=== PATIENT | female | born 2000 | race Caucasian/White ===

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

== ENCOUNTER 2019-11-30 15:16 | Emergency (ER) | payer BC ==
[~2019-11-30] VITALS: Ht 152.4 cm; Wt 70.5 kg
[2019-11-30 15:17] VITALS: BP 111/55
[2019-11-30] MEDS ORDERED: ESCI10TA2 (15:26)
[2019-11-30] MEDS ORDERED: NEXP1IMP SC (15:26)
[2019-11-30] MEDS ORDERED: LIDO5DIS41 TOP (23:26)
== END 2019-11-30 16:20 | disposition left against medical advice (07) ==
LOC: M ED 15:16
DX: Z53.21 Procedure and treatment not carried out due to patient leaving prior to being seen by health care provider (principal)

== ENCOUNTER 2019-11-30 21:50 | Emergency (ER) | payer BC ==
[~2019-11-30] VITALS: Ht 152.4 cm; Wt 70.1 kg
[~2019-11-30 21:50] MED LIST changes: +ESCI10TA2; +NEXP1IMP SC
[2019-11-30] MEDS ORDERED: LIDOCAINE 5% (LIDODERM) PATCH TD ONE (22:45)
[2019-11-30] MEDS ORDERED: KETOROLAC 60MG 2ML VIAL IM ONE (22:45)
[2019-11-30] MEDS ORDERED: methylPREDNISolone 125MG 2ML VIAL IM ONE (22:45)
[2019-11-30] MEDS ORDERED: LIDO5DIS41 TOP (23:26)
[2019-11-30 23:35] VITALS: BP 110/64
[2019-12-01] MEDS ORDERED: **NOTE PATIENT COMMENT** MISC XX SCH (21:00)
== END 2019-11-30 23:37 | disposition home or self-care (01) ==
LOC: M ED 21:50
DX: S29.011A Strain of muscle and tendon of front wall of thorax, initial encounter (principal); Y92.9 Unspecified place or not applicable; Y93.9 Activity, unspecified; Y99.0 Civilian activity done for income or pay; X50.0XXA Overexertion from strenuous movement or load, initial encounter; Z79.899 Other long term (current) drug therapy
CPT/HCPCS: 96372; 99283; J1885; J2930

== ENCOUNTER → 2020-03-24 | Outpatient (CLI) | payer BC ==
[~2020-03-24] MED LIST changes: +LIDO5DIS41 TOP
== END ==
LOC: M PLALAB 13:31
PROVIDERS: ATTEND Nurse Practitioner Family
DX: E04.0 Nontoxic diffuse goiter (principal)

== ENCOUNTER → 2020-05-08 | Outpatient (REF) | payer BC ==
[2020-05-08 17:59] LABS: FREE T3 3.2 PG/ML (2.9-4.5); FREE T4 0.9 NG/DL (0.78-1.33); THYROID STIMULATING HORMONE 0.051 uIU/ML (0.463-3.98)
[2020-05-08 18:00] LABS: THYROID PEROXIDASE ANTIBODY 169.2 U/ML (<60.0)
[2020-05-08 18:01] LABS: THYROGLOBULIN ANTIBODY 255.8 U/ML (<60.0)
== END ==
LOC: M LAB REF 15:56
PROVIDERS: ATTEND Physician Assistant
DX: E06.3 Autoimmune thyroiditis (principal)

== ENCOUNTER → 2020-06-04 | Outpatient (CLI) | payer BC ==
[~2020-06-04] MED LIST changes: -CLIN150C14 PO; +CLIN150C15 PO; +ESCI10TA16; -ESCI10TA2
--- NOTE | 2020-06-05 13:54 | REP ---
INDICATION: NONTOXIC DIFFUSE GOITER. COMPARISON: None. TECHNIQUE/RADIOTRACER AND DOSE: Following the oral administration of 354 uCi iodine 123 as sodium iodine, images of the thyroid are performed and uptake values are obtained. FINDINGS: The 24 hour uptake is 61.35% which is well above normal range of 25-35%. Both lobes of the thyroid are enlarged measuring between 5 and 6 cm in length. There is diffuse homogeneous increased uptake throughout both lobes of the thyroid. IMPRESSION: Findings compatible with Graves disease. <Electronically signed by Alexsander Roy > 06/05/20 [id number]
== END ==
LOC: M RAD 13:34
PROVIDERS: ATTEND Internal Medicine Endocrinology, Diabetes & Metabolism
DX: E04.0 Nontoxic diffuse goiter (principal)
CPT/HCPCS: 78012; A9516

== ENCOUNTER 2020-06-16 15:02 | Emergency (ER) | payer BC, MEDICAID ==
[~2020-06-16] VITALS: Ht 165.1 cm; Wt 76.5 kg
[2020-06-16 16:51] VITALS: BP 122/78
== END 2020-06-16 16:12 | disposition home or self-care (01) ==
LOC: M ED 15:02
DX: S30.851A Superficial foreign body of abdominal wall, initial encounter (principal); X58.XXXA Exposure to other specified factors, initial encounter; Y92.9 Unspecified place or not applicable; Y93.9 Activity, unspecified; Y99.9 Unspecified external cause status; Z79.3 Long term (current) use of hormonal contraceptives; Z79.899 Other long term (current) drug therapy

== ENCOUNTER → 2020-07-08 | Outpatient (CLI) | payer BC, MEDICAID ==
[2020-07-08 18:14] LABS: FREE T4 0.87 NG/DL (0.78-1.33); THYROID STIMULATING HORMONE 1.62 uIU/ML (0.463-3.98)
== END ==
LOC: M PLALAB 14:28
PROVIDERS: ATTEND Nurse Practitioner Family
DX: E04.0 Nontoxic diffuse goiter (principal)

== ENCOUNTER → 2020-09-10 | Outpatient (CLI) | payer BC, MEDICAID ==
[2020-09-10 14:37] LABS: FREE T4 0.82 NG/DL (0.78-1.33); THYROID STIMULATING HORMONE 0.989 uIU/ML (0.463-3.98)
== END ==
LOC: M PLALAB 10:50
PROVIDERS: ATTEND Nurse Practitioner Family
DX: E04.0 Nontoxic diffuse goiter (principal)

== ENCOUNTER → 2021-01-15 | Outpatient (CLI) | payer BC, MEDICAID ==
[~2021-01-15] MED LIST changes: -CLIN150C15 PO; +CLIN150C17 PO
[2021-01-15 16:21] LABS: FREE T4 0.92 NG/DL (0.76-1.46); THYROID STIMULATING HORMONE 0.944 uIU/ML (0.358-3.740)
== END ==
LOC: M PLALAB 11:25
PROVIDERS: ATTEND Internal Medicine Endocrinology, Diabetes & Metabolism
DX: E04.0 Nontoxic diffuse goiter (principal)

== ENCOUNTER → 2021-03-02 | Outpatient (CLI) | payer BC, MEDICAID ==
--- NOTE | 2021-03-02 16:59 | REP ---
INDICATION: IRREGULAR MENSES. COMPARISON: CT 03/06/2018. TECHNIQUE: Transabdominal scanning performed. FINDINGS: Uterine dimensions are 7.8 x 2.8 x 4.4 cm. Endometrial echo is 4 mm in AP dimension and centrally placed. The bladder measures 8.6 x 5.2 x 8.4cm. The right ovary has dimensions of 4.5 x 1.9 x 2.2 cm. It's Doppler flow is normal with a resistive index of 0.62. The left ovary dimensions are 4.3 x 3.0 x 3.9 cm. It's Doppler flow was normal with resistive index of 0.60. A cyst of the left ovary measures 3.0 x 1.9 x 3.1 cm. No free fluid is seen in the cul-de-sac. IMPRESSION: Endometrial thickness 4 mm. Left ovarian cyst with maximum diameter 3.1 cm. No torsion or free fluid. <Electronically signed by Alexsander Roy > 03/02/21 [id number]
== END ==
LOC: M RAD 16:27
PROVIDERS: ATTEND Physician Assistant Medical
DX: N92.6 Irregular menstruation, unspecified (principal); N83.202 Unspecified ovarian cyst, left side

== ENCOUNTER 2021-04-23 09:36 | Emergency (ER) | payer BC, MEDICAID ==
[~2021-04-23] VITALS: Ht 165.1 cm; Wt 78.1 kg
[2021-04-23 09:37] VITALS: BP 122/79
[2021-04-23] MEDS ORDERED: BUPR150T5 (09:41)
[2021-04-23] MEDS ORDERED: FLUTISP (09:41)
--- OUTSIDE RECORDS SUMMARY | 2021-04-23 09:44 | CCD ---
Author Organization Unknown Address [address] [place] [address] Phone [phone] Care Team Providers Care Insurance Producer Name Role Phone ELOY PIZARRO 3 [phone] SAI OCHOA MD 2 [phone] Allergies Code Code System Name Reaction Severity Status Onset 934376 RxNorm Lexapro Insomnia Moderate Active Medications Name Status Start Date Stop Date albuterol sulfate HFA 90 mcg/actuation aerosol inhaler Active Not available amoxicillin 500 mg capsule TAKE ONE CAPSULE BY MOUTH EVERY 8 HOURS FOR 10 DAYS Completed 01/13/2021 amoxicillin 875 mg-potassium clavulanate 125 mg tablet Completed 05/08/2020 cefdinir 300 mg capsule TAKE ONE CAPSULE BY MOUTH EVERY 12 HOURS FOR 10 DAYS Completed 12/09/2020 cephalexin 500 mg capsule TAKE ONE CAPSULE BY MOUTH THREE TIMES A DAY FOR 5 DAYS Completed 07/01/2020 cetirizine 10 mg tablet TAKE ONE TABLET BY MOUTH EVERY DAY Active Not available ciprofloxacin 0.3 %-dexamethasone 0.1 % ear drops,suspension Com pleted 05/08/2020 doxycycline monohydrate 100 mg tablet TAKE ONE TABLET BY MOUTH TWICE A DAY FOR 7 DAYS Completed 12/09/2020 escitalopram 10 mg tablet Completed 2020 fluconazole 150 mg tablet TAKE ONE TABLET BY MOUTH ONCE Completed fluoxetine 10 mg capsule TAKE ONE CAPSULE BY MOUTH EVERY DAY Active Not available fluticasone propionate 50 mcg/actuation nasal spray,suspension SPRAY ONE SPRAY IN EACH NOSTRIL EVERY DAY Active Not available ibuprofen 800 mg tablet Completed 05/08/20 loratadine 10 mg tablet TAKE ONE TABLET BY MOUTH EVERY DAY Completed 12/2020 metronidazole 0.75 % vaginal gel INSERT 1 APPLICATORFUL VAGINALLY ONCE DAILY AT BEDTIME FOR 5 NIGHTS Completed 12/09/2020 naproxen 500 mg tablet Completed 0 [id number]-[id number]-bunauljny 3.5 mg-10,000 unit/mL-1 % ear d serasusp Completed 05/08/2020 nitrofurantoin monohydrate/macrocrystals 100 mg capsule TAKE ONE CAPSULE BY MOUTH TWO TIMES A DAY FOR 10 DAYS Completed 12/09/2020 prednisone 20 mg tablet TAKE ONE TABLET BY MOUTH DAILY WITH A MEAL FOR 5 DAYS Active Not available Sudogest 12-hour 120 mg tablet,extended release TAKE ONE TABLET BY MOUTH TWICE A DAY FOR 7 DAYS Completed 12/09/2020 sulfamethoxazole 800 mg-trimethoprim 160 mg tablet Completed 05/08/2020 terconazole 0.4 % vaginal cream Completed 12/09/2020 triamcinolone acetonide 0.1 % topical cream Completed 01/28/2021 Problems Name Status Onset Date Source Overweight Unknown 09/12/2012 History Endocrine/metabolic Screening Unknown 12/20/2014 Hi story Impacted Tooth Unknown 04/23/2016 History Adjustment Disorder with Mixed Anxiety and Depressed Mood Unknow n 08/24/2016 History Irregular Periods Active 08/24/2016 History Influenza Vaccine Needed Unknown 08/24/2016 History Autoimmune Thyroiditis Active 08/26/2016 History Diffuse Goiter Active 10/09/2019 History Body Mass Index 25-29 - Overweight Active 10/09/2019 History Procedure by Method Unknown 10/09/2019 History Simple Goiter Unknown 10/09/2019 History Generalized Anxiety Disorder Unknown 10/29/2019 His tory Finding of Head Region Unknown 11/12/2019 History Adjustment Disorder with Mixed Disturbance of Emotions and C onduct Unknown 02/18/2020 History Clinical Finding Unknown 02/18/2020 History Family Problems Unknown 04/11/2020 Stress at Work Unknown 05/01/2020 Anxiety Disorder Unknown 06/11/2020 Depressive Disorder Unknown 06/11/2020 Moderate Recurrent Major Depression Active 10/16/2020 Procedures Notes: wisdom teeth extracted, Nexplanon placed 09/11/2019 Results Lab Results Date Name Specimen Result Interpretation Description Value Range Status Address 01/28/2021 SARS CoV 2 RdRp Gene, QL Probe, Respiratory Specimen Normal Sars-cov-2 negative negative Final [facility] Medical: [address], [place] 12/09/2020 HIV 1+2 Ab + HIV1 P24 Ag, Quantitative I mmunoassay, Serum Blood venous Normal HIV Ag/Ab, 4TH Gen non-reactive non-reactive Fin al [facility]: [address] , [place] 12/09/2020 Hepatitis C Virus RNA, Quant, PCR, Serum or Plas ma Blood venous Normal HCV RNA, Quantitative Real Time PCR <15 not de tected IU/mL not detected IU/mL [facility] [address] , [place] Blood venous Normal HCV RNA, Quanti tative Real Time PCR <1.18 not detected log IU/mL not detected log IU/mL Final [facility]: [address] , [place] Blood venous Comment Final [facility]: [address] , [place] 05/27/2020 SARS CoV 2 RdRp Gene, QL Probe, Respiratory Spec imen Nasopharyngeal Normal Sars-cov-2 negative negative Final [facility] Medical: [address] [facility] 05/08/2020 TSH + Free T4, Serum Blood venous Low Thyroid Stimulating Hormone 0.051 uIU/mL 0.463-3.98 uIU/mL Final [facility] Center: [address] [facility] Blood venous Normal Free T4 0.90 NG/dL 0.78-1.33 NG/dL [facility]: [address] [facility] 05/08/2020 Triiodothyronine Free, QN, Serum or Plasma Normal Free T3 3.2 pg/mL 2.9-4.5 pg/mL [facility] nter: [address] [facility] 05/08/2020 Thyroid Peroxidase (Tpo) Ab, Serum Blood venous High Thyroid Peroxidase Antibody 169.2 U/mL <60.0 U/mL [facility] edical Center: [address] [facility] 05/08/2020 Thyroglobulin Ab, Serum Blood venous High Thyroglobulin Antibody 255.8 U/mL <60.0 U/mL Final [facility] Center: [address] [facility] Past Encounters 04/13/2021 Moderate Recurrent Major Depression Eva Layne [facility]: [address] [facility] [address], [place] [address], Ph. 04/06/2021 Moderate Recurrent Major Depression Eva Layne [facility]: [address] [facility] [address], [place] [address], Ph. 03/30/2021 Moderate Recurrent Major Depression; Generalized Anxiety Disorder Eva Layne [facility]: [address], [place] [address], Ph. 03/23/2021 Moderate Recurrent Major Depression; Generalized Anxiety Disorder Eva Layne [facility]: [address], [place] [address], Ph. 03/09/2021 Generalized Anxiety Disorder; Moderate Recurrent Major Depression Eva Layne [facility]: [address], [address], [place] [address], Ph. 01/28/2021 Upper Respiratory Infection Eloy Abrams, RPA-C: [address], [place] [address], Ph. 01/13/2021 Generalized Anxiety Disorder; Otitis Media; Allergic Rhinitis Eloy Abrams, RPA-C: [address], [place] [address], Ph. 01/12/2021 Generalized Anxiety Disorder; Moderate Recurrent Major Depression Eva Layne [facility]: [address], [address], [place] [address], Ph. 12/29/2020 Moderate Recurrent Major Depression Eva Layne [facility]: [address], [place] [address], Ph. 12/15/2020 Generalized Anxiety Disorder Eva Layne [facility]: [address], [place] [address], Ph. 12/09/2020 Adult Health Examination; Anxiety Disorder; Moderate Recurrent Major Depression; Counseling; Acute Right Otitis Media; HIV Screening; Hepatitis C Screening Eloy Abrams, RPA-C: [address], [place] [address], Ph. 11/20/2020 Moderate Recurrent Major Depression; Anxiety Disorder Eva Layne [facility]: [address], [address], [place] [address], Ph. 11/10/2020 Moderate Recurrent Major Depression Eva Layne [facility]: [address], [address], [place] [address], Ph. 10/15/2020 Moderate Recurrent Major Depression Eva Layne [facility]: [address], [place] [address], Ph. 10/06/2020 Generalized Anxiety Disorder Eva Layne [facility]: [address], [address], [place] [address], Ph. 07/01/2020 Cellulitis Vickie Keenan PA-C: [address], [place] [address], Ph. 06/10/2020 Anxiety Disorder; Depressive Disorder Eva Layne [facility]: [address], [address], [place] [address], Ph. 05/29/2020 Eva Layne [facility]: [address], [place] [address], Ph. 05/27/2020 Exposure to SARS-CoV-2 Stevie Haley MD: [address] , [place] [address], Ph. 05/19/2020 Adjustment Disorder with Mixed Anxiety and Depressed Mood; Autoimmune Thyroiditis Eloy Abrams RPA-C: [address], [place] [address], Ph. 05/08/2020 Autoimmune Thyroiditis Eloy Abrams RPA-C: [address], [place] [address], Ph. 05/07/2020 Adjustment Disorder with Mixed Anxiety and Depressed Mood Eva Layne [facility]: [address], [place] [address], Ph. 04/30/2020 Adjustment Disorder with Mixed Anxiety and Depressed Mood; Family Problems; Stress at Work Eva Layne L[facility]: [address], [place] [address], Ph. 04/10/2020 Adjustment Disorder with Mixed Anxiety and Depressed Mood; Family Problems Eva Layne [facility]: [address], [place] [address], Ph. 03/26/2020 Stress and Adjustment Reaction; Ineffective Family Coping Eva Layne [facility]: [address], [place] [address], Ph. 03/12/2020 Family Coping: Potential for Growth; Self-esteem Disturbance; Adjustment Disorder with Mixed Anxiety and Depressed Mood Eva Layne [facility]: [address], [place] [address], Ph. Social History Tobacco Smoking Status Never Smoker Vaccine List Vaccine Type COVID-19, mRNA, LNP-S, PF, 100 mcg/0.5 m L dose (Moderna) 08/12/2020 09/09/2020 meningococcal, unspecified formulation 08/24/20160.5 mL Plan of Care Reminders Provider Appointments None recorded. Lab None recorded. Referral None recorded. Procedures None recorded. Surgeries None recorded. Imaging None recorded. Vitals 01/28/2021 10:10AM SAME DAY 20 Height Weight BMI Blood Pressure 60 in 165 lbs 16 oz 32.4 kg/m2 124/83 mm[Hg] 12/09/2020 02:00PM ANNUAL EXAM Height Weight BMI Blood Pressure 60 in 161 lbs 16 oz 31.6 kg/m2 107/73 mm[Hg] 07/01/2020 09:10AM TELEHEALTH 20 Height 60 in 05/19/2020 12:50PM TELEHEALTH 20 Height 60 in 05/08/2020 02:50PM TELEHEALTH 20 Height 60 in 11/12/2019 Height Weight BMI Blood Pressure 60 in 151 lbs 29.60 kg/m2 106/69 mm[Hg] 10/09/2019 Height Weight BMI Blood Pressure 60 in 147 lbs 2.08 oz 28.84 kg/m2 124/69 mm[H g]
--- OUTSIDE RECORDS SUMMARY | 2021-04-23 09:44 | CCD ---
Author Organization Unknown Address [address] [place] [address] Phone [phone] Care Team Providers Care Forest Ranger Name Role Phone ELOY PIZARRO 3 [phone] ASI OCHOA MD 2 [phone] Allergies Code Code System Name Reaction Severity Status Onset 574194 RxNorm Lexapro Insomnia Moderate Active Medications Name Status Start Date Stop Date albuterol sulfate HFA 90 mcg/actuation aerosol inhaler Completed 04/15/2021 amoxicillin 500 mg capsule TAKE ONE CAPSULE [...] TAKE ONE CAPSULE BY MOUTH EVERY DAY Completed fluticasone propionate 50 mcg/actuation nasal spray,suspension SPRAY ONE SPRAY IN EACH NOSTRIL EVERY DAY Active Not available ibuprofen 800 mg tablet Completed 05/08/20 loratadine 10 mg tablet TAKE ONE TABLET BY MOUTH EVERY DAY Completed 12/2020 metronidazole 0.75 % vaginal gel INSERT 1 APPLICATORFUL VAGINALLY ONCE DAILY AT BEDTIME FOR 5 NIGHTS Completed 12/09/2020 naproxen 500 mg tablet Completed [id number]-dywxffpvr-hutmaeabp 3.5 mg-10,000 unit/mL-1 % ear d rops,susp Completed 05/08/2020 Nexplanon 68 mg subdermal implant Inject by subcutaneous route. Active 09/11/2019 Not avail able nitrofurantoin monohydrate/macrocrystals 100 mg capsule TAKE ONE CAPSULE BY MOUTH TWO TIMES A DAY FOR 10 DAYS Completed 12/09/2020 prednisone 20 mg tablet TAKE ONE TABLET BY MOUTH DAILY WITH A MEAL FOR 5 DAYS Completed 04/15/2021 Sudogest 12-hour 120 mg tablet,extended release TAKE ONE TABLET BY MOUTH TWICE A DAY FOR 7 DAYS Completed 12/09/2020 sulfamethoxazole 800 mg-trimethoprim 160 mg tablet Completed 05/08/2020 terconazole 0.4 % vaginal cream Completed 12/09/2020 triamcinolone acetonide 0.1 % topical cream Completed 01/28/2021 Wellbutrin SR 150 mg tablet, 12 hr susta ined-release Take 1 tablet twice a day by oral route. Active Not available Problems Name Status Onset Date Source Overweight [...] 06/11/2020 Moderate Recurrent Major Depression Active 10/16/2020 Generalized Anxiety Disorder Active Procedures Notes: wisdom teeth extracted, Nexplanon placed 09/11/2019 Results Lab Results Date Name Specimen Result Interpretation Description Value Range Status Address 01/28/2021 SARS CoV 2 RdRp Gene, QL Probe, Respiratory Specimen Normal Sars-cov-2 negative negative Final [facility] Medical: [address], [place] 12/09/2020 HIV 1+2 Ab + HIV1 P24 Ag, Quantitative I mmunoassay, Serum Blood venous Normal HIV Ag/Ab, 4TH Gen non-reactive non-reactive Fin al [facility]: [address] [facility] 12/09/2020 Hepatitis C Virus RNA, Quant, PCR, Serum or Plas ma Blood venous Normal HCV RNA, Quantitative Real Time PCR <15 not de tected IU/mL not detected IU/mL [facility] [address] [facility] Blood venous Normal HCV RNA, Quanti tative Real Time PCR <1.18 not detected log IU/mL not detected log IU/mL Final [facility]: [address] , [place] Blood venous Comment Final [facility]: [address] [place] 05/27/2020 SARS CoV 2 RdRp Gene, QL Probe, Respiratory Spec imen Nasopharyngeal Normal Sars-cov-2 negative negative Final [facility] Medical: [address] [facility] 05/08/2020 TSH + Free T4, Serum Blood venous Low Thyroid Stimulating Hormone 0.051 uIU/mL 0.463-3.98 uIU/mL Final [facility] Center: [address] [facility] Blood venous Normal Free T4 0.90 NG/dL 0.78-1.33 NG/dL [facility]: [address] [facility] 05/08/2020 Triiodothyronine Free, QN, Serum or Plasma Normal Free T3 3.2 pg/mL 2.9-4.5 pg/mL [facility] Ce nter: [address] [facility] 05/08/2020 Thyroid Peroxidase (Tpo) Ab, Serum Blood venous High Thyroid Peroxidase Antibody 169.2 U/mL <60.0 U/mL [facility] [address] [facility] 05/08/2020 Thyroglobulin Ab, Serum Blood venous High Thyroglobulin Antibody 255.8 U/mL <60.0 U/mL Final [facility] Medica l Center: [address] [facility] Past Encounters 04/15/2021 Generalized Anxiety Disorder; Moderate Recurrent Major Depression Eloy Abrams, RPA-C: [address], [place] [address], Ph. 04/13/2021 Moderate Recurrent Major Depression Eva Layne [facility]: [address], [place] [address], Ph. 04/06/2021 Moderate Recurrent Major Depression Eva Layne [facility]: [address], [place] [address], Ph. 03/30/2021 Moderate Recurrent Major Depression; Generalized Anxiety Disorder Eva Layne [facility]: [address], [place] [address], Ph. 03/23/2021 Moderate Recurrent Major Depression; Generalized Anxiety Disorder Eva Layne [facility]: [address], [place] [address], Ph. 03/09/2021 Generalized Anxiety Disorder; Moderate Recurrent Major Depression Eva Layne [facility]: [address], [place] [address], Ph. 01/28/2021 Upper Respiratory Infection Eloy Abrams RPA-C: [address], [place] [address], Ph. 01/13/2021 Generalized Anxiety Disorder; Otitis Media; Allergic Rhinitis Eloy Abrams, RPA-C: [address], [place] [address], Ph. 01/12/2021 Generalized Anxiety Disorder; Moderate Recurrent Major Depression Eva Layne [facility]: [address], [place] [address], Ph. 12/29/2020 Moderate Recurrent Major Depression Eva Layne [facility]: [address], [place] [address], Ph. 12/15/2020 Generalized Anxiety Disorder Eva Layne [facility]: [address], [place] [address], Ph. 12/09/2020 Adult Health Examination; Anxiety Disorder; Moderate Recurrent Major Depression; Counseling; Acute Right Otitis Media; HIV Screening; Hepatitis C Screening JUAREZ Prince: [address], [place] [address], Ph. 11/20/2020 Moderate Recurrent Major Depression; Anxiety Disorder Eva Layne [facility]: [address], [place] [address], Ph. 11/10/2020 Moderate Recurrent Major Depression Eva Layne [facility]: [address], [place] [address], Ph. 10/15/2020 Moderate Recurrent Major Depression Eva Layne [facility]: [address], [place] [address], Ph. 10/06/2020 Generalized Anxiety Disorder Eva Layne [facility]: [address], [place] [address], Ph. 07/01/2020 Cellulitis Vickie Keenan PA-C: [address], [place] [address], Ph. 06/10/2020 Anxiety Disorder; Depressive Disorder Eva Layne [facility]: [address], [place] [address], Ph. 05/29/2020 Eva Layne [facility]: [address], [place] [address], Ph. 05/27/2020 Exposure to SARS-CoV-2 Stevie Haley MD: [address] [place] [address], Ph. 05/19/2020 Adjustment Disorder with Mixed Anxiety and Depressed Mood; Autoimmune Thyroiditis Eloy Lopez Jose Alberto RPA-C: [address] [facility], [facility] [address], [place] [address], Ph. 05/08/2020 Autoimmune Thyroiditis Eloy Lopez Jose Alberto RPA-C: [address] [facility], [facility] [address], [place] [address], Ph. 05/07/2020 Adjustment Disorder with Mixed Anxiety and Depressed Mood Eva Layne [facility]: [address] [facility], [facility] [address], [place] [address], Ph. 04/30/2020 Adjustment Disorder with Mixed Anxiety and Depressed Mood; Family Problems; Stress at Work Eva Layne [facility]: [address] [facility], [facility] [address], [place] [address], Ph. 04/10/2020 Adjustment Disorder with Mixed Anxiety and Depressed Mood; Family Problems Eva Layne [facility]: [address] [facility], [facility] [address], [place] [address], Ph. 03/26/2020 Stress and Adjustment Reaction; Ineffective Family Coping Eva Layne [facility]: [address] [facility], [facility] [address], [place] [address], Ph. 03/12/2020 Family Coping: Potential for Growth; Self-esteem Disturbance; Adjustment Disorder with Mixed Anxiety and Depressed Mood Eva Layne [facility]: [address] [facility], [facility] [address], [place] [address], Ph. Social History Tobacco Smoking Status Never Smoker Vaccine List Vaccine Type COVID-19, mRNA, LNP-S, PF, 100 mcg/0.5 m L dose (Moderna) 08/12/2020 09/09/2020 meningococcal, unspecified formulation 08/24/20160.5 mL Plan of Care Reminders Provider Appointments None recorded. Lab None recorded. Referral None recorded. Procedures None recorded. Surgeries None recorded. Imaging None recorded. Vitals 04/15/2021 09:30AM TELEHEALTH 20 Height 60 in 01/28/2021 10:10AM SAME DAY 20 Height Weight [...]
--- OUTSIDE RECORDS SUMMARY | 2021-04-23 09:45 | CCD ---
Author Organization Unknown Address [address] [place] [address] Phone [phone] Care Team Providers Care Superintendent Container Terminal Name Role Phone ELOY PIZARRO 3 [phone] SAI OCHOA MD 2 [phone] Allergies Code Code System Name Reaction Severity Status Onset 470497 RxNorm Lexapro Insomnia Moderate Active Medications Name Status Start Date Stop Date albuterol sulfate HFA 90 mcg/actuation a erosol inhaler INHALE TWO PUFFS BY MOUTH EVERY 4 HOURS Active Not available amoxicillin 500 mg capsule [...] Completed 12/09/2020 naproxen 500 mg tablet Completed huqhccad-cxtbdodba-aaqeeklot 3.5 mg-10,000 unit/mL-1 % ear d rops,susp Completed 05/08/2020 nitrofurantoin monohydrate/macrocrystals 100 mg capsule [...] Goiter Unknown 10/09/2019 History Generalized Anxiety Disorder Active 10/29/2019 His tory Finding of Head Region [...] Respiratory Specimen Normal Sars-cov-2 negative negative Final [facility] Medical: [address], [place] 12/09/2020 HIV 1+2 Ab + HIV1 P24 Ag, Quantitative I mmunoassay, Serum Blood venous Normal HIV Ag/Ab, 4TH Gen non-reactive non-reactive Fin al [facility]: [address], [place] 12/09/2020 Hepatitis C Virus RNA, Quant, PCR, Serum or Plas ma Blood venous Normal HCV RNA, Quantitative Real Time PCR <15 not de tected IU/mL not detected IU/mL [facility] [address] , [place] Blood venous Normal HCV RNA, Quanti tative Real Time PCR <1.18 not detected log IU/mL not detected log IU/mL Final [facility]: [address] , [place] Blood venous Comment Final [facility]: [address] , [place] 05/27/2020 SARS CoV 2 RdRp Gene, QL Probe, Respiratory Spec imen Nasopharyngeal Normal Sars-cov-2 negative negative Final [facility] Medical: [address] [facility] 05/08/2020 TSH + Free T4, Serum Blood venous Low Thyroid Stimulating Hormone 0.051 uIU/mL 0.463-3.98 uIU/mL Final [facility] Center: 0 [facility] Blood venous Normal Free T4 0.90 NG/dL 0.78-1.33 NG/dL [facility]: 0 [facility] 05/08/2020 Triiodothyronine Free, QN, Serum or Plasma Normal Free T3 3.2 pg/mL 2.9-4.5 pg/mL [facility] nter: [address] [place] [address] 05/08/2020 Thyroid Peroxidase (Tpo) Ab, Serum Blood venous High Thyroid Peroxidase Antibody 169.2 U/mL <60.0 U/mL [facility] 0 [facility] 05/08/2020 Thyroglobulin Ab, Serum Blood venous High Thyroglobulin Antibody 255.8 U/mL <60.0 U/mL [facility]: [address] [place] [address] Past Encounters 03/23/2021 Moderate Recurrent Major Depression; Generalized Anxiety Disorder Eva Layne LMSW: [address] [facility] [address] [address], Ph. 03/09/2021 Generalized Anxiety Disorder; Moderate Recurrent Major Depression Eva Layne LMSW: [address], [place] [address], Ph. 01/28/2021 Upper Respiratory Infection Eloy Abrams, RPA-C: [address], [place] [address], Ph. 01/13/2021 Generalized Anxiety Disorder; Otitis Media; Allergic Rhinitis Eloy Abrams, RPA-C: [address], [place] [address], Ph. 01/12/2021 Generalized Anxiety Disorder; Moderate Recurrent Major Depression Eva Layne [facility]: [address], [place] [address], Ph. 12/29/2020 Moderate Recurrent Major Depression Eva Layne [facility]: [address], [place] [address], Ph. 12/15/2020 Generalized Anxiety Disorder Eva Layne LMSW: [address], [place] [address], Ph. 12/09/2020 Adult Health Examination; Anxiety Disorder; Moderate Recurrent Major Depression; Counseling; Acute Right Otitis Media; HIV Screening; Hepatitis C Screening Eloy Abrams, RPA-C: [address], [place] [address], Ph. 11/20/2020 Moderate Recurrent Major Depression; Anxiety Disorder Eva Layne LMSW: [address], [address], [place] [address], Ph. 11/10/2020 Moderate Recurrent Major Depression Eva Layne LMSW: [address], [place] [address], Ph. 10/15/2020 Moderate Recurrent Major Depression Eva Layne [employer]: [address], [address], [place] [address], Ph. 10/06/2020 Generalized Anxiety Disorder Eva Layne LMSW: [address], [place] [address], Ph. 07/01/2020 Cellulitis RICARDO DillonC: [address], [place] [address], Ph. 06/10/2020 Anxiety Disorder; Depressive Disorder Eva Layne LMSW: [address], [place] [address], Ph. 05/29/2020 Eva Layne LMSW: [address], [place] [address], Ph. 05/27/2020 Exposure to SARS-CoV-2 Stevie Haley MD: [address] [place] [address], Ph. 05/19/2020 Adjustment Disorder with Mixed Anxiety and Depressed Mood; Autoimmune Thyroiditis Eloy Abrams RPA-C: [address], [place] [address], Ph. 05/08/2020 Autoimmune Thyroiditis Eloy Abrams RPA-C: [address], [place] [address], Ph. 05/07/2020 Adjustment Disorder with Mixed Anxiety and Depressed Mood Eva Layne LMSW: [address], [place] [address], Ph. 04/30/2020 Adjustment Disorder with Mixed Anxiety and Depressed Mood; Family Problems; Stress at Work Eva Layne LMSW: [address], [place] [address], Ph. 04/10/2020 Adjustment Disorder with Mixed Anxiety and Depressed Mood; Family Problems Eva Layne LMSW: [address] , [facility] [address], [place] [address], Ph. 03/26/2020 Stress and Adjustment Reaction; Ineffective Family Coping Eva Layne LMSW: [address] [facility] [address], [place] [address], Ph. 03/12/2020 Family Coping: Potential for Growth; Self-esteem Disturbance; Adjustment Disorder with Mixed Anxiety and Depressed Mood Eva Layne LMSW: [address] [facility] [address], [place] [address], Ph. Social History Tobacco Smoking Status Never Smoker Vaccine List Vaccine Type COVID-19, mRNA, LNP-S, PF, 100 mcg/0.5 m L dose 08/12/2020 09/09/2020 meningococcal, unspecified formulation 08/24/20160.5 mL [...]
--- OUTSIDE RECORDS SUMMARY | 2021-04-23 09:45 | CCD | Continuity of Care Document ---
Author Author Alysia SALAS CHIEF ENGINEER Organization Unknown Address [address] [place] [address] Phone [phone] Care Team Providers Care Reconstructive Surgeon Name Role Phone Paola Silvestre AUTM [phone] Eloy Abrams RPA-C AUTM [phone] Problems Active Problems Provider Date Simple goiter Alaina Marks MD Onset: 01/04/2018 Amenorrhea Alaina Marks MD Onset: 01/04/2018 Social History Type Date Description Comments Sex Unknown Cigarette Use Denies Cigarette Use ETOH Use Denies alcohol use Tobacco Use Start: Unknown Patient has never smoked Smoking Status Reviewed: 01/20/21 Patient has never smoked Allergies, Adverse Reactions, Alerts Description No Known Drug Allergies Medications Active Medications SIG Qnty Indications Ordering Provide r Date Nexplanon 68mg Implant Unknown Prozac 10mg Capsules 1 tab by mouth daily Unknown Zyrtec Allergy 10mg Tablets 1 by mouth every day Unknown Immunizations Description No Information Available Vital Signs Date Vital Result Comment 01/20/2021 3:07pm BP Systolic 122 mmHg BP Diastolic 82 mmHg Heart Rate 68 /min Height 61 inches 5'1" Weight 168.00 lb BMI (Body Mass Index) 31.7 kg/m2 O2 % BldC Oximetry 98 % 09/15/2020 2:19pm BP Systolic 118 mmHg BP Diastolic 82 mmHg Heart Rate 73 /min Body Temperature 97.1 F Height 61 inches 5'1" Weight 169.12 lb BMI (Body Mass Index) 32.0 kg/m2 O2 % BldC Oximetry 99 % Results Test Acquired Date Facility Test Result H/L Range Note Laboratory test finding 01/15/2021 [facility] [address] [place] [address] ([phone] - Thyroid Stimulating Hormone 0.944 uIU/ML Normal 0.358- 3.740 Free T4 0.92 ng/dL Normal 0.76-1.46 Procedures Date Code Description Status 01/20/2021 55371 Office/Outpatient Established Lo w MDM 20-29 Min Completed 09/15/2020 77467 Office/Outpatient Established Lo w MDM 20-29 Min Completed Medical Devices Description No Information Available Encounters Type Date Location Provider Dx Diagnosis Office Visit 01/20/2021 3:15p DR. Alaina Salas, N P E06.1 Subacute thyroiditis N91.1 Secondary amenorrhea Office Visit 09/15/2020 2:15p DR. Alaina Salas, N P E06.1 Subacute thyroiditis N91.1 Secondary amenorrhea Assessments Date Code Description Provider 01/20/2021 E06.1 Subacute thyroiditis Cuca edwards, CHIEF ENGINEER 01/20/2021 N91.1 Secondary amenorrhea Cuca edwards NP 09/15/2020 E06.1 Subacute thyroiditis Cuca edwards, CHIEF ENGINEER 09/15/2020 N91.1 Secondary amenorrhea Cuca edwards NP Plan of Treatment Future Appointment(s):* 07/20/2021 3:30 pm - Cuca Salas NP at DR. Alaina Marks 01/20/2021 - Cuca Salas NP* E06.1 Subacute thyroiditis* New Labs:* FT4& TSH Panel, Scheduled: 06/29/21 * Comments:* Right lobe is slightly bigger than left. In office ultrasound did not reveal any nodules. Thyroid function tests have been normal. Echotexture on ultrasound looked normal and was not consistent with Mirian's diseaseHowever TPO antibodies were positive = 107Labs done 05/08/2020- TSH= 0.051, FT4= 0.90, FT3= 3.2, TPO= 169.2, TGAB= 255.8 Differential dx- Grave's Disease, thyroiditis or warm nodules. On ultrasound no nodules noted. Pt c/o weight gain, hair loss- feel this may be more consistent with thyroiditis. Labs done 07/08/20- TSH= 1.620,FT4= 0.87-normal 06/04/20- 24 Hour uptake: increased uptake 61.35 % (25-35%) bilaterally Reviewed with Dr. Marks- suspect pt with thyroiditis in recoveryLabs done 09/10/20- TSH= 0.989, FT4= 0.82- stableHas lost 1 lbLabs done 01/15/21- TSH= 0.944, FT4= 0.92- stable Notes some compression while lying down. Still having globus sensationDiscussed surgical consult- pt would like to waitAdvised to call office if sx worsenRTO 6 months * Follow up:* RTO 6 months JL * N91.1 Secondary amenorrhea* Comments:* Has Nexplanon Having scant bleeding once every 2 months. Functional Status Description No Information Available Mental Status Description No Information Available Referrals Description No Information Available
--- OUTSIDE RECORDS SUMMARY | 2021-04-23 09:45 | CCD ---
Author Organization Unknown Address [address] [place] [address] Phone [phone] Care Team Providers Care Professor Of Chemical Engineering Name Role Phone ELOY PIZARRO 3 [phone] SAI OCHOA MD 2 [phone] Allergies Code Code System Name Reaction Severity Status Onset 733843 RxNorm Lexapro Insomnia Moderate Active Medications Name [...] 12/09/2020 naproxen 500 mg tablet Completed 0 ynkxwrsd-ofnvsynpv-iajamskkz 3.5 mg-10,000 unit/mL-1 % ear d serasusp [...] Respiratory Specimen Normal Sars-cov-2 negative negative Final [facility] Medical: [address], [place] 12/09/2020 HIV 1+2 Ab + HIV1 P24 Ag, Quantitative I mmunoassay, Serum Blood venous Normal HIV Ag/Ab, 4TH Gen non-reactive non-reactive Fin al [facility]: [address] , [place] 12/09/2020 Hepatitis C Virus RNA, Quant, PCR, Serum or Plas ma Blood venous Normal HCV RNA, Quantitative Real Time PCR <15 not de tected IU/mL not detected IU/mL [facility] [address] , [place] Blood venous Normal HCV RNA, Quanti tative Real Time PCR <1.18 not detected log IU/mL not detected log IU/mL Final [facility]: [address], [place] Blood venous Comment Final [facility]: [address] , [place] 05/27/2020 SARS CoV 2 RdRp Gene, QL Probe, Respiratory Spec imen Nasopharyngeal Normal Sars-cov-2 negative negative Final [facility]: [address] [facility] 05/08/2020 TSH + Free T4, Serum Blood venous Low Thyroid Stimulating Hormone 0.051 uIU/mL 0.463-3.98 uIU/mL Final [facility] Center: [address] [facility] Blood venous Normal Free T4 0.90 NG/dL 0.78-1.33 NG/dL [facility]: [address] [facility] 05/08/2020 Triiodothyronine Free, QN, Serum or Plasma Normal Free T3 3.2 pg/mL 2.9-4.5 pg/mL [facility] nter: 0 [facility] 05/08/2020 Thyroid Peroxidase (Tpo) Ab, Serum Blood venous High Thyroid Peroxidase Antibody 169.2 U/mL <60.0 U/mL [facility] edical Center: [address] [facility] 05/08/2020 Thyroglobulin Ab, Serum Blood venous High Thyroglobulin Antibody 255.8 U/mL <60.0 U/mL Final [facility] Center: [address] [facility] Past Encounters 04/06/2021 Moderate Recurrent Major Depression Eva Layne LMSW: [address] [facility] [address], [place] [address], Ph. 03/30/2021 Moderate Recurrent Major Depression; Generalized Anxiety Disorder Eva Layne LMSW: [address] [facility] [address], [place] [address], Ph. 03/23/2021 Moderate Recurrent Major Depression; Generalized Anxiety Disorder Eva Layne LMSW: [address], [place] [address], Ph. 03/09/2021 Generalized Anxiety Disorder; Moderate Recurrent Major Depression Eva Layne [facility]: [address], [place] [address], Ph. 01/28/2021 Upper Respiratory Infection Eloy Abrams, RPA-C: [address], [place] [address], Ph. 01/13/2021 Generalized Anxiety Disorder; Otitis Media; Allergic Rhinitis Eloy Abrams, RPA-C: [address], [place] [address], Ph. 01/12/2021 Generalized Anxiety Disorder; Moderate Recurrent Major Depression Eva Layne [facility]: [address], [place] [address], Ph. 12/29/2020 Moderate Recurrent Major Depression Eva Layne LMSW: [address], [place] [address], Ph. 12/15/2020 Generalized Anxiety Disorder Eva aLyne LMSW: [address], [place] [address], Ph. 12/09/2020 Adult Health Examination; Anxiety Disorder; Moderate Recurrent Major Depression; Counseling; Acute Right Otitis Media; HIV Screening; Hepatitis C Screening Eloy Abrams, RPA-C: [address], [place] [address], Ph. 11/20/2020 Moderate Recurrent Major Depression; Anxiety Disorder Eva Layne [facility]: [address], [place] [address], Ph. 11/10/2020 Moderate Recurrent Major Depression Eva Layne LMSW: [address], [place] [address], Ph. 10/15/2020 Moderate Recurrent Major Depression Eva Layne LMSW: [address], [place] [address], Ph. 10/06/2020 Generalized Anxiety Disorder Eva Layne LMSW: [address], [place] [address], Ph. 07/01/2020 Cellulitis Vickie Keenan PA-C: [address], [place] [address], Ph. 06/10/2020 Anxiety Disorder; Depressive Disorder Eva Layne LMSW: [address], [place] [address], Ph. 05/29/2020 Eva Layne LMSW: [address], [place] [address], Ph. 05/27/2020 Exposure to SARS-CoV-2 Stevie Haley MD: [address] [place] [address], Ph. 05/19/2020 Adjustment Disorder with Mixed Anxiety and Depressed Mood; Autoimmune Thyroiditis Eloy Abrams RPA-C: [address], [place] [address], Ph. 05/08/2020 Autoimmune Thyroiditis Eloy Abrams RPA-C: [address], [place] [address], Ph. 05/07/2020 Adjustment Disorder with Mixed Anxiety and Depressed Mood Eva Layne LMSW: [address], [place] [address], Ph. 04/30/2020 Adjustment Disorder with Mixed Anxiety and Depressed Mood; Family Problems; Stress at Work Eva Layne LMSW: [address] [facility] [address], [place] [address], Ph. 04/10/2020 Adjustment Disorder with Mixed Anxiety and Depressed Mood; Family Problems Eva Layne LMSW: [address] [facility], [facility] [address], [place] [address], Ph. 03/26/2020 Stress and Adjustment Reaction; Ineffective Family Coping Eva Layne [facility]: [address], [facility] [address], [place] [address], Ph. 03/12/2020 Family Coping: Potential for Growth; Self-esteem Disturbance; Adjustment Disorder with Mixed Anxiety and Depressed Mood Eva Layne LMSW: [address] [facility], [facility] [address], [place] [address], Ph. Social History Tobacco Smoking Status Never [...]
--- OUTSIDE RECORDS SUMMARY | 2021-04-23 09:45 | CCD ---
Author Organization Unknown Address [address] [place] [address] Phone [phone] Care Team Providers Care Backbreaker Name Role Phone ELOY PIZARRO 3 [phone] SAI OCHOA MD 2 [phone] Allergies Code Code System Name Reaction Severity Status Onset 418567 RxNorm Lexapro Insomnia Moderate Active Medications Name [...] 12/09/2020 naproxen 500 mg tablet Completed 0 nifhflle-xdritvydn-axipqravq 3.5 mg-10,000 unit/mL-1 % ear d serasusp [...] Respiratory Specimen Normal Sars-cov-2 negative negative Final [facility] Medical: [address], [place] 12/09/2020 HIV 1+2 Ab + HIV1 P24 Ag, Quantitative I mmunoassay, Serum Blood venous Normal HIV Ag/Ab, 4TH Gen non-reactive non-reactive Fin al [facility]: [address] , [place] 12/09/2020 Hepatitis C Virus RNA, Quant, PCR, Serum or Plas ma Blood venous Normal HCV RNA, Quantitative Real Time PCR <15 not de tected IU/mL not detected IU/mL [facility] [address] , [place] Blood venous Normal HCV RNA, Quanti tative Real Time PCR <1.18 not detected log IU/mL not detected log IU/mL Final [facility]: [address], [place] Blood venous Comment Final [facility]: [address] , [place] 05/27/2020 SARS CoV 2 RdRp Gene, QL Probe, Respiratory Spec imen Nasopharyngeal Normal Sars-cov-2 negative negative Final [facility] Medical: [address] [facility] 05/08/2020 TSH + Free T4, Serum Blood venous Low Thyroid Stimulating Hormone 0.051 uIU/mL 0.463-3.98 uIU/mL [facility] Center: 0 [facility] Blood venous Normal Free T4 0.90 NG/dL 0.78-1.33 NG/dL [facility]: [address] [facility] 05/08/2020 Triiodothyronine Free, QN, Serum or Plasma Normal Free T3 3.2 pg/mL 2.9-4.5 pg/mL [facility] nter: 0 [facility] 05/08/2020 Thyroid Peroxidase (Tpo) Ab, Serum Blood venous High Thyroid Peroxidase Antibody 169.2 U/mL <60.0 U/mL [facility] edical Center: 0 [facility] 05/08/2020 Thyroglobulin Ab, Serum Blood venous High Thyroglobulin Antibody 255.8 U/mL <60.0 U/mL [facility]: [address] [facility] Past Encounters 03/30/2021 Moderate Recurrent Major Depression; Generalized Anxiety Disorder Eva Layne LMSW: [address] [facility] [address] [address], Ph. 03/23/2021 Moderate Recurrent Major Depression; Generalized Anxiety Disorder Eva Layne LMSW: [address] [facility] [address], [place] [address], Ph. 03/09/2021 Generalized Anxiety Disorder; Moderate Recurrent Major Depression Eva Layne LMSW: [address], [place] [address], Ph. 01/28/2021 Upper Respiratory Infection Eloy Abrams, RPA-C: [address], [place] [address], Ph. 01/13/2021 Generalized Anxiety Disorder; Otitis Media; Allergic Rhinitis Eloy Abrams, RPA-C: [address], [place] [address], Ph. 01/12/2021 Generalized Anxiety Disorder; Moderate Recurrent Major Depression Eva Layne LMSW: [address], [place] [address], Ph. 12/29/2020 Moderate Recurrent Major Depression Eva Layne LMSW: [address], [place] [address], Ph. 12/15/2020 Generalized Anxiety Disorder Eva Layne LMSW: [address], [place] [address], Ph. 12/09/2020 Adult Health Examination; Anxiety Disorder; Moderate Recurrent Major Depression; Counseling; Acute Right Otitis Media; HIV Screening; Hepatitis C Screening Eloy Lopez Abrams, RPA-C: [address], [place] [address], Ph. 11/20/2020 Moderate Recurrent Major Depression; Anxiety Disorder Eva Layne LMSW: [address], [place] [address], Ph. 11/10/2020 Moderate Recurrent Major Depression Eva Layne [facility]: [address], [place] [address], Ph. 10/15/2020 Moderate Recurrent Major Depression Eva Layne [facility]: [address], [place] [address], Ph. 10/06/2020 Generalized Anxiety Disorder Eva Layne [facility]: [address], [place] [address], Ph. 07/01/2020 Cellulitis Vickie Keenan PA-C: [address], [place] [address], Ph. 06/10/2020 Anxiety Disorder; Depressive Disorder Eva Layne [facility]: [address], [place] [address], Ph. 05/29/2020 Eva Layne [facility]: [address], [place] [address], Ph. 05/27/2020 Exposure to SARS-CoV-2 Stevie Haley MD: [address] [place] [address], Ph. 05/19/2020 Adjustment Disorder with Mixed Anxiety and Depressed Mood; Autoimmune Thyroiditis Eloy Abrams RPA-C: [address] [facility], [address], [place] [address], Ph. 05/08/2020 Autoimmune Thyroiditis Eloy Abrams RPA-C: [address], [place] [address], Ph. 05/07/2020 Adjustment Disorder with Mixed Anxiety and Depressed Mood Eva Layne [facility]: [address], [place] [address], Ph. 04/30/2020 Adjustment Disorder with Mixed Anxiety and Depressed Mood; Family Problems; Stress at Work Eva Layne [facility]: [address], [place] [address], Ph. 04/10/2020 Adjustment Disorder with Mixed Anxiety and Depressed Mood; Family Problems Eva Layne [facility]: [address] [facility] [address], [place] [address], Ph. 03/26/2020 Stress and Adjustment Reaction; Ineffective Family Coping Eva Layne [employer]: [address], [facility] [address], [place] [address], Ph. 03/12/2020 Family Coping: Potential for Growth; Self-esteem Disturbance; Adjustment Disorder with Mixed Anxiety and Depressed Mood Eva Layne [facility]: [address] [facility] [address], [place] [address], Ph. Social History Tobacco Smoking Status Never [...]
--- OUTSIDE RECORDS SUMMARY | 2021-04-23 09:45 | CCD | Continuity of Care Document ---
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 Inspector [employer] Name Role Phone María Greene MD Unavailable Unavailable Allergies, Adverse Reactions, Alerts Substance Reaction Status Criticality No Known Allergies Active No Information Medications Medication Instructions Dosage Effective Dates (start - stop) Sta tus Comments Nexplanon 68 mg subdermal implant 68mg Subdermal Implant - Active Lexapro 10 mg tablet - Active Problems Condition Effective Dates (start - stop) Clinical Status C omments Encounter for test, result negative Encntr screen for dis of the bld/bld-form org/immun mechnsm Irregular menstruation, unspecified Encntr screen for infections w sexl mode of transmiss Other sex counseling Candidiasis of vulva and vagina Encounter for test, result negative Dysuria Acute vaginitis Other sex counseling Encntr screen for infections w sexl mode of transmiss Encounter for oth general cnsl and advice on contraception Abnormal uterine and vaginal bleeding, unspecified Pruritus vulvae Encounter for oth general cnsl and advice on contraception Enctr srvlnc implantable subdermal contraceptive Other sex counseling Human immunodeficiency virus [HIV] counseling Pain in left arm Human immunodeficiency virus [HIV] counseling Encounter for oth general cnsl and advice on contraception Enctr srvlnc implantable subdermal contraceptive 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 Other sex counseling Other chlamydial infection of lower genitourinary tract Other sex counseling Human immunodeficiency virus [HIV] counseling Encounter for screening for human immunodeficiency virus Encntr screen for infections w sexl mode of transmiss Encounter for oth general cnsl and advice on contraception Other sex counseling Encounter for oth general cnsl and advice on contraception Encounter for test, result negative Human immunodeficiency virus [HIV] counseling Enctr for init prescription of implntbl subdermal contracep Encounter for test, result negative Other sex counseling Encounter for oth general cnsl and advice on contraception Other sex counseling Encounter for oth general cnsl and advice on contraception Encounter for surveillance of injectable contraceptive Other sex counseling Human immunodeficiency virus [HIV] counseling Encounter for oth general cnsl and advice on contraception Encounter for surveillance of injectable contraceptive 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 Encounter for surveillance of injectable contraceptive Encounter for surveillance of injectable contraceptive Encounter for surveillance of injectable contraceptive Encounter for surveillance of injectable contraceptive Encounter for test, result negative Encounter for oth general cnsl and advice on contraception Encounter for surveillance of injectable contraceptive Other sex counseling 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 Human immunodeficiency virus [HIV] counseling - Nontoxic single thyroid nodule Encounter for test, result negative Human immunodeficiency virus [HIV] counseling Encounter for screening for human immunodeficiency virus Encntr screen for infections w sexl mode of transmiss High risk heterosexual behavior Other sex counseling Encounter for oth general cnsl and advice on contraception Encounter for initial prescription of injectable contracep Nontoxic single thyroid nodule Chlamydial infection - Active 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 Marks. Procedures Procedure Date No Information Results Test Name Date and Time Measure Units Reference Range Abnormal Flag St atus Comments No Information Advance Directives Directive Yes / No Effective Date File Name No Information Encounters Encounter Description Practice Location Reason(s) For Visit Diagnose s Date Provider Providers Copied on Encounter [facility], [address] [place] [address], [id number], tel:[phone] BRIDGETT Pfeiffer No Information Jc Daniel. [address] [place] [address], [id number], [place]. tel:[phone] [facility], [address] [place] [address], [id number], [place] tel:[phone] [facility] [place] Encounter for pregn bridger test, result negativeEncntr screen for dis of the bld/bld-form org/immun mechnsmIrregular menstruation, unspecifiedEncntr screen for infections w sexl mode of transmissOther sex counselingCandidiasis of vulva and vagina Dwello Meggan Hernandez. [address] [place], [place], [id number], [place]. tel:[phone] Referring Provider: Meggan Greeen, [address] [place], [place], [id number]. tel:[phone] [facility], [address] [place] [address], [id number], [place] tel:[phone] [facility] [place] Encounter for pregn bridger test, result negativeDysuriaAcute vaginitisOther sex counselingEncntr screen for infections w sexl mode of transmissEncounter for oth general cnsl and advice on contraceptionAbnormal uterine and vaginal bleeding, unspecifiedPruritus vulvae Dwello Meggan Hernandez. [address] [place], [place], [id number], [place]. tel:[phone] Referring Provider: Meggan Greene, [address] [place] [address], [id number]. tel:[phone] [facility], [address] [place] [address], [id number], [place] tel:[phone] [facility] [place] Encounter for oth g eneral cnsl and advice on contraceptionEnctr srvlnc implantable subdermal contraceptiveOther sex counselingHuman immunodeficiency virus [HIV] counselingPain in left arm Chavez Najera. [address] [place], [place], [id number], [place]. tel:[phone] Referring Provider: Melissa Byrne, [address] [place] [address], [id number]. tel:[phone] [facility], [address] [place], [place], [id number], [place] tel:[phone] [facility] [place] Human immunodeficie ncy virus [HIV] counselingEncounter for oth general cnsl and advice on contraceptionEnctr srvlnc implantable subdermal contraceptive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Other sex counseling Chavez Najera. [address] [place], [place], [id number], [place]. tel:[phone] Referring Provider: Melissa Byrne, [address] [place], [place], [id number]. tel:[phone] [facility] [place], [address] [place], [place], [id number], [place] tel:[phone] [facility] [place] Other chlamydial in fection of lower genitourinary tract Margarita Fields. [address] [place], [place], [id number], [place]. tel:[phone] [facility] [place], [address] [place], [place], [id number], [place] tel:[phone] [facility] [place] Other sex counselin Campbell immunodeficiency virus [HIV] counselingEncounter for screening for human immunodeficiency virusEncntr screen for infections w sexl mode of transmissEncounter for oth general cnsl and advice on contraception Margarita Fields. [address] [place], [place], [id number], [place]. tel:[phone] Referring Provider: Diamond Avila, [address] [place], [place], [id number]. tel:[phone] [facility] [place], [address] [place], [place], [id number], [place] tel:[phone] [facility] [place] Other sex counselin gEncounter for oth general cnsl and advice on contraceptionEncounter for test, result negativeHuman immunodeficiency virus [HIV] counselingEnctr for init prescription of implntbl subdermal contracep Margarita Fields. [address] [place], [place], [id number], [place]. tel:[phone] Referring Provider: Diamond Avila, [address] [place] [address], [id number]. tel:[phone] [facility], [address] [place] [address], [id number], [place] tel:[phone] [facility] [place] Encounter for pregn bridger test, result negativeOther sex counselingEncounter for oth general cnsl and advice on contraception Margarita Fields. [address] [place] [address], [id number], [place]. tel:[phone] Referring Provider: Diamond Avila, [address] [place] [address], [id number]. tel:[phone] [facility], [address] [place] [address], [id number], [place] tel:[phone] [facility] [place] Other sex counselin gEncounter for oth general cnsl and advice on contraceptionEncounter for surveillance of injectable contraceptive Brandon Qureshi. [address] [place] [address], [address] [place] [address], [place]. tel:[phone] Referring Provider: Kiera Taylor, [address] [place], [place], [id number]. tel:[phone] Provider: BRIDGETT Nurse/[place]. [facility], [address] [place] [address], [id number], [place] tel:[phone] [facility] [place] Other sex counselin Campbell immunodeficiency virus [HIV] counselingEncounter for oth general cnsl and advice on contraceptionEncounter for surveillance of injectable contraceptive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 Vidhi Fields. [address] [place] [address], [id number], [place]. tel:[phone] Referring Provider: Diamond Avila, [address] [place], [place], [id number]. tel:[phone] [facility], [address] [place], [place], [id number], [place] tel:[phone] [facility] [place] Encounter for surve illance of injectable contraceptive Brandon Qureshi. [address] [place] [address], [id number], [place]. tel:[phone] Referring Provider: Kiera Taylor, [address] [place] [address], [id number]. tel:[phone] Provider: HARINCNY Nurse/[place]. [facility], [address] [place] [address], [id number], [place] tel:[phone] [facility] [place] Encounter for surve illance of injectable contraceptive Ellie Hernandez. [address] [place] [address], [id number], [place]. tel:[phone] Referring Provider: Mary Argueta, [address] [place], [place], [id number]. tel:[phone] Provider: BRIDGETT Nurse/[place]. [facility], [address] [place] [address], [id number], [place] tel:[phone] [facility] [place] Encounter for surve illance of injectable contraceptive Brandon Qureshi. [address] [place] [address], [id number], [place]. tel:[phone] Referring Provider: Kiera Taylor, [address] [place] [address], [id number]. tel:[phone] Provider: HARINCRICARDO Nurse/[place]. [facility], [address] [place] [address], [id number], [place] tel:[phone] [facility] [place] Encounter for surve illance of injectable contraceptive Brandon Qureshi. [address] [place] [address], [id number], . tel:[phone] Referring Provider: Kiera Taylor, [address] [place], [place], [id number]. tel:[phone] Provider: BRIDGETT Nurse/[place]. [facility], [address] [place] [address], [id number], [place] tel:[phone] [facility] [place] Encounter for pregn bridger test, result negativeEncounter for oth general cnsl and advice on contraceptionEncounter for surveillance of injectable contraceptiveOther sex counseling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Human immunodeficiency virus [HIV] counseling Brandon Qureshi. [address] [place] [address], [address] [place] [address], . tel:[phone] Referring Provider: Kiera Taylor, [address] [place], [place], [id number]. tel:[phone] [facility], [address] [place] [address], [address] [place] [address], tel:[phone] [facility] [place] Nontoxic single thyroid no dule Nirmala Guevara. [address] [place] [address], [id number]. tel:[phone] [facility], [address] [place] [address], [id number], [place] tel:[phone] [facility] [place] Encounter for pregn bridger test, result negativeHuman immunodeficiency virus [HIV] counselingEncounter for screening for human immunodeficiency virusEncntr screen for infections w sexl mode of transmissHigh risk heterosexual behaviorOther sex counselingEncounter for oth general cnsl and advice on contraceptionEncounter for initial prescription of injectable contracepNontoxic single thyroid nodule Jerry Guevara. [address] [place] [address], [id number]. tel:[phone] Referring Provider: Kiera Taylor, [address] [place], [place], [id number]. tel:[phone] Family History Family Member Diagnosis Age At Onset 1st degree relative No hx of cancer of breast, colon, endome trium or ovary 1st degree relative No hx of venous thromboembolism 1st degree relative No hx of coronary heart disease (female <65, male <55) Immunizations Vaccine Date Status Comments No Information Payers Payer name Insurance type Covered alliance party ID Authorization(s ) [facility] [id number] Medicaid [id number] Social History Type Description Quantity Date Captured Comments Alcohol Use Details Unknown Caffeine Use Details Unknown Tobacco Use Status No Information Smoking Status Never smoker Sex Female Vital Signs Date / Time: Height Weight BMI Pulse Rate Blood Pressure Temperatu re Respiratory Rate Body Surface Area Head Circumference BMI percentile Pulse Ox In haled Ox No Information Chief Complaint And Reason For Visit No Information Reason For Referral Reason For Referral No Information Plan Of Treatment Date Type Action Status Referral Ordered: Dr. Alaina Marks (related to Nontoxic single thyroid nodule) ordered Referral Referred To: Dr. Alaina Marks Ordered: Referrals: Primary Care Provider. Dr. Alaina Marks. Consult Appointment date/timeframe: 1 Month ordered History Of Present Illness Encounter Date Complaint History Of Present I llness No Information Functional Status Date Functional Assessment No Information Medications Administered Medication Instructions Dosage Effective Dates (start - stop) Sta tus Comments No Information Instructions Date Instruction Additional Informati on No Information Assessments Type Assessment Date No Information Goals Health Concern Goal Type Priority Status Date No Information Medical Equipment Description Device Durand Device Identifier Effective Oscar es (start - stop) Status No Information Mental Status Date Cognitive Assessment No Information Health Concerns Observation Date No Information Concern Status Date No Information Physical Examination Exam Findings Details No Information
--- OUTSIDE RECORDS SUMMARY | 2021-04-23 09:45 | CCD | Continuity of Care Document ---
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) w/o abn findings Encounter for surveillance of injectable contraceptive Encounter for surveillance of injectable contraceptive Encounter for surveillance of injectable contraceptive Encounter for surveillance of injectable contraceptive Encounter for test, result negative Encounter for oth general cnsl and advice on contraception Encounter for surveillance of injectable contraceptive Other sex counseling 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 Marks. Procedures Procedure Date No Information Results Test Name Date and Time Measure Units Reference Range Abnormal Flag St atus Comments No Information Advance Directives Directive Yes / No Effective Date File Name No Information Encounters Encounter Description Practice Location Reason(s) For Visit Diagnose s Date Provider Providers Copied on Encounter [facility], [address] [place] [address], [id number], [place] tel:[phone] BRIDGETT Derry No Information W sandi Daniel. [address] [place], [place], [id number], [place]. tel:[phone] [facility] [place], [address] [place] [address], [id number], [place] tel:[phone] [facility] [place] Encounter for pregn bridger test, result negativeEncntr screen for dis of the bld/bld-form org/immun mechnsmIrregular menstruation, unspecifiedEncntr screen for infections w sexl mode of transmissOther sex counselingCandidiasis of vulva and vagina Dwello Meggan Hernandez. [address] [place] [address], [id number], [place]. tel:[phone] Referring Provider: Meggan West, [address] [place] [address], [id number]. tel:[phone] [facility], [address] [place] [address], [id number], [place] tel:[phone] [facility] [place] Encounter for pregn bridger test, result negativeDysuriaAcute vaginitisOther sex counselingEncntr screen for infections w sexl mode of transmissEncounter for oth general cnsl and advice on contraceptionAbnormal uterine and vaginal bleeding, unspecifiedPruritus vulvae Dwello Meggan Hernandez. [address] [place], [place], [id number], [place]. tel:[phone] Referring Provider: Meggan Greene, [address] [place] [address], [id number]. tel:[phone] [facility], [address] [place] [address], [id number], [place] tel:[phone] [facility] [place] Encounter for oth g eneral cnsl and advice on contraceptionEnctr srvlnc implantable subdermal contraceptiveOther sex counselingHuman immunodeficiency virus [HIV] counselingPain in left arm Chavez Najera. [address] [place] [address], [id number], [place]. tel:[phone] Referring Provider: Melissa Byrne, [address] [place] [address], [id number]. tel:[phone] [facility] [place], [address] [place], [place], [id number], [place] tel:[phone] [facility] [place] Human immunodeficie ncy virus [HIV] counselingEncounter for oth general cnsl and advice on contraceptionEnctr srvlnc implantable subdermal contraceptiveEncntr for memorandum statement clerk exam (general) (routine) w/o abn findingsOther sex counseling Chavez Najera. [address] [place], [place], [id number], [place]. tel:[phone] Referring Provider: Melsisa Byrne, [address] [place], [place], [id number]. tel:[phone] [facility] [place], [address] [place], [place], [id number], [place] tel:[phone] [facility] [place] Other chlamydial in fection of lower genitourinary tract Margarita [place]. [address] [place], [place], [id number], [place]. tel:[phone] [facility] [place], [address] [place], [place], [id number], [place] tel:[phone] [facility] [place] Other sex counselin Campbell immunodeficiency virus [HIV] counselingEncounter for screening for human immunodeficiency virusEncntr screen for infections w sexl mode of transmissEncounter for oth general cnsl and advice on contraception Margarita [place]. [address] [place], [place], [id number], [place]. tel:[phone] Referring Provider: Diamond Avila, [address] [place], [place], [id number]. tel:[phone] [facility] [place], [address] [place], [place], [id number], [place] tel:[phone] [facility] [place] Other sex counselin gEncounter for oth general cnsl and advice on contraceptionEncounter for test, result negativeHuman immunodeficiency virus [HIV] counselingEnctr for init prescription of implntbl subdermal contracep Margarita [place]. [address] [place] [address], [id number], [place]. tel:[phone] Referring Provider: Diamond Avila, [address] [place] [address], [id number]. tel:[phone] [facility], [address] [place] [address], [id number], [place] tel:[phone] BRIDGETT Derry Encounter for pregn bridger test, result negativeOther sex counselingEncounter for oth general cnsl and advice on contraception Margarita [place]. [address] [place] [address], [id number], [place]. tel:[phone] Referring Provider: Diamond Avila, [address] [place] [address], [id number]. tel:[phone] [facility], [address] [place] [address], [id number], [place] tel:[phone] [facility] [place] Other sex counselin gEncounter for oth general cnsl and advice on contraceptionEncounter for surveillance of injectable contraceptive Brandon Qureshi. [address] [place] [address], [address] [place] [address], [place]. tel:[phone] Referring Provider: Kiera Taylor, [address] [place], [place], [id number]. tel:[phone] Provider: BRIDGETT Nurse/[place]. [facility], [address] [place] [address], [id number], [place] tel:[phone] [facility] [place] Other sex counselin Campbell immunodeficiency virus [HIV] counselingEncounter for oth general cnsl and advice on contraceptionEncounter for surveillance of injectable contraceptiveEncntr for memorandum statement clerk exam (general) (routine) w/o abn findings Vidhi [place]. [address] [place], [place], [id number], [place]. tel:[phone] Referring Provider: Diamond Avila, [address] [place] [address], [id number]. tel:[phone] [facility], [address] [place] [address], [id number], [place] tel:[phone] [facility] [place] Encounter for surve illance of injectable contraceptive Brandon Qureshi. [address] [place] [address], [id number], [place]. tel:[phone] Referring Provider: Kiera Taylor, [address] [place] [address], [id number]. tel:[phone] Provider: [facility] Nurse/[place]. [facility], [address] [place] [address], [id number], [place] tel:[phone] [facility] [place] Encounter for surve illance of injectable contraceptive Ellie Hernandez. [address] [place] [address], [id number], [place]. tel:[phone] Referring Provider: Mary Argueta, [address] [place] [address], [id number]. tel:[phone] Provider: PP[facility]NY Nurse/[place]. [facility], [address] [place] [address], [id number], [place] tel:[phone] [facility] [place] Encounter for surve illance of injectable contraceptive Brandon Qureshi. [address] [place] [address], [id number], [place]. tel:[phone] Referring Provider: Kiera Taylor, [address] [place], [place], [id number]. tel:[phone] Provider: HARINCNY Nurse/CA. [facility], [address] [place] [address], [id number], [place] tel:[phone] [facility] Encounter for surve illance of injectable contraceptive Brandon Qureshi. [address] [place] [address], [id number], . tel:[phone] Referring Provider: Kiera Taylor, [address] [place] [address], [id number]. tel:[phone] Provider: BRIDGETT Nurse/CA. [facility], [address] [place] [address], [id number], [place] tel:[phone] [facility] Encounter for pregn bridger test, result negativeEncounter for oth general cnsl and advice on contraceptionEncounter for surveillance of injectable contraceptiveOther sex counselingEncntr for memorandum statement clerk exam (general) (routine) w/o abn findingsHuman immunodeficiency virus [HIV] counseling Brandon Qureshi. [address] [place] [address], [address] [place] [address], . tel:[phone] Referring Provider: Kiera Taylor, [address] [place] [address], [id number]. tel:[phone] [facility], [address] [place] [address], [id number], [place] tel:[phone] [facility] Nontoxic single thyroid no dule Nirmala Guevara. [address] [place] [address], [id number]. tel:[phone] [facility], [address] [place] [address], [id number], [place] tel:[phone] [facility] Encounter for pregn bridger test, result negativeHuman immunodeficiency virus [HIV] counselingEncounter for screening for human immunodeficiency virusEncntr screen for infections w sexl mode of transmissHigh risk heterosexual behaviorOther sex counselingEncounter for oth general cnsl and advice on contraceptionEncounter for initial prescription of injectable contracepNontoxic single thyroid nodule Jerry Guevara. [address] [place] [address] [place], [id number]. tel:[phone] Referring Provider: Kiera Taylor, [address] [place], [place], [id number]. tel:[phone] Family History Family Member Diagnosis Age At Onset 1st degree relative No hx of cancer of breast, colon, endome trium or ovary 1st degree relative No hx of venous thromboembolism 1st degree relative No hx of coronary heart disease (female <65, male <55) Immunizations Vaccine Date Status Comments No Information Payers Payer name Insurance type Covered republican ID Authorization(s ) BCBS [facility] [id number] Medicaid [id number] Social History Type Description Quantity Date Captured [...] Date No Information Medical Equipment Description Device [place] Device Identifier Effective Oscar es (start - stop) Status No Information Mental Status Date Cognitive Assessment No Information Health Concerns Observation Date No Information Concern Status Date No Information Physical Examination Exam Findings Details No Information
--- OUTSIDE RECORDS SUMMARY | 2021-04-23 09:45 | CCD ---
Author Organization Unknown Address [address] [place] [address] Phone [phone] Care Team Providers Care Instructor Nurse Name Role Phone ELOY PIZARRO 3 [phone] SAI OCHOA MD 2 [phone] Allergies Code Code System Name Reaction Severity Status Onset 811749 RxNorm Lexapro Insomnia Moderate Active Medications Name [...] 12/09/2020 naproxen 500 mg tablet Completed 0 clomuhdj-uvxubidnd-qmfxxcose 3.5 mg-10,000 unit/mL-1 % ear d rops,susp [...] Respiratory Specimen Normal Sars-cov-2 negative negative Final [facility]: [address], [place] 12/09/2020 HIV 1+2 Ab + HIV1 P24 Ag, Quantitative I mmunoassay, Serum Blood venous Normal HIV Ag/Ab, 4TH Gen non-reactive non-reactive Fin al [facility]: [address], [place] 12/09/2020 Hepatitis C Virus RNA, Quant, PCR, Serum or Plas ma Blood venous Normal HCV RNA, Quantitative Real Time PCR <15 not de tected IU/mL not detected IU/mL Final [facility]: [address] , [place] Blood venous Normal HCV RNA, Quanti tative Real Time PCR <1.18 not detected log IU/mL not detected log IU/mL Final [facility]: [address] , [place] Blood venous Comment Final [facility]: [address] , [place] 05/27/2020 SARS CoV 2 RdRp Gene, QL Probe, Respiratory Spec imen Nasopharyngeal Normal Sars-cov-2 negative negative Final [facility]: [address] [facility] 05/08/2020 TSH + Free T4, Serum Blood venous Low Thyroid Stimulating Hormone 0.051 uIU/mL 0.463-3.98 uIU/mL Final [facility]: 0 [facility] Blood venous Normal Free T4 0.90 NG/dL 0.78-1.33 NG/dL [facility]: 0 [facility] 05/08/2020 Triiodothyronine Free, QN, Serum or Plasma Normal Free T3 3.2 pg/mL 2.9-4.5 pg/mL [facility] nter: [address] [place] [address] 05/08/2020 Thyroid Peroxidase (Tpo) Ab, Serum Blood venous High Thyroid Peroxidase Antibody 169.2 U/mL <60.0 U/mL [facility]: 0 [facility] 05/08/2020 Thyroglobulin Ab, Serum Blood venous High Thyroglobulin Antibody 255.8 U/mL <60.0 U/mL [facility]: [address] [place] [address] Past Encounters 03/09/2021 Generalized Anxiety Disorder; Moderate Recurrent Major Depression Eva Layne [facility]: [address] [facility] [address] [address], Ph. 01/28/2021 Upper Respiratory Infection Eloy Abrams RPA-C: [address] [facility] [address], [place] [address], Ph. 01/13/2021 Generalized Anxiety Disorder; Otitis Media; Allergic Rhinitis Eloy Abrams, RPA-C: [address], [place] [address], Ph. 01/12/2021 Generalized Anxiety Disorder; Moderate Recurrent Major Depression Eva Layne [facility]: [address], [place] [address], Ph. 12/29/2020 Moderate Recurrent Major Depression Eva Layne [facility]: [address], [place] [address], Ph. 12/15/2020 Generalized Anxiety Disorder Eva Layne [facility]: [address], [place] [address], Ph. 12/09/2020 Adult Health Examination; Anxiety Disorder; Moderate Recurrent Major Depression; Counseling; Acute Right Otitis Media; HIV Screening; Hepatitis C Screening Eloy Abrams, RPA-C: [address], [place] [address], Ph. 11/20/2020 Moderate Recurrent Major Depression; Anxiety Disorder Eva Layne [facility]: [address], [place] [address], Ph. 11/10/2020 Moderate Recurrent Major Depression Eva Layne LMSW: [address], [address], [place] [address], Ph. 10/15/2020 Moderate Recurrent Major Depression Eva Layne LMSW: [address], [place] [address], Ph. 10/06/2020 Generalized Anxiety Disorder Eva Layne LMSW: [address], [place] [address], Ph. 07/01/2020 Cellulitis RICARDO DillonC: [address], [place] [address], Ph. 06/10/2020 Anxiety Disorder; Depressive Disorder Eva Layne [facility]: [address], [place] [address], Ph. 05/29/2020 Eva Layne [facility]: [address], [place] [address], Ph. 05/27/2020 Exposure to SARS-CoV-2 Stevie Haley MD: [address] [facility], [place] [address], Ph. 05/19/2020 Adjustment Disorder with Mixed Anxiety and Depressed Mood; Autoimmune Thyroiditis Eloy Abrams RPA-C: [address], [place] [address], Ph. 05/08/2020 Autoimmune Thyroiditis ANITA PrinceC: [address], [place] [address], Ph. 05/07/2020 Adjustment Disorder with Mixed Anxiety and Depressed Mood Eva Layne [facility]: [address] [facility], [address], [place] [address], Ph. 04/30/2020 Adjustment Disorder with Mixed Anxiety and Depressed Mood; Family Problems; Stress at Work Eva Layne [facility]: [address], [place] [address], Ph. 04/10/2020 Adjustment Disorder with Mixed Anxiety and Depressed Mood; Family Problems Eva Layne LMSW: [address], [place] [address], Ph. 03/26/2020 Stress and Adjustment Reaction; Ineffective Family Coping Eva Layne LMSW: [address], [facility] [address], [place] [address], Ph. 03/12/2020 Family Coping: Potential for Growth; Self-esteem Disturbance; Adjustment Disorder with Mixed Anxiety and Depressed Mood Eva Layne [facility]: [address] [facility], [facility] [address], [place] [address], Ph. Social History Tobacco Smoking Status Never [...]
--- OUTSIDE RECORDS SUMMARY | 2021-04-23 09:45 | CCD | Continuity of Care Document ---
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 Name Role Phone Dwello Meggan BEE Unavailable Unavailable Allergies, Adverse Reactions, Alerts Substance [...] Enctr srvlnc implantable subdermal contraceptive Encntr for desktop engineer exam (general) (routine) w/o abn findings Other [...] for surveillance of injectable contraceptive Encntr for desktop engineer exam (general) (routine) w/o abn findings Encounter for surveillance of injectable contraceptive Encounter for surveillance of injectable contraceptive Encounter for surveillance of injectable contraceptive Encounter for surveillance of injectable contraceptive Encounter for test, result negative Encounter for oth general cnsl and advice on contraception Encounter for surveillance of injectable contraceptive Other sex counseling Encntr for desktop engineer exam (general) (routine) w/o abn findings Human [...] [facility]order for CONTACT CENTER SPECIALIST antibiodies= thyroid pyroxidase elevated; awaiting FU plans from Dr. Marks. Procedures Procedure Date No Information Results Test Name Date and Time Measure Units Reference Range Abnormal Flag St atus Comments No Information Advance Directives Directive Yes / No Effective Date File Name No Information Encounters Encounter Description Practice Location Reason(s) For Visit Diagnose s Date Provider Providers Copied on Encounter [facility], [address] [place] [address], [id number], tel:[phone] BRIDGETT Alexander No Information Jessica Hernandez. [address] [place] [address], [id number], [place]. tel:[phone] [facility], [address] [place] [address], [id number], [place] tel:[phone] PPUTNY Alexander Encounter for pregn bridger test, result negativeEncntr screen for dis of the bld/bld-form org/immun mechnsmIrregular menstruation, unspecifiedEncntr screen for infections w sexl mode of transmissOther sex counselingCandidiasis of vulva and vagina Dwello Meggan Hernandez. [address] [place] [address], [id number], [place]. tel:[phone] Referring Provider: Meggan Greene, [address] [place] [address], [id number]. tel:[phone] [facility], [address] [place] [address], [id number], [place] tel:[phone] PPNCNY Alexander Encounter for pregn bridger test, result negativeDysuriaAcute vaginitisOther sex counselingEncntr screen for infections w sexl mode of transmissEncounter for oth general cnsl and advice on contraceptionAbnormal uterine and vaginal bleeding, unspecifiedPruritus vulvae Dwellirlanda Hernandez. [address] [place], [place], [id number], [place]. tel:[phone] Referring Provider: Meggan Greene, [address] [place] [address], [id number]. tel:[phone] [facility], [address] [place] [address], [id number], [place] tel:[phone] PPNCNY Alexander Encounter for oth g eneral cnsl and advice on contraceptionEnctr srvlnc implantable subdermal contraceptiveOther sex counselingHuman immunodeficiency virus [HIV] counselingPain in left arm Chavez Najera. [address] [place] [address], [id number], [place]. tel:[phone] Referring Provider: Melissa Byrne, [address] [place], [place], [id number]. tel:[phone] [facility] [place], [address], [place], [id number], [place] tel:[phone] PPNCNY Alexander Human immunodeficie ncy virus [HIV] counselingEncounter for oth general cnsl and advice on contraceptionEnctr srvlnc implantable subdermal contraceptiveEncntr for desktop engineer exam (general) (routine) w/o abn findingsOther sex counseling Chavez Najera. [address], [place], [id number], [place]. tel:[phone] Referring Provider: Melissa Byrne, [address], [place], [id number]. tel:[phone] [facility] [place], [address], [place], [id number], [place] tel:[phone] PPNCNY Alexander Other chlamydial in fection of lower genitourinary tract Margarita Fields. [address] [place], [place], [id number], [place]. tel:[phone] [facility] [place], [address], [place], [id number], [place] tel:[phone] PPNCNY Alexander Other sex counselin Campbell immunodeficiency virus [HIV] counselingEncounter for screening for human immunodeficiency virusEncntr screen for infections w sexl mode of transmissEncounter for oth general cnsl and advice on contraception Margarita Fields. [address] [place], [place], [id number], [place]. tel:[phone] Referring Provider: Diamond Avila, [address], [place], [id number]. tel:[phone] [facility] [place], [address], [place], [id number], [place] tel:[phone] PPNCNY Alexander Other sex counselin gEncounter for oth general cnsl and advice on contraceptionEncounter for test, result negativeHuman immunodeficiency virus [HIV] counselingEnctr for init prescription of implntbl subdermal contracep Margarita Fields. [address] [place], [place], [id number], [place]. tel:[phone] Referring Provider: Diamond Avila, [address] [place] [address], [id number]. tel:[phone] [facility], [address] [place] [address], [id number], [place] tel:[phone] PPDERRICK Alexander Encounter for pregn bridger test, result negativeOther sex counselingEncounter for oth general cnsl and advice on contraception Margarita Fields. [address] [place], [place], [id number], [place]. tel:[phone] Referring Provider: Diamond Avila, [address], [place], [id number]. tel:[phone] [facility], [address] [place] [address], [id number], [place] tel:[phone] PPNCNY Alexander Other sex counselin gEncounter for oth general cnsl and advice on contraceptionEncounter for surveillance of injectable contraceptive Brandon Qureshi. [address] [place] [address], [id number], [place]. tel:[phone] Referring Provider: Kiera Taylor, [address], [place], [id number]. tel:[phone] Provider: BRIDGETT Nurse/[place]. [facility], [address] [place] [address], [id number], [place] tel:[phone] PPNCNY Alexander Other sex counselin Campbell immunodeficiency virus [HIV] counselingEncounter for oth general cnsl and advice on contraceptionEncounter for surveillance of injectable contraceptiveEncntr for desktop engineer exam (general) (routine) w/o abn findings Vidhi Fields. [address] [place] [address], [id number], [place]. tel:[phone] Referring Provider: Diamond Avila, [address] [place] [address], [id number]. tel:[phone] [facility], [address] [place] [address], [id number], [place] tel:[phone] PPNCNY Alexander Encounter for surve illance of injectable contraceptive Brandon Qureshi. [address] [place] [id number], [place]. tel:[phone] Referring Provider: Kiera Taylor, [address] [place] [address], [id number]. tel:[phone] Provider: PPNCNY Nurse/[place]. [facility], [address] [place] [address], [id number], [place] tel:[phone] PPNCNY Alexander Encounter for surve illance of injectable contraceptive Ellie Hernandez. [address] [place] [address], [id number], [place]. tel:[phone] Referring Provider: Mary Argueta, [address] [place] [address], [id number]. tel:[phone] Provider: HARINCRICARDO Nurse/[place]. [facility], [address] [place] [address], [id number], [place] tel:[phone] PPNCNY Alexander Encounter for surve illance of injectable contraceptive Brandon Qureshi. [address] [place] [address], [id number], [place]. tel:[phone] Referring Provider: Kiera Taylor, [address] [place] [address], [id number]. tel:[phone] Provider: HARINCRICARDO Nurse/[place]. [facility], [address], [place], [id number], [place] tel:[phone] [facility] Encounter for surve illance of injectable contraceptive Brandon Qureshi. [address] [place], [place], [id number], [place]. tel:[phone] Referring Provider: Kiera Taylor, [address], [place], [id number]. tel:[phone] Provider: BRIDGETT Nurse/[place]. [facility], [address], [place], [id number], [place] tel:[phone] [facility] Encounter for pregn bridger test, result negativeEncounter for oth general cnsl and advice on contraceptionEncounter for surveillance of injectable contraceptiveOther sex counselingEncntr for desktop engineer exam (general) (routine) w/o abn findingsHuman immunodeficiency virus [HIV] counseling Brandon Qureshi. [address] [place], [place], [id number], [place]. tel:[phone] Referring Provider: Kiera Taylor, [address], [place], [id number]. tel:[phone] [facility], [address] [place] [address], [id number], [place] tel:[phone] [facility] Nontoxic single thyroid no dule Nirmala Guevara. [address] [place], [place], [id number]. tel:[phone] [facility], [address] [place] [address], [id number], [place] tel:[phone] [facility] Encounter for pregn bridger test, result negativeHuman immunodeficiency virus [HIV] counselingEncounter for screening for human immunodeficiency virusEncntr screen for infections w sexl mode of transmissHigh risk heterosexual behaviorOther sex counselingEncounter for oth general cnsl and advice on contraceptionEncounter for initial prescription of injectable contracepNontoxic single thyroid nodule Jerry Guevara. [address] [place], [place], [id number]. tel:[phone] Referring Provider: Kiera Taylor, [address] [place], [place], [id number]. tel:[phone] Family History Family Member Diagnosis Age At Onset 1st degree relative No hx of cancer of breast, colon, endome trium or ovary 1st degree relative No hx of venous thromboembolism 1st degree relative No hx of coronary heart disease (female <65, male <55) Immunizations Vaccine Date Status Comments No Information Payers Payer name Insurance type Covered green party ID Authorization(s ) BCBS [facility] [id number] Medicaid MC [id number] Social History Type Description Quantity Date Captured [...] Date No Information Medical Equipment Description Device Phoenix Device Identifier Effective Oscar es (start - stop) Status No Information Mental Status Date Cognitive Assessment No Information Health Concerns Observation Date No Information Concern Status Date No Information Physical Examination Exam Findings Details No Information
--- OUTSIDE RECORDS SUMMARY | 2021-04-23 09:45 | CCD ---
Author Organization Unknown Address [address] [place] [address] Phone [phone] Care Team Providers Care Toxicology Supervisor Name Role Phone ELOY PIZARRO 3 [phone] SAI OCHOA MD 2 [phone] Allergies Code Code System Name Reaction Severity Status Onset 565027 RxNorm Lexapro Insomnia Moderate Active Medications Name Status Start Date Stop Date albuterol sulfate HFA 90 mcg/actuation a erosol inhaler Inhale 2 puffs every 4 hours by inhalation route. Active Not available amoxicillin 500 mg capsule [...] Completed 12/09/2020 naproxen 500 mg tablet Completed cslefiai-digecaedu-qasvjawdz 3.5 mg-10,000 unit/mL-1 % ear d rops,susp Completed 05/08/2020 nitrofurantoin monohydrate/macrocrystals 100 mg capsule TAKE ONE CAPSULE BY MOUTH TWO TIMES A DAY FOR 10 DAYS Completed 12/09/2020 prednisone 20 mg tablet Take 1 tablet every day by oral route with meals for 5 days. Active Not available Sudogest 12-hour 120 mg [...] and C onduct Unknown 02/18/2020 History Clinical History and Observation Findings Unknown 2019 History Family Problems Unknown 04/11/2020 Stress at Work Unknown 05/01/2020 Anxiety Disorder Unknown 06/11/2020 Depressive Disorder Unknown 06/11/2020 Moderate Recurrent Major Depression Active 10/16/2020 Procedures Notes: wisdom teeth extracted, Nexplanon placed 09/11/2019 Results Lab Results Date Name Specimen Result Interpretation Description Value Range Status Address 01/28/2021 SARS CoV 2 RdRp Gene, QL Probe, Respiratory Specimen Normal Sars-cov-2 negative negative Final [facility]: [address], [place] 12/09/2020 HIV 1+2 Ab + HIV1 P24 Ag, Quantitative I mmunoassay, Serum Blood venous Normal HIV Ag/Ab, 4TH Gen non-reactive non-reactive Fin al [facility]: [address] , [place] 12/09/2020 Hepatitis C Virus RNA, Quant, PCR, Serum or Plas ma Blood venous Normal HCV RNA, Quantitative Real Time PCR <15 not de tected IU/mL not detected IU/mL Final [facility]: [address] , [place] Blood venous Normal HCV RNA, Quanti tative Real Time PCR <1.18 not detected log IU/mL not detected log IU/mL Final [facility]: [address], [place] Blood venous Comment Final [facility]: [address], [place] 05/27/2020 SARS CoV 2 RdRp Gene, QL Probe, Respiratory Spec imen Nasopharyngeal Normal Sars-cov-2 negative negative Final [facility]: [address] [facility] 05/08/2020 TSH + Free T4, Serum Blood venous Low Thyroid Stimulating Hormone 0.051 uIU/mL 0.463-3.98 uIU/mL [facility]: [address] [place] [address] Blood venous Normal Free T4 0.90 NG/dL 0.78-1.33 NG/dL [facility]: [address] [place] [address] 05/08/2020 Triiodothyronine Free, QN, Serum or Plasma Normal Free T3 3.2 pg/mL 2.9-4.5 pg/mL [facility] nter: [address] [place] [address] 05/08/2020 Thyroid Peroxidase (Tpo) Ab, Serum Blood venous High Thyroid Peroxidase Antibody 169.2 U/mL <60.0 U/mL [facility]: [address] [place] [address] 05/08/2020 Thyroglobulin Ab, Serum Blood venous High Thyroglobulin Antibody 255.8 U/mL <60.0 U/mL Final [facility]: [address] [place] [address] Past Encounters 01/28/2021 Upper Respiratory Infection Eloy Abrams RPA-C: [address] [place] [address], [facility] [address] [address], Ph. 01/13/2021 Generalized Anxiety Disorder; Otitis Media; Allergic Rhinitis Eloy D Abrams, RPA-C: [address], [place] [address], Ph. 01/12/2021 Generalized Anxiety Disorder; Moderate Recurrent Major Depression Eva Layne LMSW: [address], [place] [address], Ph. 12/29/2020 Moderate Recurrent Major Depression Eva Layne LMSW: [address], [place] [address], Ph. 12/15/2020 Generalized Anxiety Disorder Eva Layne [facility]: [address], [address], [place] [address], Ph. 12/09/2020 Adult Health Examination; Anxiety Disorder; Moderate Recurrent Major Depression; Counseling; Acute Right Otitis Media; HIV Screening; Hepatitis C Screening Eloy Abrams RPA-C: [address], [place] [address], Ph. 11/20/2020 Moderate Recurrent Major Depression; Anxiety Disorder Eva Layne LMSW: [address], [place] [address], Ph. 11/10/2020 Moderate Recurrent Major Depression Eva Layne [facility]: [address], [address], [place] [address], Ph. 10/15/2020 Moderate Recurrent Major Depression Eva Layne [facility]: [address], [address], [place] [address], Ph. 10/06/2020 Generalized Anxiety Disorder Eva Layne LMSW: [address], [address], [place] [address], Ph. 07/01/2020 Cellulitis RICARDO DillonC: [address], [address], [place] [address], Ph. 06/10/2020 Anxiety Disorder; Depressive Disorder Eva Layne LMSW: [address] [facility], [address], [place] [address], Ph. 05/29/2020 Eva Layne LMSW: [address] [facility], [address], [place] [address], Ph. 05/27/2020 Exposure to SARS-CoV-2 Stevie Haley MD: [address] [place] [address], Ph. 05/19/2020 Adjustment Disorder with Mixed Anxiety and Depressed Mood; Autoimmune Thyroiditis Eloy Abrams, RPA-C: [address] [facility], [facility] [address], [place] [address], Ph. 05/08/2020 Autoimmune Thyroiditis Eloy Abrams RPA-C: [address] [facility], [address], [place] [address], Ph. 05/07/2020 Adjustment Disorder with Mixed Anxiety and Depressed Mood Eva Layne LMSW: [address] [facility], [address], [place] [address], Ph. 04/30/2020 Adjustment Disorder with Mixed Anxiety and Depressed Mood; Family Problems; Stress at Work Eva Layne LMSW: [address] [facility], [address], [place] [address], Ph. 04/10/2020 Adjustment Disorder with Mixed Anxiety and Depressed Mood; Family Problems Eva Layne LMSW: [address] [facility], [address], [place] [address], Ph. 03/26/2020 Stress and Adjustment Reaction; Ineffective Family Coping Eva Layne LMSW: [address] [facility], [address], [place] [address], Ph. 03/12/2020 Family Coping: Potential for Growth; Self-esteem Disturbance; Adjustment Disorder with Mixed Anxiety and Depressed Mood Eva Layne [facility]: [address] [facility], [address], [place] [address], Ph. Social History Tobacco Smoking Status Never [...]
--- OUTSIDE RECORDS SUMMARY | 2021-04-23 09:45 | CCD | Continuity of Care Document ---
Author [facility] [place] Organization [facility] Address Unknown Phone Unavailable Care Team Providers Care Transplant Registered Nurse Name Role Phone Melissa Byrne NP Unavailable Unavailable Allergies, Adverse Reactions, Alerts Substance Reaction Status Criticality No Known Allergies Active No Information Medications Medication Instructions Dosage Effective Dates (start - stop) Sta tus Comments Nexplanon 68 mg subdermal implant 68mg Subdermal Implant - Active Lexapro 10 mg tablet - Active Problems Condition Effective Dates (start - stop) Clinical Status C omments Human immunodeficiency virus [HIV] counseling Encntr screen for infections w sexl mode of transmiss High risk heterosexual behavior Other sex counseling Encounter for oth general cnsl and advice on contraception Enctr srvlnc implantable subdermal contraceptive Encounter for test, result negative Encntr screen [...] Enctr srvlnc implantable subdermal contraceptive Encntr for 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) (routine) w/o abn findings Other [...] for surveillance of injectable contraceptive 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) (routine) w/o abn findings Encounter for surveillance of injectable contraceptive Encounter for surveillance of injectable contraceptive Encounter for surveillance of injectable contraceptive Encounter for surveillance of injectable contraceptive Encounter for test, result negative Encounter for oth general cnsl and advice on contraception Encounter for surveillance of injectable contraceptive Other sex counseling 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 Marks. Procedures Procedure Date CHYLMD TRACH, URINE N.GONORRHOEAE, URINE OFFICE VISIT, EST HCS Without Test CVR Med.Svc. Other CVR Blood Pressure CVR Med.Svc. Height/Weight CVR Shipping/Receiving Manager.Svc. Contraceptive CVR Shipping/Receiving Manager.Svc. Other CVR Shipping/Receiving Manager.Svc. STI / H Results Test Name Date and Time Measure Units Reference Range Abnormal Flag St atus Comments Panel Description: Chlamydia trachomatis rRNA [Presence] in Specimen by TASH with probe detection Final Urine CT/GC Combo - CT 00:00:00 Negative N Final Performed by:
CDD ([id number])

Panel Description: Amplified GC - Urine Final Urine CT/GC Combo - GC 00:00:00 Negative N Final : NoThis information has been disclosed to you from confidential records which are protected by law. Privacy laws prohibityou from making any further disclosure of this information without the specific written consent of the person to whom itpertains, or otherwise permitted by law. Any unauthorized further disclosure in violation of the law may result in a fineor alf sentence or both. A general authorization for the release of medical or other information is not, except inlimited circumstances set forth in this part, sufficient authorization for further disclosure.This document contains private and confidential health information protected by state and federal law. If youhave received this document in error, please call the Roving Inspector for CDD at ext [phone] ore-mail [email or web address]

Performed by:
MATHIEU ([id number])

Advance Directives Directive Yes / No Effective Date File Name No Information Encounters Encounter Description Practice Location Reason(s) For Visit Diagnose s Date Provider Providers Copied on Encounter OFFICE VISIT, EST [facility], [address], [place], [id number], [place] tel:[phone] [facility] STI Exposure/Screening/Testing (chief complaint) Human immunodeficiency virus [HIV] counselingEncntr screen for infections w sexl mode of transmissHigh risk heterosexual behaviorOther sex counselingEncounter for oth general cnsl and advice on contraceptionEnctr srvlnc implantable subdermal contraceptive Chavez Najera. [address] [place], [place], [id number], [place]. tel:[phone] Referring Provider: Melissa Byrne, [address] [place] [address], [id number]. tel:[phone] [facility], [address] [place] [address], [id number], [place] tel:[phone] [facility] Encounter for pregn bridger test, result negativeEncntr screen for dis of the bld/bld-form org/immun mechnsmIrregular menstruation, unspecifiedEncntr screen for infections w sexl mode of transmissOther sex counselingCandidiasis of vulva and vagina Dwello Meggan Hernandez. [address] [place] [address], [id number], [place]. tel:[phone] Referring Provider: Meggan Greene, [address] [place] [address], [id number]. tel:[phone] [facility], [address] [place] [address], [id number], [place] tel:[phone] [facility] [place] Encounter for pregn bridger test, result negativeDysuriaAcute vaginitisOther sex counselingEncntr screen for infections w sexl mode of transmissEncounter for oth general cnsl and advice on contraceptionAbnormal uterine and vaginal bleeding, unspecifiedPruritus vulvae Dwello Meggan Hernandez. [address] [place], [place], [id number], [place]. tel:[phone] Referring Provider: Meggan Greene, [address] [place] [address], [id number]. tel:[phone] [facility], [address] [place] [address], [id number], [place] tel:[phone] [facility] [place] Encounter for oth g eneral cnsl and advice on contraceptionEnctr srvlnc implantable subdermal contraceptiveOther sex counselingHuman immunodeficiency virus [HIV] counselingPain in left arm Chavez Najera. [address] [place], [place], [id number], [place]. tel:[phone] Referring Provider: Melissa Byrne, [address], [place], [id number]. tel:[phone] [facility] [place], [address], [place], [id number], [place] tel:[phone] [facility] [place] Human immunodeficie ncy virus [HIV] counselingEncounter for oth general cnsl and advice on contraceptionEnctr srvlnc implantable subdermal contraceptiveEncntr for 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) (routine) w/o abn findingsOther sex counseling Chavez Najera. [address], [place], [id number], [place]. tel:[phone] Referring Provider: Melissa Byrne, [address], [place], [id number]. tel:[phone] [facility] [place], [address], [place], [id number], [place] tel:[phone] [facility] Other chlamydial in fection of lower genitourinary tract Margarita Fields. [address] [place], [place], [id number], [place]. tel:[phone] [facility] [place], [address], [place], [id number], [place] tel:[phone] [facility] Other sex counselin Campbell immunodeficiency virus [HIV] counselingEncounter for screening for human immunodeficiency virusEncntr screen for infections w sexl mode of transmissEncounter for oth general cnsl and advice on contraception Margarita Fields. [address] [place], [place], [id number], [place]. tel:[phone] Referring Provider: Diamond Avila, [address] [place], [place], [id number]. tel:[phone] [facility] [place], [address] [place] [address], [id number], [place] tel:[phone] [facility] Other sex counselin gEncounter for oth general cnsl and advice on contraceptionEncounter for test, result negativeHuman immunodeficiency virus [HIV] counselingEnctr for init prescription of implntbl subdermal contracep Margarita Fields. [address] [place], [place], [id number], [place]. tel:[phone] Referring Provider: Diamond Avila, [address] [place] [address], [id number]. tel:[phone] [facility], [address] [place] [address], [id number], [place] tel:[phone] [facility] Encounter for pregn bridger test, result negativeOther sex counselingEncounter for oth general cnsl and advice on contraception Margarita Fields. [address] [place], [place], [id number], [place]. tel:[phone] Referring Provider: Diamond Avila, [address] [place], [place], [id number]. tel:[phone] [facility], [address] [place] [address], [id number], [place] tel:[phone] [facility] Other sex counselin gEncounter for oth general cnsl and advice on contraceptionEncounter for surveillance of injectable contraceptive Brandon Qureshi. [address] [place] [address], [id number], [place]. tel:[phone] Referring Provider: Kiera Taylor, [address], [place], [id number]. tel:[phone] Provider: BRIDGETT Nurse/CA. [facility], [address] [place] [address], [id number], [place] tel:[phone] [facility] Other sex counselin Campbell immunodeficiency virus [HIV] counselingEncounter for oth general cnsl and advice on contraceptionEncounter for surveillance of injectable contraceptiveEncntr for 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) (routine) w/o abn findings Vidhi Fields. [address] [place] [address], [id number], [place]. tel:[phone] Referring Provider: Diamond Avila, [address] [place] [address], [id number]. tel:[phone] [facility], [address] [place] [address], [id number], [place] tel:[phone] [facility] Encounter for surve illance of injectable contraceptive Brandon Qureshi. [address] [place] [address], [id number], [place]. tel:[phone] Referring Provider: Kiera Taylor, [address] [place] [address], [address] [place] [address]. tel:[phone] Provider: BRIDGETT Nurse/CA. [facility], [address] [place] [address], [id number], [place] tel:[phone] [facility] Encounter for surve illance of injectable contraceptive Ellie Hernandez. [address] [place] [address], [id number], [place]. tel:[phone] Referring Provider: Mary Argueta, [address] [place] [address], [id number]. tel:[phone] Provider: SANJUANANY Nurse/CA. [facility], [address] [place] [address], [id number], [place] tel:[phone] [facility] Encounter for surve illance of injectable contraceptive Brandon Qureshi. [address] [place] [address], [id number], [place]. tel:[phone] Referring Provider: Kiera Taylor, [address], [place], [id number]. tel:[phone] Provider: BRIDGETT Nurse/CA. [facility], [address] [place] [address], [id number], tel:[phone] [facility] Encounter for surve illance of injectable contraceptive Brandon Qureshi. [address] [place], [place], [address] [place] [address], . tel:[phone] Referring Provider: Kiera Taylor, [address], [place], [id number]. tel:[phone] Provider: BRIDGETT [facility]/[place]. [facility], [address] [place] [address], [address] [place] [address], tel:[phone] [facility] Encounter for pregn bridger test, result negativeEncounter for oth general cnsl and advice on contraceptionEncounter for surveillance of injectable contraceptiveOther sex counselingEncntr for 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) (routine) w/o abn findingsHuman immunodeficiency virus [HIV] counseling Brandon Qureshi. [address] [place] [address], [address] [place] [address], . tel:[phone] Referring Provider: Kiera Taylor, [address], [place], [id number]. tel:[phone] [facility], [address] [place] [address], [address] [place] [address], [place] tel:[phone] [facility] Nontoxic single thyroid no dule Nirmala Guevara. [address] [place] [address], [id number]. tel:[phone] [facility], [address] [place] [address], [id number], [place] tel:[phone] [facility] Encounter for pregn bridger test, result negativeHuman immunodeficiency virus [HIV] counselingEncounter for screening for human immunodeficiency virusEncntr screen for infections w sexl mode of transmissHigh risk heterosexual behaviorOther sex counselingEncounter for oth general cnsl and advice on contraceptionEncounter for initial prescription of injectable contracepNontoxic single thyroid nodule Jerry Guevara. [address], [place], [id number]. tel:[phone] Referring Provider: Kiera Taylor, [address], [place], [id number]. tel:[phone] Family History Family Member Diagnosis Age At Onset 1st degree relative No hx of cancer of breast, colon, endome trium or ovary 1st degree relative No hx of venous thromboembolism 1st degree relative No hx of coronary heart disease (female <65, male <55) Immunizations Vaccine Date Status Comments No Information Payers Payer name Insurance type Covered libertarian ID Authorization(s ) BCBS [facility] [id number] Medicaid [place] [id number] Social History Type Description Quantity Date Captured Comments Alcohol Use Details Unknown Caffeine Use Details Unknown Tobacco Use Status No Information Smoking Status Never smoker Sex Female Vital Signs Date / Time: Height Weight BMI Pulse Rate Blood Pressure Temperatu re Respiratory Rate Body Surface Area Head Circumference BMI percentile Pulse Ox In haled Ox 4:00 PM 60.00 in 165.00 lbs 32.22 kg/meter(2) 110/74 m m[Hg] Chief Complaint And Reason For Visit Most recent encounter only, dated '04/06/2021 15:45'. STI Exposure/Screening/Testing (chief complaint) Reason For Referral Reason For Referral No Information Plan Of Treatment Date Type Action Status Referral Ordered: Dr. Alaina Marks (related to Nontoxic single thyroid nodule) ordered Referral Referred To: Dr. Alaina Marks Ordered: Referrals: Primary Care Provider. Dr. Alaina Marks. Consult Appointment date/timeframe: 1 Month ordered Appointment Alysia Lee BOOKED History Of Present Illness Encounter Date Complaint History Of Present I llness No Information Functional Status Date Functional Assessment No Information Medications Administered Medication Instructions Dosage Effective Dates (start - stop) Sta tus Comments No Information Instructions Date Instruction Additional Informati on No Information Assessments Type Assessment Date assessment Human immunodeficiency virus [HIV] couns eling assessment Encntr screen for infections w sexl mode of transmiss assessment High risk heterosexual behavior assessment Other sex counseling assessment Encounter for oth general cnsl and advic e on contraception assessment Enctr srvlnc implantable subdermal contr aceptive Goals Health Concern Goal Type Priority Status Date No Information Medical Equipment Description Device [place] Device Identifier Effective Oscar es (start - stop) Status No Information Mental Status Date Cognitive Assessment Orientation - Oriented to ti me, place, person, situation.Normal Orientation Health Concerns Observation Date No Information Concern Status Date No Information Physical Examination Exam Findings Details Neurological Normal Level of consciousne ss - Normal. Orientation - Normal. Psychiatric Normal Orientation - Lily ed to time, place, person & situation.
--- OUTSIDE RECORDS SUMMARY | 2021-04-23 09:46 | CCD ---
Author Organization Unknown Address [address] [place] [address] Phone [phone] Care Team Providers Care Box Chipper Name Role Phone ELOY PIZARRO 3 [phone] SAI OCHOA MD 2 [phone] Allergies Code Code System Name Reaction Severity Status Onset 915786 RxNorm Lexapro Insomnia Moderate Active Medications Name [...] Completed 12/09/2020 naproxen 500 mg tablet Completed grjflvbu-dnabamvem-asihlwpxe 3.5 mg-10,000 unit/mL-1 % ear d rops,susp [...] Respiratory Specimen Normal Sars-cov-2 negative negative Final [facility]: [address], [place] 12/09/2020 HIV 1+2 Ab + HIV1 P24 Ag, Quantitative I mmunoassay, Serum Blood venous Normal HIV Ag/Ab, 4TH Gen non-reactive non-reactive Fin al [facility]: [address] , [place] 12/09/2020 Hepatitis C Virus RNA, Quant, PCR, Serum or Plas ma Blood venous Normal HCV RNA, Quantitative Real Time PCR <15 not de tected IU/mL not detected IU/mL Final [facility] [address] , [place] Blood venous Normal HCV RNA, Quanti tative Real Time PCR <1.18 not detected log IU/mL not detected log IU/mL Final [facility]: [address], [place] Blood venous Comment Final [facility]: [address], [place] 05/27/2020 SARS CoV 2 RdRp Gene, QL Probe, Respiratory Spec imen Nasopharyngeal Normal Sars-cov-2 negative negative Final [facility]: [address] [facility] 05/08/2020 TSH + Free T4, Serum Blood venous Low Thyroid Stimulating Hormone 0.051 uIU/mL 0.463-3.98 uIU/mL [facility] Center: [address] [place] [address] Blood venous Normal Free T4 0.90 NG/dL 0.78-1.33 NG/dL [facility]: [address] [place] [address] 05/08/2020 Triiodothyronine Free, QN, Serum or Plasma Normal Free T3 3.2 pg/mL 2.9-4.5 pg/mL [facility] nter: [address] [place] [address] 05/08/2020 Thyroid Peroxidase (Tpo) Ab, Serum Blood venous High Thyroid Peroxidase Antibody 169.2 U/mL <60.0 U/mL [facility] Center: [address] [place] [address] 05/08/2020 Thyroglobulin Ab, Serum Blood venous High Thyroglobulin Antibody 255.8 U/mL <60.0 U/mL Final [facility]: [address] [place] [address] Past Encounters 01/28/2021 Upper Respiratory Infection Eloy Abrams RPA-C: [address] [place] [address], [facility] [address] [address], Ph. 01/13/2021 Generalized Anxiety Disorder; Otitis Media; Allergic Rhinitis Eloy D Abrams, RPA-C: [address], [place] [address], Ph. 01/12/2021 Generalized Anxiety Disorder; Moderate Recurrent Major Depression Eva Layne LMSW: [address], [place] [address], Ph. 12/29/2020 Moderate Recurrent Major Depression Eva Layne LMSW: [address], [address], [place] [address], Ph. 12/15/2020 Generalized Anxiety Disorder Eva Layne [facility]: [address], [place] [address], Ph. 12/09/2020 Adult Health Examination; Anxiety Disorder; Moderate Recurrent Major Depression; Counseling; Acute Right Otitis Media; HIV Screening; Hepatitis C Screening Eloy Abrams RPA-C: [address], [place] [address], Ph. 11/20/2020 Moderate Recurrent Major Depression; Anxiety Disorder Eva Layne LMSW: [address], [address], [place] [address], Ph. 11/10/2020 Moderate Recurrent Major Depression Eva Layne [facility]: [address], [address], [place] [address], Ph. 10/15/2020 Moderate Recurrent Major Depression Eva Layne [facility]: [address], [place] [address], Ph. 10/06/2020 Generalized Anxiety Disorder Eva Layne LMSW: [address], [address], [place] [address], Ph. 07/01/2020 Cellulitis RICARDO DillonC: [address], [place] [address], Ph. 06/10/2020 Anxiety Disorder; Depressive Disorder Eva Layne LMSW: [address] [facility], [address], [place] [address], Ph. 05/29/2020 Eva Layne LMSW: [address] [facility], [address], [place] [address], Ph. 05/27/2020 Exposure to SARS-CoV-2 Stevie Haley MD: [address] [place] [address], Ph. 05/19/2020 Adjustment Disorder with Mixed Anxiety and Depressed Mood; Autoimmune Thyroiditis Eloy Abrams, RPA-C: [address] [facility], [facility] [address], [place] [address], Ph. 05/08/2020 Autoimmune Thyroiditis Eloy Abrams RPA-C: [address] [facility], [address], [place] [address], Ph. 05/07/2020 Adjustment Disorder with Mixed Anxiety and Depressed Mood Eva Layne LMSW: [address] [facility], [address], [place] [address], Ph. 04/30/2020 Adjustment Disorder with Mixed Anxiety and Depressed Mood; Family Problems; Stress at Work Eva Layne LMSW: [address] [facility], [address], [place] [address], Ph. 04/10/2020 Adjustment Disorder with Mixed Anxiety and Depressed Mood; Family Problems Eva Layne LMSW: [address] [facility], [address], [place] [address], Ph. 03/26/2020 Stress and Adjustment Reaction; Ineffective Family Coping Eva Layne LMSW: [address] [facility], [address], [place] [address], Ph. 03/12/2020 Family Coping: Potential for Growth; Self-esteem Disturbance; Adjustment Disorder with Mixed Anxiety and Depressed Mood Eva Layne [facility]: [address] [facility], [address], [place] [address], Ph. Social History Tobacco Smoking Status Never [...]
--- OUTSIDE RECORDS SUMMARY | 2021-04-23 09:49 | CCD ---
Author Author [facility] Organization [facility] Address Unknown Phone Unavailable Care Team Providers Care Java Project Manager Name Role Phone Jessica Haley MD Unavailable Unavailable Jessica Haley MD Unavailable Unavailable Jessica Haley MD Unavailable Unavailable Jessica Haley MD Unavailable Unavailable Jessica Haley MD Unavailable Unavailable Jessica Haley MD Unavailable Unavailable Jessica Haley MD Unavailable Unavailable Jessica Haley MD Unavailable Unavailable Jessica Haley MD Unavailable Unavailable Jessica Haley MD Unavailable Unavailable Jessica Haley MD Unavailable Unavailable Jessica Haley MD Unavailable Unavailable Jessica Haley MD Unavailable Unavailable Jessica Haley MD Unavailable Unavailable Jessica Haley MD Unavailable Unavailable Jessica Haley MD Unavailable Unavailable Jessica Haley MD Unavailable Unavailable Jessica Haley MD Unavailable Unavailable Jessica Haley MD Unavailable Unavailable Jessica Haley MD Unavailable Unavailable Jessica Haley MD Unavailable Unavailable Jessica Haley MD Unavailable Unavailable Jessica Haley MD Unavailable Unavailable Jessica Haley MD Unavailable Unavailable Jessica Haley MD Unavailable Unavailable Jessica Haley MD Unavailable Unavailable Jessica Haley MD Unavailable Unavailable Jessica Haley MD Unavailable Unavailable Jessica Haley MD Unavailable Unavailable Jessica Haley MD Unavailable Unavailable Jessica Haley MD Unavailable Unavailable Jessica Haley MD Unavailable Unavailable Jessica Haley MD Unavailable Unavailable Jessica Haley MD Unavailable Unavailable Jessica Haley MD Unavailable Unavailable Jessica Haley MD Unavailable Unavailable Jessica Haley MD Unavailable Unavailable Jessica Haley MD Unavailable Unavailable Jessica Haley MD Unavailable Unavailable Jessica Haley MD Unavailable Unavailable Jessica Haley MD Unavailable Unavailable Jessica Haley MD Unavailable Unavailable Jessica Haley MD Unavailable Unavailable Jessica Haley MD Unavailable Unavailable Jessica Haley MD Unavailable Unavailable Jessica Haley MD Unavailable Unavailable Jessica Haley MD Unavailable Unavailable Jessica Haley MD Unavailable Unavailable Jessica Haley MD Unavailable Unavailable Jessica Haley MD Unavailable Unavailable Jessica Haley MD Unavailable Unavailable Jessica Haley MD Unavailable Unavailable Jessica Haley MD Unavailable Unavailable Jessica Haley MD Unavailable Unavailable Jessica Haley MD Unavailable Unavailable Jessica Haley MD Unavailable Unavailable Jessica Haley MD Unavailable Unavailable Jessica Haley MD Unavailable Unavailable Jessica Haley MD Unavailable Unavailable Jessica Haley MD Unavailable Unavailable Jessica Haley MD Unavailable Unavailable Jessica Haley MD Unavailable Unavailable Jessica Haley MD Unavailable Unavailable Jessica Haley MD Unavailable Unavailable Jessica Haley MD Unavailable Unavailable Jessica Haley MD Unavailable Unavailable Jessica Haley MD Unavailable Unavailable Jessica Haley MD Unavailable Unavailable Jessica Haley MD Unavailable Unavailable Jessica Haley MD Unavailable Unavailable Jessica Haley MD Unavailable Unavailable Jessica Haley MD Unavailable Unavailable Jessica Haley MD Unavailable Unavailable Jessica Haley MD Unavailable Unavailable Jessica Haley MD Unavailable Unavailable Jessica Haley MD Unavailable Unavailable Jessica Haley MD Unavailable Unavailable Jessica Haley MD Unavailable Unavailable Jessica Haley MD Unavailable Unavailable Jessica Haley MD Unavailable Unavailable Jessica Haley MD Unavailable Unavailable Jessica Haley MD Unavailable Unavailable Jessica Haley MD Unavailable Unavailable Jessica Haley MD Unavailable Unavailable Jessica Haley MD Unavailable Unavailable Jessica Haley MD Unavailable Unavailable Jessica Haley MD Unavailable Unavailable Jessica Haley MD Unavailable Unavailable Jessica Haley MD Unavailable Unavailable Jessica Haley MD Unavailable Unavailable Jessica Haley MD Unavailable Unavailable Jessica Haley MD Unavailable Unavailable Jessica Haley MD Unavailable Unavailable [place], J Diamond PA Unavailable Unavailable [place], J Diamond PA Unavailable Unavailable [place], J Diamond PA Unavailable Unavailable [place], J Diamond PA Unavailable Unavailable [place], J Diamond PA Unavailable Unavailable [place], J Diamond PA Unavailable Unavailable [place], J Diamond PA Unavailable Unavailable [place], J Diamond PA Unavailable Unavailable [place], J Diamond PA Unavailable Unavailable [place], J Diamond PA Unavailable Unavailable [place], J Diamond PA Unavailable Unavailable [place], J Diamond PA Unavailable Unavailable [place], J Diamond PA Unavailable Unavailable [place], J Diamond PA Unavailable Unavailable [place], J Diamond PA Unavailable Unavailable [place], J Diamond PA Unavailable Unavailable [place], J Diamond PA Unavailable Unavailable [place], J Diamond PA Unavailable Unavailable [place], J Diamond PA Unavailable Unavailable [place], J Diamond PA Unavailable Unavailable [place], J Diamond PA Unavailable Unavailable [place], J Diamond PA Unavailable Unavailable JERALD, A. ELECTRON BEAM WELDER SETTER MADELEINE Unavailable [phone] JERALD, A. ELECTRON BEAM WELDER SETTER [place]ADELEINE Unavailable [phone] JERALD, A. ELECTRON BEAM WELDER SETTER [place]LEINE Unavailable [phone] JERALD, A. ELECTRON BEAM WELDER SETTER MADELEINE Unavailable [phone] JERALD, A. ELECTRON BEAM WELDER SETTER MADELEINE Unavailable [phone] JERALD, A. ELECTRON BEAM WELDER SETTER MADELEINE Unavailable [phone] JERALD, A. ELECTRON BEAM WELDER SETTER MADELEINE Unavailable [phone] JERALD, A. ELECTRON BEAM WELDER SETTER [place]ADELEINE Unavailable [phone] JERALD, A. ELECTRON BEAM WELDER SETTER [place]ADELEINE Unavailable [phone] JERALD, A. ELECTRON BEAM WELDER SETTER [place]ADELEINE Unavailable [phone] JERALD, A. ELECTRON BEAM WELDER SETTER MADELEINE Unavailable [phone] JERALD, A. ELECTRON BEAM WELDER SETTER MADELEINE Unavailable [phone] JERALD, A. ELECTRON BEAM WELDER SETTER MADELEINE Unavailable [phone] JERALD, A. ELECTRON BEAM WELDER SETTER MADELEINE Unavailable [phone] JERALD, A. ELECTRON BEAM WELDER SETTER [place]ADELEINE Unavailable [phone] JERALD, A. ELECTRON BEAM WELDER SETTER [place]ADELE[place] Unavailable [phone] Green ELECTROPLATER HELPER ELECTROPLATER HELPER, Melissa Unavailable Unavailable Green ELECTROPLATER HELPER ELECTROPLATER HELPER, Melissa Unavailable Unavailable Green ELECTROPLATER HELPER ELECTROPLATER HELPER, Melissa Unavailable Unavailable Green ELECTROPLATER HELPER ELECTROPLATER HELPER, Melissa Unavailable Unavailable Green ELECTROPLATER HELPER ELECTROPLATER HELPER, Melissa Unavailable Unavailable Jc, A María JOHNSON Unavailable Unavailable Jc, A María JOHNSON Unavailable Unavailable Jc, A María JOHNSON Unavailable Unavailable Jc, A María JOHNSON Unavailable Unavailable Jc, A María JOHNSON Unavailable Unavailable Jc, Art Daniel MD Unavailable Unavailable Jc, Art Daniel MD Unavailable Unavailable Jc, Art Daniel MD Unavailable Unavailable Jc, Art Daniel MD Unavailable Unavailable Jc, Art Daniel MD Unavailable Unavailable Jc, A María JOHNSON Unavailable Unavailable Jc, A María JOHNSON Unavailable Unavailable Jc, A María JOHNSON Unavailable Unavailable Jc, A María JOHNSON Unavailable Unavailable Jc, Art Daniel MD Unavailable Unavailable Jc, Art Daniel MD Unavailable Unavailable Jc, Art Daniel MD Unavailable Unavailable Jc, Art Daniel MD Unavailable Unavailable Jc, Art Daniel MD Unavailable Unavailable Jc, A María JOHNSON Unavailable Unavailable Jc, rAt Daniel MD Unavailable Unavailable Jc, A María JOHNSON Unavailable Unavailable Jc, A María JOHNSON Unavailable Unavailable Jc, Art Daniel MD Unavailable Unavailable Jc, Art Daniel MD Unavailable Unavailable Jc, Art Daniel MD Unavailable Unavailable Jc, A María JOHNSON Unavailable Unavailable Jc, A María JOHNSON Unavailable Unavailable Jc, A María JOHNSON Unavailable Unavailable Jc, A María JOHNSON Unavailable Unavailable Jc, A María JOHNSON Unavailable Unavailable Jc, A María JOHNSON Unavailable Unavailable Jc, A María JOHNSON Unavailable Unavailable Jc, A María JOHNSON Unavailable Unavailable Jc, A María JOHNSON Unavailable Unavailable Jc, A María JOHNSON Unavailable Unavailable Jc, A María JOHNSON Unavailable Unavailable Jc, A María JOHNSON Unavailable Unavailable Jc, A María JOHNSON Unavailable Unavailable Jc, Art Daniel MD Unavailable Unavailable Jc, Art Daniel MD Unavailable Unavailable Jc, Art Daniel MD Unavailable Unavailable Jc, Art Daniel MD Unavailable Unavailable Jc, A María JOHNSON Unavailable Unavailable Jc, A María JOHNSON Unavailable Unavailable Jc, Art Daniel MD Unavailable Unavailable Jc, Art Daniel MD Unavailable Unavailable Jc, Art Daniel MD Unavailable Unavailable Jc, Art Daniel MD Unavailable Unavailable Jc, A María JOHNSON Unavailable Unavailable Jc, A María JOHNSON Unavailable Unavailable Jc, A María JOHNSON Unavailable Unavailable Jc, A María JOHNSON Unavailable Unavailable Jc, A María JOHNSON Unavailable Unavailable Jc, Art Daniel MD Unavailable Unavailable Jc, Art Daniel MD Unavailable Unavailable Jc, Art Daniel MD Unavailable Unavailable Jc, A María JOHNSON Unavailable Unavailable Jc, A María JOHNSON Unavailable Unavailable Jc, A María JOHNSON Unavailable Unavailable Jc, A María JOHNSON Unavailable Unavailable Jc, A María JOHNSON Unavailable Unavailable Jc, A María JOHNSON Unavailable Unavailable Jc, A María JOHNSON Unavailable Unavailable Jc, A María JOHNSON Unavailable Unavailable Jc, A María JOHNSON Unavailable Unavailable Jc, A María JOHNSON Unavailable Unavailable Jc, A María JOHNSON Unavailable Unavailable Jc, A María JOHNSON Unavailable Unavailable Jc, A María JOHNSON Unavailable Unavailable Jc, Art Daniel MD Unavailable Unavailable Jc, Art Daniel MD Unavailable Unavailable Jc, A María JOHNSON Unavailable Unavailable Jc, A María JOHNSON Unavailable Unavailable Jc, A María JOHNSON Unavailable Unavailable Jc, A María JOHNSON Unavailable Unavailable Jc, A María JOHNSON Unavailable Unavailable Jc, Art Daniel MD Unavailable Unavailable Jc, Art Daniel MD Unavailable Unavailable Jc, Art Daniel MD Unavailable Unavailable Jc, Art Daniel MD Unavailable Unavailable Jc, Art Daniel MD Unavailable Unavailable REBEKAH, E LANCE ELECTROPLATER HELPER Unavailable Unavailable REBEKAH, E LANCE ELECTROPLATER HELPER Unavailable Unavailable REBEKAH, E LANCE ELECTROPLATER HELPER Unavailable Unavailable REBEKAH, E LANCE ELECTROPLATER HELPER Unavailable Unavailable REBEKAH, E LANCE ELECTROPLATER HELPER Unavailable Unavailable REBEKAH, E LANCE ELECTROPLATER HELPER Unavailable Unavailable REBEKAH, E LANCE ELECTROPLATER HELPER Unavailable Unavailable REBEKAH, E LANCE ELECTROPLATER HELPER Unavailable Unavailable REBEKAH, E LANCE ELECTROPLATER HELPER Unavailable Unavailable REBEKAH, E LANCE ELECTROPLATER HELPER Unavailable Unavailable REBEKAH, E LANCE ELECTROPLATER HELPER Unavailable Unavailable REBEKAH, E LANCE ELECTROPLATER HELPER Unavailable Unavailable REBEKAH, E LANCE ELECTROPLATER HELPER Unavailable Unavailable Scordo M Vickie PA Unavailable Unavailable Scordo, M Vickie PA Unavailable Unavailable Scordo M Vickie PA Unavailable Unavailable Scordo M Vickie PA Unavailable Unavailable Scordo M Vickie PA Unavailable Unavailable Scordo, M Vickie PA Unavailable Unavailable Scordo, M Vickie PA Unavailable Unavailable Scordo, M Vickie PA Unavailable Unavailable Scordo, M Vickie PA Unavailable Unavailable Scordo, M Vickie PA Unavailable Unavailable Scordo, M Vickie PA Unavailable Unavailable Scordo, M Vickie PA Unavailable Unavailable Scordo, M Vickie PA Unavailable Unavailable Scordo, M Vickie PA Unavailable Unavailable Scordo, M Vickie PA Unavailable Unavailable Scordo, M Vickie PA Unavailable Unavailable Scordo, M Vickie PA Unavailable Unavailable Scordo, M Vickie PA Unavailable Unavailable Scordo, M Vickie PA Unavailable Unavailable Scordo, M Vickie PA Unavailable Unavailable Scordo, M Vickie PA Unavailable Unavailable Scordo, M Vickie PA Unavailable Unavailable Scordo, M Vickie PA Unavailable Unavailable Scordo, M Vickie PA Unavailable Unavailable Scordo, M Vickie PA Unavailable Unavailable Scordo, M Vickie PA Unavailable Unavailable Scordo, M Vickie PA Unavailable Unavailable Scordo, M Vickie PA Unavailable Unavailable Scordo, M Vickie PA Unavailable Unavailable Scordo, M Vickie PA Unavailable Unavailable Scordo, M Vickie PA Unavailable Unavailable Scordo, M Vickie PA Unavailable Unavailable Scordo, M Vickie PA Unavailable Unavailable Scordo, M Vickie PA Unavailable Unavailable Scordo, M Vickie PA Unavailable Unavailable Scordo, M Vickie PA Unavailable Unavailable Scordo, M Vickie PA Unavailable Unavailable Scordo, M Vickie PA Unavailable Unavailable Scordo, M Vickie PA Unavailable Unavailable Scordo, M Vickie PA Unavailable Unavailable Scordo, M Vickie PA Unavailable Unavailable Scordo, M Vickie PA Unavailable Unavailable Scordo, M Vickie PA Unavailable Unavailable Scordo, M Vickie PA Unavailable Unavailable Scordo, M Vickie PA Unavailable Unavailable Scordo, M Vickie PA Unavailable Unavailable Scordo, M Vickie PA Unavailable Unavailable ABRAMS, STEF ELOY RPA-C Unavailable Unavailable ABRAMS, STEF ELOY RPA-C Unavailable Unavailable ABRAMS, STEF ELOY RPA-C Unavailable Unavailable ABRAMS, STEF ELOY RPA-C Unavailable Unavailable ABRAMS, STEF ELOY RPA-C Unavailable Unavailable ABRAMS, STEF ELOY RPA-C Unavailable Unavailable ABRAMS, STEF ELOY RPA-C Unavailable Unavailable ABRAMS, STEF ELOY RPA-C Unavailable Unavailable ABRAMS, STEF ELOY RPA-C Unavailable Unavailable ABRAMS, STEF ELOY RPA-C Unavailable Unavailable ABRAMS, STEF ELOY RPA-C Unavailable Unavailable ABRAMS, STEF ELOY RPA-C Unavailable Unavailable ABRAMS, STEF ELOY RPA-C Unavailable Unavailable ABRAMS, STEF ELOY RPA-C Unavailable Unavailable ABRAMS, STEF ELOY RPA-C Unavailable Unavailable ABRAMS, STEF ELOY RPA-C Unavailable Unavailable ABRAMS, STEF ELOY RPA-C Unavailable Unavailable ABRAMS, STEF ELOY RPA-C Unavailable Unavailable ABRAMS, STEF ELOY RPA-C Unavailable Unavailable ABRAMS, STEF ELOY RPA-C Unavailable Unavailable ABRAMS, STEF ELOY RPA-C Unavailable Unavailable ABRAMS, STEF ELOY RPA-C Unavailable Unavailable ABRAMS, STEF ELOY RPA-C Unavailable Unavailable ABRAMS, STEF ELOY RPA-C Unavailable Unavailable ABRAMS, STEF ELOY RPA-C Unavailable Unavailable ABRAMS, STEF ELOY RPA-C Unavailable Unavailable ABRAMS, STEF ELOY RPA-C Unavailable Unavailable ABRAMS, STEF ELOY RPA-C Unavailable Unavailable ABRAMS, STEF ELOY RPA-C Unavailable Unavailable ABRAMS, STEF ELOY RPA-C Unavailable Unavailable ABRAMS, STEF ELOY RPA-C Unavailable Unavailable ABRAMS, STEF ELOY RPA-C Unavailable Unavailable ABRAMS, STEF ELOY RPA-C Unavailable Unavailable ABRAMS, STEF ELOY RPA-C Unavailable Unavailable ABRAMS, STEF ELOY RPA-C Unavailable Unavailable ABRAMS, STEF ELOY RPA-C Unavailable Unavailable ABRAMS, STEF ELOY RPA-C Unavailable Unavailable ABRASM, STEF ELOY RPA-C Unavailable Unavailable ABRAMS, STEF ELOY RPA-C Unavailable Unavailable ABRAMS, STEF ELOY RPA-C Unavailable Unavailable ABRAMS, STEF ELOY RPA-C Unavailable Unavailable ABRAMS, STEF ELOY RPA-C Unavailable Unavailable ABRAMS, STEF ELOY RPA-C Unavailable Unavailable Carrie CHAPARRO MD Unavailable Unavailable Carrie CHAPARRO MD Unavailable Unavailable Carrie CHAPARRO MD Unavailable Unavailable Carrie CHAPARRO MD Unavailable Unavailable Carrie CHAPARRO MD Unavailable Unavailable Carrie CHAPARRO MD Unavailable Unavailable Carrie CHAPARRO MD Unavailable Unavailable Carrie CHAPARRO MD Unavailable Unavailable Carrie CHAPARRO MD Unavailable Unavailable Carrie CHAPARRO MD Unavailable Unavailable Carrie CHAPARRO MD Unavailable Unavailable Carrie CHAPARRO MD Unavailable Unavailable Carrie CHAPARRO MD Unavailable Unavailable Carrie CHAPARRO MD Unavailable Unavailable Carrie CHAPARRO MD Unavailable Unavailable Carrie CHAPARRO MD Unavailable Unavailable Carrie CHAPARRO MD Unavailable Unavailable Carrie CHAPARRO MD Unavailable Unavailable Carrie CHAPARRO MD Unavailable Unavailable Carrie CHAPARRO MD Unavailable Unavailable Carrie CHAPARRO MD Unavailable Unavailable Carrie CHAPARRO MD Unavailable Unavailable Carrie CHAPARRO MD Unavailable Unavailable Carrie CHAPARRO MD Unavailable Unavailable Eva Layne Unavailable [phone] Feola, T Fara PA Unavailable Unavailable Feola, T Fara PA Unavailable Unavailable Feola, T Fara PA Unavailable Unavailable Feola, T Fara PA Unavailable Unavailable Feola, T Fara PA Unavailable Unavailable Feola, T Fara PA Unavailable Unavailable Feola, T Fara PA Unavailable Unavailable Feola, T Fara PA Unavailable Unavailable Feola, T Fara PA Unavailable Unavailable Feola, T Fara PA Unavailable Unavailable Feola, T Fara PA Unavailable Unavailable Feola, T Fara PA Unavailable Unavailable Feola, T Fara PA Unavailable Unavailable Feola, T Fara PA Unavailable Unavailable Feola, T Fara PA Unavailable Unavailable Feola, T Fara PA Unavailable Unavailable Feola, T Fara PA Unavailable Unavailable Feola, T Fara PA Unavailable Unavailable Feola, T Fara PA Unavailable Unavailable Feola, T Fara PA Unavailable Unavailable Feola, T Fara PA Unavailable Unavailable Feola, T Fara PA Unavailable Unavailable Feola, T Fara PA Unavailable Unavailable Feola, T Fara PA Unavailable Unavailable Feola, T Fara PA Unavailable Unavailable Feola, T Fara PA Unavailable Unavailable Feola, T Fara PA Unavailable Unavailable Feola, T Fara PA Unavailable Unavailable Feola, T Fara PA Unavailable Unavailable Feola, T Fara PA Unavailable Unavailable Feola, T Fara PA Unavailable Unavailable Feola, T Fara PA Unavailable Unavailable Feola, T Fara PA Unavailable Unavailable Feola, T Fara PA Unavailable Unavailable Feola, T Fara PA Unavailable Unavailable Feola, T Fara PA Unavailable Unavailable Feola, T Fara PA Unavailable Unavailable Feola, T Fara PA Unavailable Unavailable Feola, T Fara PA Unavailable Unavailable Feola, T Fara PA Unavailable Unavailable Feola, T Fara PA Unavailable Unavailable JOSUE, B RALPH ELECTROPLATER HELPER Unavailable Unavailable JOSUE, B RALPH ELECTROPLATER HELPER Unavailable Unavailable JOSUE, B RALPH ELECTROPLATER HELPER Unavailable Unavailable JOSUE, B RALPH ELECTROPLATER HELPER Unavailable Unavailable JOSUE, B RALPH ELECTROPLATER HELPER Unavailable Unavailable JOSUE, B RALPH ELECTROPLATER HELPER Unavailable Unavailable JOSUE, B RALPH ELECTROPLATER HELPER Unavailable Unavailable JOSUE, B RALPH ELECTROPLATER HELPER Unavailable Unavailable JOSUE, B RALPH ELECTROPLATER HELPER Unavailable Unavailable JOSUE, B RALPH ELECTROPLATER HELPER Unavailable Unavailable JOSUE, B RALPH ELECTROPLATER HELPER Unavailable Unavailable JOSUE, B RALPH ELECTROPLATER HELPER Unavailable Unavailable JOSUE, B RALPH ELECTROPLATER HELPER Unavailable Unavailable JOSUE, B RALPH ELECTROPLATER HELPER Unavailable Unavailable JOSUE, B RALPH ELECTROPLATER HELPER Unavailable Unavailable JOSUE, B RALPH ELECTROPLATER HELPER Unavailable Unavailable JOSUE, B RALPH ELECTROPLATER HELPER Unavailable Unavailable JOSUE, B RALPH ELECTROPLATER HELPER Unavailable Unavailable JOSUE, B RALPH ELECTROPLATER HELPER Unavailable Unavailable JOSUE, B RALPH ELECTROPLATER HELPER Unavailable Unavailable JOSUE, B RALPH ELECTROPLATER HELPER Unavailable Unavailable JOSUE, B RALPH ELECTROPLATER HELPER Unavailable Unavailable JOSUE, B RALPH ELECTROPLATER HELPER Unavailable Unavailable JOSUE, B RALPH ELECTROPLATER HELPER Unavailable Unavailable JOSUE, B RALPH ELECTROPLATER HELPER Unavailable Unavailable JOSUE, B RALPH ELECTROPLATER HELPER Unavailable Unavailable JOSUE, B RALPH ELECTROPLATER HELPER Unavailable Unavailable JOSUE, B RALPH ELECTROPLATER HELPER Unavailable Unavailable JOSUE, B RALPH ELECTROPLATER HELPER Unavailable Unavailable JOSUE, B RALPH ELECTROPLATER HELPER Unavailable Unavailable JOSUE, B RALPH ELECTROPLATER HELPER Unavailable Unavailable JOSUE, B RALPH ELECTROPLATER HELPER Unavailable Unavailable JOSUE, B RALPH ELECTROPLATER HELPER Unavailable Unavailable JOSUE, B RALPH ELECTROPLATER HELPER Unavailable Unavailable JOSUE, B RALPH ELECTROPLATER HELPER Unavailable Unavailable JOSUE, B RALPH ELECTROPLATER HELPER Unavailable Unavailable JOSUE, B RALPH ELECTROPLATER HELPER Unavailable Unavailable JOSUE, B RALPH ELECTROPLATER HELPER Unavailable Unavailable JOSUE, B RALPH ELECTROPLATER HELPER Unavailable Unavailable JOSUE, B RALPH ELECTROPLATER HELPER Unavailable Unavailable JOSUE, B RALPH ELECTROPLATER HELPER Unavailable Unavailable JOSUE, B RALPH ELECTROPLATER HELPER Unavailable Unavailable JOSUE, B RALPH ELECTROPLATER HELPER Unavailable Unavailable JOSUE, B RALPH ELECTROPLATER HELPER Unavailable Unavailable JOSUE, B RALPH ELECTROPLATER HELPER Unavailable Unavailable JOSUE, B RALPH ELECTROPLATER HELPER Unavailable Unavailable JSOUE, B RALPH ELECTROPLATER HELPER Unavailable Unavailable JOSUE, B RALPH ELECTROPLATER HELPER Unavailable Unavailable JOSUE, B RALPH ELECTROPLATER HELPER Unavailable Unavailable JOSUE, B RALPH ELECTROPLATER HELPER Unavailable Unavailable JOSUE, B RALPH ELECTROPLATER HELPER Unavailable Unavailable JOSUE, B RALPH ELECTROPLATER HELPER Unavailable Unavailable JOSUE, B RALPH ELECTROPLATER HELPER Unavailable Unavailable JOSUE, B RALPH ELECTROPLATER HELPER Unavailable Unavailable JOSUE, B RALPH ELECTROPLATER HELPER Unavailable Unavailable JOSUE, B RALPH ELECTROPLATER HELPER Unavailable Unavailable JOSUE, B RALPH ELECTROPLATER HELPER Unavailable Unavailable JOSUE, B RALPH ELECTROPLATER HELPER Unavailable Unavailable JOSUE, B RALPH ELECTROPLATER HELPER Unavailable Unavailable JOSUE, B RALPH ELECTROPLATER HELPER Unavailable Unavailable JOSUE, B RALPH ELECTROPLATER HELPER Unavailable Unavailable JOSUE, B RALPH ELECTROPLATER HELPER Unavailable Unavailable Dwello PA PA, Meggan Unavailable Unavailable Dwello PA PA, Meggan Unavailable Unavailable Dwello PA PA, Meggan Unavailable Unavailable Dwello PA PA, Meggan Unavailable Unavailable Dwello PA PA, Meggan Unavailable Unavailable Dwello PA PA, Meggan Unavailable Unavailable Dwello PA PA, Meggan Unavailable Unavailable Re-disclosure Warning The records that you are about to access may contain information from federally-assisted alcohol or drug abuse programs. If such information is present, then the following federally mandated warning applies: This information has been disclosed to you from records protected by federal confidentiality rules (42 CFR part 2). The federal rules prohibit you from making any further disclosure of this information unless further disclosure is expressly permitted by the written consent of the person to whom it pertains or as otherwise permitted by 42 CFR part 2. A general authorization for the release of medical or other information is NOT sufficient for this purpose. The Federal rules restrict any use of the information to criminally investigate or prosecute any alcohol or drug abuse patient.The records that you are about to access may contain highly sensitive health information, the redisclosure of which is protected by Article 27-F of the [facility] Public Health law. If you continue you may have access to information: Regarding HIV / AIDS; Provided by facilities licensed or operated by the [facility] Office of Mental Health; or Provided by the [facility] Office for People With Developmental Disabilities. If such information is present, then the following [facility] mandated warning applies: This information has been disclosed to you from confidential records which are protected by state law. State law prohibits you from making any further disclosure of this information without the specific written consent of the person to whom it pertains, or as otherwise permitted by law. Any unauthorized further disclosure in violation of state law may result in a fine or intermediate sentence or both. A general authorization for the release of medical or other information is NOT sufficient authorization for further disc losure. Allergies and Adverse Reactions Type Description Substance Reaction Status Data Source(s ) Allergy to substance Allergy to substance Allergy to substance ANT ([facility]) Allergy to substance Allergy to substance Allergy to substance ANT ([facility]) Allergy to substance Allergy to substance Allergy to substance ANT ([facility]) Allergy to substance Allergy to substance Allergy to substance ANT ([facility]) Allergy to substance Allergy to substance Allergy to substance ANT ([facility]) Allergy to substance Allergy to substance Allergy to substance ANT ([facility]) Encounters Encounter Providers Location Date Indications Data Source(s ) Outpatient Attender: MADELEINE MARQUES 06/2020 09:23:30 AM EST - 04/23/2021 09:27:25 AM EST [facility] ([facility] ) Outpatient 04/23/2021 09:20:05 AM EST - 021 09:23:14 AM EST [facility] ([facility]) ANITA PrinceC: [address], [place] [address], Ph. Attender: ELOY PIZARRO [facility] Medical 04/15/2021 12:00:00 AM EST ANT ([facility]) Eva Layne [facility]: [address], [place] [address], Ph. Attender: Eva Layne [facility] Medical 04/13/2021 12:00:00 AM EST ANT ([facility]) Eva Layne LMSW: [address], [place] [address], Ph. Attender: Eva Layne [facility] Medical 04/13/2021 12:00:00 AM EST ANT ([facility]) OutpatientOFFICE VISIT, EST Attender: Melissa Byrne ELECTROPLATER HELPER ELECTROPLATER HELPER PPNCNY [place] 04/06/2021 03:45:00 PM EST - 04/06/2021 03:45:00 PM EST Enctr srvlnc implantable subdermal contraceptiveEncounter for oth general cnsl and advice on contraceptionOther sex counselingHigh risk heterosexual behaviorEncntr screen for infections w sexl mode of transmissHuman immunodeficiency virus [HIV] counseling NextGen ([facility]) Enctr srvlnc implantable subdermal contr aceptive Encounter for oth general cnsl and advic e on contraception Other sex counseling High risk heterosexual behavior Encntr screen for infections w sexl mode of transmiss Human immunodeficiency virus [HIV] couns xochitl Layne, [facility]: [address], [place] [address], Ph. Attender: Evarupali Layne [facility] Medical 04/06/2021 12:00:00 AM EST ANT ([facility]) Evarupali Layne LMSW: [address], [place] [address], Ph. Attender: Evarupali Layne [facility] Medical 04/06/2021 12:00:00 AM EST ANT ([facility]) Evarupali Layne [facility]: [address], [place] [address], Ph. Attender: Evarupali Layne [facility] Medical 04/06/2021 12:00:00 AM EST ANT ([facility]) Eva Layne LMSW: [address], [place] [address], Ph. Attender: Eva Layne [facility] Medical 03/30/2021 12:00:00 AM EST ANT ([facility]) Eva Layne, [employer] MOTTLE SUPERVISOR: [address], [place] [address], Ph. Attender: Eva Layne [facility] Medical 03/30/2021 12:00:00 AM EST ANT ([facility]) Eva Layne, [employer]LE [employer] MOTTLE SUPERVISOR: [address], [place] [address], Ph. Attender: Eva Layne [facility] Medical 03/30/2021 12:00:00 AM EST ANT ([facility]) Eva Layne, [employer] MOTTLE SUPERVISOR: [address], [place] [address], Ph. Attender: Eva Layne [facility] Medical 03/30/2021 12:00:00 AM EST ANT ([facility]) Eva Layne, [employer] MOTTLE SUPERVISOR: [address], [place] [address], Ph. Attender: Eva Layne [facility] Medical 03/23/2021 12:00:00 AM EDT ANT ([facility]) Eva Layne, TILE [employer] MOTTLE SUPERVISOR: [address], [place] [address], Ph. Attender: Eva Layne [facility] Medical 03/23/2021 12:00:00 AM EDT ANT ([facility]) Eva Layne, TILE AND MOTTLE SUPERVISOR: [address], [place] [address], Ph. Attender: Eva Layne [facility] Medical 03/23/2021 12:00:00 AM EDT ANT ([facility]) Eva Layne, TILE AND MOTTLE SUPERVISOR: [address], [place] [address], Ph. Attender: Eva Layne [facility] Medical 03/23/2021 12:00:00 AM EDT ANT ([facility]) Eva Layne, TILE AND MOTTLE SUPERVISOR: [address], [place] [address], Ph. Attender: Eva Layne [facility] Medical 03/23/2021 12:00:00 AM EDT [place] ([facility]) Eva Layne LMSW: [address], [place] [address], Ph. Attender: Eva Layne [facility] Medical 03/09/2021 12:00:00 AM EDT ANT ([facility]) Eva Layne, TILE AND MOTTLE SUPERVISOR: [address], [place] [address], Ph. Attender: Eva Layne [facility] Medical 03/09/2021 12:00:00 AM EDT ANT ([facility]) Eva Layne, TILE AND MOTTLE SUPERVISOR: [address], [place] [address], Ph. Attender: Eva Layne [facility] Medical 03/09/2021 12:00:00 AM EDT [place] ([facility]) Eva Layne, TILE AND MOTTLE SUPERVISOR: [address], [place] [address], Ph. Attender: Eva Layne [facility] Medical 03/09/2021 12:00:00 AM EDT ANT ([facility]) Eva Layne, [facility]: [address], [place] [address], Ph. Attender: Eva Layne [facility] Medical 03/09/2021 12:00:00 AM EDT ANT ([facility]) Eva Layne, [facility]: [address], [place] [address], Ph. Attender: Eva Layne [facility] Medical 03/09/2021 12:00:00 AM EDT [place] ([facility]) Attender: Meggan BEE [facility] 07:23:00 AM EDT - 03/05/2021 07:23:00 AM EDT [facility] ([facility]) Attender: María URIAS [place] 09:44:00 AM EDT - 03/04/2021 09:44:00 AM EDT [facility] ([facility]) Attender: María Greene MD, PPTXRICARDO [place] 0 01/30/2021 09:42:00 AM EDT - 01/30/2021 09:42:00 AM EDT [facility]Gen ([facility]) Eloy Abrams RPA-C: [address], [place] [address], Ph. Attender: ELOY ABRAMS RPA-C [facility] Medical 01/28/2021 12:00:00 AM EDT ANT ([facility]) Eloy Abrams RPA-C: [address], [address], [place] [address], Ph. Attender: ELOY ABRAMS RPA-C [facility] Medical 01/28/2021 12:00:00 AM EDT ANT ([facility]) Eloy Abrams, RPA-C: [address], [address], [place] [address], Ph. Attender: ELOY ABRAMS RPA-C [facility] Medical 01/28/2021 12:00:00 AM EDT ANT ([facility]) Eloy Abrams, RPA-C: [address], [address], [place] [address], Ph. Attender: ELOY ABRAMS RPA-C [facility] Medical 01/28/2021 12:00:00 AM EDT ANT ([facility]) Eloy Abrams RPA-C: [address], [address], [place] [address], Ph. Attender: ELOY ABRAMS RPA-C [facility] Medical 01/28/2021 12:00:00 AM EDT ANT ([facility]) Eloy Abrams RPA-C: [address], [address], [place] [address], Ph. Attender: ELOY ABRAMS RPA-C [facility] Medical 01/28/2021 12:00:00 AM EDT ANT ([facility]) Eloy Abrams RPA-C: [address], [address], [place] [address], Ph. Attender: ELOY ABRAMS RPA-C [facility] Medical 01/28/2021 12:00:00 AM EDT ANT ([facility]) Eloy Abrams RPA-C: [address], [address], [place] [address], Ph. Attender: ELOY HOWARDC [facility] Medical 01/28/2021 12:00:00 AM EDT ANT ([facility]) OFFICE OUTPATIENT VISIT 15 MINUTES Attender: RALPH SALAS ELECTROPLATER HELPER Physical Therapy 01/20/2021 03:15:00 PM EDT [facility]ENT ([facility]) Eloy Abrams RPA-C: [address], [address], [place] [address], Ph. Attender: ELOY ABRAMS RPA-C [facility] Medical 01/13/2021 12:00:00 AM EDT ANT ([facility]) Eloy Abrams RPA-C: [address], [address], [place] [address], Ph. Attender: ELOY ABRAMS RPA-C [facility] Medical 01/13/2021 12:00:00 AM EDT ANT ([facility]) Eloy Abrams RPA-C: [address], [address], [place] [address], Ph. Attender: ELOY ABRAMS RPA-C [facility] Medical 01/13/2021 12:00:00 AM EDT ANT ([facility]) Eloy Abrams RPA-C: [address], [address], [place] [address], Ph. Attender: ELOY ABRAMS RPA-C [facility] Medical 01/13/2021 12:00:00 AM EDT ANT ([facility]) Eloy Abrams RPA-C: [address], [place] [address], Ph. Attender: ELOY ABRAMS RPA-C [facility] Medical 01/13/2021 12:00:00 AM EDT ANT ([facility]) Eloy Abrams RPA-C: [address], [address], [place] [address], Ph. Attender: ELOY ABRAMS RPA-C [facility] Medical 01/13/2021 12:00:00 AM EDT ANT ([facility]) Eloy Abrams RPA-C: [address], [address], [place] [address], Ph. Attender: ELOY ABRAMS RPA-C [facility] Medical 01/13/2021 12:00:00 AM EDT ANT ([facility]) Eloy Abrams RPA-C: [address], [address], [place] [address], Ph. Attender: ELOY ABRAMS RPA-C [facility] Medical 01/13/2021 12:00:00 AM EDT ANT ([facility]) Eva Layne [facility]: [address], [address], [place] [address], Ph. Attender: Eva Layne [facility] Medical 01/12/2021 12:00:00 AM EDT ANT ([facility]) Eva Layne [facility]: [address], [address], [place] [address], Ph. Attender: Eva Layne [facility] Medical 01/12/2021 12:00:00 AM EDT ANT ([facility]) Eva Layne, [facility]: [address], [place] [address], Ph. Attender: Eva Layne [facility] Medical 01/12/2021 12:00:00 AM EDT ANT ([facility]) Eva Layne, TILE AND MOTTLE SUPERVISOR: [address], [place] [address], Ph. Attender: Eva Layne [facility] Medical 01/12/2021 12:00:00 AM EDT ANT ([facility]) Eva Layne, [facility]: [address], [place] [address], Ph. Attender: Eva Layne [facility] Medical 01/12/2021 12:00:00 AM EDT ANT ([facility]) Eva Layne, [facility]: [address], [place] [address], Ph. Attender: Eva Layne [facility] Medical 01/12/2021 12:00:00 AM EDT ANT ([facility]) Eva Layne, [facility]: [address], [place] [address], Ph. Attender: Eva Layne [facility] Medical 01/12/2021 12:00:00 AM EDT ANT ([facility]) Eva Layne, [facility]: [address], [place] [address], Ph. Attender: Eva Layne [facility] Medical 01/12/2021 12:00:00 AM EDT ANT ([facility]) Eva Layne [facility]: [address], [place] [address], Ph. Attender: Eva Layne [facility] Medical 01/12/2021 12:00:00 AM EDT ANT ([facility]) Outpatient Attender: Fara Causey PA 021 08:26:59 PM EDT - 01/05/2021 08:52:57 PM EDT [facility] ([facility] ) Outpatient 01/05/2021 08:26:18 PM EDT [facility] ([facility]) Eva Layne [facility]: [address], [address], [place] [address], Ph. Attender: Eva Layne [facility] Medical 12/29/2020 12:00:00 AM EDT ANT ([facility]) Eva Layne [facility]: [address], [place] [address], Ph. Attender: Eva Layne [facility] Medical 12/29/2020 12:00:00 AM EDT ANT ([facility]) Eva Layne [facility]: [address], [address], [place] [address], Ph. Attender: Eva Layne [facility] Medical 12/29/2020 12:00:00 AM EDT ANT ([facility]) Eva Layne [facility]: [address], [place] [address], Ph. Attender: Eva Layne [facility] Medical 12/29/2020 12:00:00 AM EDT ANT ([facility]) Eva Layne TILE AND MOTTLE SUPERVISOR: [address], [place] [address], Ph. Attender: Eva Layne [facility] Medical 12/29/2020 12:00:00 AM EDT [place] ([facility]) Eva Layne, TILE AND MOTTLE SUPERVISOR: [address], [address], [place] [address], Ph. Attender: Eva Layne [facility] Medical 12/29/2020 12:00:00 AM EDT [place] ([facility]) Eva Layne, [facility]: [address], [address], [place] [address], Ph. Attender: Eva Layne [facility] Medical 12/29/2020 12:00:00 AM EDT [place] ([facility]) Eva Layne, [facility]: [address], [place] [address], Ph. Attender: Eva Layne [facility] Medical 12/29/2020 12:00:00 AM EDT [place] ([facility]) Eva Layne, [facility]: [address], [place] [address], Ph. Attender: Eva Layne [facility] Medical 12/29/2020 12:00:00 AM EDT [place] ([facility]) Eva Layne, [facility]: [address], [address], [place] [address], Ph. Attender: Eva Layne [facility] Medical 12/29/2020 12:00:00 AM EDT ANT ([facility]) Eva Layne, [facility]: [address], [place] [address], Ph. Attender: Eva Layne [facility] Medical 12/15/2020 12:00:00 AM EDT [place] ([facility]) Eva Layne, TILE AND MOTTLE SUPERVISOR: [address], [place] [address], Ph. Attender: Eva Layne [facility] Medical 12/15/2020 12:00:00 AM EDT [place] ([facility]) Eva Layne, TILE AND MOTTLE SUPERVISOR: [address], [place] [address], Ph. Attender: Eva Layne [facility] Medical 12/15/2020 12:00:00 AM EDT [place] ([facility]) Eva Layne, [facility]: [address], [place] [address], Ph. Attender: Eva Layne [facility] Medical 12/15/2020 12:00:00 AM EDT [place] ([facility]) Eva Layne, TILE AND MOTTLE SUPERVISOR: [address], [place] [address], Ph. Attender: Eva Layne [facility] Medical 12/15/2020 12:00:00 AM EDT [place] ([facility]) Eva Layne, TILE AND MOTTLE SUPERVISOR: [address], [address], [place] [address], Ph. Attender: Eva Layne [facility] Medical 12/15/2020 12:00:00 AM EDT [place] ([facility]) Eva Layne, TILE AND MOTTLE SUPERVISOR: [address], [place] [address], Ph. Attender: Eva Layne [facility] Medical 12/15/2020 12:00:00 AM EDT [place] ([facility]) Eva Layne, TILE AND MOTTLE SUPERVISOR: [address], [place] [address], Ph. Attender: Eva Layne [facility] Medical 12/15/2020 12:00:00 AM EDT [place] ([facility]) Eva Layne [facility]: [address], [address], [place] [address], Ph. Attender: Eva Layne [facility] Medical 12/15/2020 12:00:00 AM EDT [place] ([facility]) Eva Layne, [facility]: [address], [place] [address], Ph. Attender: Eva Layne [facility] Medical 12/15/2020 12:00:00 AM EDT [place] ([facility]) Eva Layne, TILE AND MOTTLE SUPERVISOR: [address], [place] [address], Ph. Attender: Eva Layne [facility] Medical 12/15/2020 12:00:00 AM EDT [place] ([facility]) Eva Layne, TILE AND MOTTLE SUPERVISOR: [address], [place] [address], Ph. Attender: Eva Layne [facility] Medical 12/15/2020 12:00:00 AM EDT [place] ([facility]) ANITA PrinceC: [address], [place] [address], Ph. Attender: ELOY ABRAMS RPA-C [facility] Medical 12/09/2020 12:00:00 AM EDT ANT ([facility]) Eloy Abrams, RPA-C: [address], [place] [address], Ph. Attender: ELOY ABRAMS RPA-C [facility] Medical 12/09/2020 12:00:00 AM EDT ANT ([facility]) Eloy Abrams, RPA-C: [address], [place] [address], Ph. Attender: ELOY ABRAMS RPA-C [facility] Medical 12/09/2020 12:00:00 AM EDT ANT ([facility]) Eloy Abrams, RPA-C: [address], [address], [place] [address], Ph. Attender: ELOY ABRAMS RPA-C [facility] Medical 12/09/2020 12:00:00 AM EDT ANT ([facility]) Eloy Abrams RPA-C: [address], [place] [address], Ph. Attender: ELOY ABRAMS RPA-C [facility] Medical 12/09/2020 12:00:00 AM EDT ANT ([facility]) Eloy Abrams, RPA-C: [address], [address], [place] [address], Ph. Attender: ELOY ABRAMS RPA-C [facility] Medical 12/09/2020 12:00:00 AM EDT ANT ([facility]) Eloy Abrams, RPA-C: [address], [address], [place] [address], Ph. Attender: ELOY ABRAMS RPA-C [facility] Medical 12/09/2020 12:00:00 AM EDT ANT ([facility]) Eloy Abrams, RPA-C: [address], [address], [place] [address], Ph. Attender: ELOY ABRAMS RPA-C [facility] Medical 12/09/2020 12:00:00 AM EDT ANT ([facility]) Eloy Abrams, RPA-C: [address], [address], [place] [address], Ph. Attender: ELOY ABRAMS RPA-C [facility] Medical 12/09/2020 12:00:00 AM EDT ANT ([facility]) Eloy Abrams, RPA-C: [address], [address], [place] [address], Ph. Attender: ELOY ABRAMS RPA-C [facility] Medical 12/09/2020 12:00:00 AM EDT ANT ([facility]) Eloy Abrams, RPA-C: [address], [address], [place] [address], Ph. Attender: ELOY ABRAMS RPA-C [facility] Medical 12/09/2020 12:00:00 AM EDT ANT ([facility]) Eloy Abrams, RPA-C: [address], [place] [address], Ph. Attender: ELOY HOWARDC [facility] Medical 12/09/2020 12:00:00 AM EDT ANT ([facility]) Outpatient Attender: JET CHAPARRO MD 12/05 12:02:53 PM EDT - 12/05/2020 12:44:53 PM EDT [facility] ([facility] ) Attender: María Pfeiffer 0 12/04/2020 11:29:00 AM EDT - 12/04/2020 11:29:00 AM EDT [facility] ([facility]) Attender: LANCE Pfeiffer 09:58:00 AM EDT - 12/03/2020 09:58:00 AM EDT [employer] ([facility]) OFFICE VISIT, ESTOutpatient Attender: Meggan URIAS [place] 11/29/2020 08:45:00 AM EDT - 11/29/2020 08:45:00 AM EDT Candidiasis of vulva and vaginaOther sex counselingEncntr screen for infections w sexl mode of transmissIrregular menstruation, unspecifiedEncntr screen for dis of the bld/bld-form org/immun mechnsmEncounter for test, result negative [employer] ([facility]) Candidiasis of vulva and vagina Other sex counseling Encntr screen for infections w sexl mode of transmiss Irregular menstruation, unspecified Encntr screen for dis of the bld/bld-for m org/immun mechnsm Encounter for test, result neg ative Eva Layne, [facility]: [address], [place] [address], Ph. Attender: Eva Layne [facility] Medical 11/20/2020 12:00:00 AM EDT ANT ([facility]) Eva Layne, [facility]: [address], [place] [address], Ph. Attender: Eva Layne [facility] Medical 11/20/2020 12:00:00 AM EDT ANT ([facility]) Eva Layne, [employer]: [address], [place] [address], Ph. Attender: Eva Layne [facility] Medical 11/20/2020 12:00:00 AM EDT ANT ([facility]) Eva Layne, [facility]: [address], [place] [address], Ph. Attender: Eva Layne [facility] Medical 11/20/2020 12:00:00 AM EDT ANT ([facility]) Eva Layne LMS[facility]: [address], [place] [address], Ph. Attender: Eva Layne [facility] Medical 11/20/2020 12:00:00 AM EDT ANT ([facility]) Eva Layne, [employer]: [address], [place] [address], Ph. Attender: Eva Layne [facility] Medical 11/20/2020 12:00:00 AM EDT ANT ([facility]) Eva Layne, [employer]PERVISOR: [address], [place] [address], Ph. Attender: Eva Layne [facility] Medical 11/20/2020 12:00:00 AM EDT ANT ([facility]) Eva Layne, [employer]LE SUPERVISOR: [address], [place] [address], Ph. Attender: Eva Layne [facility] Medical 11/20/2020 12:00:00 AM EDT ANT ([facility]) Eva Layne, [facility]: [address], [place] [address], Ph. Attender: Eva Layne [facility] Medical 11/20/2020 12:00:00 AM EDT ANT ([facility]) Eva Layne, [facility]: [address], [place] [address], Ph. Attender: Eva Layne [facility] Medical 11/20/2020 12:00:00 AM EDT ANT ([facility]) Eva Layne LMSW: [address], [place] [address], Ph. Attender: Eva Layne [facility] Medical 11/20/2020 12:00:00 AM EDT ANT ([facility]) Eva Layne, [facility]: [address], [place] [address], Ph. Attender: Eva Layne [facility] Medical 11/20/2020 12:00:00 AM EDT ANT ([facility]) Eva Layne [facility]: [address], [place] [address], Ph. Attender: Eva Layne [facility] Medical 11/20/2020 12:00:00 AM EDT [place] ([facility]) OFFICE VISIT, ESTOutpatient Attender: Meggan weir 11/10/2020 10:30:00 AM EDT - 11/10/2020 10:30:00 AM EDT Pruritus vulvaeAbnormal uterine and vaginal bleeding, unspecifiedEncounter for oth general cnsl and advice on contraceptionEncntr screen for infections w sexl mode of transmissOther sex counselingAcute vaginitisDysuriaEncounter for test, result negative [facility] ([facility]) Pruritus vulvae Abnormal uterine and vaginal bleeding, u nspecified Encounter for oth general cnsl and advic e on contraception Encntr screen for infections w sexl mode of transmiss Other sex counseling Acute vaginitis Dysuria Encounter for test, result neg ative Evarupali Layne [employer]OTTLE SUPERVISOR: [address], [place] [address], Ph. Attender: Evarupali Layne [facility] Medical 11/10/2020 12:00:00 AM EDT [facility]) Evarupali Layne LMSW: [address], [address], [place] [address], Ph. Attender: Eva aLyne [facility] Medical 11/10/2020 12:00:00 AM EDT [place] ([facility]) Evarupali Layne LMSW: [address], [address], [place] [address], Ph. Attender: Eva Layne [facility] Medical 11/10/2020 12:00:00 AM EDT [place] ([facility]) Eva Layne LMSW: [address], [address], [place] [address], Ph. Attender: Evaruplai Layne [facility] Medical 11/10/2020 12:00:00 AM EDT [facility]) Eva Layne LMSW: [address], [place] [address], Ph. Attender: Eva Layne [facility] Medical 11/10/2020 12:00:00 AM EDT ANT ([facility]) Eva Layne, [employer]LE SUPERVISOR: [address], [address], [place] [address], Ph. Attender: Eva Layne [facility] Medical 11/10/2020 12:00:00 AM EDT ANT ([facility]) Eva Layne, [employer] SUPER[employer]OR: [address], [place] [address], Ph. Attender: Eva Layne [facility] Medical 11/10/2020 12:00:00 AM EDT ANT ([facility]) Eva Layne, [employer]OTTLE SUPERVISOR: [address], [address], [place] [address], Ph. Attender: Eva Layne [facility] Medical 11/10/2020 12:00:00 AM EDT ANT ([facility]) Eva Layne, [employer]LE SUPERVISOR: [address], [place] [address], Ph. Attender: Eva Layne [facility] Medical 11/10/2020 12:00:00 AM EDT ANT ([facility]) Eva Layne, [employer]OTTLE SUPERVISOR: [address], [place] [address], Ph. Attender: Eva Layne [facility] Medical 11/10/2020 12:00:00 AM EDT ANT ([facility]) Eva Layne, [employer]OTTLE SUPERVISOR: [address], [place] [address], Ph. Attender: Eva Layne [facility] Medical 11/10/2020 12:00:00 AM EDT ANT ([facility]) Eva Layne, [employer]OTTLE SUPERVISOR: [address], [address], [place] [address], Ph. Attender: Eva Layne [facility] Medical 11/10/2020 12:00:00 AM EDT ANT ([facility]) Eva Layne, [facility]: [address], [address], [place] [address], Ph. Attender: Eva Layne [facility] Medical 11/10/2020 12:00:00 AM EDT ANT ([facility]) Eva Layne [facility]: [address], [address], [place] [address], Ph. Attender: Eva Layne [facility] Medical 11/10/2020 12:00:00 AM EDT ANT ([facility]) Eva Layne, [employer]LE SUPERVISOR: [address], [place] [address], Ph. Attender: Eva Layne [facility] Medical 10/15/2020 12:00:00 AM EDT ANT ([facility]) Eva Layne [employer] MOTTLE SUPERVISOR: [address], [address], [place] [address], Ph. Attender: Eva Layne [facility] Medical 10/15/2020 12:00:00 AM EDT [place] ([facility]) Eva Layne TI[employer] MOTTLE SUPERVISOR: [address], [address], [place] [address], Ph. Attender: Eva Layne [facility] Medical 10/15/2020 12:00:00 AM EDT ANT ([facility]) Eva Layne, [employer] MOTTLE SUPERVISOR: [address], [address], [place] [address], Ph. Attender: Eva Layne [facility] Medical 10/15/2020 12:00:00 AM EDT ANT ([facility]) Eva Layne, [facility]: [address], [address], [place] [address], Ph. Attender: Eva Layne [facility] Medical 10/15/2020 12:00:00 AM EDT ANT ([facility]) Eva Layne LMSW: [address], [address], [place] [address], Ph. Attender: Eva Layne [facility] Medical 10/15/2020 12:00:00 AM EDT ANT ([facility]) Eva Layne, [employer] MOTTLE SUPERVISOR: [address], [address], [place] [address], Ph. Attender: Eva Layne [facility] Medical 10/15/2020 12:00:00 AM EDT ANT ([facility]) Eva Layne, [facility]: [address], [address], [place] [address], Ph. Attender: Eva Layne [facility] Medical 10/15/2020 12:00:00 AM EDT ANT ([facility]) Eva Layne [employer] MOTTLE SUPERVISOR: [address], [place] [address], Ph. Attender: Eva Layne [facility] Medical 10/15/2020 12:00:00 AM EDT ANT ([facility]) Eva Layne, [employer] MOTTLE SUPERVISOR: [address], [address], [place] [address], Ph. Attender: Eva Layne [facility] Medical 10/15/2020 12:00:00 AM EDT ANT ([facility]) Eva Layne, [employer]OTTLE SUPERVISOR: [address], [address], [place] [address], Ph. Attender: Eva Layne [facility] Medical 10/15/2020 12:00:00 AM EDT ANT ([facility]) Eva Layne LMSW: [address], [address], [place] [address], Ph. Attender: Eva Layne [facility] Medical 10/15/2020 12:00:00 AM EDT ANT ([facility]) Eva Layne, [employer] MOTTLE SUPERVISOR: [address], [address], [place] [address], Ph. Attender: Eva Layne [facility] Medical 10/15/2020 12:00:00 AM EDT ANT ([facility]) Eva Layne, [employer] MOTTLE SUPERVISOR: [address], [address], [place] [address], Ph. Attender: Eva Layne [facility] Medical 10/15/2020 12:00:00 AM EDT ANT ([facility]) Eva Layne, [employer] MOTTLE SUPERVISOR: [address], [address], [place] [address], Ph. Attender: Eva Layne [facility] Medical 10/15/2020 12:00:00 AM EDT ANT ([facility]) Eva Layne, [employer] MOTTLE SUPERVISOR: [address], [address], [place] [address], Ph. Attender: Eva Layne [facility] Medical 10/06/2020 12:00:00 AM EDT ANT ([facility]) Eva Layne [facility]: [address], [address], [place] [address], Ph. Attender: Eva Layne [facility] Medical 10/06/2020 12:00:00 AM EDT [place] ([facility]) Eva Layne LMSW: [address], [address], [place] [address], Ph. Attender: Eva Layne [facility] Medical 10/06/2020 12:00:00 AM EDT ANT ([facility]) Eva Layne, [employer]OTTLE SUPERVISOR: [address], [address], [place] [address], Ph. Attender: Eva Layne [facility] Medical 10/06/2020 12:00:00 AM EDT ANT ([facility]) Eva Layne [facility]: [address], [address], [place] [address], Ph. Attender: Eva Layne [facility] Medical 10/06/2020 12:00:00 AM EDT [place] ([facility]) Eva Layne [facility]: [address], [place] [address], Ph. Attender: Eva Layne [facility] Medical 10/06/2020 12:00:00 AM EDT ANT ([facility]) Eva Layne, [employer] MOTTLE SUPERVISOR: [address], [address], [place] [address], Ph. Attender: Eva Layne [facility] Medical 10/06/2020 12:00:00 AM EDT ANT ([facility]) Eva Layne, [employer]OTTLE SUPERVISOR: [address], [address], [place] [address], Ph. Attender: Eva Layne [facility] Medical 10/06/2020 12:00:00 AM EDT [place] ([facility]) Eva Layne LMSW: [address], [address], [place] [address], Ph. Attender: Eva Layne [facility] Medical 10/06/2020 12:00:00 AM EDT ANT ([facility]) Eva Layne, [employer] MOTTLE SUPERVISOR: [address], [address], [place] [address], Ph. Attender: Eva Layne [facility] Medical 10/06/2020 12:00:00 AM EDT ANT ([facility]) Eva Layne LMSW: [address], [address], [place] [address], Ph. Attender: Eva Layne [facility] Medical 10/06/2020 12:00:00 AM EDT [place] ([facility]) Eva Layne LMSW: [address], [address], [place] [address], Ph. Attender: Eva Layne [facility] Medical 10/06/2020 12:00:00 AM EDT [place] ([facility]) Eva Layne, [facility]: [address], [address], [place] [address], Ph. Attender: Eva Layne [facility] Medical 10/06/2020 12:00:00 AM EDT [place] ([facility]) Eva Layne [facility]: [address], [address], [place] [address], Ph. Attender: Eva Layne [facility] Medical 10/06/2020 12:00:00 AM EDT [facility]) Eva Layne LMSW: [address], [address], [place] [address], Ph. Attender: Eva Layne [facility] Medical 10/06/2020 12:00:00 AM EDT [place] ([facility]) Eva Layne [facility]: [address], [address], [place] [address], Ph. Attender: Eva Layne [facility] Medical 10/06/2020 12:00:00 AM EDT [place] ([facility]) OFFICE OUTPATIENT VISIT 15 MINUTES Attender: RALPH SALAS ELECTROPLATER HELPER Physical Therapy 09/15/2020 02:15:00 PM EDT [place] ([facility]) OutpatientOFFICE VISIT, EST Attender: Melissa Byrne NP ELECTROPLATER HELPER [facility] [place] 08/29/2020 01:45:00 PM EDT - 08/29/2020 01:45:00 PM EDT Pain in left armHuman immunodeficiency virus [HIV] counselingOther sex counselingEnctr srvlnc implantable subdermal contraceptiveEncounter for oth general cnsl and advice on contraception [facility] ([facility]) Pain in left arm Human immunodeficiency virus [HIV] couns eling Other sex counseling Enctr srvlnc implantable subdermal contr aceptive Encounter for oth general cnsl and advic e on contraception Outpatient Attender: Fara BEE 021 01:12:42 PM EST - 07/22/2020 02:21:51 PM EST DocuTap ([facility] ) Outpatient Attender: RALPH SALAS ELECTROPLATER HELPER Physical Therapy 02:00:00 PM EST MEDENT ([facility]) PREV VISIT, EST, AGE 18-39Outpatient Attender: Melissa yBrne NP ELECTROPLATER HELPER [place] 07/14/2020 02:00:00 PM EST - 07/14/2020 02:00:00 PM ES T Other sex counselingEncntr for assembler sandal parts exam (general) (routine) w/o abn findingsEnctr srvlnc implantable subdermal contraceptiveEncounter for oth general cnsl and advice on contraceptionHuman immunodeficiency virus [HIV] counseling [facility] ([facility]) Other sex counseling Encntr for assembler sandal parts exam (general) (routine) w/o abn findings Enctr srvlnc implantable subdermal contr aceptive Encounter for oth general cnsl and advic e on contraception Human immunodeficiency virus [HIV] couns eling Attender: María URIAS [place] 02/2021 08:52:00 AM EST - 07/02/2020 08:52:00 AM EST [facility] ([facility]) Attender: María URIAS [place] 01/2021 11:05:00 AM EST - 07/01/2020 11:05:00 AM EST [facility] ([facility]) RICARDO DillonC: [address] [facility], [place] [address], Ph. Attender: Vickie BEE [place] - [facility] Medical 07/01/2020 12:00:00 AM EST ANT ([facility]) RICARDO DillonC: [address], [place] [address], Ph. Attender: Vickie BEE [facility] Medical 07/01/2020 12:00:00 AM EST ANT ([facility]) Vickie Keenan PA-C: [address], [address], [place] [address], Ph. Attender: Vickie BEE [facility] Medical 07/01/2020 12:00:00 AM EST ANT ([facility]) Vickie Keenan PA-C: [address], [address], [place] [address], Ph. Attender: Vickie BEE [facility] Medical 07/01/2020 12:00:00 AM EST ANT ([facility]) Vickie Keenan PA-C: [address], [address], [place] [address], Ph. Attender: Vickie BEE [facility] Medical 07/01/2020 12:00:00 AM EST ANT ([facility]) Vickie Keenan PA-C: [address], [address], [place] [address], Ph. Attender: Vickie BEE [facility] Medical 07/01/2020 12:00:00 AM EST ANT ([facility]) Vickie Keenan PA-C: [address], [address], [place] [address], Ph. Attender: Vickie BEE [facility] Medical 07/01/2020 12:00:00 AM EST ANT ([facility]) Vickie Keenan PA-C: [address], [address], [place] [address], Ph. Attender: Vickie BEE [facility] Medical 07/01/2020 12:00:00 AM EST ANT ([facility]) Vickie Keenan PA-C: [address], [address], [place] [address], Ph. Attender: Vickie BEE [facility] Medical 07/01/2020 12:00:00 AM EST ANT ([facility]) Vickie Keenan PA-C: [address], [address], [place] [address], Ph. Attender: Vickie BEE [facility] Medical 07/01/2020 12:00:00 AM EST ANT ([facility]) Vickie Keenan PA-C: [address], [address], [place] [address], Ph. Attender: Vickie BEE [facility] Medical 07/01/2020 12:00:00 AM EST ANT ([facility]) Vickie Keenan PA-C: [address], [address], [place] [address], Ph. Attender: Vickie BEE [facility] Medical 07/01/2020 12:00:00 AM EST ANT ([facility]) RICARDO DillonC: [address], [address], [place] [address], Ph. Attender: Vickie BEE [facility] Medical 07/01/2020 12:00:00 AM EST ANT ([facility]) Vickie Keenan PA-C: [address], [address], [place] [address], Ph. Attender: Vickie BEE [facility] Medical 07/01/2020 12:00:00 AM EST ANT ([facility]) Vickie Keenan PA-C: [address], [address], [place] [address], Ph. Attender: Vickie BEE [facility] Medical 07/01/2020 12:00:00 AM EST ANT ([facility]) Vickie Keenan PA-C: [address], [address], [place] [address], Ph. Attender: Vickie BEE [facility] Medical 07/01/2020 12:00:00 AM EST ANT ([facility]) Vickie Keenan PA-C: [address], [address], [place] [address], Ph. Attender: Vickie BEE [facility] Medical 07/01/2020 12:00:00 AM EST ANT ([facility]) Attender: María URIAS [place] 12/2020 11:03:00 AM EST - 06/30/2020 11:03:00 AM EST [facility] ([facility]) Attender: Diamond URIAS [place] 10/2020 05:22:00 PM EST - 06/28/2020 05:22:00 PM EST Other chlamydial infection of lower zayra tourinary tract [facility]Gen ([facility]) Other chlamydial infection of lower zayra tourinary tract OutpatientOFFICE VISIT, EST Attender: Diamond BEE [facility] [place] 06/26/2020 01:05:00 PM EST - 06/26/2020 01:05:00 PM EST Encounter for oth general cnsl and advice on contraceptionEncntr screen for infections w sexl mode of transmissEncounter for screening for human immunodeficiency virusHuman immunodeficiency virus [HIV] counselingOther sex counseling [facility] ([facility]) Encounter for oth general cnsl and advic e on contraception Encntr screen for infections w sexl mode of transmiss Encounter for screening for human immuno deficiency virus Human immunodeficiency virus [HIV] couns eling Other sex counseling Eva Layne [facility]: [address], [address], [place] [address], Ph. Attender: Eva Layne [facility] 06/10/2020 12:00:00 AM EST [facility]) Eva Layne LMSW: [address], [address], [place] [address], Ph. Attender: Eva Layne [facility] Medical 06/10/2020 12:00:00 AM EST ANT ([facility]) Eva Layne LMSW: [address], [address], [place] [address], Ph. Attender: Eva Layne [facility] Medical 06/10/2020 12:00:00 AM EST ANT ([facility]) Eva Layne LMSW: [address], [place] [address], Ph. Attender: Eva Layne [facility] Medical 06/10/2020 12:00:00 AM EST ANT ([facility]) Eva Layne [employer]LE [employer] MOTTLE SUPERVISOR: [address], [address], [place] [address], Ph. Attender: Eva Layne [facility] Medical 06/10/2020 12:00:00 AM EST ANT ([facility]) Eva Layne, [employer]OTTLE SUPERVISOR: [address], [place] [address], Ph. Attender: Eva Layne [facility] Medical 06/10/2020 12:00:00 AM EST ANT ([facility]) Eva Layne, [facility]: [address], [address], [place] [address], Ph. Attender: Eva Layne [facility] Medical 06/10/2020 12:00:00 AM EST ANT ([facility]) Eva Layne, [employer] MOTTLE SUPERVISOR: [address], [place] [address], Ph. Attender: Eva Layne [facility] Medical 06/10/2020 12:00:00 AM EST ANT ([facility]) Eva Layne, TILE [employer] MOTTLE SUPERVISOR: [address], [place] [address], Ph. Attender: Eva Layen [facility] Medical 06/10/2020 12:00:00 AM EST ANT ([facility]) Eva Layne, TILE [employer] MOTTLE SUPERVISOR: [address], [place] [address], Ph. Attender: Eva Layne [facility] Medical 06/10/2020 12:00:00 AM EST ANT ([facility]) Eva Layne, TILE [employer] MOTTLE SUPERVISOR: [address], [place] [address], Ph. Attender: Eva Layne [facility] Medical 06/10/2020 12:00:00 AM EST ANT ([facility]) Eva Layne, TILE [employer] MOTTLE SUPERVISOR: [address], [place] [address], Ph. Attender: Eva Layne [facility] Medical 06/10/2020 12:00:00 AM EST ANT ([facility]) Eva Layne, TILE [employer] MOTTLE SUPERVISOR: [address], [place] [address], Ph. Attender: Eva Layne [facility] Medical 06/10/2020 12:00:00 AM EST ANT ([facility]) Eva Layne, TILE [employer] MOTTLE SUPERVISOR: [address], [place] [address], Ph. Attender: Eva Layne [facility] Medical 06/10/2020 12:00:00 AM EST ANT ([facility]) Eva Layne, TILE [employer] MOTTLE SUPERVISOR: [address], [place], [place] [address], Ph. Attender: Eva Layne [facility] Medical 06/10/2020 12:00:00 AM EST ANT ([facility]) Eva Layne, TILE AND MOTTLE SUPERVISOR: [address], [place] [address], Ph. Attender: Eva Layne [facility] Medical 06/10/2020 12:00:00 AM EST ANT ([facility]) Eva Layne [facility]: [address], [place] [address], Ph. Attender: Eva Layne [facility] Medical 06/10/2020 12:00:00 AM EST ANT ([facility]) Eva Layne TILE AND MOTTLE SUPERVISOR: [address], [place] [address], Ph. Attender: Eva Layne [facility] Medical 06/10/2020 12:00:00 AM EST ANT ([facility]) Eva Layne, TILE AND MOTTLE SUPERVISOR: [address], [place] [address], Ph. Attender: Eva Layne [facility] Medical 05/29/2020 12:00:00 AM EST ANT ([facility]) Eva Layne, [facility]: [address], [place] [address], Ph. Attender: Eva Layne [facility] Medical 05/29/2020 12:00:00 AM EST ANT ([facility]) Eva Layne [facility]: [address], [place] [address], Ph. Attender: Eva Layne [facility] Medical 05/29/2020 12:00:00 AM EST ANT ([facility]) Eva Layne, [facility]: [address], [place] [address], Ph. Attender: Eva Layne [facility] Medical 05/29/2020 12:00:00 AM EST ANT ([facility]) Eva Layne, [facility]: [address], [place] [address], Ph. Attender: Eva Layne [facility] Medical 05/29/2020 12:00:00 AM EST ANT ([facility]) Eva Layne TILE AND MOTTLE SUPERVISOR: [address], [place] [address], Ph. Attender: Eva Layne [facility] Medical 05/29/2020 12:00:00 AM EST ANT ([facility]) Eva Layne, TILE AND MOTTLE SUPERVISOR: [address], [place] [address], Ph. Attender: Eva Layne [facility] Medical 05/29/2020 12:00:00 AM EST ANT ([facility]) Eva Layne, TILE AND MOTTLE SUPERVISOR: [address], [place] [address], Ph. Attender: Eva Layne [facility] Medical 05/29/2020 12:00:00 AM EST ANT ([facility]) Eva Layne [facility]: [address], [address], [place] [address], Ph. Attender: Eva Layne [facility] Medical 05/29/2020 12:00:00 AM EST ANT ([facility]) Eva Layne [facility]: [address], [place] [address], Ph. Attender: Eva Layne [facility] Medical 05/29/2020 12:00:00 AM EST ANT ([facility]) Eva Layne, [facility]: [address], [place] [address], Ph. Attender: Eva Layne [facility] Medical 05/29/2020 12:00:00 AM EST ANT ([facility]) Eva Layne, TILE AND MOTTLE SUPERVISOR: [address], [place] [address], Ph. Attender: Eva Layne [facility] Medical 05/29/2020 12:00:00 AM EST ANT ([facility]) Eva Layne [facility]: [address], [place] [address], Ph. Attender: Eva Layne [facility] Medical 05/29/2020 12:00:00 AM EST ANT ([facility]) Eva Layne, [facility]: [address], [place] [address], Ph. Attender: Eva Layne [facility] Medical 05/29/2020 12:00:00 AM EST ANT ([facility]) Eva Layne [facility]: [address], [place] [address], Ph. Attender: Eva Layne [facility] Medical 05/29/2020 12:00:00 AM EST ANT ([facility]) Eva Layne [facility]: [address], [address], [place] [address], Ph. Attender: Eva Layne [facility] Medical 05/29/2020 12:00:00 AM EST ANT ([facility]) Eva Layne, [facility]: [address], [address], [place] [address], Ph. Attender: Eva Layne [facility] Medical 05/29/2020 12:00:00 AM EST ANT ([facility]) Eva Layne, [facility]: [address], [place] [address], Ph. Attender: Eva Layne [facility] Medical 05/29/2020 12:00:00 AM EST ANT ([facility]) Eva Layne, [facility]: [address], [address], [place] [address], Ph. Attender: Eva Layne [facility] Medical 05/29/2020 12:00:00 AM EST ANT ([facility]) Stevie Haley MD: [address] [place] [address], Ph. Attender: Stevie Haley MD [facility] Medical 05/27/2020 12:00:00 AM EST ANT ([facility]) Stevie Haley MD: [address] [place] [address], Ph. Attender: Stevie Haley MD [facility] Medical 05/27/2020 12:00:00 AM EST ANT ([facility]) Stevie Haley MD: [address] [place] [address], Ph. Attender: Stevie Haley MD [facility] Medical 05/27/2020 12:00:00 AM EST ANT ([facility]) Stevie Haley MD: [address] [place] [address], Ph. Attender: Stevie Haley MD [facility] Medical 05/27/2020 12:00:00 AM EST ANT ([facility]) Stevie Haley MD: [address] [place] [address], Ph. Attender: Stevie Haley MD [facility] Medical 05/27/2020 12:00:00 AM EST ANT ([facility]) Stevie Haley MD: [address] [place] [address], Ph. Attender: Stevie Haley MD [facility] Medical 05/27/2020 12:00:00 AM EST ANT ([facility]) Stevie Haley MD: [address] [place] [address], Ph. Attender: Stevie Haley MD [facility] Medical 05/27/2020 12:00:00 AM EST ANT ([facility]) Stevie Haley MD: [address] [place] [address], Ph. Attender: Stevie Haley MD [facility] Medical 05/27/2020 12:00:00 AM EST ANT ([facility]) Stevie Haley MD: [address] [place] [address], Ph. Attender: Stevie Haley MD [facility] Medical 05/27/2020 12:00:00 AM EST ANT ([facility]) Stevie Haley MD: [address] [place] [address], Ph. Attender: Stevie Haley MD [facility] Medical 05/27/2020 12:00:00 AM EST ANT ([facility]) Stevie Haley MD: [address] [place] [address], Ph. Attender: Stevie Haley MD [facility] Medical 05/27/2020 12:00:00 AM EST ATN ([facility]) Stevie Haley MD: [address] [place] [address], Ph. Attender: Stevie Haley MD [facility] Medical 05/27/2020 12:00:00 AM EST ANT ([facility]) Stevie Haley MD: [address] [place] [address], Ph. Attender: Stevie Haley MD [facility] Medical 05/27/2020 12:00:00 AM EST ANT ([facility]) Stevie Haley MD: [address] [place] [address], Ph. Attender: Stevie Haley MD [facility] Medical 05/27/2020 12:00:00 AM EST ANT ([facility]) Stevie Haley MD: [address] [place] [address], Ph. Attender: Stevie Haley MD [facility] Medical 05/27/2020 12:00:00 AM EST ANT ([facility]) Stevie Haley MD: [address] [place] [address], Ph. Attender: Stevie Haley MD [facility] Medical 05/27/2020 12:00:00 AM EST ANT ([facility]) Stevie Haley MD: [address] [place] [address], Ph. Attender: Stevie Hlaey MD [facility] Medical 05/27/2020 12:00:00 AM EST ANT ([facility]) Stevie Haley MD: [address] [place] [address], Ph. Attender: Stevie Haley MD [facility] Medical 05/27/2020 12:00:00 AM EST ANT ([facility]) Stevie Haley MD: [address] [place] [address], Ph. Attender: Stevie Haley MD [facility] Medical 05/27/2020 12:00:00 AM EST ANT ([facility]) Stevie Haley MD: [address] [place] [address], Ph. Attender: Stevie Haley MD [facility] Medical 05/27/2020 12:00:00 AM EST ANT ([facility]) Eloy Abrams RPA-C: [address], [address], [place] [address], Ph. Attender: ELOY ABRAMS RPA-C [facility] Medical 05/19/2020 12:00:00 AM EST ANT ([facility]) Eloy Abrams RPA-C: [address], [address], [place] [address], Ph. Attender: ELOY ABRAMS RPA-C [facility] Medical 05/19/2020 12:00:00 AM EST ANT ([facility]) Eloy Abrams RPA-C: [address], [address], [place] [address], Ph. Attender: ELOY ABRAMS RPA-C [facility] Medical 05/19/2020 12:00:00 AM EST ANT ([facility]) Eloy Abrams RPA-C: [address], [address], [place] [address], Ph. Attender: ELOY ABRAMS RPA-C [facility] Medical 05/19/2020 12:00:00 AM EST ANT ([facility]) Eloy Abrams RPA-C: [address], [address], [place] [address], Ph. Attender: ELOY ABRAMS RPA-C [facility] Medical 05/19/2020 12:00:00 AM EST ANT ([facility]) Eloy Abrams RPA-C: [address], [address], [place] [address], Ph. Attender: ELOY ABRAMS RPA-C [facility] Medical 05/19/2020 12:00:00 AM EST ANT ([facility]) Eloy Abrams RPA-C: [address], [address], [place] [address], Ph. Attender: ELOY ABRAMS RPA-C [facility] Medical 05/19/2020 12:00:00 AM EST ANT ([facility]) Eoly Abrams RPA-C: [address], [address], [place] [address], Ph. Attender: ELOY ABRAMS RPA-C [facility] Medical 05/19/2020 12:00:00 AM EST ANT ([facility]) Eloy Abrams RPA-C: [address], [address], [place] [address], Ph. Attender: ELOY ABRAMS RPA-C [facility] Medical 05/19/2020 12:00:00 AM EST ANT ([facility]) Eloy Abrams RPA-C: [address], [address], [place] [address], Ph. Attender: ELOY ABRAMS RPA-C [facility] Medical 05/19/2020 12:00:00 AM EST ANT ([facility]) Eloy Abrams, RPA-C: [address], [address], [place] [address], Ph. Attender: ELOY ABRAMS RPA-C [facility] Medical 05/19/2020 12:00:00 AM EST ANT ([facility]) Eloy Abrams, RPA-C: [address], [address], [place] [address], Ph. Attender: ELOY ABRAMS RPA-C [facility] Medical 05/19/2020 12:00:00 AM EST ANT ([facility]) Eloy Abrams, RPA-C: [address], [address], [place] [address], Ph. Attender: ELOY ABRAMS RPA-C [facility] Medical 05/19/2020 12:00:00 AM EST ANT ([facility]) Eloy Abrams, RPA-C: [address], [address], [place] [address], Ph. Attender: ELOY ABRAMS RPA-C [facility] Medical 05/19/2020 12:00:00 AM EST ANT ([facility]) Eloy Abrams, RPA-C: [address], [address], [place] [address], Ph. Attender: ELOY ABRAMS RPA-C [facility] Medical 05/19/2020 12:00:00 AM EST ANT ([facility]) Eloy Abrams, RPA-C: [address], [address], [place] [address], Ph. Attender: ELOY ABRAMS RPA-C [facility] Medical 05/19/2020 12:00:00 AM EST ANT ([facility]) Eloy Abrams RPA-C: [address], [address], [place] [address], Ph. Attender: ELOY ABRAMS RPA-C [facility] Medical 05/19/2020 12:00:00 AM EST ANT ([facility]) Eloy Abrams RPA-C: [address], [address], [place] [address], Ph. Attender: ELOY ABRAMS RPA-C [facility] Medical 05/19/2020 12:00:00 AM EST ANT ([facility]) Eloy Abrams RPA-C: [address], [address], [place] [address], Ph. Attender: ELOY ABRAMS RPA-C [facility] Medical 05/19/2020 12:00:00 AM EST ANT ([facility]) Eloy Abrams RPA-C: [address], [address], [place] [address], Ph. Attender: ELOY ABRAMS RPA-C [facility] Medical 05/19/2020 12:00:00 AM EST ANT ([facility]) Eloy Abrams RPA-C: [address], [address], [place] [address], Ph. Attender: ELOY ABRAMS RPA-C [facility] Medical 05/19/2020 12:00:00 AM EST ANT ([facility]) OFFICE OUTPATIENT VISIT 15 MINUTES Attender: RALPH SALSA ELECTROPLATER HELPER Physical Therapy 05/13/2020 10:15:00 AM EST MEDENT ([facility] ) Eloy Abrams RPA-C: [address], [address], [place] [address], Ph. Attender: ELOY ABRAMS RPA-C [facility] Medical 05/08/2020 12:00:00 AM EST ANT ([facility]) Eloy Abrams RPA-C: [address], [address], [place] [address], Ph. Attender: ELOY ABRAMS RPA-C [facility] Medical 05/08/2020 12:00:00 AM EST ANT ([facility]) Eloy Abrams RPA-C: [address], [address], [place] [address], Ph. Attender: ELOY ABRAMS RPA-C [facility] Medical 05/08/2020 12:00:00 AM EST ANT ([facility]) Eloy Abrams RPA-C: [address], [address], [place] [address], Ph. Attender: ELOY ABRAMS RPA-C [facility] Medical 05/08/2020 12:00:00 AM EST ANT ([facility]) Eloy Abrams RPA-C: [address], [place] [address], Ph. Attender: ELOY ABRAMS RPA-C [facility] Medical 05/08/2020 12:00:00 AM EST ANT ([facility]) Eloy Abrams RPA-C: [address], [address], [place] [address], Ph. Attender: ELOY ABRAMS RPA-C [facility] Medical 05/08/2020 12:00:00 AM EST ANT ([facility]) Eloy Abrams RPA-C: [address], [address], [place] [address], Ph. Attender: ELOY ABRAMS RPA-C [facility] Medical 05/08/2020 12:00:00 AM EST ANT ([facility]) Elyo Abrams RPA-C: [address], [place] [address], Ph. Attender: ELOY ABRAMS RPA-C [facility] Medical 05/08/2020 12:00:00 AM EST ANT ([facility]) Eloy Abrams RPA-C: [address], [address], [place] [address], Ph. Attender: ELOY ABRAMS RPA-C [facility] Medical 05/08/2020 12:00:00 AM EST ANT ([facility]) Eloy Abrams RPA-C: [address], [place] [address], Ph. Attender: ELOY ABRAMS RPA-C [facility] Medical 05/08/2020 12:00:00 AM EST ANT ([facility]) Eloy Abrams RPA-C: [address], [address], [place] [address], Ph. Attender: ELOY ABRAMS RPA-C [facility] Medical 05/08/2020 12:00:00 AM EST ANT ([facility]) Eloy Abrams RPA-C: [address], [place] [address], Ph. Attender: ELOY ABRAMS RPA-C [facility] Medical 05/08/2020 12:00:00 AM EST ANT ([facility]) Eloy Abrams RPA-C: [address], [place] [address], Ph. Attender: ELOY ABRAMS RPA-C [facility] Medical 05/08/2020 12:00:00 AM EST ANT ([facility]) Eloy Abrams RPA-C: [address], [place] [address], Ph. Attender: ELOY ABRAMS RPA-C [facility] Medical 05/08/2020 12:00:00 AM EST ANT ([facility]) Eloy Abrams, RPA-C: [address], [address], [place] [address], Ph. Attender: ELOY ABRAMS RPA-C [facility] Medical 05/08/2020 12:00:00 AM EST ANT ([facility]) Eloy Abrams RPA-C: [address], [place] [address], Ph. Attender: ELOY ABRAMS RPA-C [facility] Medical 05/08/2020 12:00:00 AM EST ANT ([facility]) Eloy Abrams, RPA-C: [address], [place] [address], Ph. Attender: ELOY ABRAMS RPA-C [facility] Medical 05/08/2020 12:00:00 AM EST ANT ([facility]) Eloy Abrams RPA-C: [address], [place] [address], Ph. Attender: ELOY ABRAMS RPA-C [facility] Medical 05/08/2020 12:00:00 AM EST ANT ([facility]) Eloy Abrams RPA-C: [address], [place] [address], Ph. Attender: ELOY ABRAMS RPA-C [facility] Medical 05/08/2020 12:00:00 AM EST ANT ([facility]) Eloy Abrams RPA-C: [address], [place] [address], Ph. Attender: ELOY ABRAMS RPA-C [facility] Medical 05/08/2020 12:00:00 AM EST ANT ([facility]) Eloy Abrams RPA-C: [address], [place] [address], Ph. Attender: ELOY ABRAMS RPA-C [facility] Medical 05/08/2020 12:00:00 AM EST ANT ([facility]) Eloy Abrams, RPA-C: [address], [place] [address], Ph. Attender: ELOY ABRAMS RPA-C [facility] Medical 05/08/2020 12:00:00 AM EST ANT ([facility]) Eva Layne, TILE AND MOTTLE SUPERVISOR: [address], [place] [address], Ph. Attender: Eva Layne [facility] Medical 05/07/2020 12:00:00 AM EST ANT ([facility]) Eva Layne, [facility]: [address], [place] [address], Ph. Attender: Eva Layne [facility] Medical 05/07/2020 12:00:00 AM EST ANT ([facility]) Eva Layne, TI[employer] MOTTLE SUPERVISOR: [address], [place] [address], Ph. Attender: Eva Layne [facility] Medical 05/07/2020 12:00:00 AM EST ANT ([facility]) Eva Layne, [facility]: [address], [place] [address], Ph. Attender: Eva Layne [facility] Medical 05/07/2020 12:00:00 AM EST ANT ([facility]) Eva Layne, [facility]: [address], [place] [address], Ph. Attender: Eva Layne [facility] Medical 05/07/2020 12:00:00 AM EST ANT ([facility]) Eva Layne, [facility]: [address], [place] [address], Ph. Attender: Eva Layne [facility] Medical 05/07/2020 12:00:00 AM EST ANT ([facility]) Eva Layne, [facility]: [address], [place] [address], Ph. Attender: Eva Layne [facility] Medical 05/07/2020 12:00:00 AM EST ANT ([facility]) Eva Layne, [employer] MOTTLE SUPERVISOR: [address], [place] [address], Ph. Attender: Eva Layne [facility] Medical 05/07/2020 12:00:00 AM EST ANT ([facility]) Eva Layne, TILE AND MOTTLE SUPERVISOR: [address], [place] [address], Ph. Attender: Eva Layne [facility] Medical 05/07/2020 12:00:00 AM EST ANT ([facility]) Eva aLyne, TILE AND MOTTLE SUPERVISOR: [address], [place] [address], Ph. Attender: Eva Layne [facility] Medical 05/07/2020 12:00:00 AM EST ANT ([facility]) Eva Layne, [employer] SUPERVISOR: [address], [place] [address], Ph. Attender: Eva Layne [facility] Medical 05/07/2020 12:00:00 AM EST ANT ([facility]) Eva Layne, [employer] SUPERVISOR: [address], [place] [address], Ph. Attender: Eva Layne [facility] Medical 05/07/2020 12:00:00 AM EST ANT ([facility]) Eva Layne, [employer] SUPERVISOR: [address], [place] [address], Ph. Attender: Eva Layne [facility] Medical 05/07/2020 12:00:00 AM EST ANT ([facility]) Eva Layne, [employer] SUPERVISOR: [address], [place] [address], Ph. Attender: Eva Layne [facility] Medical 05/07/2020 12:00:00 AM EST ANT ([facility]) Eva Layne [employer] SUPERVISOR: [address], [place] [address], Ph. Attender: Eva Layne [facility] Medical 05/07/2020 12:00:00 AM EST ANT ([facility]) Eva Layne [employer] SUPERVISOR: [address], [place] [address], Ph. Attender: Eva Layne [facility] Medical 05/07/2020 12:00:00 AM EST ANT ([facility]) Eva Layne, [employer] SUPERVISOR: [address], [place] [address], Ph. Attender: Eva Layne [facility] Medical 05/07/2020 12:00:00 AM EST ANT ([facility]) Eva Layne [facility]: [address], [place] [address], Ph. Attender: Eva Layne [facility] Medical 05/07/2020 12:00:00 AM EST ANT ([facility]) Eva Layne [employer] SUPERVISOR: [address], [place] [address], Ph. Attender: Eva Layne [facility] - [facility] Medical 05/07/2020 12:00:00 AM EST ANT ([facility]) Eva Layne, [employer]LE SUPERVISOR: [address], [place] [address], Ph. Attender: Eva Layne [facility] Medical 05/07/2020 12:00:00 AM EST ANT ([facility]) Eva Layne, [employer] SUPERVISOR: [address], [place] [address], Ph. Attender: Eva Layne [facility] Medical 05/07/2020 12:00:00 AM EST ANT ([facility]) Eva Layne, [facility]: [address], [place] [address], Ph. Attender: Eva Layne [facility] Medical 05/07/2020 12:00:00 AM EST ANT ([facility]) Eva Layne, [facility]: [address], [place] [address], Ph. Attender: Eva Layne [facility] Medical 05/07/2020 12:00:00 AM EST ANT ([facility]) Eva Layne, [facility]: [address], [place] [address], Ph. Attender: Eva Layne [facility] Medical 04/30/2020 12:00:00 AM EST ANT ([facility]) Eva Layne, [facility]: [address], [place] [address], Ph. Attender: Eva Layne [facility] Medical 04/30/2020 12:00:00 AM EST ANT ([facility]) Eva Layne, [employer] SUPER[employer]OR: [address], [place] [address], Ph. Attender: Eva Layne [facility] Medical 04/30/2020 12:00:00 AM EST ANT ([facility]) Eva Layne, [employer] SUPERVISOR: [address], [place] [address], Ph. Attender: Eva Layne [facility] Medical 04/30/2020 12:00:00 AM EST ANT ([facility]) Eva Layne, [employer] SUPERVISOR: [address], [place] [address], Ph. Attender: Eva Layne [facility] Medical 04/30/2020 12:00:00 AM EST ANT ([facility]) Eva Layne, [employer] SUPERVISOR: [address], [place] [address], Ph. Attender: Eva Layne [facility] Medical 04/30/2020 12:00:00 AM EST ANT ([facility]) Eva Layne, [employer] SUPERVISOR: [address], [place] [address], Ph. Attender: Eva Layne [facility] Medical 04/30/2020 12:00:00 AM EST ANT ([facility]) Eva Layne, [employer] SUPERVISOR: [address], [place] [address], Ph. Attender: Eva Layne [facility] Medical 04/30/2020 12:00:00 AM EST ANT ([facility]) Eva Layne, [employer] SUPER[employer]OR: [address], [place] [address], Ph. Attender: Eva Layne [facility] Medical 04/30/2020 12:00:00 AM EST ANT ([facility]) Eva Layne, [employer] SUPERVISOR: [address], [place] [address], Ph. Attender: Eva Layne [facility] Medical 04/30/2020 12:00:00 AM EST ANT ([facility]) Eva Layne, [employer]LE SUPERVISOR: [address], [place] [address], Ph. Attender: Eva Layne [facility] Medical 04/30/2020 12:00:00 AM EST ANT ([facility]) Eva Layne, [employer]LE SUPERVISOR: [address], [place] [address], Ph. Attender: Eva Layne [facility] Medical 04/30/2020 12:00:00 AM EST ANT ([facility]) Eva Layne, [employer]LE SUPERVISOR: [address], [place] [address], Ph. Attender: Eva Layne [facility] Medical 04/30/2020 12:00:00 AM EST ANT ([facility]) Eva Layne, [employer]LE SUPERVISOR: [address], [place] [address], Ph. Attender: Eva Layne [facility] Medical 04/30/2020 12:00:00 AM EST ANT ([facility]) Eva Layne, [employer]LE SUPERVISOR: [address], [place] [address], Ph. Attender: Eva Layne [facility] Medical 04/30/2020 12:00:00 AM EST ANT ([facility]) Eva Layne [facility]: [address], [place] [address], Ph. Attender: Eva Layne [facility] Medical 04/30/2020 12:00:00 AM EST ANT ([facility]) Eva Layne, [facility]: [address], [place] [address], Ph. Attender: Eva Layne [facility] Medical 04/30/2020 12:00:00 AM EST ANT ([facility]) Eva Layne [facility]: [address], [place] [address], Ph. Attender: Eva Layne [facility] Medical 04/30/2020 12:00:00 AM EST ANT ([facility]) Eva Layne [facility]: [address], [place] [address], Ph. Attender: Eva Layne [facility] Medical 04/30/2020 12:00:00 AM EST ANT ([facility]) Eva Layne [facility]: [address], [place] [address], Ph. Attender: Eva Layne [facility] Medical 04/30/2020 12:00:00 AM EST ANT ([facility]) Eva Layne, [facility]: [address], [place] [address], Ph. Attender: Eva Layne [facility] Medical 04/30/2020 12:00:00 AM EST ANT ([facility]) Eva Layne TI[employer] MOTTLE SUPERVISOR: [address], [place] [address], Ph. Attender: Eva Layne [facility] Medical 04/30/2020 12:00:00 AM EST ANT ([facility]) Eva Layne [employer] MOTTLE SUPERVISOR: [address], [place] [address], Ph. Attender: Eva Layne [facility] Medical 04/30/2020 12:00:00 AM EST ANT ([facility]) Eva Layne [employer] MOTTLE SUPERVISOR: [address], [place] [address], Ph. Attender: Eva Layne [facility] Medical 04/30/2020 12:00:00 AM EST ANT ([facility]) Attender: [facility] [place] [facility] 06/11/2019 04:01:00 PM EST - 04/11/2020 04:01:00 PM EST NextGen ([facility]) Eva Layne, [employer] MOTTLE SUPERVISOR: [address], [place] [address], Ph. Attender: Eva Layne [facility] Medical 04/10/2020 12:00:00 AM EST ANT ([facility]) Eva Layne [employer] MOTTLE SUPERVISOR: [address], [place] [address], Ph. Attender: Eva Layne [facility] Medical 04/10/2020 12:00:00 AM EST ANT ([facility]) Eva CuevaLADARIUS alvarezSW: [address], [place] [address], Ph. Attender: Eva Layne [facility] Medical 04/10/2020 12:00:00 AM EST ANT ([facility]) Eva Layen, [employer] SUPERVISOR: [address], [place] [address], Ph. Attender: Eva Layne [facility] Medical 04/10/2020 12:00:00 AM EST ANT ([facility]) Eva Layne, [employer]LE SUPERVISOR: [address], [place] [address], Ph. Attender: Eva Layne [facility] Medical 04/10/2020 12:00:00 AM EST ANT ([facility]) Eva Layne [employer] MOTTLE SUPERVISOR: [address], [place] [address], Ph. Attender: Eva Layne [facility] Medical 04/10/2020 12:00:00 AM EST ANT ([facility]) Eva Layne, [employer] MOTTLE SUPERVISOR: [address], [place] [address], Ph. Attender: Eva Layne [facility] Medical 04/10/2020 12:00:00 AM EST ANT ([facility]) Eva Layne, [employer] MOTTLE SUPERVISOR: [address], [place] [address], Ph. Attender: Eva Layne [facility] Medical 04/10/2020 12:00:00 AM EST ANT ([facility]) Eva Layne, [employer] MOTTLE SUPERVISOR: [address], [address], [place] [address], Ph. Attender: Eva Layne [facility] Medical 04/10/2020 12:00:00 AM EST ANT ([facility]) Eva Layne, [facility]: [address], [address], [place] [address], Ph. Attender: Eva Layne [facility] Medical 04/10/2020 12:00:00 AM EST ANT ([facility]) Eva Layne, [facility]: [address], [place] [address], Ph. Attender: Eva Layne [facility] Medical 04/10/2020 12:00:00 AM EST ANT ([facility]) Eva Layne, [facility]: [address], [place] [address], Ph. Attender: Eva Layne [facility] Medical 04/10/2020 12:00:00 AM EST ANT ([facility]) Eva Layne, [facility]: [address], [place] [address], Ph. Attender: Eva Layne [facility] Medical 04/10/2020 12:00:00 AM EST ANT ([facility]) Eva Layne, [facility]: [address], [place] [address], Ph. Attender: Eva Layne [facility] Medical 04/10/2020 12:00:00 AM EST ANT ([facility]) Eva Layne, [facility]: [address], [place] [address], Ph. Attender: Eva Layne [facility] Medical 04/10/2020 12:00:00 AM EST ANT ([facility]) Eva Layne, [employer]LE SUPERVISOR: [address], [place] [address], Ph. Attender: Eva Layne [facility] Medical 04/10/2020 12:00:00 AM EST ANT ([facility]) Eva Layne, [employer] MOTTLE SUPERVISOR: [address], [place] [address], Ph. Attender: Eva Layne [facility] Medical 04/10/2020 12:00:00 AM EST ANT ([facility]) Eva Layne, [employer] MOTTLE SUPERVISOR: [address], [place] [address], Ph. Attender: Eva Layne [facility] Medical 04/10/2020 12:00:00 AM EST ANT ([facility]) Eva Layne, [employer]OTTLE SUPERVISOR: [address], [place] [address], Ph. Attender: Eva Layne [facility] Medical 04/10/2020 12:00:00 AM EST ANT ([facility]) Eva Layne, [employer] MOTTLE SUPERVISOR: [address], [place] [address], Ph. Attender: Eva Layne [facility] Medical 04/10/2020 12:00:00 AM EST ANT ([facility]) Eva Layne, [employer] MOTTLE SUPERVISOR: [address], [place] [address], Ph. Attender: Eva Layne [facility] Medical 04/10/2020 12:00:00 AM EST ANT ([facility]) Eva Layne [facility]: [address], [place] [address], Ph. Attender: Eva Layne [facility] Medical 04/10/2020 12:00:00 AM EST ANT ([facility]) Eva Layne TI[employer] MOTTLE SUPERVISOR: [address], [address], [place] [address], Ph. Attender: Eva Layne [facility] Medical 04/10/2020 12:00:00 AM EST ANT ([facility]) Eva Layne [facility]: [address], [address], [place] [address], Ph. Attender: Eva Layne [facility] Medical 04/10/2020 12:00:00 AM EST ANT ([facility]) Eva Layne [facility]: [address], [address], [place] [address], Ph. 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 Attender: Eva Layne [facility] Medical 03/26/2020 12:00:00 AM EST ANT ([facility]) Eva Layne [facility]: [address], [place] [address], Ph. Attender: Eva Layne [facility] Medical 03/26/2020 12:00:00 AM EST ANT ([facility]) Eva Layne [facility]: [address], [place] [address], Ph. Attender: Eva Layne [facility] Medical 03/26/2020 12:00:00 AM EST ANT ([facility]) Eva Layne, [facility]: [address], [place] [address], Ph. Attender: Eva Layne [facility] Medical 03/26/2020 12:00:00 AM EST ANT ([facility]) Eva Layne [facility]: [address], [place] [address], Ph. Attender: Eva Layne [facility] Medical 03/26/2020 12:00:00 AM EST ANT ([facility]) Eva Layne [facility]: [address], [place] [address], Ph. Attender: Eva Layne [facility] Medical 03/26/2020 12:00:00 AM EST ANT ([facility]) Eva Layne [facility]: [address], [place] [address], Ph. Attender: Eva Layne [facility] Medical 03/26/2020 12:00:00 AM EST ANT ([facility]) Eva Layne, [facility]: [address], [place] [address], Ph. Attender: Eva Layne [facility] Medical 03/26/2020 12:00:00 AM EST ANT ([facility]) Eva Layne, [facility]: [address], [place] [address], Ph. Attender: Eva Layne [facility] Medical 03/26/2020 12:00:00 AM EST ANT ([facility]) Eva Layne, [employer]PER[employer]: [address], [place] [address], Ph. Attender: Eva Layne [facility] Medical 03/26/2020 12:00:00 AM EST ANT ([facility]) Eva Layne, [employer]PER[employer]: [address], [place] [address], Ph. Attender: Eva Layne [facility] Medical 03/26/2020 12:00:00 AM EST ANT ([facility]) Eva Layne, [facility]: [address], [place] [address], Ph. Attender: Eva Layne [facility] Medical 03/26/2020 12:00:00 AM EST ANT ([facility]) Eva Layne, [facility]: [address], [place] [address], Ph. Attender: Eva Layne [facility] Medical 03/26/2020 12:00:00 AM EST ANT ([facility]) Eva Layne, [facility]: [address], [place] [address], Ph. Attender: Eva Layne [facility] Medical 03/26/2020 12:00:00 AM EST ANT ([facility]) Eva Layne, [employer]: [address], [place] [address], Ph. Attender: Eva Layne [facility] Medical 03/26/2020 12:00:00 AM EST ANT ([facility]) Eva Layne, [employer]PER[employer]: [address], [place] [address], Ph. Attender: Eva Layne [facility] Medical 03/26/2020 12:00:00 AM EST ANT ([facility]) Eva Layne, [employer]PER[employer]: [address], [place] [address], Ph. Attender: Eva Layne [facility] Medical 03/26/2020 12:00:00 AM EST ANT ([facility]) Eva Layne, [employer]PER[employer]: [address], [place] [address], Ph. Attender: Eva Layne [facility] Medical 03/26/2020 12:00:00 AM EST ANT ([facility]) Eva Layne, [employer] SUPERVIS[employer]: [address], [place] [address], Ph. Attender: Eva Layne [facility] Medical 03/26/2020 12:00:00 AM EST ANT ([facility]) Eva Layne, [employer] SUPERVIS[employer]: [address], [place] [address], Ph. Attender: Eva Layne [facility] Medical 03/26/2020 12:00:00 AM EST ANT ([facility]) Eva Layne, [employer]PER[employer]: [address], [place] [address], Ph. Attender: Eva Layne [facility] Medical 03/26/2020 12:00:00 AM EST ANT ([facility]) Eva Layne, [employer]PER[employer]: [address], [place] [address], Ph. Attender: Eva Layne [facility] Medical 03/26/2020 12:00:00 AM EST ANT ([facility]) Eva Layne [employer] SUPER[employer]: [address], [place] [address], Ph. Attender: Eva Layne [facility] Medical 03/26/2020 12:00:00 AM EST ANT ([facility]) Eva Layne, [employer]PER[employer]: [address], [place] [address], Ph. Attender: Eva Layne [facility] Medical 03/26/2020 12:00:00 AM EST ANT ([facility]) Eva Layne, [employer]PERVIS[employer]: [address], [place] [address], Ph. Attender: Eva Layne [facility] Medical 03/26/2020 12:00:00 AM EST ANT ([facility]) Eva Layne, [employer]PER[employer]: [address], [place] [address], Ph. Attender: Eva Layne [facility] Medical 03/26/2020 12:00:00 AM EST ANT ([facility]) Eva Layne, [employer]: [address], [place] [address], Ph. Attender: Eva Layne [facility] Medical 03/26/2020 12:00:00 AM EST ANT ([facility]) Eva Layne, [employer]: [address], [place] [address], Ph. Attender: Eva Layne [facility] Medical 03/12/2020 12:00:00 AM EDT ANT ([facility]) Eva Layne, [employer]: [address], [place] [address], Ph. Attender: Eva Layne [facility] Medical 03/12/2020 12:00:00 AM EDT ANT ([facility]) Eva Layne, TILE [employer] MOTTLE SUPERVISOR: [address], [place] [address], Ph. Attender: Eva Layne [facility] Medical 03/12/2020 12:00:00 AM EDT ANT ([facility]) Eva Layne, TILE [employer] MOTTLE SUPERVISOR: [address], [place] [address], Ph. Attender: Eva Layne [facility] Medical 03/12/2020 12:00:00 AM EDT ANT ([facility]) Eva Layne, TILE [employer] MOTTLE SUPERVISOR: [address], [place] [address], Ph. Attender: Eva Layne [facility] Medical 03/12/2020 12:00:00 AM EDT [place] ([facility]) Eva Layne, TILE [employer] MOTTLE SUPERVISOR: [address], [place] [address], Ph. Attender: Eva Layne [facility] Medical 03/12/2020 12:00:00 AM EDT ANT ([facility]) Eva Layne, TILE [employer] MOTTLE SUPERVISOR: [address], [place] [address], Ph. Attender: Eva Layne [facility] Medical 03/12/2020 12:00:00 AM EDT ANT ([facility]) Eva Layne, TI[employer] MOTTLE SUPERVISOR: [address], [place] [address], Ph. Attender: Eva Layne [facility] Medical 03/12/2020 12:00:00 AM EDT [place] ([facility]) Eva Layne, TILE [employer] MOTTLE SUPERVISOR: [address], [place] [address], Ph. Attender: Eva Layne [facility] Medical 03/12/2020 12:00:00 AM EDT ANT ([facility]) Eva Layne, TI[employer] MOTTLE SUPERVISOR: [address], [place] [address], Ph. Attender: Eva Layne [facility] Medical 03/12/2020 12:00:00 AM EDT ANT ([facility]) Eva Layne, [employer]LE [employer] MOTTLE SUPERVISOR: [address], [place] [address], Ph. Attender: Eva Layne [facility] Medical 03/12/2020 12:00:00 AM EDT ANT ([facility]) Eva Layne, [employer]: [address], [place] [address], Ph. Attender: Eva Layne [facility] Medical 03/12/2020 12:00:00 AM EDT ANT ([facility]) Eva Layne, [facility]: [address], [place] [address], Ph. Attender: Eva Layne [facility] Medical 03/12/2020 12:00:00 AM EDT ANT ([facility]) Eva Layne, [employer]: [address], [place] [address], Ph. Attender: Eva Layne [facility] Medical 03/12/2020 12:00:00 AM EDT ANT ([facility]) Eva Layne, [facility]: [address], [place] [address], Ph. Attender: Eva Layne [facility] Medical 03/12/2020 12:00:00 AM EDT ANT ([facility]) Eva Layne, [facility]: [address], [place] [address], Ph. Attender: Eva Layne [facility] Medical 03/12/2020 12:00:00 AM EDT ANT ([facility]) Eva Layne, [employer]: [address], [place] [address], Ph. Attender: Eva Layne [facility] Medical 03/12/2020 12:00:00 AM EDT ANT ([facility]) Eva Layne, [employer]: [address], [place] [address], Ph. Attender: Eva Layne [facility] Medical 03/12/2020 12:00:00 AM EDT ANT ([facility]) Eva Layne, [employer]: [address], [place] [address], Ph. Attender: Eva Layne [facility] Medical 03/12/2020 12:00:00 AM EDT ANT ([facility]) Eva Layne, [employer]: [address], [place] [address], Ph. Attender: Eva Layne [facility] [place] [facility] Medical 03/12/2020 12:00:00 AM EDT ANT ([facility]) Eva Layne, [facility]: [address], [place] [address], Ph. Attender: Eva Layne [facility] Medical 03/12/2020 12:00:00 AM EDT ANT ([facility]) Eva Layne, [employer]: [address], [place] [address], Ph. Attender: Eva Layne [facility] Medical 03/12/2020 12:00:00 AM EDT ANT ([facility]) Eva Layne, [employer]: [address], [place] [address], Ph. Attender: Eva Layne [facility] Medical 03/12/2020 12:00:00 AM EDT ANT ([facility]) Eva Layen, [employer]: [address], [place] [address], Ph. Attender: Eva Layne [place] [facility] Medical 03/12/2020 12:00:00 AM EDT [place] ([facility]) Eva Layne, [employer]: [address], [place] [address], Ph. Attender: Eva Layne [facility] Medical 03/12/2020 12:00:00 AM EDT [place] ([facility]) Eva Layne, [employer]: [address], [place] [address], Ph. Attender: Eva Layne [facility] Medical 03/12/2020 12:00:00 AM EDT [place] ([facility]) Eva Layne, [employer]: [address], [place] [address], Ph. Attender: Eva Layne [facility] Medical 03/12/2020 12:00:00 AM EDT [place] ([facility]) Eva Layne, [employer]: [address], [place] [address], Ph. Attender: Eva Layne [facility] Medical 03/12/2020 12:00:00 AM EDT [place] ([facility]) Immunizations Vaccine Date Status Description Data Source(s) COVID-19, mRNA, LNP-S, PF, 100 mcg/0.5 mL dose (Modern a) 09/09/2020 12:00:00 AM EDT completed 09/09/2020 [place] ([facility]) COVID-19, mRNA, LNP-S, PF, 100 mcg/0.5 mL dose (Modern a) 09/09/2020 12:00:00 AM EDT completed 09/09/2020 [place] ([facility]) COVID-19, mRNA, LNP-S, PF, 100 mcg/0.5 mL dose (Modern a) 09/09/2020 12:00:00 AM EDT completed 09/09/2020 [place] ([facility]) COVID-19, mRNA, LNP-S, PF, 100 mcg/0.5 mL dose 09/09/2020 12 :00:00 AM EDT completed 09/09/2020 [place] ([facility]) COVID-19, mRNA, LNP-S, PF, 100 mcg/0.5 mL dose 09/09/2020 12 :00:00 AM EDT completed 09/09/2020 [place] ([facility]) COVID-19, mRNA, LNP-S, PF, 100 mcg/0.5 mL dose 09/09/2020 12 :00:00 AM EDT completed 09/09/2020 [facility]) COVID-19, mRNA, LNP-S, PF, 100 mcg/0.5 mL dose 09/09/2020 12 :00:00 AM EDT completed 09/09/2020 [facility]) COVID-19, mRNA, LNP-S, PF, 100 mcg/0.5 mL dose 09/09/2020 12 :00:00 AM EDT completed 09/09/2020 [place] ([facility]) COVID-19, mRNA, LNP-S, PF, 100 mcg/0.5 mL dose 09/09/2020 12 :00:00 AM EDT completed 09/09/2020 [place] ([facility]) COVID-19, mRNA, LNP-S, PF, 100 mcg/0.5 mL dose 09/09/2020 12 :00:00 AM EDT completed 09/09/2020 [facility]) COVID-19, mRNA, LNP-S, PF, 100 mcg/0.5 mL dose 09/09/2020 12 :00:00 AM EDT completed 09/09/2020 [facility]) COVID-19, mRNA, LNP-S, PF, 100 mcg/0.5 mL dose 09/09/2020 12 :00:00 AM EDT completed 09/09/2020 [facility]) COVID-19 VACCINE Moderna 09/08/2020 12:00:00 AM EDT completed [facility] Vaccine Series Complete: YESThis Data wa s Submitted to [facility] Via [employer]. COVID-19, mRNA, LNP-S, PF, 100 mcg/0.5 mL dose (Modern a) 08/12/2020 12:00:00 AM EDT completed 08/12/2020 [place] ([facility]) COVID-19, mRNA, LNP-S, PF, 100 mcg/0.5 mL dose (Modern a) 08/12/2020 12:00:00 AM EDT completed 08/12/2020 [place] ([facility]) COVID-19, mRNA, LNP-S, PF, 100 mcg/0.5 mL dose (Modern a) 08/12/2020 12:00:00 AM EDT completed 08/12/2020 [place] ([facility]) COVID-19, mRNA, LNP-S, PF, 100 mcg/0.5 mL dose 08/12/2020 12 :00:00 AM EDT completed 08/12/2020 [place] ([facility]) COVID-19, mRNA, LNP-S, PF, 100 mcg/0.5 mL dose 08/12/2020 12 :00:00 AM EDT completed 08/12/2020 [place] ([facility]) COVID-19, mRNA, LNP-S, PF, 100 mcg/0.5 mL dose 08/12/2020 12 :00:00 AM EDT completed 08/12/2020 [place] ([facility]) COVID-19, mRNA, LNP-S, PF, 100 mcg/0.5 mL dose 08/12/2020 12 :00:00 AM EDT completed 08/12/2020 ANT ([facility]) COVID-19, mRNA, LNP-S, PF, 100 mcg/0.5 mL dose 08/12/2020 12 :00:00 AM EDT completed 08/12/2020 ANT ([facility]) COVID-19, mRNA, LNP-S, PF, 100 mcg/0.5 mL dose 08/12/2020 12 :00:00 AM EDT completed 08/12/2020 [facility]) COVID-19, mRNA, LNP-S, PF, 100 mcg/0.5 mL dose 08/12/2020 12 :00:00 AM EDT completed 08/12/2020 [place] ([facility]) COVID-19, mRNA, LNP-S, PF, 100 mcg/0.5 mL dose 08/12/2020 12 :00:00 AM EDT completed 08/12/2020 [place] ([facility]) COVID-19, mRNA, LNP-S, PF, 100 mcg/0.5 mL dose 08/12/2020 12 :00:00 AM EDT completed 08/12/2020 [facility]) COVID-19 VACCINE Moderna 08/11/2020 12:00:00 AM EDT completed [facility] Vaccine Series Complete: NOThis Data was Submitted to [facility] Via [employer]. Medications Medication Brand Name Start Date Product Form Dose Route Admi nistrative Instructions Pharmacy Instructions Status Indications Reaction Description Data Source(s) 150 mg 04/15/2021 12:00:00 AM EST tablet sustained-releas e 12 hr 60 TAKE ONE TABLET BY MOUTH TWICE A DAY TAKE ONE TABLET BY MOUTH TWICE A DAY SOLD: 04/20/2021 [facility] 90 mcg/actuation 01/29/2021 12:00:00 AM EDT HFA aerosol inha ler 18 INHALE TWO PUFFS BY MOUTH EVERY 4 HOURS INHALE TWO PUFFS BY MOUTH EVERY 4 HOURS SOLD: 01/29/2021 [facility] 20 mg 01/29/2021 12:00:00 AM EDT tablet 5 TAKE ONE TABLET BY MOUTH DAILY WITH A MEAL FOR 5 DAYS TAKE ONE TABLET BY MOUTH DAILY WITH A MEAL FOR 5 DAYS SOLD: 01/29/2021 [facility] 10 mg 01/29/2021 12:00:00 AM EDT capsule 90 TAKE ONE CAPSULE BY MOUTH EVERY DAY TAKE ONE CAPSULE BY MOUTH EVERY DAY SOLD: 01/29/2021 [facility] Fluticasone propionate 0.05 MG/ACTUAT Metered Dose [place] 50 mcg/actuation FLUTICASONE PROPIONATE 01/14/2021 12:00:00 AM EDT spray,suspension 16 SPRAY ONE SPRAY IN EACH NOSTRIL EVERY DAY SPRAY ONE SPRAY IN EACH NOSTRIL EVERY DAY SOLD: 01/15/2021 [facility] 10 mg 01/14/2021 12:00:00 AM EDT tablet 90 TAKE ONE TABLET BY MOUTH EVERY DAY TAKE ONE TABLET BY MOUTH EVERY DAY SOLD: 01/15/2021 [facility] Triamcinolone Acetonide 1 MG/ML Topical Cream 0.1 % TRIAMCIN OLONE ACETONIDE 01/06/2021 12:00:00 AM EDT cream 15 APPLY TOPICALLY TO RASH LEFT FOREARM 2X/DAY NEEDED FOR ITCHING FOR 10 DAYS APPLY TOPICALLY TO RASH LEFT FOREARM 2X/DAY NEEDED FOR ITCHING FOR 10 DAYS SOLD: 01/15/2021 [facility] 10 mg 01/06/2021 12:00:00 AM EDT tablet 30 TAKE ONE TABLET BY MOUTH EVERY DAY TAKE ONE TABLET BY MOUTH EVERY DAY SOLD: 01/15/2021 [facility] 10 mg 12/10/2020 12:00:00 AM EDT capsule 30 TAKE ONE CAPSULE BY MOUTH EVERY DAY TAKE ONE CAPSULE BY MOUTH EVERY DAY SOLD: 01/06/2021 [facility] 10 mg 12/10/2020 12:00:00 AM EDT capsule 30 TAKE ONE CAPSULE BY MOUTH EVERY DAY TAKE ONE CAPSULE BY MOUTH EVERY DAY SOLD: 12/10/2020 [facility] 500 mg 12/05/2020 12:00:00 AM EDT capsule 30 TAKE ONE CAPSULE BY MOUTH EVERY 8 HOURS FOR 10 DAYS TAKE ONE CAPSULE BY MOUTH EVERY 8 HOURS FOR 10 DAYS SO LD: 12/05/2020 [facility] 300 mg 12/03/2020 12:00:00 AM EDT capsule 20 TAKE ONE CAPSULE BY MOUTH EVERY 12 HOURS FOR 10 DAYS TAKE ONE CAPSULE BY MOUTH EVERY 12 HOURS FOR 10 DAYS S OLD: 12/03/2020 [facility] 0.4 % 11/29/2020 12:00:00 AM EDT cream 45 INSERT 1 APPLICATORFUL VAGINALLY AT BEDTIME FOR 7 DAYS INSERT 1 APPLICATORFUL VAGINALLY AT BEDTIME FOR 7 DAYS SOLD: 12/03/2020 [facility] terconazole 4 MG/ML Vaginal Cream terconazole 0.4 % va ginal cream terconazole 0.4 % vaginal cream 11/29/2020 12:00:00 AM EDT completed insert 1 applicatorful by vaginal route every day for 7 days at bedtime [facility] ([facility]) Metronidazole 0.0075 MG/MG Vaginal Gel [MetroGel] Metr ogel Vaginal 0.75 % Metrogel Vaginal 0.75 % 11/10/2020 12:00:00 AM EDT active metronidazole 0.0075 MG/MG Vaginal Gel [MetroGel] [facility] ([facility]) 0.75 % 11/10/2020 12:00:00 AM EDT gel 70 INSERT 1 APPLICATORFUL VAGINALLY ONCE DAILY AT BEDTIME FOR 5 NIGHTS INSERT 1 APPLICATORFUL VAGINALLY ONCE DA PREETHI AT BEDTIME FOR 5 NIGHTS SOLD: 11/10/2020 [facility] 120 mg 08/07/2020 12:00:00 AM EDT tablet extended release 14 TAKE ONE TABLET BY MOUTH TWICE A DAY FOR 7 DAYS TAKE ONE TABLET BY MOUTH TWICE A DAY FOR 7 DAYS SOLD: 08/07/2020 [facility] 10 mg 08/07/2020 12:00:00 AM EDT tablet 14 TAKE ONE TABLET BY MOUTH ONCE A DAY X 14 DAYS TAKE ONE TABLET BY MOUTH ONCE A DAY X 14 DAYS SOLD: 08/07/2020 [facility] 100 mg 07/22/2020 12:00:00 AM EST capsule 20 TAKE ONE CAPSULE BY MOUTH TWO TIMES A DAY FOR 10 DAYS TAKE ONE CAPSULE BY MOUTH TWO TIMES A DAY FOR 10 DAYS SOLD: 07/22/2020 [facility] 150 mg 07/22/2020 12:00:00 AM EST tablet 1 TAKE ONE TABLET BY MOUTH ONCE TAKE ONE TABLET BY MOUTH ONCE SOLD: 07/22/2020 [facility] 100 mg 07/01/2020 12:00:00 AM EST tablet 14 TAKE ONE TABLET BY MOUTH TWICE A DAY FOR 7 DAYS TAKE ONE TABLET BY MOUTH TWICE A DAY FOR 7 DAYS SOLD: 07/04/2020 [facility] Doxycycline Monohydrate 100 MG Oral Tabl et doxycycline monohydrate 100 mg tablet doxycycline monohydrate 100 mg tablet 07/01/2020 12:00:00 AM EST active 1 tab po bid x 7 days (#14) [facility] ([facility]) Doxycycline Monohydrate 100 MG Oral Tabl et doxycycline monohydrate 100 mg tablet doxycycline monohydrate 100 mg tablet 06/28/2020 12:00:00 AM EST completed 1 tab po bid x 7 days (#14) [facility] ([facility]) Escitalopram 10 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 ESCITALOPRAM OXALATE 06/27/2020 1 2:00:00 AM EST tablet 90 TAKE ONE TABLET BY MOUTH EVERY D AY TAKE ONE TABLET BY MOUTH EVERY DAY SOLD: 07/04/2020 [facility] Cephalexin 500 MG Oral Capsule CEPHALEXIN 06/16/2020 12:00:00 AM EST capsule 15 TAKE ONE CAPSULE BY MOUTH THREE TIMES A DAY FOR 5 DAYS TAKE ONE CAPSULE BY MOUTH THREE TIMES A DAY FOR 5 DAYS SOLD: 06/16/2020 [facility] Escitalopram 10 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 ESCITALOPRAM OXALATE 12/03/2019 1 2:00:00 AM EDT tablet 90 TAKE 1 TABLET BY MOUTH ONCE DAILY TAKE 1 TABLET BY MOUTH ONCE DAILY SOLD: 04/01/2020 [facility] Hydrocortisone 10 MG/ML / Neomycin 3.5 M G/ML / Polymyxin B 47226 UNT/ML Otic Suspension bgfeixno-xeoanyins-rhjdpvwwg 3.5 mg-10,000 unit/mL-1 % ear drops,susp vsthgqmb-ycebbpvfh-bgdunjmto 3.5 mg-10,000 unit/mL-1 % ear drops,susp completed hydrocortisone 10 MG/ML / neomycin 3.5 MG/ML / polymyxin B [id number] UNT/ML Otic Suspension ANT ([facility]) Cephalexin 500 MG Oral Capsule cephalexi n 500 mg capsule TAKE ONE CAPSULE BY MOUTH THREE TIMES A DAY FOR 5 DAYS cephalexin 500 mg capsule TAKE ONE CAPSU LE BY MOUTH THREE TIMES A DAY FOR 5 DAYS co mpleted cephalexin 500 MG Oral Capsule ANT ([facility]) Metronidazole 0.0075 MG/MG Vaginal Gel m etronidazole 0.75 % vaginal gel INSERT 1 APPLICATORFUL VAGINALLY ONCE DAILY AT BEDTIME FOR 5 NIGHTS metronidazole 0.75 % vaginal gel INSERT 1 APPLICATORFUL VAGINALLY ONCE DAILY AT BEDTIME FOR 5 NIGHTS completed metronidazole 0. 0075 MG/MG Vaginal Gel ANT ([facility]) Fluconazole 150 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 fluconazo le 150 mg tablet TAKE ONE TABLET BY MOUTH ONCE fluconazole 150 mg tablet TAKE ONE TABLET BY MOUTH ONCE completed fluconazole 150 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 A THEN ([facility]) Cephalexin 500 MG Oral Capsule cephalexi n 500 mg capsule TAKE ONE CAPSULE BY MOUTH THREE TIMES A DAY FOR 5 DAYS cephalexin 500 mg capsule TAKE ONE CAPSU LE BY MOUTH THREE TIMES A DAY FOR 5 DAYS co mpleted cephalexin 500 MG Oral Capsule [place] ([facility]) NITROFURANTOIN, MACROCRYSTALS 25 MG / Ni trofurantoin, Monohydrate 75 MG Oral Capsule nitrofurantoin monohydrate/macrocrystals 100 mg capsule TAKE ONE CAPSULE BY MOUTH TWO TIMES A DAY FOR 10 DAYS nitrofurantoin monohydrate/macrocrystals 100 mg capsule TAKE ONE CAPSULE BY MOUTH TWO TIMES A DAY FOR 10 DAYS completed nitrofurantoin, macrocrystals 25 MG / nitrofurantoin, monohydrate 75 MG Oral Capsule [place] ([facility]) 12 HR Pseudoephedrine Hydrochloride 120 MG Extended Release Oral Tablet [Sudogest] Sudogest 12-hour 120 mg tablet,extended release TAKE ONE TABLET BY MOUTH TWICE A DAY FOR 7 DAYS Sudogest 12-hour 120 mg tablet,extended release TAKE ONE TABLET BY MOUTH TWICE A DAY FOR 7 DAYS completed 12 HR pseudoephedrine hydrochloride 120 MG Extended Release Oral Tablet [Sudogest] [place] ([facility]) cetirizine hydrochloride 10 MG Oral Tabl et cetirizine 10 mg tablet TAKE ONE TABLET BY MOUTH ONCE A DAY X 14 DAYS cetirizine 10 mg tablet TAKE ONE TABLET BY MOUTH ONCE A DAY X 14 DAYS completed cetirizine hydrochloride 10 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 [place] ([facility]) fluticasone propionate 50 mcg/actuation nasal spray,suspension [id number] completed fluticasone propionate 0.05 MG/ACTUAT Metered Dose Nasal [place] ([facility]) Loratadine 10 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 loratadine 10 mg tablet TAKE ONE TABLET BY MOUTH EVERY DAY loratadine 10 mg tablet TAKE ONE TABLET BY MOUTH EVERY DAY completed loratadine 10 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 [place] ([facility]) Triamcinolone Acetonide 1 MG/ML Topical Cream triamcinolone acetonide 0.1 % topical cream triamcinolone acetonide 0.1 % topical cream completed triamcinolone acetonide 1 MG/ML Topical Cream [place] ([facility]) Ciprofloxacin 3 MG/ML / Dexamethasone 1 MG/ML Otic Suspension ciprofloxacin 0.3 %-dexamethasone 0.1 % ear drops,suspension ciprofloxacin 0.3 %-dexamethasone 0.1 % ear drops,suspension completed ciprofloxacin 3 MG/ML / dexamethasone 1 MG/ML Otic Suspension [place] ([facility]) Triamcinolone Acetonide 1 MG/ML Topical Cream triamcinolone acetonide 0.1 % topical cream triamcinolone acetonide 0.1 % topical cream completed triamcinolone acetonide 1 MG/ML Topical Cream [place] ([facility]) Metronidazole 0.0075 MG/MG Vaginal Gel m etronidazole 0.75 % vaginal gel INSERT 1 APPLICATORFUL VAGINALLY ONCE DAILY AT BEDTIME FOR 5 NIGHTS metronidazole 0.75 % vaginal gel INSERT 1 APPLICATORFUL VAGINALLY ONCE DAILY AT BEDTIME FOR 5 NIGHTS completed metronidazole 0. 0075 MG/MG Vaginal Gel [place] ([facility]) Hydrocortisone 10 MG/ML / Neomycin 3.5 M G/ML / Polymyxin B 86054 UNT/ML Otic Suspension euvphlrh-eabjgdoyr-hdxmjbxga 3.5 mg-10,000 unit/mL-1 % ear drops,susp whuqnzdn-ayzptnixp-moqvolveg 3.5 mg-10,000 unit/mL-1 % ear drops,susp completed hydrocortisone 10 MG/ML / neomycin 3.5 MG/ML / polymyxin B 23952 UNT/ML Otic Suspension [place] ([facility]) Fluoxetine 10 MG Oral Capsule fluoxetine 10 mg capsule TAKE ONE CAPSULE BY MOUTH EVERY DAY fluoxetine 10 mg capsule TAKE ONE CAPSULE BY MOUTH EVERY DAY completed fluoxetine 10 MG Oral Cap norm ANT ([facility]) Sulfamethoxazole 800 MG / Trimethoprim 1 60 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 sulfamethoxazole 800 mg-trimethoprim 160 mg tablet sulfamethoxazole 800 mg-trimethoprim 160 mg tablet completed sulfame thoxazole 800 MG / trimethoprim 160 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 ANT ([facility]) Naproxen 500 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 naproxen 500 mg tablet naproxen 500 mg ta blet completed naproxen 500 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 [place] ([facility]) Loratadine 10 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 loratadine 10 mg tablet TAKE ONE TABLET BY MOUTH EVERY DAY loratadine 10 mg tablet TAKE ONE TABLET BY MOUTH EVERY DAY completed loratadine 10 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 [place] ([facility]) terconazole 4 MG/ML Vaginal Cream terconazole 0.4 % va ginal cream terconazole 0.4 % vaginal cream completed te rconazole 4 MG/ML Vaginal Cream [place] ([facility]) Metronidazole 0.0075 MG/MG Vaginal Gel m etronidazole 0.75 % vaginal gel INSERT 1 APPLICATORFUL VAGINALLY ONCE DAILY AT BEDTIME FOR 5 NIGHTS metronidazole 0.75 % vaginal gel INSERT 1 APPLICATORFUL VAGINALLY ONCE DAILY AT BEDTIME FOR 5 NIGHTS completed metronidazole 0. 0075 MG/MG Vaginal Gel [place] ([facility]) Ciprofloxacin 3 MG/ML / Dexamethasone 1 MG/ML Otic Suspension ciprofloxacin 0.3 %-dexamethasone 0.1 % ear drops,suspension ciprofloxacin 0.3 %-dexamethasone 0.1 % ear drops,suspension completed ciprofloxacin 3 MG/ML / dexamethasone 1 MG/ML Otic Suspension [place] ([facility]) Ciprofloxacin 3 MG/ML / Dexamethasone 1 MG/ML Otic Suspension ciprofloxacin 0.3 %-dexamethasone 0.1 % ear drops,suspension ciprofloxacin 0.3 %-dexamethasone 0.1 % ear drops,suspension completed ciprofloxacin 3 MG/ML / dexamethasone 1 MG/ML Otic Suspension [place] ([facility]) Amoxicillin 875 MG / Clavulanate 125 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 amoxicillin 875 mg-potassium clavulanate 125 mg tablet amoxicillin 875 mg-potassium clavulanate 125 mg tablet completed amoxici llin 875 MG / clavulanate 125 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 [place] ([facility]) Escitalopram 10 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 escitalopram 10 mg tabl et escitalopram 10 mg tablet completed escitalopram 10 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 [place] ([facility]) Amoxicillin 500 MG Oral Capsule amoxicil [place] 500 mg capsule TAKE ONE CAPSULE BY MOUTH EVERY 8 HOURS FOR 10 DAYS amoxicillin 500 mg capsule TAKE ONE CAPS ULE BY MOUTH EVERY 8 HOURS FOR 10 DAYS comple [place] amoxicillin 500 MG Oral Capsule [place] ([facility]) albuterol sulfate HFA 90 mcg/actuation aerosol inhaler [id number] completed [id number] 200 ACTUAT albuterol 0.09 MG/ACTUAT Metered Dose Inhaler [place] ([facility]) cefdinir 300 MG Oral Capsule cefdinir 30 0 mg capsule TAKE ONE CAPSULE BY MOUTH EVERY 12 HOURS FOR 10 DAYS cefdinir 300 mg capsule TAKE ONE CAPSULE BY MOUTH EVERY 12 HOURS FOR 10 DAYS completed cefdinir 300 MG Oral Capsule [place] ([facility]) Cephalexin 500 MG Oral Capsule cephalexi n 500 mg capsule TAKE ONE CAPSULE BY MOUTH THREE TIMES A DAY FOR 5 DAYS cephalexin 500 mg capsule TAKE ONE CAPSU LE BY MOUTH THREE TIMES A DAY FOR 5 DAYS co mpleted cephalexin 500 MG Oral Capsule ANT ([facility]) Triamcinolone Acetonide 1 MG/ML Topical Cream triamcinolone acetonide 0.1 % topical cream triamcinolone acetonide 0.1 % topical cream completed triamcinolone acetonide 1 MG/ML Topical Cream ANT ([facility]) Prednisone 20 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 prednisone 20 mg tablet TAKE ONE TABLET BY MOUTH DAILY WITH A MEAL FOR 5 DAYS prednisone 20 mg tablet TAKE ONE TABLET BY MOUTH DAILY WITH A MEAL FOR 5 DAYS completed prednisone 20 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 ANT ([facility]) Amoxicillin 875 MG / Clavulanate 125 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 amoxicillin 875 mg-potassium clavulanate 125 mg tablet amoxicillin 875 mg-potassium clavulanate 125 mg tablet completed amoxici llin 875 MG / clavulanate 125 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 ANT ([facility]) Sulfamethoxazole 800 MG / Trimethoprim 1 60 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 sulfamethoxazole 800 mg-trimethoprim 160 mg tablet sulfamethoxazole 800 mg-trimethoprim 160 mg tablet completed sulfame thoxazole 800 MG / trimethoprim 160 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 ANT ([facility]) Hydrocortisone 10 MG/ML / Neomycin 3.5 M G/ML / Polymyxin B 22741 UNT/ML Otic Suspension xftpbhmd-qdejqbgkp-hocnvfnoi 3.5 mg-10,000 unit/mL-1 % ear drops,susp tubcamcb-rzyeingoh-kqpihxffx 3.5 mg-10,000 unit/mL-1 % ear drops,susp completed hydrocortisone 10 MG/ML / neomycin 3.5 MG/ML / polymyxin B 42352 UNT/ML Otic Suspension ANT ([facility]) Triamcinolone Acetonide 1 MG/ML Topical Cream triamcinolone acetonide 0.1 % topical cream triamcinolone acetonide 0.1 % topical cream completed triamcinolone acetonide 1 MG/ML Topical Cream [place] ([facility]) NITROFURANTOIN, MACROCRYSTALS 25 MG / Ni trofurantoin, Monohydrate 75 MG Oral Capsule nitrofurantoin monohydrate/macrocrystals 100 mg capsule TAKE ONE CAPSULE BY MOUTH TWO TIMES A DAY FOR 10 DAYS nitrofurantoin monohydrate/macrocrystals 100 mg capsule TAKE ONE CAPSULE BY MOUTH TWO TIMES A DAY FOR 10 DAYS completed nitrofurantoin, macrocrystals 25 MG / nitrofurantoin, monohydrate 75 MG Oral Capsule ANT ([facility]) Hydrocortisone 10 MG/ML / Neomycin 3.5 M G/ML / Polymyxin B [id number] UNT/ML Otic Suspension qacgbyzo-bjuyjlitu-riupfwcul 3.5 mg-10,000 unit/mL-1 % ear drops,susp ydlcqela-lnzcjrixt-zktcomadv 3.5 mg-10,000 unit/mL-1 % ear drops,susp completed hydrocortisone 10 MG/ML / neomycin 3.5 MG/ML / polymyxin B [id number] UNT/ML Otic Suspension ANT ([facility]) Sulfamethoxazole 800 MG / Trimethoprim 1 60 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 sulfamethoxazole 800 mg-trimethoprim 160 mg tablet sulfamethoxazole 800 mg-trimethoprim 160 mg tablet completed sulfame thoxazole 800 MG / trimethoprim 160 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 ANT ([facility]) Fluconazole 150 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 fluconazo le 150 mg tablet TAKE ONE TABLET BY MOUTH ONCE fluconazole 150 mg tablet TAKE ONE TABLET BY MOUTH ONCE completed 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 150 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 ([facility]) NITROFURANTOIN, MACROCRYSTALS 25 MG / Ni trofurantoin, Monohydrate 75 MG Oral Capsule nitrofurantoin monohydrate/macrocrystals 100 mg capsule TAKE ONE CAPSULE BY MOUTH TWO TIMES A DAY FOR 10 DAYS nitrofurantoin monohydrate/macrocrystals 100 mg capsule TAKE ONE CAPSULE BY MOUTH TWO TIMES A DAY FOR 10 DAYS completed nitrofurantoin, macrocrystals 25 MG / nitrofurantoin, monohydrate 75 MG Oral Capsule ANT ([facility]) 12 HR Pseudoephedrine Hydrochloride 120 MG Extended Release Oral Tablet [Sudogest] Sudogest 12-hour 120 mg tablet,extended release TAKE ONE TABLET BY MOUTH TWICE A DAY FOR 7 DAYS Sudogest 12-hour 120 mg tablet,extended release TAKE ONE TABLET BY MOUTH TWICE A DAY FOR 7 DAYS completed 12 HR pseudoephedrine hydrochloride 120 MG Extended Release Oral Tablet [Sudogest] ANT ([facility]) Loratadine 10 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 loratadine 10 mg tablet TAKE ONE TABLET BY MOUTH EVERY DAY loratadine 10 mg tablet TAKE ONE TABLET BY MOUTH EVERY DAY completed loratadine 10 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 [place] ([facility]) Hydrocortisone 10 MG/ML / Neomycin 3.5 M G/ML / Polymyxin B [id number] UNT/ML Otic Suspension qtugfsug-rzirkgkxs-huzsjtmct 3.5 mg-10,000 unit/mL-1 % ear drops,susp wrbhmgas-crphhwhqh-rpfvryxth 3.5 mg-10,000 unit/mL-1 % ear drops,susp completed hydrocortisone 10 MG/ML / neomycin 3.5 MG/ML / polymyxin B 39314 UNT/ML Otic Suspension ANT ([facility]) Loratadine 10 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 loratadine 10 mg tablet TAKE ONE TABLET BY MOUTH EVERY DAY loratadine 10 mg tablet TAKE ONE TABLET BY MOUTH EVERY DAY completed loratadine 10 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 [place] ([facility]) Ibuprofen 800 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 ibuprofen 800 mg tablet ibuprofen 8 00 mg tablet completed ibuprofen 800 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 [place] ([facility]) NITROFURANTOIN, MACROCRYSTALS 25 MG / Ni trofurantoin, Monohydrate 75 MG Oral Capsule nitrofurantoin monohydrate/macrocrystals 100 mg capsule TAKE ONE CAPSULE BY MOUTH TWO TIMES A DAY FOR 10 DAYS nitrofurantoin monohydrate/macrocrystals 100 mg capsule TAKE ONE CAPSULE BY MOUTH TWO TIMES A DAY FOR 10 DAYS completed nitrofurantoin, macrocrystals 25 MG / nitrofurantoin, monohydrate 75 MG Oral Capsule [place] ([facility]) Fluconazole 150 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 fluconazo le 150 mg tablet TAKE ONE TABLET BY MOUTH ONCE fluconazole 150 mg tablet TAKE ONE TABLET BY MOUTH ONCE completed fluconazole 150 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 A [place] ([facility]) terconazole 4 MG/ML Vaginal Cream terconazole 0.4 % va ginal cream terconazole 0.4 % vaginal cream completed te rconazole 4 MG/ML Vaginal Cream [place] ([facility]) fluticasone propionate 50 mcg/actuation nasal spray,suspension [id number] completed fluticasone propionate 0.05 MG/ACTUAT Metered Dose Nasal [place] ([facility]) Amoxicillin 875 MG / Clavulanate 125 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 amoxicillin 875 mg-potassium clavulanate 125 mg tablet amoxicillin 875 mg-potassium clavulanate 125 mg tablet completed amoxici llin 875 MG / clavulanate 125 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 [place] ([facility]) Hydrocortisone 10 MG/ML / Neomycin 3.5 M G/ML / Polymyxin B 97040 UNT/ML Otic Suspension oauvfndi-zfljmjwim-zygmjmiab 3.5 mg-10,000 unit/mL-1 % ear drops,susp sqvjqgui-poszuqsuc-oibdzrbqt 3.5 mg-10,000 unit/mL-1 % ear drops,susp completed hydrocortisone 10 MG/ML / neomycin 3.5 MG/ML / polymyxin B 65150 UNT/ML Otic Suspension [facility]) Metronidazole 0.0075 MG/MG Vaginal Gel m etronidazole 0.75 % vaginal gel INSERT 1 APPLICATORFUL VAGINALLY ONCE DAILY AT BEDTIME FOR 5 NIGHTS metronidazole 0.75 % vaginal gel INSERT 1 APPLICATORFUL VAGINALLY ONCE DAILY AT BEDTIME FOR 5 NIGHTS completed metronidazole 0. 0075 MG/MG Vaginal Gel [facility]) Sulfamethoxazole 800 MG / Trimethoprim 1 60 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 sulfamethoxazole 800 mg-trimethoprim 160 mg tablet sulfamethoxazole 800 mg-trimethoprim 160 mg tablet completed sulfame thoxazole 800 MG / trimethoprim 160 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 [place] ([facility]) Hydrocortisone 10 MG/ML / Neomycin 3.5 M G/ML / Polymyxin B 78702 UNT/ML Otic Suspension frgtbevx-rwhlmeeiv-ncaxicemg 3.5 mg-10,000 unit/mL-1 % ear drops,susp epndpsfa-vrcratccf-yguhxxaep 3.5 mg-10,000 unit/mL-1 % ear drops,susp completed hydrocortisone 10 MG/ML / neomycin 3.5 MG/ML / polymyxin B 17592 UNT/ML Otic Suspension [place] ([facility]) Escitalopram 10 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 escitalopram 10 mg tabl et escitalopram 10 mg tablet completed escitalopram 10 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 [place] ([facility]) Naproxen 500 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 naproxen 500 mg tablet naproxen 500 mg ta blet completed naproxen 500 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 [facility]) Ciprofloxacin 3 MG/ML / Dexamethasone 1 MG/ML Otic Suspension ciprofloxacin 0.3 %-dexamethasone 0.1 % ear drops,suspension ciprofloxacin 0.3 %-dexamethasone 0.1 % ear drops,suspension completed ciprofloxacin 3 MG/ML / dexamethasone 1 MG/ML Otic Suspension [place] ([facility]) Fluconazole 150 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 fluconazo le 150 mg tablet TAKE ONE TABLET BY MOUTH ONCE fluconazole 150 mg tablet TAKE ONE TABLET BY MOUTH ONCE completed fluconazole 150 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 A THEN ([facility]) terconazole 4 MG/ML Vaginal Cream terconazole 0.4 % va ginal cream terconazole 0.4 % vaginal cream completed te rconazole 4 MG/ML Vaginal Cream [place] ([facility]) Escitalopram 10 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 escitalopram 10 mg tabl et escitalopram 10 mg tablet completed escitalopram 10 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 [place] ([facility]) Escitalopram 10 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 escitalopram 10 mg tabl et escitalopram 10 mg tablet completed escitalopram 10 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 [place] ([facility]) Ciprofloxacin 3 MG/ML / Dexamethasone 1 MG/ML Otic Suspension ciprofloxacin 0.3 %-dexamethasone 0.1 % ear drops,suspension ciprofloxacin 0.3 %-dexamethasone 0.1 % ear drops,suspension completed ciprofloxacin 3 MG/ML / dexamethasone 1 MG/ML Otic Suspension [place] ([facility]) Amoxicillin 875 MG / Clavulanate 125 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 amoxicillin 875 mg-potassium clavulanate 125 mg tablet amoxicillin 875 mg-potassium clavulanate 125 mg tablet completed amoxici llin 875 MG / clavulanate 125 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 [facility]) Hydrocortisone 10 MG/ML / Neomycin 3.5 M G/ML / Polymyxin B 36812 UNT/ML Otic Suspension krfjhavm-yubylbbet-fwewfhjck 3.5 mg-10,000 unit/mL-1 % ear drops,susp krqthsin-cthiehanc-gutwvuzpi 3.5 mg-10,000 unit/mL-1 % ear drops,susp completed hydrocortisone 10 MG/ML / neomycin 3.5 MG/ML / polymyxin B 28719 UNT/ML Otic Suspension [facility]) cefdinir 300 MG Oral Capsule cefdinir 30 0 mg capsule TAKE ONE CAPSULE BY MOUTH EVERY 12 HOURS FOR 10 DAYS cefdinir 300 mg capsule TAKE ONE CAPSULE BY MOUTH EVERY 12 HOURS FOR 10 DAYS completed cefdinir 300 MG Oral Capsule ANT ([facility]) cefdinir 300 MG Oral Capsule cefdinir 30 0 mg capsule TAKE ONE CAPSULE BY MOUTH EVERY 12 HOURS FOR 10 DAYS cefdinir 300 mg capsule TAKE ONE CAPSULE BY MOUTH EVERY 12 HOURS FOR 10 DAYS completed cefdinir 300 MG Oral Capsule ANT ([facility]) Amoxicillin 875 MG / Clavulanate 125 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 amoxicillin 875 mg-potassium clavulanate 125 mg tablet amoxicillin 875 mg-potassium clavulanate 125 mg tablet completed amoxici llin 875 MG / clavulanate 125 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 ANT ([facility]) NITROFURANTOIN, MACROCRYSTALS 25 MG / Ni trofurantoin, Monohydrate 75 MG Oral Capsule nitrofurantoin monohydrate/macrocrystals 100 mg capsule TAKE ONE CAPSULE BY MOUTH TWO TIMES A DAY FOR 10 DAYS nitrofurantoin monohydrate/macrocrystals 100 mg capsule TAKE ONE CAPSULE BY MOUTH TWO TIMES A DAY FOR 10 DAYS completed nitrofurantoin, macrocrystals 25 MG / nitrofurantoin, monohydrate 75 MG Oral Capsule ANT ([facility]) Hydrocortisone 10 MG/ML / Neomycin 3.5 M G/ML / Polymyxin B 88120 UNT/ML Otic Suspension zzhvybbs-sgkyfeizx-zwujglijp 3.5 mg-10,000 unit/mL-1 % ear drops,susp ryenxeuz-xgvvwogwe-mvdhmfsai 3.5 mg-10,000 unit/mL-1 % ear drops,susp completed hydrocortisone 10 MG/ML / neomycin 3.5 MG/ML / polymyxin B 62420 UNT/ML Otic Suspension ANT ([facility]) cetirizine hydrochloride 10 MG Oral Tabl et cetirizine 10 mg tablet TAKE ONE TABLET BY MOUTH ONCE A DAY X 14 DAYS cetirizine 10 mg tablet TAKE ONE TABLET BY MOUTH ONCE A DAY X 14 DAYS completed cetirizine hydrochloride 10 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 ANT ([facility]) Sulfamethoxazole 800 MG / Trimethoprim 1 60 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 sulfamethoxazole 800 mg-trimethoprim 160 mg tablet sulfamethoxazole 800 mg-trimethoprim 160 mg tablet completed sulfame thoxazole 800 MG / trimethoprim 160 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 ANT ([facility]) Sulfamethoxazole 800 MG / Trimethoprim 1 60 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 sulfamethoxazole 800 mg-trimethoprim 160 mg tablet sulfamethoxazole 800 mg-trimethoprim 160 mg tablet completed sulfame thoxazole 800 MG / trimethoprim 160 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 ANT ([facility]) Sulfamethoxazole 800 MG / Trimethoprim 1 60 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 sulfamethoxazole 800 mg-trimethoprim 160 mg tablet sulfamethoxazole 800 mg-trimethoprim 160 mg tablet completed sulfame thoxazole 800 MG / trimethoprim 160 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 ANT ([facility]) Doxycycline Monohydrate 100 MG Oral Tabl et doxycycline monohydrate 100 mg tablet TAKE ONE TABLET BY MOUTH TWICE A DAY FOR 7 DAYS doxycycline monohydrate 100 mg tablet TAKE ONE TABLET BY MOUTH TWICE A DAY FOR 7 DAYS completed doxycycline monohydrate 100 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 [place] ([facility]) cefdinir 300 MG Oral Capsule cefdinir 30 0 mg capsule TAKE ONE CAPSULE BY MOUTH EVERY 12 HOURS FOR 10 DAYS cefdinir 300 mg capsule TAKE ONE CAPSULE BY MOUTH EVERY 12 HOURS FOR 10 DAYS completed cefdinir 300 MG Oral Capsule [facility]) Hydrocortisone 10 MG/ML / Neomycin 3.5 M G/ML / Polymyxin B 82035 UNT/ML Otic Suspension zfuzpshg-pfxawkatb-xvmrsymmi 3.5 mg-10,000 unit/mL-1 % ear drops,susp mvgyejss-hgmrlblwu-ymljcpwgv 3.5 mg-10,000 unit/mL-1 % ear drops,susp completed hydrocortisone 10 MG/ML / neomycin 3.5 MG/ML / polymyxin B 46467 UNT/ML Otic Suspension [facility]) Metronidazole 0.0075 MG/MG Vaginal Gel m etronidazole 0.75 % vaginal gel INSERT 1 APPLICATORFUL VAGINALLY ONCE DAILY AT BEDTIME FOR 5 NIGHTS metronidazole 0.75 % vaginal gel INSERT 1 APPLICATORFUL VAGINALLY ONCE DAILY AT BEDTIME FOR 5 NIGHTS completed metronidazole 0. 0075 MG/MG Vaginal Gel [place] ([facility]) Ciprofloxacin 3 MG/ML / Dexamethasone 1 MG/ML Otic Suspension ciprofloxacin 0.3 %-dexamethasone 0.1 % ear drops,suspension ciprofloxacin 0.3 %-dexamethasone 0.1 % ear drops,suspension completed ciprofloxacin 3 MG/ML / dexamethasone 1 MG/ML Otic Suspension [facility]) Amoxicillin 875 MG / Clavulanate 125 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 AMOXICILLIN-CLAVULANATE POTASS (unknown strength) AMOXICILLIN-CLAVULANATE POTASS (unknown strength) ORAL completed take 1 tablet by oral route every 12 hours [employer] ([facility]) terconazole 4 MG/ML Vaginal Cream terconazole 0.4 % va ginal cream terconazole 0.4 % vaginal cream completed te rconazole 4 MG/ML Vaginal Cream [place] ([facility]) Amoxicillin 875 MG / Clavulanate 125 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 amoxicillin 875 mg-potassium clavulanate 125 mg tablet amoxicillin 875 mg-potassium clavulanate 125 mg tablet completed amoxici llin 875 MG / clavulanate 125 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 ANT ([facility]) 12 HR Pseudoephedrine Hydrochloride 120 MG Extended Release Oral Tablet [Sudogest] Sudogest 12-hour 120 mg tablet,extended release TAKE ONE TABLET BY MOUTH TWICE A DAY FOR 7 DAYS Sudogest 12-hour 120 mg tablet,extended release TAKE ONE TABLET BY MOUTH TWICE A DAY FOR 7 DAYS completed 12 HR pseudoephedrine hydrochloride 120 MG Extended Release Oral Tablet [Sudogest] [place] ([facility]) Ibuprofen 800 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 ibuprofen 800 mg tablet ibuprofen 8 00 mg tablet completed ibuprofen 800 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 [place] ([facility]) cefdinir 300 MG Oral Capsule cefdinir 30 0 mg capsule TAKE ONE CAPSULE BY MOUTH EVERY 12 HOURS FOR 10 DAYS cefdinir 300 mg capsule TAKE ONE CAPSULE BY MOUTH EVERY 12 HOURS FOR 10 DAYS completed cefdinir 300 MG Oral Capsule [place] ([facility]) Triamcinolone Acetonide 1 MG/ML Topical Cream triamcinolone acetonide 0.1 % topical cream triamcinolone acetonide 0.1 % topical cream completed triamcinolone acetonide 1 MG/ML Topical Cream [place] ([facility]) NITROFURANTOIN, MACROCRYSTALS 25 MG / Ni trofurantoin, Monohydrate 75 MG Oral Capsule nitrofurantoin monohydrate/macrocrystals 100 mg capsule TAKE ONE CAPSULE BY MOUTH TWO TIMES A DAY FOR 10 DAYS nitrofurantoin monohydrate/macrocrystals 100 mg capsule TAKE ONE CAPSULE BY MOUTH TWO TIMES A DAY FOR 10 DAYS completed nitrofurantoin, macrocrystals 25 MG / nitrofurantoin, monohydrate 75 MG Oral Capsule ANT ([facility]) Cephalexin 500 MG Oral Capsule cephalexi n 500 mg capsule TAKE ONE CAPSULE BY MOUTH THREE TIMES A DAY FOR 5 DAYS cephalexin 500 mg capsule TAKE ONE CAPSU LE BY MOUTH THREE TIMES A DAY FOR 5 DAYS co mpleted cephalexin 500 MG Oral Capsule ANT ([facility]) Fluconazole 150 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 fluconazo le 150 mg tablet TAKE ONE TABLET BY MOUTH ONCE fluconazole 150 mg tablet TAKE ONE TABLET BY MOUTH ONCE completed fluconazole 150 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 A [place] ([facility]) Metronidazole 0.0075 MG/MG Vaginal Gel m etronidazole 0.75 % vaginal gel INSERT 1 APPLICATORFUL VAGINALLY ONCE DAILY AT BEDTIME FOR 5 NIGHTS metronidazole 0.75 % vaginal gel INSERT 1 APPLICATORFUL VAGINALLY ONCE DAILY AT BEDTIME FOR 5 NIGHTS completed metronidazole 0. 0075 MG/MG Vaginal Gel ANT ([facility]) Doxycycline Monohydrate 100 MG Oral Tabl et doxycycline monohydrate 100 mg tablet TAKE ONE TABLET BY MOUTH TWICE A DAY FOR 7 DAYS doxycycline monohydrate 100 mg tablet TAKE ONE TABLET BY MOUTH TWICE A DAY FOR 7 DAYS completed doxycycline monohydrate 100 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 ANT ([facility]) Sulfamethoxazole 800 MG / Trimethoprim 1 60 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 sulfamethoxazole 800 mg-trimethoprim 160 mg tablet sulfamethoxazole 800 mg-trimethoprim 160 mg tablet completed sulfame thoxazole 800 MG / trimethoprim 160 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 ANT ([facility]) Metronidazole 0.0075 MG/MG Vaginal Gel m etronidazole 0.75 % vaginal gel INSERT 1 APPLICATORFUL VAGINALLY ONCE DAILY AT BEDTIME FOR 5 NIGHTS metronidazole 0.75 % vaginal gel INSERT 1 APPLICATORFUL VAGINALLY ONCE DAILY AT BEDTIME FOR 5 NIGHTS completed metronidazole 0. 0075 MG/MG Vaginal Gel ANT ([facility]) fluticasone propionate 50 mcg/actuation nasal spray,suspension [id number] completed fluticasone propionate 0.05 MG/ACTUAT Metered Dose Nasal [place] ([facility]) Loratadine 10 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 loratadine 10 mg tablet TAKE ONE TABLET BY MOUTH EVERY DAY loratadine 10 mg tablet TAKE ONE TABLET BY MOUTH EVERY DAY completed loratadine 10 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 [place] ([facility]) Amoxicillin 500 MG Oral Capsule amoxicil [place] 500 mg capsule TAKE ONE CAPSULE BY MOUTH EVERY 8 HOURS FOR 10 DAYS amoxicillin 500 mg capsule TAKE ONE CAPS ULE BY MOUTH EVERY 8 HOURS FOR 10 DAYS comple [place] amoxicillin 500 MG Oral Capsule ANT ([facility]) Ciprofloxacin 3 MG/ML / Dexamethasone 1 MG/ML Otic Suspension ciprofloxacin 0.3 %-dexamethasone 0.1 % ear drops,suspension ciprofloxacin 0.3 %-dexamethasone 0.1 % ear drops,suspension completed ciprofloxacin 3 MG/ML / dexamethasone 1 MG/ML Otic Suspension [place] ([facility]) fluticasone propionate 50 mcg/actuation nasal spray,suspension [id number] completed fluticasone propionate 0.05 MG/ACTUAT Metered Dose Nasal [place] ([facility]) NITROFURANTOIN, MACROCRYSTALS 25 MG / Ni trofurantoin, Monohydrate 75 MG Oral Capsule nitrofurantoin monohydrate/macrocrystals 100 mg capsule TAKE ONE CAPSULE BY MOUTH TWO TIMES A DAY FOR 10 DAYS nitrofurantoin monohydrate/macrocrystals 100 mg capsule TAKE ONE CAPSULE BY MOUTH TWO TIMES A DAY FOR 10 DAYS completed nitrofurantoin, macrocrystals 25 MG / nitrofurantoin, monohydrate 75 MG Oral Capsule [place] ([facility]) Ibuprofen 800 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 ibuprofen 800 mg tablet ibuprofen 8 00 mg tablet completed ibuprofen 800 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 [place] ([facility]) Loratadine 10 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 loratadine 10 mg tablet TAKE ONE TABLET BY MOUTH EVERY DAY loratadine 10 mg tablet TAKE ONE TABLET BY MOUTH EVERY DAY completed loratadine 10 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 [place] ([facility]) Cephalexin 500 MG Oral Capsule cephalexi n 500 mg capsule TAKE ONE CAPSULE BY MOUTH THREE TIMES A DAY FOR 5 DAYS cephalexin 500 mg capsule TAKE ONE CAPSU LE BY MOUTH THREE TIMES A DAY FOR 5 DAYS co mpleted cephalexin 500 MG Oral Capsule [place] ([facility]) Sulfamethoxazole 800 MG / Trimethoprim 1 60 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 sulfamethoxazole 800 mg-trimethoprim 160 mg tablet sulfamethoxazole 800 mg-trimethoprim 160 mg tablet completed sulfame thoxazole 800 MG / trimethoprim 160 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 ANT ([facility]) 12 HR Pseudoephedrine Hydrochloride 120 MG Extended Release Oral Tablet [Sudogest] Sudogest 12-hour 120 mg tablet,extended release TAKE ONE TABLET BY MOUTH TWICE A DAY FOR 7 DAYS Sudogest 12-hour 120 mg tablet,extended release TAKE ONE TABLET BY MOUTH TWICE A DAY FOR 7 DAYS completed 12 HR pseudoephedrine hydrochloride 120 MG Extended Release Oral Tablet [Sudogest] [place] ([facility]) Cephalexin 500 MG Oral Capsule cephalexi n 500 mg capsule TAKE ONE CAPSULE BY MOUTH THREE TIMES A DAY FOR 5 DAYS cephalexin 500 mg capsule TAKE ONE CAPSU LE BY MOUTH THREE TIMES A DAY FOR 5 DAYS co mpleted cephalexin 500 MG Oral Capsule ANT ([facility]) Fluconazole 150 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 fluconazo le 150 mg tablet TAKE ONE TABLET BY MOUTH ONCE fluconazole 150 mg tablet TAKE ONE TABLET BY MOUTH ONCE completed fluconazole 150 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 [facility] ([facility]) Ciprofloxacin 3 MG/ML / Dexamethasone 1 MG/ML Otic Suspension ciprofloxacin 0.3 %-dexamethasone 0.1 % ear drops,suspension ciprofloxacin 0.3 %-dexamethasone 0.1 % ear drops,suspension completed ciprofloxacin 3 MG/ML / dexamethasone 1 MG/ML Otic Suspension [place] ([facility]) Doxycycline Monohydrate 100 MG Oral Tabl et doxycycline monohydrate 100 mg tablet TAKE ONE TABLET BY MOUTH TWICE A DAY FOR 7 DAYS doxycycline monohydrate 100 mg tablet TAKE ONE TABLET BY MOUTH TWICE A DAY FOR 7 DAYS completed doxycycline monohydrate 100 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 [place] ([facility]) fluticasone propionate 50 mcg/actuation nasal spray,suspension [id number] completed fluticasone propionate 0.05 MG/ACTUAT Metered Dose Nasal [place] ([facility]) Fluconazole 150 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 fluconazo le 150 mg tablet TAKE ONE TABLET BY MOUTH ONCE fluconazole 150 mg tablet TAKE ONE TABLET BY MOUTH ONCE completed fluconazole 150 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 A [facility] ([facility]) Naproxen 500 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 naproxen 500 mg tablet naproxen 500 mg ta blet completed naproxen 500 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 [place] ([facility]) cefdinir 300 MG Oral Capsule cefdinir 30 0 mg capsule TAKE ONE CAPSULE BY MOUTH EVERY 12 HOURS FOR 10 DAYS cefdinir 300 mg capsule TAKE ONE CAPSULE BY MOUTH EVERY 12 HOURS FOR 10 DAYS completed cefdinir 300 MG Oral Capsule [facility]) Ibuprofen 800 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 ibuprofen 800 mg tablet ibuprofen 8 00 mg tablet completed ibuprofen 800 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 [place] ([facility]) Triamcinolone Acetonide 1 MG/ML Topical Cream triamcinolone acetonide 0.1 % topical cream triamcinolone acetonide 0.1 % topical cream completed triamcinolone acetonide 1 MG/ML Topical Cream [place] ([facility]) Ibuprofen 800 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 ibuprofen 800 mg tablet ibuprofen 8 00 mg tablet completed ibuprofen 800 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 [place] ([facility]) Sulfamethoxazole 800 MG / Trimethoprim 1 60 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 sulfamethoxazole 800 mg-trimethoprim 160 mg tablet sulfamethoxazole 800 mg-trimethoprim 160 mg tablet completed sulfame thoxazole 800 MG / trimethoprim 160 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 [place] ([facility]) Ibuprofen 800 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 ibuprofen 800 mg tablet ibuprofen 8 00 mg tablet completed ibuprofen 800 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 [place] ([facility]) Hydrocortisone 10 MG/ML / Neomycin 3.5 M G/ML / Polymyxin B 24028 UNT/ML Otic Suspension ssmivqou-tqoldugkg-fmiylhgfu 3.5 mg-10,000 unit/mL-1 % ear drops,susp auxpebcw-rvpttpjws-apkafgcwr 3.5 mg-10,000 unit/mL-1 % ear drops,susp completed hydrocortisone 10 MG/ML / neomycin 3.5 MG/ML / polymyxin B 91847 UNT/ML Otic Suspension [place] ([facility]) Amoxicillin 875 MG / Clavulanate 125 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 amoxicillin 875 mg-potassium clavulanate 125 mg tablet amoxicillin 875 mg-potassium clavulanate 125 mg tablet completed amoxici llin 875 MG / clavulanate 125 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 ANT ([facility]) NITROFURANTOIN, MACROCRYSTALS 25 MG / Ni trofurantoin, Monohydrate 75 MG Oral Capsule nitrofurantoin monohydrate/macrocrystals 100 mg capsule TAKE ONE CAPSULE BY MOUTH TWO TIMES A DAY FOR 10 DAYS nitrofurantoin monohydrate/macrocrystals 100 mg capsule TAKE ONE CAPSULE BY MOUTH TWO TIMES A DAY FOR 10 DAYS completed nitrofurantoin, macrocrystals 25 MG / nitrofurantoin, monohydrate 75 MG Oral Capsule [place] ([facility]) Fluconazole 150 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 fluconazo le 150 mg tablet TAKE ONE TABLET BY MOUTH ONCE fluconazole 150 mg tablet TAKE ONE TABLET BY MOUTH ONCE completed fluconazole 150 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 Fluconazole 150 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 fluconazo le 150 mg tablet TAKE ONE TABLET BY MOUTH ONCE fluconazole 150 mg tablet TAKE ONE TABLET BY MOUTH ONCE completed fluconazole 150 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 A [facility] ([facility]) Hydrocortisone 10 MG/ML / Neomycin 3.5 M G/ML / Polymyxin B 99350 UNT/ML Otic Suspension ocgluuyd-kblqhkvsb-hbniioyov 3.5 mg-10,000 unit/mL-1 % ear drops,susp isrdgorv-ivbolohcj-oxhqesvzo 3.5 mg-10,000 unit/mL-1 % ear drops,susp completed hydrocortisone 10 MG/ML / neomycin 3.5 MG/ML / polymyxin B 36487 UNT/ML Otic Suspension [place] ([facility]) Ciprofloxacin 3 MG/ML / Dexamethasone 1 MG/ML Otic Suspension ciprofloxacin 0.3 %-dexamethasone 0.1 % ear drops,suspension ciprofloxacin 0.3 %-dexamethasone 0.1 % ear drops,suspension completed ciprofloxacin 3 MG/ML / dexamethasone 1 MG/ML Otic Suspension [place] ([facility]) Hydrocortisone 10 MG/ML / Neomycin 3.5 M G/ML / Polymyxin B 51622 UNT/ML Otic Suspension lzjrscph-kycytgyqz-ninoljwjo 3.5 mg-10,000 unit/mL-1 % ear drops,susp bezeqbfm-odyitmpys-flhjfagre 3.5 mg-10,000 unit/mL-1 % ear drops,susp completed hydrocortisone 10 MG/ML / neomycin 3.5 MG/ML / polymyxin B 36973 UNT/ML Otic Suspension [place] ([facility]) Amoxicillin 875 MG / Clavulanate 125 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 amoxicillin 875 mg-potassium clavulanate 125 mg tablet amoxicillin 875 mg-potassium clavulanate 125 mg tablet completed amoxici llin 875 MG / clavulanate 125 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 [place] ([facility]) Ibuprofen 800 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 ibuprofen 800 mg tablet ibuprofen 8 00 mg tablet completed ibuprofen 800 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 [place] ([facility]) Metronidazole 0.0075 MG/MG Vaginal Gel m etronidazole 0.75 % vaginal gel INSERT 1 APPLICATORFUL VAGINALLY ONCE DAILY AT BEDTIME FOR 5 NIGHTS metronidazole 0.75 % vaginal gel INSERT 1 APPLICATORFUL VAGINALLY ONCE DAILY AT BEDTIME FOR 5 NIGHTS completed metronidazole 0. 0075 MG/MG Vaginal Gel [place] ([facility]) Triamcinolone Acetonide 1 MG/ML Topical Cream triamcinolone acetonide 0.1 % topical cream triamcinolone acetonide 0.1 % topical cream completed triamcinolone acetonide 1 MG/ML Topical Cream [place] ([facility]) Sulfamethoxazole 800 MG / Trimethoprim 1 60 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 sulfamethoxazole 800 mg-trimethoprim 160 mg tablet sulfamethoxazole 800 mg-trimethoprim 160 mg tablet completed sulfame thoxazole 800 MG / trimethoprim 160 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 [place] ([facility]) Ciprofloxacin 3 MG/ML / Dexamethasone 1 MG/ML Otic Suspension ciprofloxacin 0.3 %-dexamethasone 0.1 % ear drops,suspension ciprofloxacin 0.3 %-dexamethasone 0.1 % ear drops,suspension completed ciprofloxacin 3 MG/ML / dexamethasone 1 MG/ML Otic Suspension [place] ([facility]) Amoxicillin 875 MG / Clavulanate 125 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 amoxicillin 875 mg-potassium clavulanate 125 mg tablet amoxicillin 875 mg-potassium clavulanate 125 mg tablet completed amoxici llin 875 MG / clavulanate 125 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 [facility]) 12 HR Pseudoephedrine Hydrochloride 120 MG Extended Release Oral Tablet [Sudogest] Sudogest 12-hour 120 mg tablet,extended release TAKE ONE TABLET BY MOUTH TWICE A DAY FOR 7 DAYS Sudogest 12-hour 120 mg tablet,extended release TAKE ONE TABLET BY MOUTH TWICE A DAY FOR 7 DAYS completed 12 HR pseudoephedrine hydrochloride 120 MG Extended Release Oral Tablet [Sudogest] [place] ([facility]) Naproxen 500 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 naproxen 500 mg tablet naproxen 500 mg ta blet completed naproxen 500 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 [place] ([facility]) Ciprofloxacin 3 MG/ML / Dexamethasone 1 MG/ML Otic Suspension ciprofloxacin 0.3 %-dexamethasone 0.1 % ear drops,suspension ciprofloxacin 0.3 %-dexamethasone 0.1 % ear drops,suspension completed ciprofloxacin 3 MG/ML / dexamethasone 1 MG/ML Otic Suspension [place] ([facility]) Cephalexin 500 MG Oral Capsule cephalexi n 500 mg capsule TAKE ONE CAPSULE BY MOUTH THREE TIMES A DAY FOR 5 DAYS cephalexin 500 mg capsule TAKE ONE CAPSU LE BY MOUTH THREE TIMES A DAY FOR 5 DAYS co mpleted cephalexin 500 MG Oral Capsule ANT ([facility]) Metronidazole 0.0075 MG/MG Vaginal Gel m etronidazole 0.75 % vaginal gel INSERT 1 APPLICATORFUL VAGINALLY ONCE DAILY AT BEDTIME FOR 5 NIGHTS metronidazole 0.75 % vaginal gel INSERT 1 APPLICATORFUL VAGINALLY ONCE DAILY AT BEDTIME FOR 5 NIGHTS completed metronidazole 0. 0075 MG/MG Vaginal Gel [place] ([facility]) Naproxen 500 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 naproxen 500 mg tablet naproxen 500 mg ta blet completed naproxen 500 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 [place] ([facility]) Amoxicillin 875 MG / Clavulanate 125 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 amoxicillin 875 mg-potassium clavulanate 125 mg tablet amoxicillin 875 mg-potassium clavulanate 125 mg tablet completed amoxici llin 875 MG / clavulanate 125 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 [place] ([facility]) Amoxicillin 500 MG Oral Capsule amoxicil hawk 500 mg capsule TAKE ONE CAPSULE BY MOUTH EVERY 8 HOURS FOR 10 DAYS amoxicillin 500 mg capsule TAKE ONE CAPS ULE BY MOUTH EVERY 8 HOURS FOR 10 DAYS comple [place] amoxicillin 500 MG Oral Capsule [place] ([facility]) fluticasone propionate 50 mcg/actuation nasal spray,suspension [id number] completed fluticasone propionate 0.05 MG/ACTUAT Metered Dose Nasal [place] ([facility]) Hydrocortisone 10 MG/ML / Neomycin 3.5 M G/ML / Polymyxin B [id number] UNT/ML Otic Suspension wbeuufbd-esckdgcwj-motmulqtf 3.5 mg-10,000 unit/mL-1 % ear drops,susp bmesxmxd-ydprgpnji-yuqcwyack 3.5 mg-10,000 unit/mL-1 % ear drops,susp completed hydrocortisone 10 MG/ML / neomycin 3.5 MG/ML / polymyxin B 31546 UNT/ML Otic Suspension [place] ([facility]) Ibuprofen 800 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 ibuprofen 800 mg tablet ibuprofen 8 00 mg tablet completed ibuprofen 800 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 [place] ([facility]) Escitalopram 10 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 escitalopram 10 mg tabl et escitalopram 10 mg tablet completed escitalopram 10 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 [facility]) Ciprofloxacin 3 MG/ML / Dexamethasone 1 MG/ML Otic Suspension ciprofloxacin 0.3 %-dexamethasone 0.1 % ear drops,suspension ciprofloxacin 0.3 %-dexamethasone 0.1 % ear drops,suspension completed ciprofloxacin 3 MG/ML / dexamethasone 1 MG/ML Otic Suspension [place] ([facility]) NITROFURANTOIN, MACROCRYSTALS 25 MG / Ni trofurantoin, Monohydrate 75 MG Oral Capsule nitrofurantoin monohydrate/macrocrystals 100 mg capsule TAKE ONE CAPSULE BY MOUTH TWO TIMES A DAY FOR 10 DAYS nitrofurantoin monohydrate/macrocrystals 100 mg capsule TAKE ONE CAPSULE BY MOUTH TWO TIMES A DAY FOR 10 DAYS completed nitrofurantoin, macrocrystals 25 MG / nitrofurantoin, monohydrate 75 MG Oral Capsule [place] ([facility]) Amoxicillin 500 MG Oral Capsule amoxicil hawk 500 mg capsule TAKE ONE CAPSULE BY MOUTH EVERY 8 HOURS FOR 10 DAYS amoxicillin 500 mg capsule TAKE ONE CAPS ULE BY MOUTH EVERY 8 HOURS FOR 10 DAYS comple [place] amoxicillin 500 MG Oral Capsule [place] ([facility]) fluticasone propionate 50 mcg/actuation nasal spray,suspension [id number] completed fluticasone propionate 0.05 MG/ACTUAT Metered Dose Nasal [place] ([facility]) Naproxen 500 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 naproxen 500 mg tablet naproxen 500 mg ta blet completed naproxen 500 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 [place] ([facility]) Doxycycline Monohydrate 100 MG Oral Tabl et doxycycline monohydrate 100 mg tablet TAKE ONE TABLET BY MOUTH TWICE A DAY FOR 7 DAYS doxycycline monohydrate 100 mg tablet TAKE ONE TABLET BY MOUTH TWICE A DAY FOR 7 DAYS completed doxycycline monohydrate 100 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 ANT ([facility]) fluticasone propionate 50 mcg/actuation nasal spray,suspension [id number] completed fluticasone propionate 0.05 MG/ACTUAT Metered Dose Nasal [place] ([facility]) 12 HR Pseudoephedrine Hydrochloride 120 MG Extended Release Oral Tablet [Sudogest] Sudogest 12-hour 120 mg tablet,extended release TAKE ONE TABLET BY MOUTH TWICE A DAY FOR 7 DAYS Sudogest 12-hour 120 mg tablet,extended release TAKE ONE TABLET BY MOUTH TWICE A DAY FOR 7 DAYS completed 12 HR pseudoephedrine hydrochloride 120 MG Extended Release Oral Tablet [Sudogest] [place] ([facility]) Amoxicillin 500 MG Oral Capsule amoxicil hawk 500 mg capsule TAKE ONE CAPSULE BY MOUTH EVERY 8 HOURS FOR 10 DAYS amoxicillin 500 mg capsule TAKE ONE CAPS ULE BY MOUTH EVERY 8 HOURS FOR 10 DAYS comple [place] amoxicillin 500 MG Oral Capsule [facility]) 12 HR Pseudoephedrine Hydrochloride 120 MG Extended Release Oral Tablet [Sudogest] Sudogest 12-hour 120 mg tablet,extended release TAKE ONE TABLET BY MOUTH TWICE A DAY FOR 7 DAYS Sudogest 12-hour 120 mg tablet,extended release TAKE ONE TABLET BY MOUTH TWICE A DAY FOR 7 DAYS completed 12 HR pseudoephedrine hydrochloride 120 MG Extended Release Oral Tablet [Sudogest] [place] ([facility]) Sulfamethoxazole 800 MG / Trimethoprim 1 60 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 sulfamethoxazole 800 mg-trimethoprim 160 mg tablet sulfamethoxazole 800 mg-trimethoprim 160 mg tablet completed sulfame thoxazole 800 MG / trimethoprim 160 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 [place] ([facility]) Metronidazole 0.0075 MG/MG Vaginal Gel m etronidazole 0.75 % vaginal gel INSERT 1 APPLICATORFUL VAGINALLY ONCE DAILY AT BEDTIME FOR 5 NIGHTS metronidazole 0.75 % vaginal gel INSERT 1 APPLICATORFUL VAGINALLY ONCE DAILY AT BEDTIME FOR 5 NIGHTS completed metronidazole 0. 0075 MG/MG Vaginal Gel [place] ([facility]) fluticasone propionate 50 mcg/actuation nasal spray,suspension [id number] completed fluticasone propionate 0.05 MG/ACTUAT Metered Dose Nasal [place] ([facility]) Ibuprofen 800 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 ibuprofen 800 mg tablet ibuprofen 8 00 mg tablet completed ibuprofen 800 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 [place] ([facility]) NITROFURANTOIN, MACROCRYSTALS 25 MG / Ni trofurantoin, Monohydrate 75 MG Oral Capsule nitrofurantoin monohydrate/macrocrystals 100 mg capsule TAKE ONE CAPSULE BY MOUTH TWO TIMES A DAY FOR 10 DAYS nitrofurantoin monohydrate/macrocrystals 100 mg capsule TAKE ONE CAPSULE BY MOUTH TWO TIMES A DAY FOR 10 DAYS completed nitrofurantoin, macrocrystals 25 MG / nitrofurantoin, monohydrate 75 MG Oral Capsule [facility]) cefdinir 300 MG Oral Capsule cefdinir 30 0 mg capsule TAKE ONE CAPSULE BY MOUTH EVERY 12 HOURS FOR 10 DAYS cefdinir 300 mg capsule TAKE ONE CAPSULE BY MOUTH EVERY 12 HOURS FOR 10 DAYS completed cefdinir 300 MG Oral Capsule ANT ([facility]) Amoxicillin 875 MG / Clavulanate 125 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 amoxicillin 875 mg-potassium clavulanate 125 mg tablet amoxicillin 875 mg-potassium clavulanate 125 mg tablet completed amoxici llin 875 MG / clavulanate 125 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 ANT ([facility]) Escitalopram 10 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 escitalopram 10 mg tabl et escitalopram 10 mg tablet completed escitalopram 10 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 ANT ([facility]) Escitalopram 10 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 escitalopram 10 mg tabl et escitalopram 10 mg tablet completed escitalopram 10 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 [place] ([facility]) Hydrocortisone 10 MG/ML / Neomycin 3.5 M G/ML / Polymyxin B [id number] UNT/ML Otic Suspension nyxahrfd-zbhdnoqxw-sozcqxwbs 3.5 mg-10,000 unit/mL-1 % ear drops,susp mjeayeev-stxqqbgis-ougkxnwtq 3.5 mg-10,000 unit/mL-1 % ear drops,susp completed hydrocortisone 10 MG/ML / neomycin 3.5 MG/ML / polymyxin B 21826 UNT/ML Otic Suspension ANT ([facility]) NITROFURANTOIN, MACROCRYSTALS 25 MG / Ni trofurantoin, Monohydrate 75 MG Oral Capsule nitrofurantoin monohydrate/macrocrystals 100 mg capsule TAKE ONE CAPSULE BY MOUTH TWO TIMES A DAY FOR 10 DAYS nitrofurantoin monohydrate/macrocrystals 100 mg capsule TAKE ONE CAPSULE BY MOUTH TWO TIMES A DAY FOR 10 DAYS completed nitrofurantoin, macrocrystals 25 MG / nitrofurantoin, monohydrate 75 MG Oral Capsule ANT ([facility]) Amoxicillin 875 MG / Clavulanate 125 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 amoxicillin 875 mg-potassium clavulanate 125 mg tablet amoxicillin 875 mg-potassium clavulanate 125 mg tablet completed amoxici llin 875 MG / clavulanate 125 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 ANT ([facility]) Naproxen 500 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 naproxen 500 mg tablet naproxen 500 mg ta blet completed naproxen 500 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 ANT ([facility]) Loratadine 10 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 loratadine 10 mg tablet TAKE ONE TABLET BY MOUTH EVERY DAY loratadine 10 mg tablet TAKE ONE TABLET BY MOUTH EVERY DAY completed loratadine 10 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 [facility]) Metronidazole 0.0075 MG/MG Vaginal Gel m etronidazole 0.75 % vaginal gel INSERT 1 APPLICATORFUL VAGINALLY ONCE DAILY AT BEDTIME FOR 5 NIGHTS metronidazole 0.75 % vaginal gel INSERT 1 APPLICATORFUL VAGINALLY ONCE DAILY AT BEDTIME FOR 5 NIGHTS completed metronidazole 0. 0075 MG/MG Vaginal Gel [facility]) Ciprofloxacin 3 MG/ML / Dexamethasone 1 MG/ML Otic Suspension ciprofloxacin 0.3 %-dexamethasone 0.1 % ear drops,suspension ciprofloxacin 0.3 %-dexamethasone 0.1 % ear drops,suspension completed ciprofloxacin 3 MG/ML / dexamethasone 1 MG/ML Otic Suspension [facility]) 12 HR Pseudoephedrine Hydrochloride 120 MG Extended Release Oral Tablet [Sudogest] Sudogest 12-hour 120 mg tablet,extended release TAKE ONE TABLET BY MOUTH TWICE A DAY FOR 7 DAYS Sudogest 12-hour 120 mg tablet,extended release TAKE ONE TABLET BY MOUTH TWICE A DAY FOR 7 DAYS completed 12 HR pseudoephedrine hydrochloride 120 MG Extended Release Oral Tablet [Sudogest] [facility]) Ibuprofen 800 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 ibuprofen 800 mg tablet ibuprofen 8 00 mg tablet completed ibuprofen 800 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 [place] ([facility]) Amoxicillin 500 MG Oral Capsule amoxicil hawk 500 mg capsule TAKE ONE CAPSULE BY MOUTH EVERY 8 HOURS FOR 10 DAYS amoxicillin 500 mg capsule TAKE ONE CAPS ULE BY MOUTH EVERY 8 HOURS FOR 10 DAYS comple [place] amoxicillin 500 MG Oral Capsule [facility]) Doxycycline Monohydrate 100 MG Oral Tabl et doxycycline monohydrate 100 mg tablet TAKE ONE TABLET BY MOUTH TWICE A DAY FOR 7 DAYS doxycycline monohydrate 100 mg tablet TAKE ONE TABLET BY MOUTH TWICE A DAY FOR 7 DAYS completed doxycycline monohydrate 100 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 [facility]) Doxycycline Monohydrate 100 MG Oral Tabl et doxycycline monohydrate 100 mg tablet TAKE ONE TABLET BY MOUTH TWICE A DAY FOR 7 DAYS doxycycline monohydrate 100 mg tablet TAKE ONE TABLET BY MOUTH TWICE A DAY FOR 7 DAYS completed doxycycline monohydrate 100 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 [facility]) Naproxen 500 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 naproxen 500 mg tablet naproxen 500 mg ta blet completed naproxen 500 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 ANT ([facility]) Sulfamethoxazole 800 MG / Trimethoprim 1 60 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 sulfamethoxazole 800 mg-trimethoprim 160 mg tablet sulfamethoxazole 800 mg-trimethoprim 160 mg tablet completed sulfame thoxazole 800 MG / trimethoprim 160 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 ANT ([facility]) Sulfamethoxazole 800 MG / Trimethoprim 1 60 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 sulfamethoxazole 800 mg-trimethoprim 160 mg tablet sulfamethoxazole 800 mg-trimethoprim 160 mg tablet completed sulfame thoxazole 800 MG / trimethoprim 160 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 [place] ([facility]) terconazole 4 MG/ML Vaginal Cream terconazole 0.4 % va ginal cream terconazole 0.4 % vaginal cream completed te rconazole 4 MG/ML Vaginal Cream [place] ([facility]) Ciprofloxacin 3 MG/ML / Dexamethasone 1 MG/ML Otic Suspension ciprofloxacin 0.3 %-dexamethasone 0.1 % ear drops,suspension ciprofloxacin 0.3 %-dexamethasone 0.1 % ear drops,suspension completed ciprofloxacin 3 MG/ML / dexamethasone 1 MG/ML Otic Suspension [place] ([facility]) Naproxen 500 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 naproxen 500 mg tablet naproxen 500 mg ta blet completed naproxen 500 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 [place] ([facility]) Triamcinolone Acetonide 1 MG/ML Topical Cream triamcinolone acetonide 0.1 % topical cream triamcinolone acetonide 0.1 % topical cream completed triamcinolone acetonide 1 MG/ML Topical Cream [place] ([facility]) Amoxicillin 500 MG Oral Capsule amoxicil hawk 500 mg capsule TAKE ONE CAPSULE BY MOUTH EVERY 8 HOURS FOR 10 DAYS amoxicillin 500 mg capsule TAKE ONE CAPS ULE BY MOUTH EVERY 8 HOURS FOR 10 DAYS comple [place] amoxicillin 500 MG Oral Capsule [place] ([facility]) cefdinir 300 MG Oral Capsule cefdinir 30 0 mg capsule TAKE ONE CAPSULE BY MOUTH EVERY 12 HOURS FOR 10 DAYS cefdinir 300 mg capsule TAKE ONE CAPSULE BY MOUTH EVERY 12 HOURS FOR 10 DAYS completed cefdinir 300 MG Oral Capsule [place] ([facility]) Hydrocortisone 10 MG/ML / Neomycin 3.5 M G/ML / Polymyxin B [id number] UNT/ML Otic Suspension mzyyidrq-bstfdyhwi-beisgvxmw 3.5 mg-10,000 unit/mL-1 % ear drops,susp jrsgejdv-vqgfbafcx-juaulbyrg 3.5 mg-10,000 unit/mL-1 % ear drops,susp completed hydrocortisone 10 MG/ML / neomycin 3.5 MG/ML / polymyxin B [id number] UNT/ML Otic Suspension ANT ([facility]) Ciprofloxacin 3 MG/ML / Dexamethasone 1 MG/ML Otic Suspension ciprofloxacin 0.3 %-dexamethasone 0.1 % ear drops,suspension ciprofloxacin 0.3 %-dexamethasone 0.1 % ear drops,suspension completed ciprofloxacin 3 MG/ML / dexamethasone 1 MG/ML Otic Suspension [place] ([facility]) Sulfamethoxazole 800 MG / Trimethoprim 1 60 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 sulfamethoxazole 800 mg-trimethoprim 160 mg tablet sulfamethoxazole 800 mg-trimethoprim 160 mg tablet completed sulfame thoxazole 800 MG / trimethoprim 160 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 [place] ([facility]) Naproxen 500 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 naproxen 500 mg tablet naproxen 500 mg ta blet completed naproxen 500 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 [place] ([facility]) terconazole 4 MG/ML Vaginal Cream terconazole 0.4 % va ginal cream terconazole 0.4 % vaginal cream completed te rconazole 4 MG/ML Vaginal Cream [place] ([facility]) Naproxen 500 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 naproxen 500 mg tablet naproxen 500 mg ta blet completed naproxen 500 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 [place] ([facility]) Loratadine 10 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 loratadine 10 mg tablet TAKE ONE TABLET BY MOUTH EVERY DAY loratadine 10 mg tablet TAKE ONE TABLET BY MOUTH EVERY DAY completed loratadine 10 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 [place] ([facility]) Cephalexin 500 MG Oral Capsule cephalexi n 500 mg capsule TAKE ONE CAPSULE BY MOUTH THREE TIMES A DAY FOR 5 DAYS cephalexin 500 mg capsule TAKE ONE CAPSU LE BY MOUTH THREE TIMES A DAY FOR 5 DAYS co mpleted cephalexin 500 MG Oral Capsule [place] ([facility]) Amoxicillin 875 MG / Clavulanate 125 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 amoxicillin 875 mg-potassium clavulanate 125 mg tablet amoxicillin 875 mg-potassium clavulanate 125 mg tablet completed amoxici llin 875 MG / clavulanate 125 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 ANT ([facility]) 12 HR Pseudoephedrine Hydrochloride 120 MG Extended Release Oral Tablet [Sudogest] Sudogest 12-hour 120 mg tablet,extended release TAKE ONE TABLET BY MOUTH TWICE A DAY FOR 7 DAYS Sudogest 12-hour 120 mg tablet,extended release TAKE ONE TABLET BY MOUTH TWICE A DAY FOR 7 DAYS completed 12 HR pseudoephedrine hydrochloride 120 MG Extended Release Oral Tablet [Sudogest] [place] ([facility]) Sulfamethoxazole 800 MG / Trimethoprim 1 60 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 sulfamethoxazole 800 mg-trimethoprim 160 mg tablet sulfamethoxazole 800 mg-trimethoprim 160 mg tablet completed sulfame thoxazole 800 MG / trimethoprim 160 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 [place] ([facility]) Naproxen 500 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 naproxen 500 mg tablet naproxen 500 mg ta blet completed naproxen 500 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 [place] ([facility]) Cephalexin 500 MG Oral Capsule cephalexi n 500 mg capsule TAKE ONE CAPSULE BY MOUTH THREE TIMES A DAY FOR 5 DAYS cephalexin 500 mg capsule TAKE ONE CAPSU LE BY MOUTH THREE TIMES A DAY FOR 5 DAYS co mpleted cephalexin 500 MG Oral Capsule ANT ([facility]) Amoxicillin 500 MG Oral Capsule amoxicil hawk 500 mg capsule TAKE ONE CAPSULE BY MOUTH EVERY 8 HOURS FOR 10 DAYS amoxicillin 500 mg capsule TAKE ONE CAPS ULE BY MOUTH EVERY 8 HOURS FOR 10 DAYS comple [place] amoxicillin 500 MG Oral Capsule [place] ([facility]) Ibuprofen 800 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 ibuprofen 800 mg tablet ibuprofen 8 00 mg tablet completed ibuprofen 800 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 ANT ([facility]) Ibuprofen 800 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 ibuprofen 800 mg tablet ibuprofen 8 00 mg tablet completed ibuprofen 800 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 [place] ([facility]) Amoxicillin 875 MG / Clavulanate 125 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 amoxicillin 875 mg-potassium clavulanate 125 mg tablet amoxicillin 875 mg-potassium clavulanate 125 mg tablet completed amoxici llin 875 MG / clavulanate 125 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 ANT ([facility]) Ibuprofen 800 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 ibuprofen 800 mg tablet ibuprofen 8 00 mg tablet completed ibuprofen 800 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 [place] ([facility]) Ciprofloxacin 3 MG/ML / Dexamethasone 1 MG/ML Otic Suspension ciprofloxacin 0.3 %-dexamethasone 0.1 % ear drops,suspension ciprofloxacin 0.3 %-dexamethasone 0.1 % ear drops,suspension completed ciprofloxacin 3 MG/ML / dexamethasone 1 MG/ML Otic Suspension [place] ([facility]) Escitalopram 10 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 escitalopram 10 mg tabl et escitalopram 10 mg tablet completed escitalopram 10 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 [place] ([facility]) Cephalexin 500 MG Oral Capsule cephalexi n 500 mg capsule TAKE ONE CAPSULE BY MOUTH THREE TIMES A DAY FOR 5 DAYS cephalexin 500 mg capsule TAKE ONE CAPSU LE BY MOUTH THREE TIMES A DAY FOR 5 DAYS co mpleted cephalexin 500 MG Oral Capsule [place] ([facility]) Sulfamethoxazole 800 MG / Trimethoprim 1 60 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 sulfamethoxazole 800 mg-trimethoprim 160 mg tablet sulfamethoxazole 800 mg-trimethoprim 160 mg tablet completed sulfame thoxazole 800 MG / trimethoprim 160 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 [place] ([facility]) Amoxicillin 875 MG / Clavulanate 125 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 amoxicillin 875 mg-potassium clavulanate 125 mg tablet amoxicillin 875 mg-potassium clavulanate 125 mg tablet completed amoxici llin 875 MG / clavulanate 125 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 [place] ([facility]) 12 HR Pseudoephedrine Hydrochloride 120 MG Extended Release Oral Tablet [Sudogest] Sudogest 12-hour 120 mg tablet,extended release TAKE ONE TABLET BY MOUTH TWICE A DAY FOR 7 DAYS Sudogest 12-hour 120 mg tablet,extended release TAKE ONE TABLET BY MOUTH TWICE A DAY FOR 7 DAYS completed 12 HR pseudoephedrine hydrochloride 120 MG Extended Release Oral Tablet [Sudogest] [place] ([facility]) Fluconazole 150 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 fluconazo le 150 mg tablet TAKE ONE TABLET BY MOUTH ONCE fluconazole 150 mg tablet TAKE ONE TABLET BY MOUTH ONCE completed fluconazole 150 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 [place] ([facility]) terconazole 4 MG/ML Vaginal Cream terconazole 0.4 % va ginal cream terconazole 0.4 % vaginal cream completed te rconazole 4 MG/ML Vaginal Cream [place] ([facility]) terconazole 4 MG/ML Vaginal Cream terconazole 0.4 % va ginal cream terconazole 0.4 % vaginal cream completed te rconazole 4 MG/ML Vaginal Cream [place] ([facility]) Ibuprofen 800 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 ibuprofen 800 mg tablet ibuprofen 8 00 mg tablet completed ibuprofen 800 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 ANT ([facility]) Ciprofloxacin 3 MG/ML / Dexamethasone 1 MG/ML Otic Suspension ciprofloxacin 0.3 %-dexamethasone 0.1 % ear drops,suspension ciprofloxacin 0.3 %-dexamethasone 0.1 % ear drops,suspension completed ciprofloxacin 3 MG/ML / dexamethasone 1 MG/ML Otic Suspension [place] ([facility]) Naproxen 500 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 naproxen 500 mg tablet naproxen 500 mg ta blet completed naproxen 500 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 [place] ([facility]) Fluconazole 150 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 fluconazo le 150 mg tablet TAKE ONE TABLET BY MOUTH ONCE fluconazole 150 mg tablet TAKE ONE TABLET BY MOUTH ONCE completed fluconazole 150 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 [facility] [place] ([facility]) Amoxicillin 875 MG / Clavulanate 125 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 amoxicillin 875 mg-potassium clavulanate 125 mg tablet amoxicillin 875 mg-potassium clavulanate 125 mg tablet completed amoxici llin 875 MG / clavulanate 125 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 [place] ([facility]) terconazole 4 MG/ML Vaginal Cream terconazole 0.4 % va ginal cream terconazole 0.4 % vaginal cream completed te rconazole 4 MG/ML Vaginal Cream [place] ([facility]) fluticasone propionate 50 mcg/actuation nasal spray,suspension [id number] completed fluticasone propionate 0.05 MG/ACTUAT Metered Dose Nasal [place] ([facility]) terconazole 4 MG/ML Vaginal Cream terconazole 0.4 % va ginal cream terconazole 0.4 % vaginal cream completed te rconazole 4 MG/ML Vaginal Cream [place] ([facility]) Amoxicillin 875 MG / Clavulanate 125 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 amoxicillin 875 mg-potassium clavulanate 125 mg tablet amoxicillin 875 mg-potassium clavulanate 125 mg tablet completed amoxici llin 875 MG / clavulanate 125 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 [place] ([facility]) cefdinir 300 MG Oral Capsule cefdinir 30 0 mg capsule TAKE ONE CAPSULE BY MOUTH EVERY 12 HOURS FOR 10 DAYS cefdinir 300 mg capsule TAKE ONE CAPSULE BY MOUTH EVERY 12 HOURS FOR 10 DAYS completed cefdinir 300 MG Oral Capsule [place] ([facility]) cefdinir 300 MG Oral Capsule cefdinir 30 0 mg capsule TAKE ONE CAPSULE BY MOUTH EVERY 12 HOURS FOR 10 DAYS cefdinir 300 mg capsule TAKE ONE CAPSULE BY MOUTH EVERY 12 HOURS FOR 10 DAYS completed cefdinir 300 MG Oral Capsule ANT ([facility]) Naproxen 500 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 naproxen 500 mg tablet naproxen 500 mg ta blet completed naproxen 500 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 ANT ([facility]) Naproxen 500 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 naproxen 500 mg tablet naproxen 500 mg ta blet completed naproxen 500 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 ANT ([facility]) cefdinir 300 MG Oral Capsule cefdinir 30 0 mg capsule TAKE ONE CAPSULE BY MOUTH EVERY 12 HOURS FOR 10 DAYS cefdinir 300 mg capsule TAKE ONE CAPSULE BY MOUTH EVERY 12 HOURS FOR 10 DAYS completed cefdinir 300 MG Oral Capsule [place] ([facility]) Ibuprofen 800 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 ibuprofen 800 mg tablet ibuprofen 8 00 mg tablet completed ibuprofen 800 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 ANT ([facility]) Amoxicillin 875 MG / Clavulanate 125 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 amoxicillin 875 mg-potassium clavulanate 125 mg tablet amoxicillin 875 mg-potassium clavulanate 125 mg tablet completed amoxici llin 875 MG / clavulanate 125 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 ANT ([facility]) fluticasone propionate 50 mcg/actuation nasal spray,suspension [id number] completed fluticasone propionate 0.05 MG/ACTUAT Metered Dose Nasal [place] ([facility]) Ibuprofen 800 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 ibuprofen 800 mg tablet ibuprofen 8 00 mg tablet completed ibuprofen 800 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 ANT ([facility]) Hydrocortisone 10 MG/ML / Neomycin 3.5 M G/ML / Polymyxin B [id number] UNT/ML Otic Suspension ycqqimiv-emqlpqkas-cpktwlopt 3.5 mg-10,000 unit/mL-1 % ear drops,susp uimtujns-lrolhdwxb-lpaivunry 3.5 mg-10,000 unit/mL-1 % ear drops,susp completed hydrocortisone 10 MG/ML / neomycin 3.5 MG/ML / polymyxin B 11146 UNT/ML Otic Suspension ANT ([facility]) Ibuprofen 800 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 ibuprofen 800 mg tablet ibuprofen 8 00 mg tablet completed ibuprofen 800 MG Oral Tablet ANT ([facility]) Sulfamethoxazole 800 MG / Trimethoprim 1 60 MG Oral Tablet sulfamethoxazole 800 mg-trimethoprim 160 mg tablet sulfamethoxazole 800 mg-trimethoprim 160 mg tablet completed sulfame thoxazole 800 MG / trimethoprim 160 MG Oral Tablet [place] ([facility]) Cephalexin 500 MG Oral Capsule cephalexi n 500 mg capsule TAKE ONE CAPSULE BY MOUTH THREE TIMES A DAY FOR 5 DAYS cephalexin 500 mg capsule TAKE ONE CAPSU LE BY MOUTH THREE TIMES A DAY FOR 5 DAYS co mpleted cephalexin 500 MG Oral Capsule [place] ([facility]) Ciprofloxacin 3 MG/ML / Dexamethasone 1 MG/ML Otic Suspension ciprofloxacin 0.3 %-dexamethasone 0.1 % ear drops,suspension ciprofloxacin 0.3 %-dexamethasone 0.1 % ear drops,suspension completed ciprofloxacin 3 MG/ML / dexamethasone 1 MG/ML Otic Suspension [place] ([facility]) terconazole 4 MG/ML Vaginal Cream terconazole 0.4 % va ginal cream terconazole 0.4 % vaginal cream completed te rconazole 4 MG/ML Vaginal Cream [facility]) Hydrocortisone 10 MG/ML / Neomycin 3.5 M G/ML / Polymyxin B 31634 UNT/ML Otic Suspension pykodqca-efmouoqfn-suifcykyp 3.5 mg-10,000 unit/mL-1 % ear drops,susp mrywmzfu-ycbnnrstl-rxruleehd 3.5 mg-10,000 unit/mL-1 % ear drops,susp completed hydrocortisone 10 MG/ML / neomycin 3.5 MG/ML / polymyxin B 90724 UNT/ML Otic Suspension [place] ([facility]) Escitalopram 10 MG Oral Tablet escitalopram 10 mg tabl et escitalopram 10 mg tablet completed escitalopram 10 MG Oral Tablet [place] ([facility]) Hydrocortisone 10 MG/ML / Neomycin 3.5 M G/ML / Polymyxin B 22023 UNT/ML Otic Suspension azxiaijc-dcktuhjom-oinyspfbc 3.5 mg-10,000 unit/mL-1 % ear drops,susp etxewmnx-xwmewhejk-wyfwzeipn 3.5 mg-10,000 unit/mL-1 % ear drops,susp completed hydrocortisone 10 MG/ML / neomycin 3.5 MG/ML / polymyxin B 59053 UNT/ML Otic Suspension [facility]) Amoxicillin 875 MG / Clavulanate 125 MG Oral Tablet amoxicillin 875 mg-potassium clavulanate 125 mg tablet amoxicillin 875 mg-potassium clavulanate 125 mg tablet completed amoxici llin 875 MG / clavulanate 125 MG Oral Tablet [facility]) cefdinir 300 MG Oral Capsule cefdinir 30 0 mg capsule TAKE ONE CAPSULE BY MOUTH EVERY 12 HOURS FOR 10 DAYS cefdinir 300 mg capsule TAKE ONE CAPSULE BY MOUTH EVERY 12 HOURS FOR 10 DAYS completed cefdinir 300 MG Oral Capsule [place] ([facility]) Escitalopram 10 MG Oral Tablet escitalopram 10 mg tabl et escitalopram 10 mg tablet completed escitalopram 10 MG Oral Tablet [facility]) Ciprofloxacin 3 MG/ML / Dexamethasone 1 MG/ML Otic Suspension ciprofloxacin 0.3 %-dexamethasone 0.1 % ear drops,suspension ciprofloxacin 0.3 %-dexamethasone 0.1 % ear drops,suspension completed ciprofloxacin 3 MG/ML / dexamethasone 1 MG/ML Otic Suspension [facility]) Escitalopram 10 MG Oral Tablet escitalopram 10 mg tabl et escitalopram 10 mg tablet completed escitalopram 10 MG Oral Tablet [facility]) Cephalexin 500 MG Oral Capsule cephalexi n 500 mg capsule TAKE ONE CAPSULE BY MOUTH THREE TIMES A DAY FOR 5 DAYS cephalexin 500 mg capsule TAKE ONE CAPSU LE BY MOUTH THREE TIMES A DAY FOR 5 DAYS co mpleted cephalexin 500 MG Oral Capsule [facility]) fluticasone propionate 50 mcg/actuation nasal spray,suspension [id number] completed fluticasone propionate 0.05 MG/ACTUAT Metered Dose Nasal [place] [facility]) Doxycycline Monohydrate 100 MG Oral Tabl et doxycycline monohydrate 100 mg tablet TAKE ONE TABLET BY MOUTH TWICE A DAY FOR 7 DAYS doxycycline monohydrate 100 mg tablet TAKE ONE TABLET BY MOUTH TWICE A DAY FOR 7 DAYS completed doxycycline monohydrate 100 MG Oral Tablet [facility]) Sulfamethoxazole 800 MG / Trimethoprim 1 60 MG Oral Tablet sulfamethoxazole 800 mg-trimethoprim 160 mg tablet sulfamethoxazole 800 mg-trimethoprim 160 mg tablet completed sulfame thoxazole 800 MG / trimethoprim 160 MG Oral Tablet [facility]) Ciprofloxacin 3 MG/ML / Dexamethasone 1 MG/ML Otic Suspension ciprofloxacin 0.3 %-dexamethasone 0.1 % ear drops,suspension ciprofloxacin 0.3 %-dexamethasone 0.1 % ear drops,suspension completed ciprofloxacin 3 MG/ML / dexamethasone 1 MG/ML Otic Suspension [place] ([facility]) Sulfamethoxazole 800 MG / Trimethoprim 1 60 MG Oral Tablet sulfamethoxazole 800 mg-trimethoprim 160 mg tablet sulfamethoxazole 800 mg-trimethoprim 160 mg tablet completed sulfame thoxazole 800 MG / trimethoprim 160 MG Oral Tablet ANT ([facility]) Ibuprofen 800 MG Oral Tablet ibuprofen 800 mg tablet ibuprofen 8 00 mg tablet completed ibuprofen 800 MG Oral Tablet [place] ([facility]) Metronidazole 0.0075 MG/MG Vaginal Gel m etronidazole 0.75 % vaginal gel INSERT 1 APPLICATORFUL VAGINALLY ONCE DAILY AT BEDTIME FOR 5 NIGHTS metronidazole 0.75 % vaginal gel INSERT 1 APPLICATORFUL VAGINALLY ONCE DAILY AT BEDTIME FOR 5 NIGHTS completed metronidazole 0. 0075 MG/MG Vaginal Gel [place] ([facility]) Cephalexin 500 MG Oral Capsule cephalexi n 500 mg capsule TAKE ONE CAPSULE BY MOUTH THREE TIMES A DAY FOR 5 DAYS cephalexin 500 mg capsule TAKE ONE CAPSU LE BY MOUTH THREE TIMES A DAY FOR 5 DAYS co mpleted cephalexin 500 MG Oral Capsule [place] ([facility]) Doxycycline Monohydrate 100 MG Oral Tabl et doxycycline monohydrate 100 mg tablet TAKE ONE TABLET BY MOUTH TWICE A DAY FOR 7 DAYS doxycycline monohydrate 100 mg tablet TAKE ONE TABLET BY MOUTH TWICE A DAY FOR 7 DAYS completed doxycycline monohydrate 100 MG Oral Tablet [place] ([facility]) cetirizine hydrochloride 10 MG Oral Tabl et cetirizine 10 mg tablet TAKE ONE TABLET BY MOUTH ONCE A DAY X 14 DAYS cetirizine 10 mg tablet TAKE ONE TABLET BY MOUTH ONCE A DAY X 14 DAYS completed cetirizine hydrochloride 10 MG Oral Tablet ANT ([facility]) Sulfamethoxazole 800 MG / Trimethoprim 1 60 MG Oral Tablet sulfamethoxazole 800 mg-trimethoprim 160 mg tablet sulfamethoxazole 800 mg-trimethoprim 160 mg tablet completed sulfame thoxazole 800 MG / trimethoprim 160 MG Oral Tablet ANT ([facility]) Naproxen 500 MG Oral Tablet naproxen 500 mg tablet naproxen 500 mg ta blet completed naproxen 500 MG Oral Tablet ANT ([facility]) Doxycycline Monohydrate 100 MG Oral Tabl et doxycycline monohydrate 100 mg tablet TAKE ONE TABLET BY MOUTH TWICE A DAY FOR 7 DAYS doxycycline monohydrate 100 mg tablet TAKE ONE TABLET BY MOUTH TWICE A DAY FOR 7 DAYS completed doxycycline monohydrate 100 MG Oral Tablet [place] ([facility]) Cephalexin 500 MG Oral Capsule cephalexi n 500 mg capsule TAKE ONE CAPSULE BY MOUTH THREE TIMES A DAY FOR 5 DAYS cephalexin 500 mg capsule TAKE ONE CAPSU LE BY MOUTH THREE TIMES A DAY FOR 5 DAYS co mpleted cephalexin 500 MG Oral Capsule ANT ([facility]) Amoxicillin 875 MG / Clavulanate 125 MG Oral Tablet amoxicillin 875 mg-potassium clavulanate 125 mg tablet amoxicillin 875 mg-potassium clavulanate 125 mg tablet completed amoxici llin 875 MG / clavulanate 125 MG Oral Tablet [place] ([facility]) Ibuprofen 800 MG Oral Tablet ibuprofen 800 mg tablet ibuprofen 8 00 mg tablet completed ibuprofen 800 MG Oral Tablet [place] ([facility]) terconazole 4 MG/ML Vaginal Cream terconazole 0.4 % va ginal cream terconazole 0.4 % vaginal cream completed te rconazole 4 MG/ML Vaginal Cream [facility]) Hydrocortisone 10 MG/ML / Neomycin 3.5 M G/ML / Polymyxin B 41525 UNT/ML Otic Suspension glpcbpfe-bgtgoqqsm-nrdlkpnsn 3.5 mg-10,000 unit/mL-1 % ear drops,susp brdbtloc-qqpvjuedb-awwzynpbo 3.5 mg-10,000 unit/mL-1 % ear drops,susp completed hydrocortisone 10 MG/ML / neomycin 3.5 MG/ML / polymyxin B 32261 UNT/ML Otic Suspension ANT ([facility]) Ciprofloxacin 3 MG/ML / Dexamethasone 1 MG/ML Otic Suspension ciprofloxacin 0.3 %-dexamethasone 0.1 % ear drops,suspension ciprofloxacin 0.3 %-dexamethasone 0.1 % ear drops,suspension completed ciprofloxacin 3 MG/ML / dexamethasone 1 MG/ML Otic Suspension [place] ([facility]) Hydrocortisone 10 MG/ML / Neomycin 3.5 M G/ML / Polymyxin B 00786 UNT/ML Otic Suspension ndttysce-rypmnyxrl-akmxipyyl 3.5 mg-10,000 unit/mL-1 % ear drops,susp jumwfegw-svlaatdug-pvlsmaall 3.5 mg-10,000 unit/mL-1 % ear drops,susp completed hydrocortisone 10 MG/ML / neomycin 3.5 MG/ML / polymyxin B 30449 UNT/ML Otic Suspension ANT ([facility]) fluticasone propionate 50 mcg/actuation nasal spray,suspension [id number] completed fluticasone propionate 0.05 MG/ACTUAT Metered Dose Nasal [place] ([facility]) NITROFURANTOIN, MACROCRYSTALS 25 MG / Ni trofurantoin, Monohydrate 75 MG Oral Capsule nitrofurantoin monohydrate/macrocrystals 100 mg capsule TAKE ONE CAPSULE BY MOUTH TWO TIMES A DAY FOR 10 DAYS nitrofurantoin monohydrate/macrocrystals 100 mg capsule TAKE ONE CAPSULE BY MOUTH TWO TIMES A DAY FOR 10 DAYS completed nitrofurantoin, macrocrystals 25 MG / nitrofurantoin, monohydrate 75 MG Oral Capsule [facility]) Doxycycline Monohydrate 100 MG Oral Tabl et doxycycline monohydrate 100 mg tablet TAKE ONE TABLET BY MOUTH TWICE A DAY FOR 7 DAYS doxycycline monohydrate 100 mg tablet TAKE ONE TABLET BY MOUTH TWICE A DAY FOR 7 DAYS completed doxycycline monohydrate 100 MG Oral Tablet [place] ([facility]) Ciprofloxacin 3 MG/ML / Dexamethasone 1 MG/ML Otic Suspension ciprofloxacin 0.3 %-dexamethasone 0.1 % ear drops,suspension ciprofloxacin 0.3 %-dexamethasone 0.1 % ear drops,suspension completed ciprofloxacin 3 MG/ML / dexamethasone 1 MG/ML Otic Suspension [facility]) Fluconazole 150 MG Oral Tablet fluconazo le 150 mg tablet TAKE ONE TABLET BY MOUTH ONCE fluconazole 150 mg tablet TAKE ONE TABLET BY MOUTH ONCE completed fluconazole 150 MG Oral Tablet Art THENArt ([facility]) Amoxicillin 875 MG / Clavulanate 125 MG Oral Tablet amoxicillin 875 mg-potassium clavulanate 125 mg tablet amoxicillin 875 mg-potassium clavulanate 125 mg tablet completed amoxici llin 875 MG / clavulanate 125 MG Oral Tablet [place] ([facility]) Amoxicillin 875 MG / Clavulanate 125 MG Oral Tablet amoxicillin 875 mg-potassium clavulanate 125 mg tablet amoxicillin 875 mg-potassium clavulanate 125 mg tablet completed amoxici llin 875 MG / clavulanate 125 MG Oral Tablet ANT ([facility]) Ibuprofen 800 MG Oral Tablet ibuprofen 800 mg tablet ibuprofen 8 00 mg tablet completed ibuprofen 800 MG Oral Tablet [place] ([facility]) Doxycycline Monohydrate 100 MG Oral Tabl et doxycycline monohydrate 100 mg tablet TAKE ONE TABLET BY MOUTH TWICE A DAY FOR 7 DAYS doxycycline monohydrate 100 mg tablet TAKE ONE TABLET BY MOUTH TWICE A DAY FOR 7 DAYS completed doxycycline monohydrate 100 MG Oral Tablet [place] ([facility]) Hydrocortisone 10 MG/ML / Neomycin 3.5 M G/ML / Polymyxin B 81318 UNT/ML Otic Suspension hfjucrwr-ibbgumiba-nolllgrcz 3.5 mg-10,000 unit/mL-1 % ear drops,susp tamrkhog-lsoidkier-nrocbrmum 3.5 mg-10,000 unit/mL-1 % ear drops,susp completed hydrocortisone 10 MG/ML / neomycin 3.5 MG/ML / polymyxin B 68813 UNT/ML Otic Suspension [place] ([facility]) Ibuprofen 800 MG Oral Tablet ibuprofen 800 mg tablet ibuprofen 8 00 mg tablet completed ibuprofen 800 MG Oral Tablet [place] ([facility]) Naproxen 500 MG Oral Tablet naproxen 500 mg tablet naproxen 500 mg ta blet completed naproxen 500 MG Oral Tablet [place] ([facility]) Sulfamethoxazole 800 MG / Trimethoprim 1 60 MG Oral Tablet sulfamethoxazole 800 mg-trimethoprim 160 mg tablet sulfamethoxazole 800 mg-trimethoprim 160 mg tablet completed sulfame thoxazole 800 MG / trimethoprim 160 MG Oral Tablet [place] ([facility]) Naproxen 500 MG Oral Tablet naproxen 500 mg tablet naproxen 500 mg ta blet completed naproxen 500 MG Oral Tablet [place] ([facility]) Doxycycline Monohydrate 100 MG Oral Tabl et doxycycline monohydrate 100 mg tablet TAKE ONE TABLET BY MOUTH TWICE A DAY FOR 7 DAYS doxycycline monohydrate 100 mg tablet TAKE ONE TABLET BY MOUTH TWICE A DAY FOR 7 DAYS completed doxycycline monohydrate 100 MG Oral Tablet [place] ([facility]) Cephalexin 500 MG Oral Capsule cephalexi n 500 mg capsule TAKE ONE CAPSULE BY MOUTH THREE TIMES A DAY FOR 5 DAYS cephalexin 500 mg capsule TAKE ONE CAPSU LE BY MOUTH THREE TIMES A DAY FOR 5 DAYS co mpleted cephalexin 500 MG Oral Capsule ANT ([facility]) 12 HR Pseudoephedrine Hydrochloride 120 MG Extended Release Oral Tablet [Sudogest] Sudogest 12-hour 120 mg tablet,extended release TAKE ONE TABLET BY MOUTH TWICE A DAY FOR 7 DAYS Sudogest 12-hour 120 mg tablet,extended release TAKE ONE TABLET BY MOUTH TWICE A DAY FOR 7 DAYS completed 12 HR pseudoephedrine hydrochloride 120 MG Extended Release Oral Tablet [Sudogest] ANT ([facility]) Naproxen 500 MG Oral Tablet naproxen 500 mg tablet naproxen 500 mg ta blet completed naproxen 500 MG Oral Tablet ANT ([facility]) Cephalexin 500 MG Oral Capsule cephalexi n 500 mg capsule TAKE ONE CAPSULE BY MOUTH THREE TIMES A DAY FOR 5 DAYS cephalexin 500 mg capsule TAKE ONE CAPSU LE BY MOUTH THREE TIMES A DAY FOR 5 DAYS co mpleted cephalexin 500 MG Oral Capsule ANT ([facility]) Naproxen 500 MG Oral Tablet naproxen 500 mg tablet naproxen 500 mg ta blet completed naproxen 500 MG Oral Tablet ATN ([facility]) 12 HR Pseudoephedrine Hydrochloride 120 MG Extended Release Oral Tablet [Sudogest] Sudogest 12-hour 120 mg tablet,extended release TAKE ONE TABLET BY MOUTH TWICE A DAY FOR 7 DAYS Sudogest 12-hour 120 mg tablet,extended release TAKE ONE TABLET BY MOUTH TWICE A DAY FOR 7 DAYS completed 12 HR pseudoephedrine hydrochloride 120 MG Extended Release Oral Tablet [Sudogest] ANT ([facility]) cetirizine hydrochloride 10 MG Oral Tabl et cetirizine 10 mg tablet TAKE ONE TABLET BY MOUTH ONCE A DAY X 14 DAYS cetirizine 10 mg tablet TAKE ONE TABLET BY MOUTH ONCE A DAY X 14 DAYS completed cetirizine hydrochloride 10 MG Oral Tablet ANT ([facility]) Ibuprofen 800 MG Oral Tablet ibuprofen 800 mg tablet ibuprofen 8 00 mg tablet completed ibuprofen 800 MG Oral Tablet ANT ([facility]) Naproxen 500 MG Oral Tablet naproxen 500 mg tablet naproxen 500 mg ta blet completed naproxen 500 MG Oral Tablet ANT ([facility]) Cephalexin 500 MG Oral Capsule cephalexi n 500 mg capsule TAKE ONE CAPSULE BY MOUTH THREE TIMES A DAY FOR 5 DAYS cephalexin 500 mg capsule TAKE ONE CAPSU LE BY MOUTH THREE TIMES A DAY FOR 5 DAYS co mpleted cephalexin 500 MG Oral Capsule ANT ([facility]) Naproxen 500 MG Oral Tablet naproxen 500 mg tablet naproxen 500 mg ta blet completed naproxen 500 MG Oral Tablet ANT ([facility]) fluticasone propionate 50 mcg/actuation nasal spray,suspension [id number] completed fluticasone propionate 0.05 MG/ACTUAT Metered Dose Nasal [place] ANT ([facility]) Escitalopram 10 MG Oral Tablet escitalopram 10 mg tabl et escitalopram 10 mg tablet completed escitalopram 10 MG Oral Tablet ANT ([facility]) Insurance Providers Payer name Policy type / Coverage type Policy ID Covered green party ID Covered green party's relationship to fuentes Policy Fuentes Plan Information Excellus BCYO O UNAVAILABLE S UNAV AILABLE BCBS [place] [id number] [facility] [id number] Child [id number] BCBS Ad[place]fo [place] [id number] WorkComp Carrier [place] WorkComp Health Claim [id number] Employe e [id number] Workers Comp Carrier I WorkComp Health Claim [id number] Empl oyee [id number] [facility] Blue Cross and Blue Shield - [place] Blue Cross/B lue Shield [id number] Spouse [id number] Medicaid Medicaid [id number] Self [id number] [employer] BCYO P [id number] O VYS ANSI-Commercial [id number] [place] P[place] 302/307 [id number] MO2 [id number] [place] 306/806 [id number] MO2 [id number] [place] 306/806 [id number] MO2 [id number] [employer] BCYO P [id number] O VYA Managed Care BCBS O [id number] S [id number] [place] S [id number] S [id number] Medicaid O UNAVAILABLE S UNAVAILA BLE SELF PAY UNAVAILABLE MO2 UNAVAILA BLE [place] MEDICAID [id number] SP [id number] BCBS [place] PPO 302/307 [id number] MO2 [id number] [place] [id number] SP [id number] EXCELLUS BCBS B [id number] O VYS [place] [id number] SP [id number] BCBS [place] PPO 302/307 [id number] MO2 [id number] [employer] BCBS P [id number] O VYS ANSI-Commercial [id number] Problems, Conditions, and Diagnoses Code Display Name Description Problem Type Effective Dates Data Source(s) 86953400 Generalized anxiety disorder Generalized Anxiety Disor elsie Problem 04/15/2021 09:53:45 AM EST [facility]) [id number] Moderate recurrent major depression Mode rate Recurrent Major Depression Problem 10/16/2020 12:00:00 AM EDT [facility]) [id number] Moderate recurrent major depression Mode rate Recurrent Major Depression Problem 10/16/2020 12:00:00 AM EDT [facility]) [id number] Moderate recurrent major depression Mode rate Recurrent Major Depression Problem 10/16[facility]2020 12:[facility] [id number] Moderate recurrent major depression Mode rate Recurrent Major Depression Problem 10/16/2020 12:00:00 AM EDT [facility]) [id number] Moderate recurrent major depression Mode rate Recurrent Major Depression Problem 10/16/2020 12:00:00 AM EDT [facility]) [id number] Moderate recurrent major depression Mode rate Recurrent Major Depression Problem 10/16/2020 12:00:00 AM EDT [facility]) [id number] Moderate recurrent major depression Mode rate Recurrent Major Depression Problem 10/16/2020 12:00:00 AM EDT [place] ([facility]) [id number] Moderate recurrent major depression Mode rate Recurrent Major Depression Problem 10/16/2020 12:00:00 AM EDT ANT ([facility]) [id number] Moderate recurrent major depression Mode rate Recurrent Major Depression Problem 10/16/2020 12:00:00 AM EDT ANT ([facility]) [id number] Moderate recurrent major depression Mode rate Recurrent Major Depression Problem 10/16/2020 12:00:00 AM EDT [place] ([facility]) [id number] Moderate recurrent major depression Mode rate Recurrent Major Depression Problem 10/16/2020 12:00:00 AM EDT ANT ([facility]) [id number] Moderate recurrent major depression Mode rate Recurrent Major Depression Problem 10/16/2020 12:00:00 AM EDT [place] ([facility]) [id number] Moderate recurrent major depression Mode rate Recurrent Major Depression Problem 10/16/2020 12:00:00 AM EDT [place] ([facility]) [id number] Moderate recurrent major depression Mode rate Recurrent Major Depression Problem 10/16/2020 12:00:00 AM EDT [place] ([facility]) [id number] Moderate recurrent major depression Mode rate Recurrent Major Depression Problem 10/16/2020 12:00:00 AM EDT [place] ([facility]) [id number] Chlamydial infection Chlamydial infection Problem 06/26/2020 12:00:00 AM EST [facility]) [id number] Depressive disorder Depressive Disorder Problem 0 06/11/2020 12:00:00 AM EST - 10/15/2020 12:00:00 AM EDT ANT ([facility]) [id number] Anxiety disorder Anxiety Disorder Problem 021 12:00:00 AM EST - 12/29/2020 12:00:00 AM EDT ANT ([facility]) [id number] Depressive disorder Depressive Disorder Problem 0 06/11/2020 12:00:00 AM EST - 10/15/2020 12:00:00 AM EDT ANT ([facility]) [id number] Anxiety disorder Anxiety Disorder Problem 021 12:00:00 AM EST - 12/29/2020 12:00:00 AM EDT ANT ([facility]) [id number] Depressive disorder Depressive Disorder Problem 0 06/11/2020 12:00:00 AM EST - 10/15/2020 12:00:00 AM EDT ANT ([facility]) [id number] Anxiety disorder Anxiety Disorder Problem 12:00:00 AM EST - 12/29/2020 12:00:00 AM EDT ANT ([facility]) [id number] Depressive disorder Depressive Disorder Problem 0 06/11/2020 12:00:00 AM EST - 10/15/2020 12:00:00 AM EDT ANT ([facility]) [id number] Anxiety disorder Anxiety Disorder Problem 12:00:00 AM EST - 12/29/2020 12:00:00 AM EDT NAT ([facility]) [id number] Depressive disorder Depressive Disorder Problem 0 06/11/2020 12:00:00 AM EST - 10/15/2020 12:00:00 AM EDT ANT ([facility]) [id number] Anxiety disorder Anxiety Disorder Problem 12:00:00 AM EST - 12/29/2020 12:00:00 AM EDT ANT ([facility]) [id number] Depressive disorder Depressive Disorder Problem 0 06/11/2020 12:00:00 AM EST - 10/15/2020 12:00:00 AM EDT ANT ([facility]) [id number] Anxiety disorder Anxiety Disorder Problem 021 12:00:00 AM EST - 12/29/2020 12:00:00 AM EDT ANT ([facility]) [id number] Depressive disorder Depressive Disorder Problem 0 06/11/2020 12:00:00 AM EST - 10/15/2020 12:00:00 AM EDT ANT ([facility]) [id number] Anxiety disorder Anxiety Disorder Problem 021 12:00:00 AM EST - 12/29/2020 12:00:00 AM EDT ANT ([facility]) [id number] Depressive disorder Depressive Disorder Problem 0 06/11/2020 12:00:00 AM EST - 10/15/2020 12:00:00 AM EDT ANT ([facility]) [id number] Anxiety disorder Anxiety Disorder Problem 021 12:00:00 AM EST - 12/29/2020 12:00:00 AM EDT ANT ([facility]) [id number] Depressive disorder Depressive Disorder Problem 0 06/11/2020 12:00:00 AM EST - 10/15/2020 12:00:00 AM EDT ANT ([facility]) [id number] Anxiety disorder Anxiety Disorder Problem 021 12:00:00 AM EST - 12/29/2020 12:00:00 AM EDT ANT ([facility]) [id number] Depressive disorder Depressive Disorder Problem 0 06/11/2020 12:00:00 AM EST - 10/15/2020 12:00:00 AM EDT ANT ([facility]) [id number] Anxiety disorder Anxiety Disorder Problem 06/11/2020 12 :00:00 AM EST ANT ([facility]) [id number] Depressive disorder Depressive Disorder Problem 0 06/11/2020 12:00:00 AM EST - 10/15/2020 12:00:00 AM EDT ANT ([facility]) [id number] Anxiety disorder Anxiety Disorder Problem 06/11/2020 12 :00:00 AM EST ANT ([facility]) [id number] Depressive disorder Depressive Disorder Problem 0 06/11/2020 12:00:00 AM EST - 10/15/2020 12:00:00 AM EDT ANT ([facility]) [id number] Anxiety disorder Anxiety Disorder Problem 021 12:00:00 AM EST - 12/29/2020 12:00:00 AM EDT ANT ([facility]) [id number] Depressive disorder Depressive Disorder Problem 0 06/11/2020 12:00:00 AM EST - 10/15/2020 12:00:00 AM EDT ANT ([facility]) [id number] Anxiety disorder Anxiety Disorder Problem 06/11/2020 12 :00:00 AM EST ANT ([facility]) [id number] Depressive disorder Depressive Disorder Problem 0 06/11/2020 12:00:00 AM EST - 10/15/2020 12:00:00 AM EDT ANT ([facility]) [id number] Anxiety disorder Anxiety Disorder Problem 06/11/2020 12 :00:00 AM EST ANT ([facility]) [id number] Depressive disorder Depressive Disorder Problem 0 06/11/2020 12:00:00 AM EST - 10/15/2020 12:00:00 AM EDT ANT ([facility]) [id number] Anxiety disorder Anxiety Disorder Problem 06/11/2020 12 :00:00 AM EST ANT ([facility]) [id number] Depressive disorder Depressive Disorder Problem 0 06/11/2020 12:00:00 AM EST ANT ([facility]) [id number] Anxiety disorder Anxiety Disorder Problem 06/11/2020 12 :00:00 AM EST ANT ([facility]) [id number] Depressive disorder Depressive Disorder Problem 0 06/11/2020 12:00:00 AM EST ANT ([facility]) [id number] Anxiety disorder Anxiety Disorder Problem 06/11/2020 12 :00:00 AM EST ANT ([facility]) [id number] Depressive disorder Depressive Disorder Problem 0 06/11/2020 12:00:00 AM EST ANT ([facility]) [id number] Anxiety disorder Anxiety Disorder Problem 06/11/2020 12 :00:00 AM EST ANT ([facility]) [id number] Stress at work Stress at Work Problem 05/01/2020 12:00:00 AM EST - 06/11/2020 12:00:00 AM EST ANT ([facility]) [id number] Stress at work Stress at Work Problem 05/01/2020 12:00:00 AM EST - 06/11/2020 12:00:00 AM EST ANT ([facility]) [id number] Stress at work Stress at Work Problem 05/01/2020 12:00:00 AM EST - 06/11/2020 12:00:00 AM EST ANT ([facility]) [id number] Stress at work Stress at Work Problem 05/01/2020 12:00:00 AM EST - 06/11/2020 12:00:00 AM EST ANT ([facility]) [id number] Stress at work Stress at Work Problem 05/01/2020 12:00:00 AM EST - 06/11/2020 12:00:00 AM EST ANT ([facility]) [id number] Stress at work Stress at Work Problem 05/01/2020 12:00:00 AM EST - 06/11/2020 12:00:00 AM EST ANT ([facility]) [id number] Stress at work Stress at Work Problem 05/01/2020 12:00:00 AM EST - 06/11/2020 12:00:00 AM EST ANT ([facility]) [id number] Stress at work Stress at Work Problem 05/01/2020 12:00:00 AM EST - 06/11/2020 12:00:00 AM EST ANT ([facility]) [id number] Stress at work Stress at Work Problem 05/01/2020 12:00:00 AM EST - 06/11/2020 12:00:00 AM EST ANT ([facility]) [id number] Stress at work Stress at Work Problem 05/01/2020 12:00:00 AM EST - 06/11/2020 12:00:00 AM EST ANT ([facility]) [id number] Stress at work Stress at Work Problem 05/01/2020 12:00:00 AM EST - 06/11/2020 12:00:00 AM EST ANT ([facility]) [id number] Stress at work Stress at Work Problem 05/01/2020 12:00:00 AM EST - 06/11/2020 12:00:00 AM EST ANT ([facility]) [id number] Stress at work Stress at Work Problem 05/01/2020 12:00:00 AM EST - 06/11/2020 12:00:00 AM EST ANT ([facility]) [id number] Stress at work Stress at Work Problem 05/01/2020 12:00:00 AM EST - 06/11/2020 12:00:00 AM EST ANT ([facility]) [id number] Stress at work Stress at Work Problem 05/01/2020 12:00:00 AM EST - 06/11/2020 12:00:00 AM EST ANT ([facility]) [id number] Stress at work Stress at Work Problem 05/01/2020 12:00:00 AM EST - 06/11/2020 12:00:00 AM EST ANT ([facility]) [id number] Stress at work Stress at Work Problem 05/01/2020 12:00: 00 AM EST ANT ([facility]) [id number] Stress at work Stress at Work Problem 05/01/2020 12:00: 00 AM EST ANT ([facility]) [id number] Stress at work Stress at Work Problem 05/01/2020 12:00:00 AM EST - 06/11/2020 12:00:00 AM EST ANT ([facility]) [id number] Stress at work Stress at Work Problem 05/01/2020 12:00: 00 AM EST ANT ([facility]) [id number] Stress at work Stress at Work Problem 05/01/2020 12:00: 00 AM EST ANT ([facility]) [id number] Stress at work Stress at Work Problem 05/01/2020 12:00:00 AM EST - 06/11/2020 12:00:00 AM EST ANT ([facility]) [id number] Stress at work Stress at Work Problem 05/01/2020 12:00: 00 AM EST ANT ([facility]) [id number] Stress at work Stress at Work Problem 05/01/2020 12:00: 00 AM EST ANT ([facility]) [id number] Family problems Family Problems Problem 0 12:00:00 AM EST - 06/11/2020 12:00:00 AM EST ANT ([facility]) [id number] Family problems Family Problems Problem 0 12:00:00 AM EST - 06/11/2020 12:00:00 AM EST ANT ([facility]) [id number] Family problems Family Problems Problem 0 12:00:00 AM EST - 06/11/2020 12:00:00 AM EST ANT ([facility]) [id number] Family problems Family Problems Problem 0 12:00:00 AM EST - 06/11/2020 12:00:00 AM EST ANT ([facility]) [id number] Family problems Family Problems Problem 0 12:00:00 AM EST - 06/11/2020 12:00:00 AM EST ANT ([facility]) [id number] Family problems Family Problems Problem 0 12:00:00 AM EST - 06/11/2020 12:00:00 AM EST ANT ([facility]) [id number] Family problems Family Problems Problem 0 12:00:00 AM EST - 06/11/2020 12:00:00 AM EST ANT ([facility]) [id number] Family problems Family Problems Problem 0 12:00:00 AM EST - 06/11/2020 12:00:00 AM EST ANT ([facility]) [id number] Family problems Family Problems Problem 0 12:00:00 AM EST - 06/11/2020 12:00:00 AM EST ANT ([facility]) [id number] Family problems Family Problems Problem 0 12:00:00 AM EST - 06/11/2020 12:00:00 AM EST ANT ([facility]) [id number] Family problems Family Problems Problem 0 12:00:00 AM EST - 06/11/2020 12:00:00 AM EST ANT ([facility]) [id number] Family problems Family Problems Problem 0 12:00:00 AM EST - 06/11/2020 12:00:00 AM EST ANT ([facility]) [id number] Family problems Family Problems Problem 0 12:00:00 AM EST - 06/11/2020 12:00:00 AM EST ANT ([facility]) [id number] Family problems Family Problems Problem 0 12:00:00 AM EST - 06/11/2020 12:00:00 AM EST ANT ([facility]) [id number] Family problems Family Problems Problem 0 12:00:00 AM EST - 06/11/2020 12:00:00 AM EST ANT ([facility]) [id number] Family problems Family Problems Problem 0 12:00:00 AM EST - 06/11/2020 12:00:00 AM EST ANT ([facility]) [id number] Family problems Family Problems Problem 04/11/2020 12:0 0:00 AM EST ANT ([facility]) [id number] Family problems Family Problems Problem 04/11/2020 12:0 0:00 AM EST ANT ([facility]) [id number] Family problems Family Problems Problem 0 12:00:00 AM EST - 06/11/2020 12:00:00 AM EST ANT ([facility]) [id number] Family problems Family Problems Problem 04/11/2020 12:0 0:00 AM EST ANT ([facility]) [id number] Family problems Family Problems Problem 04/11/2020 12:0 0:00 AM EST ANT ([facility]) [id number] Family problems Family Problems Problem 04/11/2020 12:0 0:00 AM EST ANT ([facility]) [id number] Family problems Family Problems Problem 0 12:00:00 AM EST - 06/11/2020 12:00:00 AM EST ANT ([facility]) [id number] Family problems Family Problems Problem 04/11/2020 12:0 0:00 AM EST ANT ([facility]) [id number] Family problems Family Problems Problem 04/11/2020 12:0 0:00 AM EST ANT ([facility]) [id number] Clinical finding Clinical Finding Problem 020 12:00:00 AM EDT - 06/24/2020 12:00:00 AM EST ANT ([facility]) [id number] 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 Adjustment Disorder with Mixed Disturbance of Emotions and Conduct Problem 02/18/2020 12:00:00 AM EDT - 10/06/2020 12:00:00 AM EDT ANT ([facility]) [id number] Clinical finding Clinical Finding Problem 12:00:00 AM EDT - 06/24/2020 12:00:00 AM EST ANT ([facility]) [id number] 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 Adjustment Disorder with Mixed Disturbance of Emotions and Conduct Problem 02/18/2020 12:00:00 AM EDT - 10/06/2020 12:00:00 AM EDT ANT ([facility]) [id number] Clinical finding Clinical Finding Problem 12:00:00 AM EDT - 06/24/2020 12:00:00 AM EST ANT ([facility]) [id number] 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 Adjustment Disorder with Mixed Disturbance of Emotions and Conduct Problem 02/18/2020 12:00:00 AM EDT - 10/06/2020 12:00:00 AM EDT ANT ([facility]) [id number] Clinical finding Clinical Finding Problem 12:00:00 AM EDT - 06/24/2020 12:00:00 AM EST ANT ([facility]) [id number] 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 Adjustment Disorder with Mixed Disturbance of Emotions and Conduct Problem 02/18/2020 12:00:00 AM EDT - 10/06/2020 12:00:00 AM EDT ANT ([facility]) [id number] Clinical finding Clinical Finding Problem 12:00:00 AM EDT - 06/24/2020 12:00:00 AM EST ANT ([facility]) [id number] 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 Adjustment Disorder with Mixed Disturbance of Emotions and Conduct Problem 02/18/2020 12:00:00 AM EDT - 10/06/2020 12:00:00 AM EDT ANT ([facility]) [id number] Clinical finding Clinical Finding Problem 12:00:00 AM EDT - 06/24/2020 12:00:00 AM WALDO CAIN ([facility]) [id number] 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 Adjustment Disorder with Mixed Disturbance of Emotions and Conduct Problem 02/18/2020 12:00:00 AM EDT - 10/06/2020 12:00:00 AM EDT ANT ([facility]) [id number] Clinical history and observation finding s Clinical History and Observation Findings Problem 02/18/2020 12:00:00 AM EDT - 06/24/2020 12:00:00 AM EST ANT ([facility]) [id number] 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 Adjustment Disorder with Mixed Disturbance of Emotions and Conduct Problem 02/18/2020 12:00:00 AM EDT - 10/06/2020 12:00:00 AM EDT ANT ([facility]) [id number] Clinical history and observation finding s Clinical History and Observation Findings Problem 02/18/2020 12:00:00 AM EDT - 06/24/2020 12:00:00 AM EST ANT ([facility]) [id number] 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 Adjustment Disorder with Mixed Disturbance of Emotions and Conduct Problem 02/18/2020 12:00:00 AM EDT - 10/06/2020 12:00:00 AM EDT ANT ([facility]) [id number] Clinical history and observation finding s Clinical History and Observation Findings Problem 02/18/2020 12:00:00 AM EDT - 06/24/2020 12:00:00 AM EST ANT ([facility]) [id number] 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 Adjustment Disorder with Mixed Disturbance of Emotions and Conduct Problem 02/18/2020 12:00:00 AM EDT - 10/06/2020 12:00:00 AM EDT ANT ([facility]) [id number] Clinical history and observation finding s Clinical History and Observation Findings Problem 02/18/2020 12:00:00 AM EDT - 06/24/2020 12:00:00 AM EST ANT ([facility]) [id number] 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 Adjustment Disorder with Mixed Disturbance of Emotions and Conduct Problem 02/18/2020 12:00:00 AM EDT - 10/06/2020 12:00:00 AM EDT ANT ([facility]) [id number] Clinical history and observation finding s Clinical History and Observation Findings Problem 02/18/2020 12:00:00 AM EDT - 06/24/2020 12:00:00 AM EST ANT ([facility]) [id number] 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 Adjustment Disorder with Mixed Disturbance of Emotions and Conduct Problem 02/18/2020 12:00:00 AM EDT - 10/06/2020 12:00:00 AM EDT ANT ([facility]) [id number] Clinical history and observation finding s Clinical History and Observation Findings Problem 02/18/2020 12:00:00 AM EDT - 06/24/2020 12:00:00 AM EST ANT ([facility]) [id number] 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 Adjustment Disorder with Mixed Disturbance of Emotions and Conduct Problem 02/18/2020 12:00:00 AM EDT - 10/06/2020 12:00:00 AM EDT ANT ([facility]) [id number] Clinical history and observation finding s Clinical History and Observation Findings Problem 02/18/2020 12:00:00 AM EDT - 06/24/2020 12:00:00 AM EST ANT ([facility]) [id number] 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 Adjustment Disorder with Mixed Disturbance of Emotions and Conduct Problem 02/18/2020 12:00:00 AM EDT - 10/06/2020 12:00:00 AM EDT ANT ([facility]) [id number] Clinical history and observation finding s Clinical History and Observation Findings Problem 02/18/2020 12:00:00 AM EDT - 06/24/2020 12:00:00 AM EST ANT ([facility]) [id number] 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 Adjustment Disorder with Mixed Disturbance of Emotions and Conduct Problem 02/18/2020 12:00:00 AM EDT - 10/06/2020 12:00:00 AM EDT ANT ([facility]) [id number] Clinical history and observation finding s Clinical History and Observation Findings Problem 02/18/2020 12:00:00 AM EDT - 06/24/2020 12:00:00 AM EST ANT ([facility]) [id number] 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 Adjustment Disorder with Mixed Disturbance of Emotions and Conduct Problem 02/18/2020 12:00:00 AM EDT - 10/06/2020 12:00:00 AM EDT ANT ([facility]) [id number] Clinical history and observation finding s Clinical History and Observation Findings Problem 02/18/2020 12:00:00 AM EDT - 06/24/2020 12:00:00 AM EST ANT ([facility]) [id number] 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 Adjustment Disorder with Mixed Disturbance of Emotions and Conduct Problem 02/18/2020 12:00:00 AM EDT - 10/06/2020 12:00:00 AM EDT ANT ([facility]) [id number] Clinical history and observation finding s Clinical History and Observation Findings Problem 02/18/2020 12:00:00 AM EDT - 06/24/2020 12:00:00 AM EST ANT ([facility]) [id number] Finding of head region Finding of Head Region Problem 11/12/2019 12:00:00 AM EDT - 05/19/2020 12:00:00 AM EST ANT ([facility]) [id number] Finding of head region Finding of Head Region Problem 11/12/2019 12:00:00 AM EDT - 05/19/2020 12:00:00 AM EST ANT ([facility]) [id number] Finding of head region Finding of Head Region Problem 11/12/2019 12:00:00 AM EDT - 05/19/2020 12:00:00 AM EST ANT ([facility]) [id number] Finding of head region Finding of Head Region Problem 11/12/2019 12:00:00 AM EDT - 05/19/2020 12:00:00 AM EST ANT ([facility]) [id number] Finding of head region Finding of Head Region Problem 11/12/2019 12:00:00 AM EDT - 05/19/2020 12:00:00 AM EST ANT ([facility]) [id number] Finding of head region Finding of Head Region Problem 11/12/2019 12:00:00 AM EDT - 05/19/2020 12:00:00 AM EST ANT ([facility]) [id number] Finding of head region Finding of Head Region Problem 11/12/2019 12:00:00 AM EDT - 05/19/2020 12:00:00 AM EST ANT ([facility]) [id number] Finding of head region Finding of Head Region Problem 11/12/2019 12:00:00 AM EDT - 05/19/2020 12:00:00 AM EST ANT ([facility]) [id number] Finding of head region Finding of Head Region Problem 11/12/2019 12:00:00 AM EDT - 05/19/2020 12:00:00 AM EST ANT ([facility]) [id number] Finding of head region Finding of Head Region Problem 11/12/2019 12:00:00 AM EDT - 05/19/2020 12:00:00 AM EST ANT ([facility]) [id number] Finding of head region Finding of Head Region Problem 11/12/2019 12:00:00 AM EDT - 05/19/2020 12:00:00 AM EST ANT ([facility]) [id number] Finding of head region Finding of Head Region Problem 11/12/2019 12:00:00 AM EDT - 05/19/2020 12:00:00 AM EST ANT ([facility]) [id number] Finding of head region Finding of Head Region Problem 11/12/2019 12:00:00 AM EDT - 05/19/2020 12:00:00 AM EST ANT ([facility]) [id number] Finding of head region Finding of Head Region Problem 11/12/2019 12:00:00 AM EDT - 05/19/2020 12:00:00 AM EST ANT ([facility]) [id number] Finding of head region Finding of Head Region Problem 11/12/2019 12:00:00 AM EDT - 05/19/2020 12:00:00 AM EST ANT ([facility]) [id number] Finding of head region Finding of Head Region Problem 11/12/2019 12:00:00 AM EDT - 05/19/2020 12:00:00 AM EST ANT ([facility]) [id number] Finding of head region Finding of Head Region Problem 11/12/2019 12:00:00 AM EDT - 05/19/2020 12:00:00 AM EST ANT ([facility]) [id number] Finding of head region Finding of Head Region Problem 11/12/2019 12:00:00 AM EDT - 05/19/2020 12:00:00 AM EST ANT ([facility]) [id number] Finding of head region Finding of Head Region Problem 11/12/2019 12:00:00 AM EDT - 05/19/2020 12:00:00 AM EST ANT ([facility]) [id number] Finding of head region Finding of Head Region Problem 11/12/2019 12:00:00 AM EDT - 05/19/2020 12:00:00 AM EST ANT ([facility]) [id number] Finding of head region Finding of Head Region Problem 11/12/2019 12:00:00 AM EDT - 05/19/2020 12:00:00 AM EST ANT ([facility]) [id number] Generalized anxiety disorder Generalized Anxiety Disor elsie Problem 10/29/2019 12:00:00 AM EDT - 04/13/2021 12:00:00 AM EST ANT ([facility]) [id number] Generalized anxiety disorder Generalized Anxiety Disor elsie Problem 10/29/2019 12:00:00 AM EDT - 04/13/2021 12:00:00 AM EST ANT ([facility]) [id number] Simple goiter Simple Goiter Problem 10/09/2019 12 :00:00 AM EDT - 06/24/2020 12:00:00 AM EST ANT ([facility]) [id number] Procedure by method Procedure by Method Problem 0 10/09/2019 12:00:00 AM EDT - 05/08/2020 12:00:00 AM EST ATN ([facility]) [id number] Simple goiter Simple Goiter Problem 10/09/2019 12 :00:00 AM EDT - 06/24/2020 12:00:00 AM EST ANT ([facility]) [id number] Procedure by method Procedure by Method Problem 0 10/09/2019 12:00:00 AM EDT - 05/08/2020 12:00:00 AM EST ANT ([facility]) [id number] Simple goiter Simple Goiter Problem 10/09/2019 12 :00:00 AM EDT - 06/24/2020 12:00:00 AM EST ANT ([facility]) [id number] Procedure by method Procedure by Method Problem 0 10/09/2019 12:00:00 AM EDT - 05/08/2020 12:00:00 AM EST ANT ([facility]) [id number] Simple goiter Simple Goiter Problem 10/09/2019 12 :00:00 AM EDT - 06/24/2020 12:00:00 AM EST ANT ([facility]) [id number] Procedure by method Procedure by Method Problem 0 10/09/2019 12:00:00 AM EDT - 05/08/2020 12:00:00 AM EST ANT ([facility]) [id number] Simple goiter Simple Goiter Problem 10/09/2019 12 :00:00 AM EDT - 06/24/2020 12:00:00 AM EST ANT ([facility]) [id number] Procedure by method Procedure by Method Problem 0 10/09/2019 12:00:00 AM EDT - 05/08/2020 12:00:00 AM EST ANT ([facility]) [id number] Simple goiter Simple Goiter Problem 10/09/2019 12 :00:00 AM EDT - 06/24/2020 12:00:00 AM EST ANT ([facility]) [id number] Procedure by method Procedure by Method Problem 0 10/09/2019 12:00:00 AM EDT - 05/08/2020 12:00:00 AM EST ANT ([facility]) [id number] Simple goiter Simple Goiter Problem 10/09/2019 12 :00:00 AM EDT - 06/24/2020 12:00:00 AM EST ANT ([facility]) [id number] Procedure by method Procedure by Method Problem 0 10/09/2019 12:00:00 AM EDT - 05/08/2020 12:00:00 AM EST ANT ([facility]) [id number] Simple goiter Simple Goiter Problem 10/09/2019 12 :00:00 AM EDT - 06/24/2020 12:00:00 AM EST ANT ([facility]) [id number] Procedure by method Procedure by Method Problem 0 10/09/2019 12:00:00 AM EDT - 05/08/2020 12:00:00 AM EST ANT ([facility]) [id number] Simple goiter Simple Goiter Problem 10/09/2019 12 :00:00 AM EDT - 06/24/2020 12:00:00 AM EST ANT ([facility]) [id number] Procedure by method Procedure by Method Problem 0 10/09/2019 12:00:00 AM EDT - 05/08/2020 12:00:00 AM EST ANT ([facility]) [id number] Simple goiter Simple Goiter Problem 10/09/2019 12 :00:00 AM EDT - 06/24/2020 12:00:00 AM EST ANT ([facility]) [id number] Procedure by method Procedure by Method Problem 0 10/09/2019 12:00:00 AM EDT - 05/08/2020 12:00:00 AM EST ANT ([facility]) [id number] Simple goiter Simple Goiter Problem 10/09/2019 12 :00:00 AM EDT - 06/24/2020 12:00:00 AM EST ANT ([facility]) [id number] Procedure by method Procedure by Method Problem 0 10/09/2019 12:00:00 AM EDT - 05/08/2020 12:00:00 AM EST ANT ([facility]) [id number] Simple goiter Simple Goiter Problem 10/09/2019 12 :00:00 AM EDT - 06/24/2020 12:00:00 AM EST ANT ([facility] er) [id number] Procedure by method Procedure by Method Problem 0 10/09/2019 12:00:00 AM EDT - 05/08/2020 12:00:00 AM EST ANT ([facility] er) [id number] Simple goiter Simple Goiter Problem 10/09/2019 12 :00:00 AM EDT - 06/24/2020 12:00:00 AM EST ANT ([facility] er) [id number] Procedure by method Procedure by Method Problem 0 10/09/2019 12:00:00 AM EDT - 05/08/2020 12:00:00 AM EST ANT ([facility] er) [id number] Simple goiter Simple Goiter Problem 10/09/2019 12 :00:00 AM EDT - 06/24/2020 12:00:00 AM EST ANT ([facility] er) [id number] Procedure by method Procedure by Method Problem 0 10/09/2019 12:00:00 AM EDT - 05/08/2020 12:00:00 AM EST ANT ([facility] er) [id number] Simple goiter Simple Goiter Problem 10/09/2019 12 :00:00 AM EDT - 06/24/2020 12:00:00 AM EST ANT ([facility] er) [id number] Procedure by method Procedure by Method Problem 0 10/09/2019 12:00:00 AM EDT - 05/08/2020 12:00:00 AM EST ANT ([facility] er) [id number] Simple goiter Simple Goiter Problem 10/09/2019 12 :00:00 AM EDT - 06/24/2020 12:00:00 AM EST ANT ([facility] er) [id number] Procedure by method Procedure by Method Problem 0 10/09/2019 12:00:00 AM EDT - 05/08/2020 12:00:00 AM EST ANT ([facility] er) [id number] Procedure by method Procedure by Method Problem 0 10/09/2019 12:00:00 AM EDT - 05/08/2020 12:00:00 AM EST ANT ([facility] er) [id number] Simple goiter Simple Goiter Problem 10/09/2019 12 :00:00 AM EDT - 06/24/2020 12:00:00 AM EST ANT ([facility] er) [id number] Procedure by method Procedure by Method Problem 0 10/09/2019 12:00:00 AM EDT - 05/08/2020 12:00:00 AM EST ANT ([facility] er) [id number] Procedure by method Procedure by Method Problem 0 10/09/2019 12:00:00 AM EDT - 05/08/2020 12:00:00 AM EST ANT ([facility] er) [id number] Procedure by method Procedure by Method Problem 0 10/09/2019 12:00:00 AM EDT - 05/08/2020 12:00:00 AM EST ANT ([facility] er) [id number] Procedure by method Procedure by Method Problem 0 10/09/2019 12:00:00 AM EDT - 05/08/2020 12:00:00 AM EST ANT ([facility] er) [id number] Procedure by method Procedure by Method Problem 0 10/09/2019 12:00:00 AM EDT - 05/08/2020 12:00:00 AM EST ANT ([facility] er) [id number] Influenza vaccine needed Influenza Vaccine Needed Pro blem 08/24/2016 12:00:00 AM EDT - 06/24/2020 12:00:00 AM WALDO CAIN ([facility]) [id number] Adjustment disorder with mixed anxiety a nd depressed mood Adjustment Disorder with Mixed Anxiety and Depressed Mood Problem 017 12:00:00 AM EDT - 06/11/2020 12:00:00 AM WALDO CAIN ([facility] er) [id number] Influenza vaccine needed Influenza Vaccine Needed Pro blem 08/24/2016 12:00:00 AM EDT - 06/24/2020 12:00:00 AM EST ANT ([facility]) [id number] Adjustment disorder with mixed anxiety a nd depressed mood Adjustment Disorder with Mixed Anxiety and Depressed Mood Problem 017 12:00:00 AM EDT - 06/11/2020 12:00:00 AM EST ANT ([facility] er) [id number] Influenza vaccine needed Influenza Vaccine Needed Pro blem 08/24/2016 12:00:00 AM EDT - 06/24/2020 12:00:00 AM WALDO CAIN ([facility]) [id number] Adjustment disorder with mixed anxiety a nd depressed mood Adjustment Disorder with Mixed Anxiety and Depressed Mood Problem 017 12:00:00 AM EDT - 06/11/2020 12:00:00 AM WADLO CAIN ([facility]) [id number] Influenza vaccine needed Influenza Vaccine Needed Pro blem 08/24/2016 12:00:00 AM EDT - 06/24/2020 12:00:00 AM WALDO CAIN ([facility]) [id number] Adjustment disorder with mixed anxiety a nd depressed mood Adjustment Disorder with Mixed Anxiety and Depressed Mood Problem 017 12:00:00 AM EDT - 06/11/2020 12:00:00 AM WALDO CAIN ([facility]) [id number] Influenza vaccine needed Influenza Vaccine Needed Pro blem 08/24/2016 12:00:00 AM EDT - 06/24/2020 12:00:00 AM WALDO CAIN ([facility]) [id number] Adjustment disorder with mixed anxiety a nd depressed mood Adjustment Disorder with Mixed Anxiety and Depressed Mood Problem 017 12:00:00 AM EDT - 06/11/2020 12:00:00 AM WALDO CAIN ([facility]) [id number] Influenza vaccine needed Influenza Vaccine Needed Pro blem 08/24/2016 12:00:00 AM EDT - 06/24/2020 12:00:00 AM WALDO CAIN ([facility]) [id number] Adjustment disorder with mixed anxiety a nd depressed mood Adjustment Disorder with Mixed Anxiety and Depressed Mood Problem 017 12:00:00 AM EDT - 06/11/2020 12:00:00 AM WALDO CAIN ([facility]) [id number] Influenza vaccine needed Influenza Vaccine Needed Pro blem 08/24/2016 12:00:00 AM EDT - 06/24/2020 12:00:00 AM WALDO CAIN ([facility]) [id number] Adjustment disorder with mixed anxiety a nd depressed mood Adjustment Disorder with Mixed Anxiety and Depressed Mood Problem 017 12:00:00 AM EDT - 06/11/2020 12:00:00 AM WALDO CAIN ([facility]) [id number] Influenza vaccine needed Influenza Vaccine Needed Pro blem 08/24/2016 12:00:00 AM EDT - 06/24/2020 12:00:00 AM WALDO CAIN ([facility]) [id number] Adjustment disorder with mixed anxiety a nd depressed mood Adjustment Disorder with Mixed Anxiety and Depressed Mood Problem 017 12:00:00 AM EDT - 06/11/2020 12:00:00 AM WALDO CAIN ([facility]) [id number] Influenza vaccine needed Influenza Vaccine Needed Pro blem 08/24/2016 12:00:00 AM EDT - 06/24/2020 12:00:00 AM WALDO CAIN ([facility]) [id number] Adjustment disorder with mixed anxiety a nd depressed mood Adjustment Disorder with Mixed Anxiety and Depressed Mood Problem 017 12:00:00 AM EDT - 06/11/2020 12:00:00 AM WLADO CAIN ([facility]) [id number] Influenza vaccine needed Influenza Vaccine Needed Pro blem 08/24/2016 12:00:00 AM EDT - 06/24/2020 12:00:00 AM WALDO CAIN ([facility]) [id number] Adjustment disorder with mixed anxiety a nd depressed mood Adjustment Disorder with Mixed Anxiety and Depressed Mood Problem 017 12:00:00 AM EDT - 06/11/2020 12:00:00 AM WALDO CAIN ([facility]) [id number] Influenza vaccine needed Influenza Vaccine Needed Pro blem 08/24/2016 12:00:00 AM EDT - 06/24/2020 12:00:00 AM WALDO CAIN ([facility]) [id number] Adjustment disorder with mixed anxiety a nd depressed mood Adjustment Disorder with Mixed Anxiety and Depressed Mood Problem 017 12:00:00 AM EDT - 06/11/2020 12:00:00 AM WALDO CAIN ([facility]) [id number] Influenza vaccine needed Influenza Vaccine Needed Pro blem 08/24/2016 12:00:00 AM EDT - 06/24/2020 12:00:00 AM WALDO CAIN ([facility]) [id number] Adjustment disorder with mixed anxiety a nd depressed mood Adjustment Disorder with Mixed Anxiety and Depressed Mood Problem 017 12:00:00 AM EDT - 06/11/2020 12:00:00 AM WALDO CAIN ([facility]) [id number] Influenza vaccine needed Influenza Vaccine Needed Pro blem 08/24/2016 12:00:00 AM EDT - 06/24/2020 12:00:00 AM WALDO CAIN ([facility]) [id number] Adjustment disorder with mixed anxiety a nd depressed mood Adjustment Disorder with Mixed Anxiety and Depressed Mood Problem 017 12:00:00 AM EDT - 06/11/2020 12:00:00 AM WALDO CAIN ([facility]) [id number] Influenza vaccine needed Influenza Vaccine Needed Pro blem 08/24/2016 12:00:00 AM EDT - 06/24/2020 12:00:00 AM WALDO CAIN ([facility]) [id number] Adjustment disorder with mixed anxiety a nd depressed mood Adjustment Disorder with Mixed Anxiety and Depressed Mood Problem 017 12:00:00 AM EDT - 06/11/2020 12:00:00 AM WALDO CAIN ([facility]) [id number] Influenza vaccine needed Influenza Vaccine Needed Pro blem 08/24/2016 12:00:00 AM EDT - 06/24/2020 12:00:00 AM WALDO CAIN ([facility]) [id number] Adjustment disorder with mixed anxiety a nd depressed mood Adjustment Disorder with Mixed Anxiety and Depressed Mood Problem 017 12:00:00 AM EDT - 06/11/2020 12:00:00 AM EST ANT ([facility]) [id number] Influenza vaccine needed Influenza Vaccine Needed Pro blem 08/24/2016 12:00:00 AM EDT - 06/24/2020 12:00:00 AM EST ANT ([facility]) [id number] Adjustment disorder with mixed anxiety a nd depressed mood Adjustment Disorder with Mixed Anxiety and Depressed Mood Problem 017 12:00:00 AM EDT - 06/11/2020 12:00:00 AM EST ANT ([facility]) [id number] Influenza vaccine needed Influenza Vaccine Needed Pro blem 08/24/2016 12:00:00 AM EDT - 06/24/2020 12:00:00 AM EST ANT ([facility]) [id number] Adjustment disorder with mixed anxiety a nd depressed mood Adjustment Disorder with Mixed Anxiety and Depressed Mood Problem 017 12:00:00 AM EDT - 06/11/2020 12:00:00 AM EST ANT ([facility] er) [id number] Adjustment disorder with mixed anxiety a nd depressed mood Adjustment Disorder with Mixed Anxiety and Depressed Mood Problem 017 12:00:00 AM EDT - 06/11/2020 12:00:00 AM EST ANT ([facility] er) [id number] Impacted tooth Impacted Tooth Problem 04/23/2016 12:00:00 AM EST - 06/24/2020 12:00:00 AM EST ANT ([facility] er) [id number] Impacted tooth Impacted Tooth Problem 04/23/2016 12:00:00 AM EST - 06/24/2020 12:00:00 AM EST ANT ([facility] er) [id number] Impacted tooth Impacted Tooth Problem 04/23/2016 12:00:00 AM EST - 06/24/2020 12:00:00 AM EST ANT ([facility] er) [id number] Impacted tooth Impacted Tooth Problem 04/23/2016 12:00:00 AM EST - 06/24/2020 12:00:00 AM EST ANT ([facility] er) [id number] Impacted tooth Impacted Tooth Problem 04/23/2016 12:00:00 AM EST - 06/24/2020 12:00:00 AM EST ANT ([facility] er) [id number] Impacted tooth Impacted Tooth Problem 04/23/2016 12:00:00 AM EST - 06/24/2020 12:00:00 AM EST ANT ([facility] er) [id number] Impacted tooth Impacted Tooth Problem 04/23/2016 12:00:00 AM EST - 06/24/2020 12:00:00 AM EST ANT ([facility] er) [id number] Impacted tooth Impacted Tooth Problem 04/23/2016 12:00:00 AM EST - 06/24/2020 12:00:00 AM EST ANT ([facility]) [id number] Impacted tooth Impacted Tooth Problem 04/23/2016 12:00:00 AM EST - 06/24/2020 12:00:00 AM EST ANT ([facility] er) [id number] Impacted tooth Impacted Tooth Problem 04/23/2016 12:00:00 AM EST - 06/24/2020 12:00:00 AM EST ANT ([facility] er) [id number] Impacted tooth Impacted Tooth Problem 04/23/2016 12:00:00 AM EST - 06/24/2020 12:00:00 AM EST ANT ([facility] er) [id number] Impacted tooth Impacted Tooth Problem 04/23/2016 12:00:00 AM EST - 06/24/2020 12:00:00 AM EST ANT ([facility] er) [id number] Impacted tooth Impacted Tooth Problem 04/23/2016 12:00:00 AM EST - 06/24/2020 12:00:00 AM EST ANT ([facility] er) [id number] Impacted tooth Impacted Tooth Problem 04/23/2016 12:00:00 AM EST - 06/24/2020 12:00:00 AM EST ANT ([facility] er) [id number] Impacted tooth Impacted Tooth Problem 04/23/2016 12:00:00 AM EST - 06/24/2020 12:00:00 AM EST ANT ([facility] er) [id number] Impacted tooth Impacted Tooth Problem 04/23/2016 12:00:00 AM EST - 06/24/2020 12:00:00 AM EST ANT ([facility] er) [id number] Impacted tooth Impacted Tooth Problem 04/23/2016 12:00:00 AM EST - 06/24/2020 12:00:00 AM EST ANT ([facility] er) [id number] Endocrine/metabolic screening Endocrine/metabolic Scre ening Problem 12/20/2014 12:00:00 AM EDT - 05/08/2020 12:00:00 AM EST ANT ([facility]) [id number] Endocrine/metabolic screening Endocrine/metabolic Scre ening Problem 12/20/2014 12:00:00 AM EDT - 05/08/2020 12:00:00 AM EST ANT ([facility]) [id number] Endocrine/metabolic screening Endocrine/metabolic Scre ening Problem 12/20/2014 12:00:00 AM EDT - 05/08/2020 12:00:00 AM EST ANT ([facility]) [id number] Endocrine/metabolic screening Endocrine/metabolic Scre ening Problem 12/20/2014 12:00:00 AM EDT - 05/08/2020 12:00:00 AM EST ANT ([facility]) [id number] Endocrine/metabolic screening Endocrine/metabolic Scre ening Problem 12/20/2014 12:00:00 AM EDT - 05/08/2020 12:00:00 AM EST ANT ([facility]) [id number] Endocrine/metabolic screening Endocrine/metabolic Scre ening Problem 12/20/2014 12:00:00 AM EDT - 05/08/2020 12:00:00 AM EST ANT ([facility]) [id number] Endocrine/metabolic screening Endocrine/metabolic Scre ening Problem 12/20/2014 12:00:00 AM EDT - 05/08/2020 12:00:00 AM EST ANT ([facility]) [id number] Endocrine/metabolic screening Endocrine/metabolic Scre ening Problem 12/20/2014 12:00:00 AM EDT - 05/08/2020 12:00:00 AM EST ANT ([facility]) [id number] Endocrine/metabolic screening Endocrine/metabolic Scre ening Problem 12/20/2014 12:00:00 AM EDT - 05/08/2020 12:00:00 AM EST ANT ([facility]) [id number] Endocrine/metabolic screening Endocrine/metabolic Scre ening Problem 12/20/2014 12:00:00 AM EDT - 05/08/2020 12:00:00 AM EST ANT ([facility]) [id number] Endocrine/metabolic screening Endocrine/metabolic Scre ening Problem 12/20/2014 12:00:00 AM EDT - 05/08/2020 12:00:00 AM EST ANT ([facility]) [id number] Endocrine/metabolic screening Endocrine/metabolic Scre ening Problem 12/20/2014 12:00:00 AM EDT - 05/08/2020 12:00:00 AM EST ANT ([facility]) [id number] Endocrine/metabolic screening Endocrine/metabolic Scre ening Problem 12/20/2014 12:00:00 AM EDT - 05/08/2020 12:00:00 AM EST ANT ([facility]) [id number] Endocrine/metabolic screening Endocrine/metabolic Scre ening Problem 12/20/2014 12:00:00 AM EDT - 05/08/2020 12:00:00 AM EST ANT ([facility]) [id number] Endocrine/metabolic screening Endocrine/metabolic Scre ening Problem 12/20/2014 12:00:00 AM EDT - 05/08/2020 12:00:00 AM EST ANT ([facility]) [id number] Endocrine/metabolic screening Endocrine/metabolic Scre ening Problem 12/20/2014 12:00:00 AM EDT - 05/08/2020 12:00:00 AM EST ANT ([facility]) [id number] Endocrine/metabolic screening Endocrine/metabolic Scre ening Problem 12/20/2014 12:00:00 AM EDT - 05/08/2020 12:00:00 AM EST ANT ([facility]) [id number] Endocrine/metabolic screening Endocrine/metabolic Scre ening Problem 12/20/2014 12:00:00 AM EDT - 05/08/2020 12:00:00 AM EST ANT ([facility]) [id number] Endocrine/metabolic screening Endocrine/metabolic Scre ening Problem 12/20/2014 12:00:00 AM EDT - 05/08/2020 12:00:00 AM EST ANT ([facility]) [id number] Endocrine/metabolic screening Endocrine/metabolic Scre ening Problem 12/20/2014 12:00:00 AM EDT - 05/08/2020 12:00:00 AM EST ANT ([facility]) [id number] Endocrine/metabolic screening Endocrine/metabolic Scre ening Problem 12/20/2014 12:00:00 AM EDT - 05/08/2020 12:00:00 AM EST ANT ([facility]) [id number] Endocrine/metabolic screening Endocrine/metabolic Scre ening Problem 12/20/2014 12:00:00 AM EDT - 05/08/2020 12:00:00 AM EST ANT ([facility]) [id number] Overweight Overweight Problem 09/12/2012 12:0 0:00 AM EDT - 06/24/2020 12:00:00 AM EST ANT ([facility]) [id number] Overweight Overweight Problem 09/12/2012 12:0 0:00 AM EDT - 06/24/2020 12:00:00 AM EST ANT ([facility]) [id number] Overweight Overweight Problem 09/12/2012 12:0 0:00 AM EDT - 06/24/2020 12:00:00 AM EST ANT ([facility]) [id number] Overweight Overweight Problem 09/12/2012 12:0 0:00 AM EDT - 06/24/2020 12:00:00 AM EST ANT ([facility]) [id number] Overweight Overweight Problem 09/12/2012 12:0 0:00 AM EDT - 06/24/2020 12:00:00 AM EST ANT ([facility]) [id number] Overweight Overweight Problem 09/12/2012 12:0 0:00 AM EDT - 06/24/2020 12:00:00 AM EST ANT ([facility]) [id number] Overweight Overweight Problem 09/12/2012 12:0 0:00 AM EDT - 06/24/2020 12:00:00 AM EST ANT ([facility]) [id number] Overweight Overweight Problem 09/12/2012 12:0 0:00 AM EDT - 06/24/2020 12:00:00 AM EST ANT ([facility]) [id number] Overweight Overweight Problem 09/12/2012 12:0 0:00 AM EDT - 06/24/2020 12:00:00 AM EST ANT ([facility]) [id number] Overweight Overweight Problem 09/12/2012 12:0 0:00 AM EDT - 06/24/2020 12:00:00 AM EST ANT ([facility]) [id number] Overweight Overweight Problem 09/12/2012 12:0 0:00 AM EDT - 06/24/2020 12:00:00 AM EST ANT ([facility]) [id number] Overweight Overweight Problem 09/12/2012 12:0 0:00 AM EDT - 06/24/2020 12:00:00 AM EST ANT ([facility] er) [id number] Overweight Overweight Problem 09/12/2012 12:0 0:00 AM EDT - 06/24/2020 12:00:00 AM EST ANT ([facility]) [id number] Overweight Overweight Problem 09/12/2012 12:0 0:00 AM EDT - 06/24/2020 12:00:00 AM EST ANT ([facility]) [id number] Overweight Overweight Problem 09/12/2012 12:0 0:00 AM EDT - 06/24/2020 12:00:00 AM EST ANT ([facility]) [id number] Overweight Overweight Problem 09/12/2012 12:0 0:00 AM EDT - 06/24/2020 12:00:00 AM EST NAT ([facility]) [id number] Overweight Overweight Problem 09/12/2012 12:0 0:00 AM EDT - 06/24/2020 12:00:00 AM EST ANT ([facility]) Surgeries/Procedures Procedure Description Date Indications Data Source(s) CVR Youth Associate.Svc. STI / H 04/06/2021 12:00:00 AM EST - 04/06/2021 12:00:00 AM EST [facility] ([facility]) CVR Youth Associate.Svc. Other 04/06/2021 12:00:00 AM EST - 2020 12:00:00 AM EST [facility] ([facility]) CVR Youth Associate.Svc. Contraceptive 04/06/2021 12 :00:00 AM EST - 04/06/2021 12:00:00 AM EST [facility]Gen ([facility]) CVR Med.Svc. Height/Weight 04/06/2021 12 :00:00 AM EST - 04/06/2021 12:00:00 AM EST [facility] ([facility]) CVR Blood Pressure 04/06/2021 12:00:00 AM EST - 2020 12:00:00 AM EST [facility] ([facility]) CVR Med.Svc. Other 04/06/2021 12:00:00 AM EST - 2020 12:00:00 AM EST [facility] ([facility]) HCS Without Test 04/06/2021 12:00:00 AM EST - 04/06/20 21 12:00:00 AM EST [facility]Gen ([facility]) OFFICE VISIT, EST 04/06/2021 12:00:00 AM EST - 021 12:00:00 AM EST [facility] ([facility]) N.GONORRHOEAE, URINE 04/06/2021 12:00:00 AM EST - 04/06/2021 12:00:00 AM EST [facility] ([facility]) CHYLMD TRACH, URINE 04/06/2021 12:00:00 AM EST - 04/06 12:00:00 AM EST [facility] ([facility]) OFFICE OUTPATIENT VISIT 15 MINUTES 01/20/2021 12:00:00 AM EDT MEDENT ([facility]) OFFICE OUTPATIENT VISIT 25 MINUTES 01/20/2021 12:00:00 AM EDT MEDENT ([facility]) CVR Youth Associate.Svc. Contraceptive 11/29/2020 12 :00:00 AM EDT - 11/29/2020 12:00:00 AM EDT [facility] ([facility]) CVR Youth Associate.Svc. STI / H 11/29/2020 12:00:00 AM EDT - 11/29/2020 12:00:00 AM EDT [facility] ([facility]) CVR Med.Svc. Vaginitis Rx 11/29/2020 12: 00:00 AM EDT - 11/29/2020 12:00:00 AM EDT [facility] ([facility]) CVR Med.Svc. Height/Weight 11/29/2020 12 :00:00 AM EDT - 11/29/2020 12:00:00 AM EDT [facility] ([facility]) CVR Blood Pressure 11/29/2020 12:00:00 AM EDT - 2020 12:00:00 AM EDT [facility] ([facility]) SMEAR, WET MOUNT, SALINE/INK 11/29/2020 12:00:00 AM EDT - 11/29/2020 12:00:00 AM EDT [facility] ([facility]) N.GONORRHOEAE, SWAB 11/29/2020 12:00:00 AM EDT - 11/29 12:00:00 AM EDT [facility] ([facility]) CHYLMD TRACH SWAB 11/29/2020 12:00:00 AM EDT - 021 12:00:00 AM EDT [facility] ([facility]) OFFICE VISIT, EST 11/29/2020 12:00:00 AM EDT - 021 12:00:00 AM EDT [facility] ([facility]) CAPILLARY BLOOD DRAW 11/29/2020 12:00:00 AM EDT - 11/29/2020 12:00:00 AM EDT [facility] ([facility]) HEMOGLOBIN 11/29/2020 12:00:00 AM EDT - 11/29/2020 1 2:00:00 AM EDT [facility] ([facility]) URINE TEST 11/29/2020 12:00:00 AM EDT - 11/29/2020 12:00:00 AM EDT [facility] ([facility]) CVR Youth Associate.Svc. STI / H 11/10/2020 12:00:00 AM EDT - 11/10/2020 12:00:00 AM EDT [facility] ([facility]) CVR Youth Associate.Svc. Contraceptive 11/10/2020 12 :00:00 AM EDT - 11/10/2020 12:00:00 AM EDT [facility] ([facility]) CVR Med.Svc. Vaginitis Rx 11/10/2020 12: 00:00 AM EDT - 11/10/2020 12:00:00 AM EDT [facility] ([facility]) CVR Med.Svc. Bimanual Pelvic 11/10/2020 12:00:00 AM EDT - 11/10/2020 12:00:00 AM EDT [facility] ([facility]) CVR Med.Svc. Height/Weight 11/10/2020 12 :00:00 AM EDT - 11/10/2020 12:00:00 AM EDT [facility] ([facility]) CVR Blood Pressure 11/10/2020 12:00:00 AM EDT - 2020 12:00:00 AM EDT [facility] ([facility]) N.GONORRHOEAE, SWAB 11/10/2020 12:00:00 AM EDT - 11/10 12:00:00 AM EDT [facility] ([facility]) CHYLMD TRACH SWAB 11/10/2020 12:00:00 AM EDT - 021 12:00:00 AM EDT [facility] ([facility]) OFFICE VISIT, EST 11/10/2020 12:00:00 AM EDT - 021 12:00:00 AM EDT [facility] ([facility]) SMEAR, WET MOUNT, SALINE/INK 11/10/2020 12:00:00 AM EDT - 11/10/2020 12:00:00 AM EDT [facility] ([facility]) ASSAY OF BODY FLUID ACIDITY 11/10/2020 1 2:00:00 AM EDT - 11/10/2020 12:00:00 AM EDT [facility] ([facility]) CAPILLARY BLOOD DRAW 11/10/2020 12:00:00 AM EDT - 11/10/2020 12:00:00 AM EDT [facility] ([facility]) HEMOGLOBIN 11/10/2020 12:00:00 AM EDT - 11/10/2020 1 2:00:00 AM EDT [facility] ([facility]) URINALYSIS NONAUTO W/O SCOPE 11/10/2020 12:00:00 AM EDT - 11/10/2020 12:00:00 AM EDT [facility] ([facility]) URINE TEST 11/10/2020 12:00:00 AM EDT - 11/10/2020 12:00:00 AM EDT [facility] ([facility]) OFFICE OUTPATIENT VISIT 15 MINUTES 09/15/2020 12:00:00 AM EDT [facility]ENT ([facility]) CVR Youth Associate.Svc. STI / H 08/29/2020 12:00:00 AM EDT - 08/29/2020 12:00:00 AM EDT [facility] ([facility]) CVR Youth Associate.Svc. Contraceptive 08/29/2020 12 :00:00 AM EDT - 08/29/2020 12:00:00 AM EDT [facility] ([facility]) CVR Med.Svc. Height/Weight 08/29/2020 12 :00:00 AM EDT - 08/29/2020 12:00:00 AM EDT [facility] ([facility]) CVR Blood Pressure 08/29/2020 12:00:00 AM EDT - 2020 12:00:00 AM EDT [facility] ([facility]) HCS Without Test 08/29/2020 12:00:00 AM EDT - 08/30/19 21 12:00:00 AM EDT [facility] ([facility] [facility]) OFFICE VISIT, EST 08/29/2020 12:00:00 AM EDT - 021 12:00:00 AM EDT [facility] ([facility]) CVR Youth Associate.Svc. STI / H 07/14/2020 12:00:00 AM EST - 07/14/2020 12:00:00 AM EST [facility] ([facility]) CVR Youth Associate.Svc. Other 07/14/2020 12:00:00 AM EST - 2020 12:00:00 AM EST [facility] ([facility]) CVR Youth Associate.Svc. Contraceptive 07/14/2020 12 :00:00 AM EST - 07/14/2020 12:00:00 AM EST [facility] ([facility]) CVR Med.Svc. Height/Weight 07/14/2020 12 :00:00 AM EST - 07/14/2020 12:00:00 AM EST [facility] ([facility]) CVR Blood Pressure 07/14/2020 12:00:00 AM EST - 2020 12:00:00 AM EST [facility] ([facility]) HCS Without Test 07/14/2020 12:00:00 AM EST - 07/14/19 12:00:00 AM EST [facility] ([facility]) PREV VISIT, EST, AGE 18-39 07/14/2020 12 :00:00 AM EST - 07/14/2020 12:00:00 AM EST [facility] ([facility]) CVR Youth Associate.Svc. STI / H 06/26/2020 12:00:00 AM EST - 06/26/2020 12:00:00 AM EST [facility] ([facility]) CVR Youth Associate.Svc. Other 06/26/2020 12:00:00 AM EST - 2020 12:00:00 AM EST [facility] ([facility]) CVR Youth Associate.Svc. Contraceptive 06/26/2020 12 :00:00 AM EST - 06/26/2020 12:00:00 AM EST [facility] ([facility]) CVR Med.Svc. Height/Weight 06/26/2020 12 :00:00 AM EST - 06/26/2020 12:00:00 AM EST [facility] ([facility]) CVR Blood Pressure 06/26/2020 12:00:00 AM EST - 2020 12:00:00 AM EST [facility] ([facility]) ROUTINE VENIPUNCTURE 06/26/2020 12:00:00 AM EST - 06/26/2020 12:00:00 AM EST [facility] ([facility]) N.GONORRHOEAE, URINE 06/26/2020 12:00:00 AM EST - 06/26/2020 12:00:00 AM EST [facility] ([facility]) CHYLMD TRACH, URINE 06/26/2020 12:00:00 AM EST - 06/26 12:00:00 AM EST [facility] ([facility]) HEPATITIS C, RNA, AMP PROBE 06/26/2020 1 2:00:00 AM EST - 06/26/2020 12:00:00 AM EST [facility] ([facility]) SYPHILLIS BLOOD SEROLOGY, QUALITATIVE 12:00:00 AM EST - 06/26/2020 12:00:00 AM EST [facility] ([facility]) N.GONORRHOEAE, PHARYNGEAL 06/26/2020 12: 00:00 AM EST - 06/26/2020 12:00:00 AM EST [facility] ([facility]) CHYLMD TRACH, PHARYNGEAL 06/26/2020 12:0 0:00 AM EST - 06/26/2020 12:00:00 AM EST [facility] ([facility]) HTLV/HIV SERUM TEST 06/26/2020 12:00:00 AM EST - 06/26 12:00:00 AM EST [facility] ([facility] OFFICE VISIT, EST 06/26/2020 12:00:00 AM EST - 021 12:00:00 AM EST [facility] Results ID Date Data Source [id number] 04/06/2021 12:00:00 AM EST [facility] ([facility]) Name Value Range Interpretation Code Description Data Tatiana rce(s) Supporting Document(s) Negative Normal (applies to non-numeric resul ts) Urine CT/GC Combo - GC [facility] ([facility]) : NoThis information has been di sclosed to you from confidential records which are protected by law. Privacy laws prohibityou from making any further disclosure of this information without the specific written consent of the person to whom itpertains, or otherwise permitted by law. Any unauthorized further disclosure in violation of the law may result in a fineor intermediate sentence or both. A general authorization for the release of medical or other information is not, except inlimited circumstances set forth in this part, sufficient authorization for further disclosure.This document contains private and confidential health information protected by state and federal law. If youhave received this document in error, please call the Emergency Management Program Specialist for [facility] at ext [phone] [email or web address]-mail [email or web address] Performed by: MATHIEU ([id number]) ID Date Data Source [id number] 04/06/2021 12:00:00 AM EST [facility] ([facility]) Name Value Range Interpretation Code Description Data Tatiana rce(s) Supporting Document(s) Negative Normal (applies to non-numeric resul ts) Urine CT/GC Combo - [facility] ID Date Data Source [id number] 01/28/2021 11:14:00 AM EDT [facility]) Name Value Range Interpretation Code Description Data Tatiana rce(s) Supporting Document(s) sars-cov-2 negative negative Sars-cov-2 [facility]) ID Date Data Source [id number] 01/28/2021 11:14:00 AM EDT [facility]) Name Value Range Interpretation Code Description Data Tatiana rce(s) Supporting Document(s) sars-cov-2 negative negative Sars-cov-2 [facility]) ID Date Data Source [id number] 01/28/2021 11:14:00 AM EDT [facility]) Name Value Range Interpretation Code Description Data Tatiana rce(s) Supporting Document(s) sars-cov-2 negative negative Sars-cov-2 [facility]) ID Date Data Source [id number] 01/28/2021 11:14:00 AM EDT [facility]) Name Value Range Interpretation Code Description Data Tatiana rce(s) Supporting Document(s) sars-cov-2 negative negative Sars-cov-2 [facility]) ID Date Data Source [id number] 01/28/2021 11:14:00 AM EDT [facility]) Name Value Range Interpretation Code Description Data Tatiana rce(s) Supporting Document(s) sars-cov-2 negative negative Sars-cov-2 [facility]) ID Date Data Source [id number] 01/28/2021 11:14:00 AM EDT [facility]) Name Value Range Interpretation Code Description Data Tatiana rce(s) Supporting Document(s) sars-cov-2 negative negative Sars-cov-2 [facility]) ID Date Data Source [id number] 01/28/2021 11:14:00 AM EDT [facility]) Name Value Range Interpretation Code Description Data Tatiana rce(s) Supporting Document(s) sars-cov-2 negative negative Sars-cov-2 [facility]) ID Date Data Source [id number] 01/28/2021 11:14:00 AM EDT [facility]) Name Value Range Interpretation Code Description Data Tatiana rce(s) Supporting Document(s) sars-cov-2 negative negative Sars-cov-2 [facility]) ID Date Data Source [id number] 01/28/2021 10:05:00 AM EDT [facility] Name Value Range Interpretation Code Description Data Tatiana rce(s) Supporting Document(s) SARS coronavirus 2 RdRp gene [Presence] in Respiratory specimen by TASH with probe detection Not detected [facility] This lab was ordered by [facility] and reported by [facility]. ID Date Data Source [id number] 01/15/2021 12:03:00 PM EDT [facility]) Name Value Range Interpretation Code Description Data Tatiana rce(s) Supporting Document(s) Thyrotropin [Units/volume] in Serum or Plasma by Detec tion limit <= 0.05 mIU/L 0.944 uIU/ML 0.358-3.740 [facility] ([facility]) Thyroxine (T4) free [Mass/volume] in Serum or Plasma 0.92 ng/dL 0.76- 1.46 [facility] ([facility]) ID Date Data Source [id number] 12/09/2020 02:56:00 PM EDT [facility]) Name Value Range Interpretation Code Description Data Tatiana rce(s) Supporting Document(s) Hepatitis C virus RNA [Units/volume] (vi ral load) in Serum or Plasma by Probe and target amplification method <15 not detected not detected HCV RNA, Quantitative Real Time PCR [place] ([facility]) Hepatitis C virus RNA [log units/volume] (viral load) in Serum or Plasma by Probe and target amplification method <1.18 not detected not detected HCV RNA, Quantitative Real Time PCR [facility]) comment Comment [place] ([facility]) ID Date Data Source [id number] 12/09/2020 02:56:00 PM EDT [facility]) Name Value Range Interpretation Code Description Data Tatiana rce(s) Supporting Document(s) HIV 1+2 Ab+HIV1 p24 Ag [Presence] in Serum or Plasma b y Immunoassay non-reactive non-reactive HIV Ag/Ab, 4TH Gen [facility]) ID Date Data Source [id number] 12/09/2020 02:56:00 PM EDT [facility]) Name Value Range Interpretation Code Description Data Tatiana rce(s) Supporting Document(s) Hepatitis C virus RNA [log units/volume] (viral load) in Serum or Plasma by Probe and target amplification method <1.18 not detected not detected HCV RNA, Quantitative Real Time PCR [facility]) comment Comment [place] ([facility]) Hepatitis C virus RNA [Units/volume] (vi ral load) in Serum or Plasma by Probe and target amplification method <15 not detected not detected HCV RNA, Quantitative Real Time PCR [facility]) ID Date Data Source [id number] 12/09/2020 02:56:00 PM EDT [facility]) Name Value Range Interpretation Code Description Data Tatiana rce(s) Supporting Document(s) HIV 1+2 Ab+HIV1 p24 Ag [Presence] in Serum or Plasma b y Immunoassay non-reactive non-reactive HIV Ag/Ab, 4TH Gen [facility]) ID Date Data Source [id number] 12/09/2020 02:56:00 PM EDT [facility]) Name Value Range Interpretation Code Description Data Attiana rce(s) Supporting Document(s) Hepatitis C virus RNA [log units/volume] (viral load) in Serum or Plasma by Probe and target amplification method <1.18 not detected not detected HCV RNA, Quantitative Real Time PCR [facility]) Hepatitis C virus RNA [Units/volume] (vi ral load) in Serum or Plasma by Probe and target amplification method <15 not detected not detected HCV RNA, Quantitative Real Time PCR [facility]) comment Comment [place] ([facility]) ID Date Data Source [id number] 12/09/2020 02:56:00 PM EDT [facility]) Name Value Range Interpretation Code Description Data Tatiana rce(s) Supporting Document(s) HIV 1+2 Ab+HIV1 p24 Ag [Presence] in Serum or Plasma b y Immunoassay non-reactive non-reactive HIV Ag/Ab, 4TH Gen [facility]) ID Date Data Source [id number] 12/09/2020 02:56:00 PM EDT [facility]) Name Value Range Interpretation Code Description Data Tatiana rce(s) Supporting Document(s) Hepatitis C virus RNA [Units/volume] (vi ral load) in Serum or Plasma by Probe and target amplification method <15 not detected not detected HCV RNA, Quantitative Real Time PCR [place] ([facility]) Hepatitis C virus RNA [log units/volume] (viral load) in Serum or Plasma by Probe and target amplification method <1.18 not detected not detected HCV RNA, Quantitative Real Time PCR [place] ([facility]) comment Comment [place] ([facility]) ID Date Data Source [id number] 12/09/2020 02:56:00 PM EDT [facility]) Name Value Range Interpretation Code Description Data Tatiana rce(s) Supporting Document(s) HIV 1+2 Ab+HIV1 p24 Ag [Presence] in Serum or Plasma b y Immunoassay non-reactive non-reactive HIV Ag/Ab, 4TH Gen [facility]) ID Date Data Source [id number] 12/09/2020 02:56:00 PM EDT [facility]) Name Value Range Interpretation Code Description Data Tatiana rce(s) Supporting Document(s) Hepatitis C virus RNA [Units/volume] (vi ral load) in Serum or Plasma by Probe and target amplification method <15 not detected not detected HCV RNA, Quantitative Real Time PCR [place] ([facility]) comment Comment [place] ([facility]) Hepatitis C virus RNA [log units/volume] (viral load) in Serum or Plasma by Probe and target amplification method <1.18 not detected not detected HCV RNA, Quantitative Real Time PCR [facility]) ID Date Data Source [id number] 12/09/2020 02:56:00 PM EDT [facility]) Name Value Range Interpretation Code Description Data Tatiana rce(s) Supporting Document(s) HIV 1+2 Ab+HIV1 p24 Ag [Presence] in Serum or Plasma b y Immunoassay non-reactive non-reactive HIV Ag/Ab, 4TH Gen [facility]) ID Date Data Source [id number] 12/09/2020 02:56:00 PM EDT [facility]) Name Value Range Interpretation Code Description Data Tatiana rce(s) Supporting Document(s) Hepatitis C virus RNA [log units/volume] (viral load) in Serum or Plasma by Probe and target amplification method <1.18 not detected not detected HCV RNA, Quantitative Real Time PCR ANT ([facility]) Hepatitis C virus RNA [Units/volume] (vi ral load) in Serum or Plasma by Probe and target amplification method <15 not detected not detected HCV RNA, Quantitative Real Time PCR [place] ([facility]) comment Comment [place] ([facility]) ID Date Data Source [id number] 12/09/2020 02:56:00 PM EDT [facility]) Name Value Range Interpretation Code Description Data Tatiana rce(s) Supporting Document(s) HIV 1+2 Ab+HIV1 p24 Ag [Presence] in Serum or Plasma b y Immunoassay non-reactive non-reactive HIV Ag/Ab, 4TH Gen [facility]) ID Date Data Source [id number] 12/09/2020 02:56:00 PM EDT [facility]) Name Value Range Interpretation Code Description Data Tatiana rce(s) Supporting Document(s) Hepatitis C virus RNA [Units/volume] (vi ral load) in Serum or Plasma by Probe and target amplification method <15 not detected not detected HCV RNA, Quantitative Real Time PCR ANT ([facility]) Hepatitis C virus RNA [log units/volume] (viral load) in Serum or Plasma by Probe and target amplification method <1.18 not detected not detected HCV RNA, Quantitative Real Time PCR [place] ([facility]) comment Comment [place] ([facility]) ID Date Data Source [id number] 12/09/2020 02:56:00 PM EDT [facility]) Name Value Range Interpretation Code Description Data Tatiana rce(s) Supporting Document(s) HIV 1+2 Ab+HIV1 p24 Ag [Presence] in Serum or Plasma b y Immunoassay non-reactive non-reactive HIV Ag/Ab, 4TH Gen [facility]) ID Date Data Source [id number] 12/09/2020 02:56:00 PM EDT [facility]) Name Value Range Interpretation Code Description Data Tatiana rce(s) Supporting Document(s) Hepatitis C virus RNA [log units/volume] (viral load) in Serum or Plasma by Probe and target amplification method <1.18 not detected not detected HCV RNA, Quantitative Real Time PCR [place] ([facility]) Hepatitis C virus RNA [Units/volume] (vi ral load) in Serum or Plasma by Probe and target amplification method <15 not detected not detected HCV RNA, Quantitative Real Time PCR [place] ([facility]) comment Comment [place] ([facility]) ID Date Data Source [id number] 12/09/2020 02:56:00 PM EDT [facility]) Name Value Range Interpretation Code Description Data Tatiana rce(s) Supporting Document(s) HIV 1+2 Ab+HIV1 p24 Ag [Presence] in Serum or Plasma b y Immunoassay non-reactive non-reactive HIV Ag/Ab, 4TH Gen [facility]) ID Date Data Source [id number] 12/09/2020 02:56:00 PM EDT [facility]) Name Value Range Interpretation Code Description Data Tatiana rce(s) Supporting Document(s) Hepatitis C virus RNA [log units/volume] (viral load) in Serum or Plasma by Probe and target amplification method <1.18 not detected not detected HCV RNA, Quantitative Real Time PCR [place] ([facility]) Hepatitis C virus RNA [Units/volume] (vi ral load) in Serum or Plasma by Probe and target amplification method <15 not detected not detected HCV RNA, Quantitative Real Time PCR [place] ([facility]) comment Comment [place] ([facility]) ID Date Data Source [id number] 12/09/2020 02:56:00 PM EDT [facility]) Name Value Range Interpretation Code Description Data Tatiana rce(s) Supporting Document(s) HIV 1+2 Ab+HIV1 p24 Ag [Presence] in Serum or Plasma b y Immunoassay non-reactive non-reactive HIV Ag/Ab, 4TH Gen [facility]) ID Date Data Source [id number] 12/09/2020 02:56:00 PM EDT [facility]) Name Value Range Interpretation Code Description Data Tatiana rce(s) Supporting Document(s) Hepatitis C virus RNA [Units/volume] (vi ral load) in Serum or Plasma by Probe and target amplification method <15 not detected not detected HCV RNA, Quantitative Real Time PCR [facility]) Hepatitis C virus RNA [log units/volume] (viral load) in Serum or Plasma by Probe and target amplification method <1.18 not detected not detected HCV RNA, Quantitative Real Time PCR [facility]) comment Comment [place] ([facility]) ID Date Data Source [id number] 12/09/2020 02:56:00 PM EDT [facility]) Name Value Range Interpretation Code Description Data Tatiana rce(s) Supporting Document(s) HIV 1+2 Ab+HIV1 p24 Ag [Presence] in Serum or Plasma b y Immunoassay non-reactive non-reactive HIV Ag/Ab, 4TH Gen [facility]) ID Date Data Source [id number] 12/09/2020 02:56:00 PM EDT [facility]) Name Value Range Interpretation Code Description Data Tatiana rce(s) Supporting Document(s) Hepatitis C virus RNA [Units/volume] (vi ral load) in Serum or Plasma by Probe and target amplification method <15 not detected not detected HCV RNA, Quantitative Real Time PCR [facility]) Hepatitis C virus RNA [log units/volume] (viral load) in Serum or Plasma by Probe and target amplification method <1.18 not detected not detected HCV RNA, Quantitative Real Time PCR [place] ([facility]) comment Comment [facility]) ID Date Data Source [id number] 12/09/2020 02:56:00 PM EDT [facility]) Name Value Range Interpretation Code Description Data Tatiana rce(s) Supporting Document(s) HIV 1+2 Ab+HIV1 p24 Ag [Presence] in Serum or Plasma b y Immunoassay non-reactive non-reactive HIV Ag/Ab, 4TH Gen [facility]) ID Date Data Source [id number] 12/09/2020 02:56:00 PM EDT [facility]) Name Value Range Interpretation Code Description Data Tatiana rce(s) Supporting Document(s) Hepatitis C virus RNA [log units/volume] (viral load) in Serum or Plasma by Probe and target amplification method <1.18 not detected not detected HCV RNA, Quantitative Real Time PCR [place] ([facility]) Hepatitis C virus RNA [Units/volume] (vi ral load) in Serum or Plasma by Probe and target amplification method <15 not detected not detected HCV RNA, Quantitative Real Time PCR [place] ([facility]) comment Comment [place] ([facility]) ID Date Data Source [id number] 12/09/2020 02:56:00 PM EDT [facility]) Name Value Range Interpretation Code Description Data Tatiana rce(s) Supporting Document(s) HIV 1+2 Ab+HIV1 p24 Ag [Presence] in Serum or Plasma b y Immunoassay non-reactive non-reactive HIV Ag/Ab, 4TH Gen [facility]) ID Date Data Source [id number] 12/05/2020 12:15:00 PM EDT [facility] Name Value Range Interpretation Code Description Data Tatiana rce(s) Supporting Document(s) SARS-CoV-2 RNA Resp Ql TASH+probe NOT DETECTED [facility] This lab was ordered by RICARDO mckeon and reported by RICARDO Lovell. ID Date Data Source [id number] 11/29/2020 09:27:06 AM EDT [facility] ([facility]) Name Value Range Interpretation Code Description Data Tatiana rce(s) Supporting Document(s) Hyphae/Jasmine: yes; Budding yeast: yes; Trich: no; Clue cells: yes (<20%); WBCs: no; Amine/Whiff test: negative; pH: 5.0 Abnormal (applies to non-numeric results) Wet Prep [facility] ([facility]) ID Date Data Source [id number] 11/29/2020 09:06:08 AM EDT [facility] ([facility]) Name Value Range Interpretation Code Description Data Tatiana rce(s) Supporting Document(s) 14.40 gm/dL Hemoglobin [facility] ([facility]) ID Date Data Source [id number] 11/29/2020 09:01:32 AM EDT [facility] ([facility]) Name Value Range Interpretation Code Description Data Tatiana rce(s) Supporting Document(s) NegativeLot: [id number]: 05/22/2022 High Sensitivity Urine Test [facility] ([facility]) ID Date Data Source [id number] 11/10/2020 11:25:13 AM EDT [facility] ([facility]) Name Value Range Interpretation Code Description Data Tatiana rce(s) Supporting Document(s) Hyphae/Jasmine: no; Budding yeast: no; Trich: no; Clue cells: yes (>=20%); WBCs: no; Amine/Whiff test: negative; pH: 4.5 Abnormal (applies to non-numeric results) Wet Prep [facility] ([facility]) ID Date Data Source [id number] 11/10/2020 11:24:56 AM EDT [facility] ([facility]) Name Value Range Interpretation Code Description Data Tatiana rce(s) Supporting Document(s) pH: 4.5. Vaginal pH [facility] ID Date Data Source [id number] 11/10/2020 11:20:16 AM EDT [facility] ([facility]) Name Value Range Interpretation Code Description Data Tatiana rce(s) Supporting Document(s) 14.70 gm/dL Hemoglobin [facility] ([facility]) ID Date Data Source [id number] 11/10/2020 11:13:36 AM EDT [facility] ([facility]) Name Value Range Interpretation Code Description Data Tatiana rce(s) Supporting Document(s) Color: yellow; Glucose: nega tive; Blood: trace; Protein: trace; Nitrite: negative; Leukocytes: negative Abnormal (applies to non-nume kt results) Urine Dipstick [facility] ([facility]) ID Date Data Source [id number] 11/10/2020 10:56:57 AM EDT [facility] ([facility]) Name Value Range Interpretation Code Description Data Tatiana rce(s) Supporting Document(s) NegativeLot: [id number]: 04/21/2022 High Sensitivity Urine Test [facility] ([facility]) ID Date Data Source [id number] 11/10/2020 12:00:00 AM EDT [facility] ([facility]) Name Value Range Interpretation Code Description Data Tatiana rce(s) Supporting Document(s) Negative Normal (applies to non-numer ic results) [place] Amplified CT/GC Combo - GC [facility] ([facility]) : No Performed by: [facility] ([id number]) ID Date Data Source [id number] 11/10/2020 12:00:00 AM EDT [facility] ([facility]) Name Value Range Interpretation Code Description Data Tatiana rce(s) Supporting Document(s) Negative Normal (applies to non-numer ic results) [place] Amplified CT/GC Combo - CT NextGen ([facility]) ID Date Data Source [id number] 07/08/2020 02:32:00 PM EST MEDENT ([facility]) Name Value Range Interpretation Code Description Data Tatiana rce(s) Supporting Document(s) Thyroid Stimulating Hormone 1.620 uIU/ML 0.463-3.98 MEDENT ([facility]) Free T4 0.87 ng/dL 0.78-1.33 [facility] ([facility]) ID Date Data Source [id number] 06/26/2020 12:00:00 AM EST NextGen ([facility]) Name Value Range Interpretation Code Description Data Tatiana rce(s) Supporting Document(s) HIV-1/2 Non-reactive Normal (applies to n on-numeric results) HIV-1/HIV-2 Ag/Ab NextGen ([facility]) The HIV Antigen (Ag)/Antibody (Ab) Combo ChemiluminescentMicroparticle Immunoassay (CMIA) is used for the simultaneousdetection of both the HIV-1 p24 Antigen and Antibodyto HIV-1 and for the Antibody to HIV-2. Performed by: MATHIEU ([id number]) ID Date Data Source [id number] 06/26/2020 12:00:00 AM EST NextGen ([facility]) Name Value Range Interpretation Code Description Data Tatiana rce(s) Supporting Document(s) SHERRELL Non-reactive Normal (applies to non-numeric results) Syphilis NextGen ([facility]) Infection with T. pallidum (cause of syp hilis) unlikely (earlyprimary syphilis cannot be excluded). Requestadditional testing if syphilis is clinically suspected.SHERRELL: Chemiluminescence immunoassay: No Performed by: MATHIEU ([id number]) ID Date Data Source [id number] 05/27/2020 12:42:00 PM EST [facility] Name Value Range Interpretation Code Description Data Tatiana rce(s) Supporting Document(s) SARS coronavirus 2 RdRp gene [Presence] in Respiratory specimen by TASH with probe detection [facility] This lab was ordered by [facility] and reported by [facility]. ID Date Data Source [id number] 05/27/2020 10:57:00 AM EST [place] ([facility]) Name Value Range Interpretation Code Description Data Tatiana rce(s) Supporting Document(s) sars-cov-2 negative negative Sars-cov-2 [facility]) ID Date Data Source [id number] 05/27/2020 10:57:00 AM EST [place] ([facility]) Name Value Range Interpretation Code Description Data Tatiana rce(s) Supporting Document(s) sars-cov-2 negative negative Sars-cov-2 [facility]) ID Date Data Source [id number] 05/27/2020 10:57:00 AM EST [facility]) Name Value Range Interpretation Code Description Data Tatiana rce(s) Supporting Document(s) sars-cov-2 negative negative Sars-cov-2 [facility]) ID Date Data Source [id number] 05/27/2020 10:57:00 AM EST [facility]) Name Value Range Interpretation Code Description Data Tatiana rce(s) Supporting Document(s) sars-cov-2 negative negative Sars-cov-2 [facility]) ID Date Data Source [id number] 05/27/2020 10:57:00 AM EST [facility]) Name Value Range Interpretation Code Description Data Tatiana rce(s) Supporting Document(s) sars-cov-2 negative negative Sars-cov-2 [place] ([facility]) ID Date Data Source [id number] 05/27/2020 10:57:00 AM EST [place] ([facility]) Name Value Range Interpretation Code Description Data Tatiana rce(s) Supporting Document(s) sars-cov-2 negative negative Sars-cov-2 [place] ([facility]) ID Date Data Source [id number] 05/27/2020 10:57:00 AM EST [facility]) Name Value Range Interpretation Code Description Data Tatiana rce(s) Supporting Document(s) sars-cov-2 negative negative Sars-cov-2 [place] ([facility]) ID Date Data Source [id number] 05/27/2020 10:57:00 AM EST [facility]) Name Value Range Interpretation Code Description Data Tatiana rce(s) Supporting Document(s) sars-cov-2 negative negative Sars-cov-2 ANT ([facility]) ID Date Data Source [id number] 05/27/2020 10:57:00 AM EST [facility]) Name Value Range Interpretation Code Description Data Tatiana rce(s) Supporting Document(s) sars-cov-2 negative negative Sars-cov-2 ANT ([facility]) ID Date Data Source [id number] 05/27[facility]2020 [facility]57[facility] Name Value Range Interpretation Code Description Data Tatiana rce(s) Supporting Document(s) sars-cov-2 negative negative Sars-cov-2 [facility]) ID Date Data Source [id number] 05/27/2020 10:57:00 AM EST [place] ([facility]) Name Value Range Interpretation Code Description Data Tatiana rce(s) Supporting Document(s) sars-cov-2 negative negative Sars-cov-2 [facility]) ID Date Data Source [id number] 05/27/2020 10:57:00 AM EST [place] ([facility]) Name Value Range Interpretation Code Description Data Tatiana rce(s) Supporting Document(s) sars-cov-2 negative negative Sars-cov-2 [facility]) ID Date Data Source [id number] 05/27/2020 10:57:00 AM EST [facility]) Name Value Range Interpretation Code Description Data Tatiana rce(s) Supporting Document(s) sars-cov-2 negative negative Sars-cov-2 [facility]) ID Date Data Source [id number] 05/27/2020 10:57:00 AM EST [facility]) Name Value Range Interpretation Code Description Data Tatiana rce(s) Supporting Document(s) sars-cov-2 negative negative Sars-cov-2 [facility]) ID Date Data Source [id number] 05/27/2020 10:57:00 AM EST [facility]) Name Value Range Interpretation Code Description Data Tatiana rce(s) Supporting Document(s) sars-cov-2 negative negative Sars-cov-2 [facility]) ID Date Data Source [id number] 05/27/2020 10:57:00 AM EST [facility]) Name Value Range Interpretation Code Description Data Tatiana rce(s) Supporting Document(s) sars-cov-2 negative negative Sars-cov-2 [facility]) ID Date Data Source [id number] 05/27/2020 10:57:00 AM EST ANT ([facility]) Name Value Range Interpretation Code Description Data Tatiana rce(s) Supporting Document(s) sars-cov-2 negative negative Sars-cov-2 ANT ([facility]) ID Date Data Source [id number] 05/27/2020 10:57:00 AM EST ANT ([facility]) Name Value Range Interpretation Code Description Data Tatiana rce(s) Supporting Document(s) sars-cov-2 negative negative Sars-cov-2 [place] ([facility]) ID Date Data Source [id number] 05/27/2020 10:57:00 AM EST [facility]) Name Value Range Interpretation Code Description Data Tatiana rce(s) Supporting Document(s) sars-cov-2 negative negative Sars-cov-2 [facility]) ID Date Data Source [id number] 05/27/2020 10:57:00 AM EST [facility]) Name Value Range Interpretation Code Description Data Tatiana rce(s) Supporting Document(s) [facility]cov[facility]2 [facility] Date Data Source [id number] 05/08/2020 01:46:00 PM EST [place] ([facility]) Name Value Range Interpretation Code Description Data Tatiana rce(s) Supporting Document(s) thyroid peroxidase antibody 169.2 U/mL <60.0 Above high no rmal Thyroid Peroxidase Antibody [facility]) ID Date Data Source [id number] 05/08/2020 01:46[facility] Name Value Range Interpretation Code Description Data Tatiana rce(s) Supporting Document(s) free T3 3.2 pg/mL 2.9-4.5 Free T3 ANT ([facility]) ID Date Data Source [id number] 05/08/2020 01:46:00 PM EST ANT ([facility]) Name Value Range Interpretation Code Description Data Tatiana rce(s) Supporting Document(s) thyroid stimulating hormone 0.051 uIU/mL 0.463-3.98 Below low nor mal Thyroid Stimulating Hormone ANT ([facility]) free T4 0.90 NG/dL 0.78-1.33 Free T4 [place] ([facility]) ID Date Data Source [id number] 05/08/2020 01:46:00 PM EST ANT ([facility]) Name Value Range Interpretation Code Description Data Tatiana rce(s) Supporting Document(s) thyroglobulin antibody 255.8 U/mL <60.0 Above high normal Thyroglobulin Antibody ANT ([facility]) ID Date Data Source [id number] 05/08/2020 01:46:00 PM EST ANT ([facility]) Name Value Range Interpretation Code Description Data Tatiana rce(s) Supporting Document(s) thyroid peroxidase antibody 169.2 U/mL <60.0 Above high no rmal Thyroid Peroxidase Antibody ANT ([facility]) ID Date Data Source [id number] 05/08/2020 01:46:00 PM EST ANT ([facility]) Name Value Range Interpretation Code Description Data Tatiana rce(s) Supporting Document(s) free T3 3.2 pg/mL 2.9-4.5 Free T3 ANT ([facility]) ID Date Data Source [id number] 05/08/2020 01:46:00 [facility] Name Value Range Interpretation Code Description Data Tatiana rce(s) Supporting Document(s) free T4 0.90 NG/dL 0.78-1.33 Free T4 ANT ([facility]) thyroid stimulating hormone 0.051 uIU/mL 0.463-3.98 Below low nor mal Thyroid Stimulating Hormone ANT ([facility]) ID Date Data Source [id number] 05/08/2020 01:46:00 PM EST ANT ([facility]) Name Value Range Interpretation Code Description Data Tatiana rce(s) Supporting Document(s) thyroglobulin antibody 255.8 U/mL <60.0 Above high normal Thyroglobulin Antibody ANT ([facility]) ID Date Data Source [id number] 05/08/2020 01:46:00 PM EST ANT ([facility]) Name Value Range Interpretation Code Description Data Tatiana rce(s) Supporting Document(s) thyroid peroxidase antibody 169.2 U/mL <60.0 Above high no rmal Thyroid Peroxidase Antibody ANT ([facility]) ID Date Data Source [id number] 05/08/2020 01:46:00 PM EST ANT ([facility]) Name Value Range Interpretation Code Description Data Tatiana rce(s) Supporting Document(s) free T3 3.2 pg/mL 2.9-4.5 Free T3 ANT ([facility]) ID Date Data Source [id number] 05/08/2020 01:46:00 PM EST ANT ([facility]) Name Value Range Interpretation Code Description Data Tatiana rce(s) Supporting Document(s) thyroid stimulating hormone 0.051 uIU/mL 0.463-3.98 Below low nor mal Thyroid Stimulating Hormone ANT ([facility]) free T4 0.90 NG/dL 0.78-1.33 Free T4 ANT ([facility]) ID Date Data Source [id number] 05/08/2020 01:46:00 PM EST ANT ([facility]) Name Value Range Interpretation Code Description Data Tatiana rce(s) Supporting Document(s) thyroglobulin antibody 255.8 U/mL <60.0 Above high normal Thyroglobulin Antibody ANT ([facility]) ID Date Data Source [id number] 05/08/2020 01:46:00 PM EST ANT ([facility]) Name Value Range Interpretation Code Description Data Tatiana rce(s) Supporting Document(s) thyroid peroxidase antibody 169.2 U/mL <60.0 Above high no rmal Thyroid Peroxidase Antibody ANT ([facility]) ID Date Data Source [id number] 05/08/2020 01:46:00 PM EST ANT ([facility]) Name Value Range Interpretation Code Description Data Tatiana rce(s) Supporting Document(s) free T3 3.2 pg/mL 2.9-4.5 Free T3 [place] ([facility]) ID Date Data Source [id number] 05/08/2020 01:46:00 PM EST ANT ([facility]) Name Value Range Interpretation Code Description Data Tatiana rce(s) Supporting Document(s) free T4 0.90 NG/dL 0.78-1.33 Free T4 ANT ([facility]) thyroid stimulating hormone 0.051 uIU/mL 0.463-3.98 Below low nor mal Thyroid Stimulating Hormone [place] ([facility]) ID Date Data Source [id number] 05/08/2020 01:46:00 PM EST ANT ([facility]) Name Value Range Interpretation Code Description Data Tatiana rce(s) Supporting Document(s) thyroglobulin antibody 255.8 U/mL <60.0 Above high normal [facility] Date Data Source [id number] 05/08/2020 01:46:00 PM EST ANT ([facility]) Name Value Range Interpretation Code Description Data Tatiana rce(s) Supporting Document(s) thyroid peroxidase antibody 169.2 U/mL <60.0 Above high no rmal Thyroid Peroxidase Antibody ANT ([facility]) ID Date Data Source [id number] 05/08/2020 01:46:00 PM EST ANT ([facility]) Name Value Range Interpretation Code Description Data Tatiana rce(s) Supporting Document(s) free T3 3.2 pg/mL 2.9-4.5 Free T3 ANT ([facility]) ID Date Data Source [id number] 05/08/2020 01:46:00 PM EST ANT ([facility]) Name Value Range Interpretation Code Description Data Tatiana rce(s) Supporting Document(s) free T4 0.90 NG/dL 0.78-1.33 Free T4 ANT ([facility]) thyroid stimulating hormone 0.051 uIU/mL 0.463-3.98 Below low nor mal Thyroid Stimulating Hormone ANT ([facility]) ID Date Data Source [id number] 05/08/2020 01:46:00 PM EST ANT ([facility]) Name Value Range Interpretation Code Description Data Tatiana rce(s) Supporting Document(s) thyroglobulin antibody 255.8 U/mL <60.0 Above high normal Thyroglobulin Antibody ANT ([facility]) ID Date Data Source [id number] 05/08/2020 01:46:00 PM EST ANT ([facility]) Name Value Range Interpretation Code Description Data Tatiana rce(s) Supporting Document(s) thyroid peroxidase antibody 169.2 U/mL <60.0 Above high no rmal Thyroid Peroxidase Antibody ANT ([facility]) ID Date Data Source [id number] 05/08/2020 01:46:00 PM EST ANT ([facility]) Name Value Range Interpretation Code Description Data Tatiana rce(s) Supporting Document(s) free T3 3.2 pg/mL 2.9-4.5 Free T3 ANT ([facility]) ID Date Data Source [id number] 05/08/2020 01:46:00 PM EST ANT ([facility]) Name Value Range Interpretation Code Description Data Tatiana rce(s) Supporting Document(s) thyroid stimulating hormone 0.051 uIU/mL 0.463-3.98 Below low nor mal Thyroid Stimulating Hormone ANT ([facility]) free T4 0.90 NG/dL 0.78-1.33 Free T4 [place] ([facility]) ID Date Data Source [id number] 05/08/2020 01:46:00 PM EST ANT ([facility]) Name Value Range Interpretation Code Description Data Tatiana rce(s) Supporting Document(s) thyroglobulin antibody 255.8 U/mL <60.0 Above high normal Thyroglobulin Antibody ANT ([facility]) ID Date Data Source [id number] 05/08/2020 01:46:00 PM EST ANT ([facility]) Name Value Range Interpretation Code Description Data Tatiana rce(s) Supporting Document(s) thyroid peroxidase antibody 169.2 U/mL <60.0 Above high no rmal Thyroid Peroxidase Antibody ANT ([facility]) ID Date Data Source [id number] 05/08/2020 01:46:00 PM EST ANT ([facility]) Name Value Range Interpretation Code Description Data Tatiana rce(s) Supporting Document(s) free T3 3.2 pg/mL 2.9-4.5 Free T3 ANT ([facility]) ID Date Data Source [id number] 05/08/2020 01:46:00 PM EST ANT ([facility]) Name Value Range Interpretation Code Description Data Tatiana rce(s) Supporting Document(s) thyroid stimulating hormone 0.051 uIU/mL 0.463-3.98 Below low nor mal Thyroid Stimulating Hormone ANT ([facility]) free T4 0.90 NG/dL 0.78-1.33 Free T4 ANT ([facility]) ID Date Data Source [id number] 05/08/2020 01:46:00 PM EST ANT ([facility]) Name Value Range Interpretation Code Description Data Tatiana rce(s) Supporting Document(s) thyroglobulin antibody 255.8 U/mL <60.0 Above high normal Thyroglobulin Antibody [place] ([facility]) ID Date Data Source [id number] 05/08/2020 01:46:00 PM EST ANT ([facility]) Name Value Range Interpretation Code Description Data Tatiana rce(s) Supporting Document(s) thyroid peroxidase antibody 169.2 U/mL <60.0 Above high no rmal Thyroid Peroxidase Antibody ANT ([facility]) ID Date Data Source [id number] 05/08/2020 01:46:00 PM EST ANT ([facility]) Name Value Range Interpretation Code Description Data Tatiana rce(s) Supporting Document(s) free T3 3.2 pg/mL 2.9-4.5 Free T3 ANT ([facility]) ID Date Data Source [id number] 05/08/2020 01:46:00 PM EST ANT ([facility]) Name Value Range Interpretation Code Description Data Tatiana rce(s) Supporting Document(s) thyroid stimulating hormone 0.051 uIU/mL 0.463-3.98 Below low nor mal Thyroid Stimulating Hormone ANT ([facility]) free T4 0.90 NG/dL 0.78-1.33 [facility] Date Data Source [id number] 05/08/2020 01:46:00 PM EST ANT ([facility]) Name Value Range Interpretation Code Description Data Tatiana rce(s) Supporting Document(s) thyroglobulin antibody 255.8 U/mL <60.0 Above high normal Thyroglobulin Antibody ANT ([facility]) ID Date Data Source [id number] 05/08/2020 01:46:00 PM EST ANT ([facility]) Name Value Range Interpretation Code Description Data Tatiana rce(s) Supporting Document(s) thyroid peroxidase antibody 169.2 U/mL <60.0 Above high no rmal Thyroid Peroxidase Antibody [place] ([facility]) ID Date Data Source [id number] 05/08/2020 01:46:00 PM EST ANT ([facility]) Name Value Range Interpretation Code Description Data Tatiana rce(s) Supporting Document(s) free T3 3.2 pg/mL 2.9-4.5 Free T3 [place] ([facility]) ID Date Data Source [id number] 05/08/2020 01:46:00 PM EST ANT ([facility]) Name Value Range Interpretation Code Description Data Tatiana rce(s) Supporting Document(s) thyroid stimulating hormone 0.051 uIU/mL 0.463-3.98 Below low nor mal Thyroid Stimulating Hormone ANT ([facility]) free T4 0.90 NG/dL 0.78-1.33 Free T4 [place] ([facility]) ID Date Data Source [id number] 05/08/2020 01:46:00 PM EST ANT ([facility]) Name Value Range Interpretation Code Description Data Tatiana rce(s) Supporting Document(s) thyroglobulin antibody 255.8 U/mL <60.0 Above high normal [facility] ID Date Data Source [id number] 05/08/2020 01:46:00 PM EST ANT ([facility]) Name Value Range Interpretation Code Description Data Tatiana rce(s) Supporting Document(s) thyroid peroxidase antibody 169.2 U/mL <60.0 Above high no rmal Thyroid Peroxidase Antibody ANT ([facility]) ID Date Data Source [id number] 05/08/2020 01:46:00 PM EST ANT ([facility]) Name Value Range Interpretation Code Description Data Tatiana rce(s) Supporting Document(s) free T3 3.2 pg/mL 2.9-4.5 Free T3 ANT ([facility]) ID Date Data Source [id number] 05/08/2020 01:46:00 PM EST ANT ([facility]) Name Value Range Interpretation Code Description Data Tatiana rce(s) Supporting Document(s) thyroid stimulating hormone 0.051 uIU/mL 0.463-3.98 Below low nor mal Thyroid Stimulating Hormone ANT ([facility]) free T4 0.90 NG/dL 0.78-1.33 Free T4 [place] ([facility]) ID Date Data Source [id number] 05/08/2020 01:46:00 PM EST ANT ([facility]) Name Value Range Interpretation Code Description Data Tatiana rce(s) Supporting Document(s) thyroglobulin antibody 255.8 U/mL <60.0 Above high normal [facility]ulin [facility] ID Date Data Source [id number] 05/08/2020 01:46:00 PM EST ANT [facility]) Name Value Range Interpretation Code Description Data Tatiana rce(s) Supporting Document(s) thyroid peroxidase antibody 169.2 U/mL <60.0 Above high no rmal Thyroid Peroxidase Antibody ANT [facility]) ID Date Data Source [id number] 05/08/2020 01:46:00 PM EST ANT ([facility]) Name Value Range Interpretation Code Description Data Tatiana rce(s) Supporting Document(s) free T3 3.2 pg/mL 2.9-4.5 Free T3 ANT ([facility]) ID Date Data Source [id number] 05/08/2020 01:46:00 PM EST ANT ([facility]) Name Value Range Interpretation Code Description Data Tatiana rce(s) Supporting Document(s) thyroid stimulating hormone 0.051 uIU/mL 0.463-3.98 Below low nor mal Thyroid Stimulating Hormone ANT ([facility]) free T4 0.90 NG/dL 0.78-1.33 Free T4 [place] ([facility]) ID Date Data Source [id number] 05/08/2020 01:46:00 PM EST ANT ([facility]) Name Value Range Interpretation Code Description Data Tatiana rce(s) Supporting Document(s) thyroglobulin antibody 255.8 U/mL <60.0 Above high normal Thyroglobulin Antibody [place] ([facility]) ID Date Data Source [id number] 05/08/2020 01:46:00 PM EST ANT ([facility]) Name Value Range Interpretation Code Description Data Tatiana rce(s) Supporting Document(s) thyroid peroxidase antibody 169.2 U/mL <60.0 Above high no rmal Thyroid Peroxidase Antibody ANT ([facility]) ID Date Data Source [id number] 05/08/2020 01:46:00 PM EST ANT ([facility]) Name Value Range Interpretation Code Description Data Tatiana rce(s) Supporting Document(s) free T3 3.2 pg/mL 2.9-4.5 Free T3 ANT ([facility]) ID Date Data Source [id number] 05/08/2020 01:46:00 PM EST ANT ([facility]) Name Value Range Interpretation Code Description Data Tatiana rce(s) Supporting Document(s) thyroid stimulating hormone 0.051 uIU/mL 0.463-3.98 Below low nor mal Thyroid Stimulating Hormone ANT ([facility]) free T4 0.90 NG/dL 0.78-1.33 Free T4 ANT ([facility]) ID Date Data Source [id number] 05/08/2020 01:46:00 PM EST ANT ([facility]) Name Value Range Interpretation Code Description Data Tatiana rce(s) Supporting Document(s) thyroglobulin antibody 255.8 U/mL <60.0 Above high normal Thyroglobulin Antibody [facility]) ID Date Data Source [id number] 05/08/2020 01:46:00 PM EST ANT ([facility]) Name Value Range Interpretation Code Description Data Tatiana rce(s) Supporting Document(s) thyroid peroxidase antibody 169.2 U/mL <60.0 Above high no rmal Thyroid Peroxidase Antibody ANT ([facility]) ID Date Data Source [id number] 05/08/2020 01:46:00 PM EST ANT ([facility]) Name Value Range Interpretation Code Description Data Tatiana rce(s) Supporting Document(s) free T3 3.2 pg/mL 2.9-4.5 Free T3 ANT ([facility]) ID Date Data Source [id number] 05/08/2020 01:46:00 PM EST ANT ([facility]) Name Value Range Interpretation Code Description Data Tatiana rce(s) Supporting Document(s) free T4 0.90 NG/dL 0.78-1.33 Free T4 ANT ([facility]) thyroid stimulating hormone 0.051 uIU/mL 0.463-3.98 Below low nor mal Thyroid Stimulating Hormone ANT ([facility]) ID Date Data Source [id number] 05/08/2020 01:46:00 PM EST ANT ([facility]) Name Value Range Interpretation Code Description Data Tatiana rce(s) Supporting Document(s) thyroglobulin antibody 255.8 U/mL <60.0 Above high normal Thyroglobulin Antibody [place] ([facility]) ID Date Data Source [id number] 05/08/2020 01:46:00 PM EST [facility]) Name Value Range Interpretation Code Description Data Tatiana rce(s) Supporting Document(s) thyroid peroxidase antibody 169.2 U/mL <60.0 Above high no rmal Thyroid Peroxidase Antibody [facility]) ID Date Data Source [id number] 05/08/2020 01:46:00 PM EST [facility]) Name Value Range Interpretation Code Description Data Tatiana rce(s) Supporting Document(s) free T3 3.2 pg/mL 2.9-4.5 Free T3 [facility]) ID Date Data Source [id number] 05/08/2020 01:46:00 PM EST ANT ([facility]) Name Value Range Interpretation Code Description Data Tatiana rce(s) Supporting Document(s) thyroid stimulating hormone 0.051 uIU/mL 0.463-3.98 Below low nor mal Thyroid Stimulating Hormone ANT ([facility]) free T4 0.90 NG/dL 0.78-1.33 Free T4 [facility]) ID Date Data Source [id number] 05/08/2020 [facility] Name Value Range Interpretation Code Description Data Tatiana rce(s) Supporting Document(s) thyroglobulin antibody 255.8 U/mL <60.0 Above high normal Thyroglobulin Antibody ANT ([facility]) ID Date Data Source [id number] 05/08/2020 01:46:00 PM EST ANT ([facility]) Name Value Range Interpretation Code Description Data Tatiana rce(s) Supporting Document(s) thyroid peroxidase antibody 169.2 U/mL <60.0 Above high no rmal Thyroid Peroxidase Antibody ANT ([facility]) ID Date Data Source [id number] 05/08/2020 01:46:00 PM EST ANT ([facility]) Name Value Range Interpretation Code Description Data Tatiana rce(s) Supporting Document(s) free T3 3.2 pg/mL 2.9-4.5 Free T3 [place] ([facility]) ID Date Data Source [id number] 05/08/2020 01:46:00 PM EST ANT ([facility]) Name Value Range Interpretation Code Description Data Tatiana rce(s) Supporting Document(s) free T4 0.90 NG/dL 0.78-1.33 Free T4 ANT ([facility]) thyroid stimulating hormone 0.051 uIU/mL 0.463-3.98 Below low nor mal Thyroid Stimulating Hormone [place] ([facility]) ID Date Data Source [id number] 05/08/2020 01:46:00 PM EST ANT ([facility]) Name Value Range Interpretation Code Description Data Tatiana rce(s) Supporting Document(s) thyroglobulin antibody 255.8 U/mL <60.0 Above high normal Thyroglobulin Antibody ANT ([facility]) ID Date Data Source [id number] 05/08/2020 01:46:00 PM EST ANT ([facility]) Name Value Range Interpretation Code Description Data Tatiaan rce(s) Supporting Document(s) thyroid peroxidase antibody 169.2 U/mL <60.0 Above high no rmal Thyroid Peroxidase Antibody ANT ([facility]) ID Date Data Source [id number] 05/08/2020 01:46:00 PM EST ANT ([facility]) Name Value Range Interpretation Code Description Data Tatiana rce(s) Supporting Document(s) free T3 3.2 pg/mL 2.9-4.5 Free T3 ANT ([facility]) ID Date Data Source [id number] 05/08/2020 01:46:00 PM EST ANT ([facility]) Name Value Range Interpretation Code Description Data Tatiana rce(s) Supporting Document(s) thyroid stimulating hormone 0.051 uIU/mL 0.463-3.98 Below low nor mal Thyroid Stimulating Hormone ANT ([facility]) free T4 0.90 NG/dL 0.78-1.33 Free T4 [facility]) ID Date Data Source [id number] 05/08/2020 01[facility]46[facility] Name Value Range Interpretation Code Description Data Tatiana rce(s) Supporting Document(s) thyroglobulin antibody 255.8 U/mL <60.0 Above high normal [facility] ID Date Data Source [id number] 05/08/2020 01:46:00 PM EST ANT ([facility]) Name Value Range Interpretation Code Description Data Tatiana rce(s) Supporting Document(s) thyroid peroxidase antibody 169.2 U/mL <60.0 Above high no rmal [facility] ID Date Data Source [id number] 05/08/2020 01:46:[facility] Name Value Range Interpretation Code Description Data Tatiana rce(s) Supporting Document(s) free T3 3.2 pg/mL 2.9-4.5 Free T3 ANT ([facility]) ID Date Data Source [id number] 05/08/2020 01:46:00 PM EST ANT ([facility]) Name Value Range Interpretation Code Description Data Tatiana rce(s) Supporting Document(s) thyroid stimulating hormone 0.051 uIU/mL 0.463-3.98 Below low nor mal Thyroid Stimulating Hormone ANT ([facility]) free T4 0.90 NG/dL 0.78-1.33 Free T4 [place] ([facility]) ID Date Data Source [id number] 05/08/2020 01:46:00 PM EST ANT ([facility]) Name Value Range Interpretation Code Description Data Tatiana rce(s) Supporting Document(s) thyroglobulin antibody 255.8 U/mL <60.0 Above high normal Thyroglobulin Antibody ANT ([facility]) ID Date Data Source [id number] 05/08/2020 01:46:00 PM EST ANT ([facility]) Name Value Range Interpretation Code Description Data Tatiana rce(s) Supporting Document(s) thyroid peroxidase antibody 169.2 U/mL <60.0 Above high no rmal Thyroid Peroxidase Antibody ANT ([facility]) ID Date Data Source [id number] 05/08/2020 01:46:00 PM EST ANT ([facility]) Name Value Range Interpretation Code Description Data Tatiana rce(s) Supporting Document(s) free T3 3.2 pg/mL 2.9-4.5 Free T3 ANT ([facility]) ID Date Data Source [id number] 05/08/2020 01:46:00 PM EST ANT ([facility]) Name Value Range Interpretation Code Description Data Tatiana rce(s) Supporting Document(s) thyroid stimulating hormone 0.051 uIU/mL 0.463-3.98 Below low nor mal Thyroid Stimulating Hormone ANT ([facility]) free T4 0.90 NG/dL 0.78-1.33 Free T4 ANT ([facility]) ID Date Data Source [id number] 05/08/2020 01:46:00 PM EST ANT ([facility]) Name Value Range Interpretation Code Description Data Tatiana rce(s) Supporting Document(s) thyroglobulin antibody 255.8 U/mL <60.0 Above high normal Thyroglobulin Antibody ANT ([facility]) ID Date Data Source [id number] 05/08/2020 01:46:00 PM EST ANT ([facility]) Name Value Range Interpretation Code Description Data Tatiana rce(s) Supporting Document(s) thyroid peroxidase antibody 169.2 U/mL <60.0 Above high no rmal Thyroid Peroxidase Antibody ANT ([facility]) ID Date Data Source [id number] 05/08/2020 01:46:00 PM EST ANT ([facility]) Name Value Range Interpretation Code Description Data Tatiana rce(s) Supporting Document(s) free T3 3.2 pg/mL 2.9-4.5 Free T3 ANT ([facility]) ID Date Data Source [id number] 05/08/2020 01:46:00 PM EST ANT ([facility]) Name Value Range Interpretation Code Description Data Tatiana rce(s) Supporting Document(s) thyroid stimulating hormone 0.051 uIU/mL 0.463-3.98 Below low nor mal Thyroid Stimulating Hormone ANT ([facility]) free T4 0.90 NG/dL 0.78-1.33 Free T4 ANT ([facility]) ID Date Data Source [id number] 05/08/2020 01:46:00 PM EST ANT ([facility]) Name Value Range Interpretation Code Description Data Tatiana rce(s) Supporting Document(s) thyroglobulin antibody 255.8 U/mL <60.0 Above high normal Thyroglobulin Antibody ANT ([facility]) ID Date Data Source [id number] 05/08/2020 01:46:00 PM EST ANT ([facility]) Name Value Range Interpretation Code Description Data Tatiana rce(s) Supporting Document(s) thyroid peroxidase antibody 169.2 U/mL <60.0 Above high no rmal Thyroid Peroxidase Antibody ANT ([facility]) ID Date Data Source [id number] 05/08/2020 01:46:00 PM EST ANT ([facility]) Name Value Range Interpretation Code Description Data Tatiana rce(s) Supporting Document(s) free T3 3.2 pg/mL 2.9-4.5 Free T3 [place] ([facility]) ID Date Data Source [id number] 05/08/2020 01:46:00 PM EST ANT ([facility]) Name Value Range Interpretation Code Description Data Tatiana rce(s) Supporting Document(s) thyroid stimulating hormone 0.051 uIU/mL 0.463-3.98 Below low nor mal Thyroid Stimulating Hormone ANT ([facility]) free T4 0.90 NG/dL 0.78-1.33 Free T4 [place] ([facility]) ID Date Data Source [id number] 05/08/2020 01:46:00 PM EST ANT ([facility]) Name Value Range Interpretation Code Description Data Tatiana rce(s) Supporting Document(s) thyroglobulin antibody 255.8 U/mL <60.0 Above high normal [facility] ID Date Data Source [id number] 05/08/2020 01:46:00 PM EST ANT ([facility]) Name Value Range Interpretation Code Description Data Tatiana rce(s) Supporting Document(s) thyroid peroxidase antibody 169.2 U/mL <60.0 Above high no rmal Thyroid Peroxidase Antibody ANT ([facility]) ID Date Data Source [id number] 05/08/2020 01:46:00 PM EST ANT ([facility]) Name Value Range Interpretation Code Description Data Tatiana rce(s) Supporting Document(s) free T3 3.2 pg/mL 2.9-4.5 Free T3 ANT ([facility]) ID Date Data Source [id number] 05/08/2020 01:46:00 PM EST ANT ([facility]) Name Value Range Interpretation Code Description Data Tatiana rce(s) Supporting Document(s) thyroid stimulating hormone 0.051 uIU/mL 0.463-3.98 Below low nor mal Thyroid Stimulating Hormone ANT ([facility]) free T4 0.90 NG/dL 0.78-1.33 Free T4 [place] ([facility]) ID Date Data Source [id number] 05/08/2020 01:46:00 PM EST ANT ([facility]) Name Value Range Interpretation Code Description Data Tatiana rce(s) Supporting Document(s) thyroglobulin antibody 255.8 U/mL <60.0 Above high normal Thyroglobulin Antibody ANT ([facility]) ID Date Data Source [id number] 03/24/2020 01:38:00 PM EST [facility] ([facility]) Name Value Range Interpretation Code Description Data Tatiana rce(s) Supporting Document(s) Thyrotropin [Units/volume] in Serum or Plasma by Detec tion limit <= 0.05 mIU/L 0.123 uIU/ML 0.463-3.98 [facility] ([facility]) Procedure Social History Code Duration Value Status Description Data Source(s ) Smoking 04/06/2021 12:00:00 AM EST Never smoker completed Never s moker [facility] ([facility]) Smoking 01/20/2021 12:00:00 AM EDT Patient has never smoked co mpleted Patient has never smoked [facility] ([facility]) Vital Signs ID Date Data Source [id number] Name Value Range Interpretation Code Description Data Source(s) Body height 60 [in_i] 60 [in_i] ANT ([facility]) Body height 152.40 cm 152.40 cm [facility] ([facility]) Body weight 74.843 kg 74.843 kg [facility] ([facility]) Systolic blood pressure 110 mm[Hg] 110 mm[Hg] N [facility] ([facility]) Diastolic blood pressure 74 mm[Hg] 74 mm[facility]Hg] [facility] Body mass index (BMI) [Ratio] 32.22 kg/m2 Overweight 32.22 kg/m2 [facility] ([facility]) Body mass index (BMI) [Ratio] 32.4 kg/m2 32.4 k g/m2 [place] ([facility]) Systolic blood pressure 124 mm[Hg] 124 mm[Hg] A [facility] ([facility]) Body weight 2656 [oz_av] 2656 [oz_av] ANT ([facility]) Diastolic blood pressure 83 mm[Hg] 83 mm[Hg] ANT ([facility]) Body height 60 [in_i] 60 [in_i] ANT ([facility]) Diastolic blood pressure 83 mm[Hg] 83 mm[Hg] ANT ([facility]) Body height 60 [in_i] 60 [in_i] ANT ([facility]) Body mass index (BMI) [Ratio] 32.4 kg/m2 32.4 k g/m2 ANT ([facility]) Systolic blood pressure 124 mm[Hg] 124 mm[Hg] A [facility] ([facility]) Body weight 2656 [oz_av] 2656 [oz_av] ANT ([facility]) Diastolic blood pressure 83 mm[Hg] 83 mm[Hg] ANT ([facility]) Body height 60 [in_i] 60 [in_i] ANT ([facility]) Body mass index (BMI) [Ratio] 32.4 kg/m2 32.4 k g/m2 ANT ([facility]) Systolic blood pressure 124 mm[Hg] 124 mm[Hg] [facility] Body weight 2656 [oz_av] 2656 [oz_av] ANT ([facility]) Diastolic blood pressure 83 mm[Hg] 83 mm[Hg] ANT ([facility]) Body height 60 [in_i] 60 [in_i] ANT ([facility]) Body mass index (BMI) [Ratio] 32.4 kg/m2 32.4 k g/m2 ANT ([facility]) Systolic blood pressure 124 mm[Hg] 124 mm[Hg] A [facility] ([facility]) Body weight 2656 [oz_av] 2656 [oz_av] ANT ([facility]) Diastolic blood pressure 83 mm[Hg] 83 mm[Hg] ANT ([facility]) Body height 60 [in_i] 60 [in_i] ANT ([facility]) Body mass index (BMI) [Ratio] 32.4 kg/m2 32.4 k g/m2 ANT ([facility]) Systolic blood pressure 124 mm[Hg] 124 mm[Hg] A [facility] ([facility]) Body weight 2656 [oz_av] 2656 [oz_av] ANT ([facility]) Diastolic blood pressure 83 mm[Hg] 83 mm[Hg] ANT ([facility]) Body height 60 [in_i] 60 [in_i] ANT ([facility]) Diastolic blood pressure 83 mm[Hg] 83 mm[Hg] ANT ([facility]) Body height 60 [in_i] 60 [in_i] ANT ([facility]) Body mass index (BMI) [Ratio] 32.4 kg/m2 32.4 k g/m2 ANT ([facility]) Systolic blood pressure 124 mm[Hg] 124 mm[Hg] A [facility] ([facility]) Body weight 2656 [oz_av] 2656 [oz_av] ANT ([facility]) Body mass index (BMI) [Ratio] 32.4 kg/m2 32.4 k g/m2 ANT ([facility]) Systolic blood pressure 124 mm[Hg] 124 mm[Hg] A [facility] ([facility]) Body weight 2656 [oz_av] 2656 [oz_av] ANT ([facility]) Diastolic blood pressure 83 mm[Hg] 83 mm[Hg] ANT ([facility]) Body height 60 [in_i] 60 [in_i] ANT ([facility]) Body mass index (BMI) [Ratio] 32.4 kg/m2 32.4 k g/m2 ANT ([facility]) Systolic blood pressure 124 mm[Hg] 124 mm[Hg] A [facility] ([facility]) Body weight 2656 [oz_av] 2656 [oz_av] ANT ([facility]) Body height 61 [in_i] 61 [in_i] [facility] ([facility]) 5'1" Diastolic blood pressure 82 mm[Hg] 82 mm[Hg] [facility] ([facility] Heart rate 68 /min 68 /min [facility] ([facility]) Body weight 168.00 [lb_av] 168.00 [lb_av] MED[facility] T ([facility] ) Body mass index (BMI) [Ratio] 31.7 kg/m2 31.7 k g/m2 [facility] ([facility] ) Oxygen saturation in Arterial blood by Pulse oximetry 98 % 98 % [facility] ([facility] ) Systolic blood pressure 122 mm[Hg] 122 mm[Hg] M [facility] ([facility] ) Systolic blood pressure 107 mm[Hg] 107 mm[Hg] A [facility] ([facility]) Diastolic blood pressure 73 mm[Hg] 73 mm[Hg] ANT ([facility]) Body height 60 [in_i] 60 [in_i] ANT ([facility]) Body mass index (BMI) [Ratio] 31.6 kg/m2 31.6 k g/m2 ANT ([facility]) Body weight 2592 [oz_av] 2592 [oz_av] ANT ([facility]) Body mass index (BMI) [Ratio] 31.6 kg/m2 31.6 k g/m2 ANT ([facility]) Systolic blood pressure 107 mm[Hg] 107 mm[Hg] [facility] Diastolic blood pressure 73 mm[Hg] 73 mm[Hg] ANT ([facility]) Body weight 2592 [oz_av] 2592 [oz_av] ANT ([facility]) Body height 60 [in_i] 60 [in_i] ANT ([facility]) Diastolic blood pressure 73 mm[Hg] 73 mm[Hg] ANT ([facility]) Body height 60 [in_i] 60 [in_i] ANT ([facility]) Body mass index (BMI) [Ratio] 31.6 kg/m2 31.6 k g/m2 ANT ([facility]) Systolic blood pressure 107 mm[Hg] 107 mm[Hg] A [facility] ([facility]) Body weight 2592 [oz_av] 2592 [oz_av] ANT ([facility]) Diastolic blood pressure 73 mm[Hg] 73 mm[Hg] ANT ([facility]) Body height 60 [in_i] 60 [in_i] ANT ([facility]) Body mass index (BMI) [Ratio] 31.6 kg/m2 31.6 k g/m2 ANT ([facility]) Systolic blood pressure 107 mm[Hg] 107 mm[Hg] A [facility] ([facility]) Body weight 2592 [oz_av] 2592 [oz_av] ANT ([facility]) Diastolic blood pressure 73 mm[Hg] 73 mm[Hg] ANT ([facility]) Body height 60 [in_i] 60 [in_i] ANT ([facility]) Body mass index (BMI) [Ratio] 31.6 kg/m2 31.6 k g/m2 ANT ([facility]) Systolic blood pressure 107 mm[Hg] 107 mm[Hg] A [facility] ([facility]) Body weight 2592 [oz_av] 2592 [oz_av] ANT ([facility]) Diastolic blood pressure 73 mm[Hg] 73 mm[Hg] ANT ([facility]) Body height 60 [in_i] 60 [in_i] ANT ([facility]) Body mass index (BMI) [Ratio] 31.6 kg/m2 31.6 k g/m2 ANT ([facility]) Systolic blood pressure 107 mm[Hg] 107 mm[Hg] A [facility] ([facility]) Body weight 2592 [oz_av] 2592 [oz_av] ANT ([facility]) Diastolic blood pressure 73 mm[Hg] 73 mm[Hg] ANT ([facility]) Body height 60 [in_i] 60 [in_i] ANT ([facility]) Body mass index (BMI) [Ratio] 31.6 kg/m2 31.6 k g/m2 ANT ([facility]) Systolic blood pressure 107 mm[Hg] 107 mm[Hg] A [facility] ([facility]) Body weight 2592 [oz_av] 2592 [oz_av] ANT ([facility]) Body height 60 [in_i] 60 [in_i] ANT ([facility]) Diastolic blood pressure 73 mm[Hg] 73 mm[Hg] ANT ([facility]) Body mass index (BMI) [Ratio] 31.6 kg/m2 31.6 k g/m2 ANT ([facility]) Systolic blood pressure 107 mm[Hg] 107 mm[Hg] A [facility] ([facility]) Body weight 2592 [oz_av] 2592 [oz_av] ANT ([facility]) Diastolic blood pressure 73 mm[Hg] 73 mm[Hg] ANT ([facility]) Body height 60 [in_i] 60 [in_i] ANT ([facility]) Body mass index (BMI) [Ratio] 31.6 kg/m2 31.6 k g/m2 ANT ([facility]) Systolic blood pressure 107 mm[Hg] 107 mm[Hg] A [facility] ([facility]) Body weight 2592 [oz_av] 2592 [oz_av] ANT ([facility]) Diastolic blood pressure 73 mm[Hg] 73 mm[Hg] ANT ([facility]) Body height 60 [in_i] 60 [in_i] ANT ([facility]) Body mass index (BMI) [Ratio] 31.6 kg/m2 31.6 k g/m2 ANT ([facility]) Systolic blood pressure 107 mm[Hg] 107 mm[Hg] A [facility] ([facility]) Body weight 2592 [oz_av] 2592 [oz_av] ANT ([facility]) Diastolic blood pressure 73 mm[Hg] 73 mm[Hg] ANT ([facility]) Body height 60 [in_i] 60 [in_i] ANT ([facility]) Diastolic blood pressure 73 mm[Hg] 73 mm[Hg] ANT ([facility]) Body height 60 [in_i] 60 [in_i] ANT ([facility]) Body mass index (BMI) [Ratio] 31.6 kg/m2 31.6 k g/m2 ANT ([facility]) Systolic blood pressure 107 mm[Hg] 107 mm[Hg] A [facility] ([facility]) Body weight 2592 [oz_av] 2592 [oz_av] ANT ([facility]) Body mass index (BMI) [Ratio] 31.6 kg/m2 31.6 k g/m2 ANT ([facility]) Systolic blood pressure 107 mm[Hg] 107 mm[Hg] A [facility] ([facility]) Body weight 2592 [oz_av] 2592 [oz_av] ANT ([facility]) Body height 152.40 cm 152.40 cm [facility] ([facility]) Body weight 76.204 kg 76.204 kg [facility] ([facility]) Systolic blood pressure 104 mm[Hg] 104 mm[Hg] N [facility] ([facility]) Diastolic blood pressure 75 mm[Hg] 75 mm[Hg] [facility] ([facility]) Body mass index (BMI) [Ratio] 32.81 kg/m2 Overweight 32.81 kg/m2 [facility] ([facility]) Body height 152.40 cm 152.40 cm [facility] ([facility] Body weight 76.657 kg 76.657 kg [facility] ([facility]) Systolic blood pressure 118 mm[Hg] 118 mm[Hg] N [facility] ([facility]) Diastolic blood pressure 81 mm[Hg] 81 mm[Hg] [facility] ([facility]) Body mass index (BMI) [Ratio] 33.01 kg/m2 Overweight 33.01 kg/m2 [facility] ([facility]) Systolic blood pressure 118 mm[Hg] 118 mm[Hg] M EDENT ([facility]) Diastolic blood pressure 82 mm[Hg] 82 mm[Hg] MED[facility] ([facility]) Heart rate 73 /min 73 /min [facility] ([facility]) Body temperature 97.1 [degF] 97.1 [degF] [facility] ([facility]) Body height 61 [in_i] 61 [in_i] [facility] ([facility]) 5'1" Body weight 169.12 [lb_av] 169.12 [lb_av] MEDEN T ([facility]) Body mass index (BMI) [Ratio] 32.0 kg/m2 32.0 k g/m2 [facility] ([facility]) Oxygen saturation in Arterial blood by Pulse oximetry 99 % 99 % [facility] ([facility]) Body height 152.40 cm 152.40 cm [facility] ([facility]) Body weight 76.022 kg 76.022 kg [facility] ([facility]) Systolic blood pressure 119 mm[Hg] 119 mm[Hg] N extGen ([facility]) Diastolic blood pressure 80 mm[Hg] 80 mm[Hg] [facility] ([facility]) Body mass index (BMI) [Ratio] 32.73 kg/m2 Overweight 32.73 kg/m2 [facility] ([facility]) Heart rate 84 /min 84 /min MED[facility] ([facility]) Body temperature 97.5 [degF] 97.5 [degF] [facility] ([facility]) Body height 61 [in_i] 61 [in_i] [facility] ([facility]) 5'1" Body weight 164.00 [lb_av] 164.00 [lb_av] MEDEN T ([facility]) Body mass index (BMI) [Ratio] 31.0 kg/m2 31.0 k g/m2 [facility] ([facility]) Systolic blood pressure 110 mm[Hg] 110 mm[Hg] M EDENT ([facility]) Diastolic blood pressure 80 mm[Hg] 80 mm[Hg] [facility] ([facility]) Body height 152.40 cm 152.40 cm [facility] ([facility]) Body weight 74.752 kg 74.752 kg [facility] ([facility]) Systolic blood pressure 120 mm[Hg] 120 mm[Hg] N extGen ([facility]) Diastolic blood pressure 78 mm[Hg] 78 mm[Hg] [facility] ([facility]) Body mass index (BMI) [Ratio] 32.18 kg/m2 Overweight 32.18 kg/m2 [facility] ([facility]) Body height 60 [in_i] 60 [in_i] ANT ([facility]) Body height 60 [in_i] 60 [in_i] ANT ([facility]) Body height 60 [in_i] 60 [in_i] ANT ([facility]) Body height 60 [in_i] 60 [in_i] ANT ([facility]) Body height 60 [in_i] 60 [in_i] ANT ([facility]) Body height 60 [in_i] 60 [in_i] ANT ([facility]) Body height 60 [in_i] 60 [in_i] ANT ([facility]) Body height 60 [in_i] 60 [in_i] ANT ([facility]) Body height 60 [in_i] 60 [in_i] ANT ([facility]) Body height 60 [in_i] 60 [in_i] ANT ([facility]) Body height 60 [in_i] 60 [in_i] ANT ([facility]) Body height 60 [in_i] 60 [in_i] ANT ([facility]) Body height 60 [in_i] 60 [in_i] ANT ([facility]) Body height 60 [in_i] 60 [in_i] ANT ([facility]) Body height 60 [in_i] 60 [in_i] ANT ([facility]) Body height 60 [in_i] 60 [in_i] ANT ([facility]) Body height 60 [in_i] 60 [in_i] ANT ([facility]) Body height 152.40 cm 152.40 cm [facility] ([facility]) Body weight 73.936 kg 73.936 kg [facility] ([facility]) Systolic blood pressure 122 mm[Hg] 122 mm[Hg] N extGen ([facility]) Diastolic blood pressure 68 mm[Hg] 68 mm[Hg] [facility] ([facility]) Body mass index (BMI) [Ratio] 31.83 kg/m2 Overweight 31.83 kg/m2 [facility] ([facility]) Body height 60 [in_i] 60 [in_i] ANT ([facility]) Body height 60 [in_i] 60 [in_i] ANT ([facility]) Body height 60 [in_i] 60 [in_i] ANT ([facility]) Body height 60 [in_i] 60 [in_i] ANT ([facility]) Body height 60 [in_i] 60 [in_i] ANT ([facility]) Body height 60 [in_i] 60 [in_i] ANT ([facility]) Body height 60 [in_i] 60 [in_i] ANT ([facility]) Body height 60 [in_i] 60 [in_i] ANT ([facility]) Body height 60 [in_i] 60 [in_i] ANT ([facility]) Body height 60 [in_i] 60 [in_i] ANT ([facility]) Body height 60 [in_i] 60 [in_i] ANT ([facility]) Body height 60 [in_i] 60 [in_i] ANT ([facility]) Body height 60 [in_i] 60 [in_i] ANT ([facility]) Body height 60 [in_i] 60 [in_i] ANT ([facility]) Body height 60 [in_i] 60 [in_i] ANT ([facility]) Body height 60 [in_i] 60 [in_i] ANT ([facility]) Body height 60 [in_i] 60 [in_i] ANT ([facility]) Body height 60 [in_i] 60 [in_i] ANT ([facility]) Body height 60 [in_i] 60 [in_i] ANT ([facility]) Body height 60 [in_i] 60 [in_i] ANT ([facility]) Body height 60 [in_i] 60 [in_i] ANT ([facility]) Systolic blood pressure 106 mm[Hg] 106 mm[Hg] M EDENT ([facility] Diastolic blood pressure 70 mm[Hg] 70 mm[Hg] [facility] ([facility] Body height 61 [in_i] 61 [in_i] [facility] ([facility] 5'1" Body weight 166.25 [lb_av] 166.25 [lb_av] MEDEN T ([facility] Body mass index (BMI) [Ratio] 31.4 kg/m2 31.4 k g/m2 [facility] ([facility] Heart rate 80 /min 80 /min [facility] ([facility] Body temperature 95.9 [degF] 95.9 [degF] [facility] ([facility] Body height 60 [in_i] 60 [in_i] ANT ([facility]) Body height 60 [in_i] 60 [in_i] ANT ([facility]) Body height 60 [in_i] 60 [in_i] ANT ([facility]) Body height 60 [in_i] 60 [in_i] ANT ([facility]) Body height 60 [in_i] 60 [in_i] ANT ([facility]) Body height 60 [in_i] 60 [in_i] ANT ([facility]) Body height 60 [in_i] 60 [in_i] ANT ([facility]) Body height 60 [in_i] 60 [in_i] ANT ([facility]) Body height 60 [in_i] 60 [in_i] ANT ([facility]) Body height 60 [in_i] 60 [in_i] ANT ([facility]) Body height 60 [in_i] 60 [in_i] ANT ([facility]) Body height 60 [in_i] 60 [in_i] ANT ([facility]) Body height 60 [in_i] 60 [in_i] ANT ([facility]) Body height 60 [in_i] 60 [in_i] ANT ([facility]) Body height 60 [in_i] 60 [in_i] ANT ([facility]) Body height 60 [in_i] 60 [in_i] ANT ([facility]) Body height 60 [in_i] 60 [in_i] ANT ([facility]) Body height 60 [in_i] 60 [in_i] ANT ([facility]) Body height 60 [in_i] 60 [in_i] ANT ([facility]) Body height 60 [in_i] 60 [in_i] ANT ([facility]) Body height 60 [in_i] 60 [in_i] ANT ([facility]) Body height 60 [in_i] 60 [in_i] ANT ([facility]) Body height 61 [in_i] 61 [in_i] [facility] ([facility]) 5'1" Body weight 164.19 [lb_av] 164.19 [lb_av] MEDEN T ([facility]) Body mass index (BMI) [Ratio] 31.0 kg/m2 31.0 k g/m2 [facility] ([facility] ) Systolic blood pressure 112 mm[Hg] 112 mm[Hg] M EDENT ([facility]) Diastolic blood pressure 70 mm[Hg] 70 mm[Hg] [facility] ([facility] ) Heart rate 68 /min 68 /min [facility] ([facility] Body temperature 97.1 [degF] 97.1 [degF] [facility] ([facility] Patient Treatment Plan of Care Planned Activity Planned Date Details Description Data Source (s) terconazole 4 MG/ML Vaginal Cream 11/29/2020 12:00:00 AM EDT [facility] ([facility]) Metronidazole 0.0075 MG/MG Vaginal Gel [MetroGel] 11/10/2020 12: 00:00 AM EDT [facility] ([facility]) Doxycycline Monohydrate 100 MG Oral Tablet 07/01/2020 12:00:[address] [facility] ([facility]) Doxycycline Monohydrate 100 MG Oral Tablet 06/28/2020 12:00:[address] [facility] ([facility]) Escitalopram 10 MG Oral Tablet ANT ([facility]) Doxycycline Monohydrate 100 MG Oral Tablet ANT ([facility]) Ciprofloxacin 3 MG/ML / Dexamethasone 1 MG/ML Otic Suspension [place] ([facility]) Cephalexin 500 MG Oral Capsule [place] ([facility]) cefdinir 300 MG Oral Capsule ANT ([facility]) Amoxicillin 875 MG / Clavulanate 125 MG Oral Tablet ANT ([facility]) Amoxicillin 500 MG Oral Capsule ANT ([facility]) Triamcinolone Acetonide 1 MG/ML Topical Cream ANT ([facility]) terconazole 4 MG/ML Vaginal Cream ANT ([facility]) Sulfamethoxazole 800 MG / Trimethoprim 160 MG Oral Tablet ANT ([facility]) 12 HR Pseudoephedrine Hydrochloride 120 MG Extended Release Oral Tablet [Sudogest] ANT ([facility]) NITROFURANTOIN, MACROCRYSTALS 25 MG / Ni trofurantoin, Monohydrate 75 MG Oral Capsule ANT ([facility]) Hydrocortisone 10 MG/ML / Neomycin 3.5 M G/ML / Polymyxin B [id number] UNT/ML Otic Suspension ANT ([facility]) Naproxen 500 MG Oral Tablet ANT ([facility]) Metronidazole 0.0075 MG/MG Vaginal Gel ANT ([facility]) Loratadine 10 MG Oral Tablet ANT ([facility]) Ibuprofen 800 MG Oral Tablet ANT ([facility]) Fluconazole 150 MG Oral Tablet ANT ([facility]) Escitalopram 10 MG Oral Tablet ANT ([facility]) Doxycycline Monohydrate 100 MG Oral Tablet ANT ([facility]) Ciprofloxacin 3 MG/ML / Dexamethasone 1 MG/ML Otic Suspension ANT ([facility]) Cephalexin 500 MG Oral Capsule ANT ([facility]) cefdinir 300 MG Oral Capsule ANT ([facility]) Amoxicillin 875 MG / Clavulanate 125 MG Oral Tablet ANT ([facility]) Amoxicillin 500 MG Oral Capsule ANT ([facility]) Triamcinolone Acetonide 1 MG/ML Topical Cream ANT ([facility]) terconazole 4 MG/ML Vaginal Cream ANT ([facility]) Sulfamethoxazole 800 MG / Trimethoprim 160 MG Oral Tablet ANT ([facility]) 12 HR Pseudoephedrine Hydrochloride 120 MG Extended Release Oral Tablet [Sudogest] ANT ([facility]) NITROFURANTOIN, MACROCRYSTALS 25 MG / Ni trofurantoin, Monohydrate 75 MG Oral Capsule ANT ([facility]) Hydrocortisone 10 MG/ML / Neomycin 3.5 M G/ML / Polymyxin B [id number] UNT/ML Otic Suspension ANT ([facility]) Naproxen 500 MG Oral Tablet ANT ([facility]) Metronidazole 0.0075 MG/MG Vaginal Gel ANT ([facility]) Loratadine 10 MG Oral Tablet ANT ([facility]) Ibuprofen 800 MG Oral Tablet ANT ([facility]) Fluconazole 150 MG Oral Tablet ANT ([facility]) Escitalopram 10 MG Oral Tablet ANT ([facility]) Doxycycline Monohydrate 100 MG Oral Tablet ANT ([facility]) Ciprofloxacin 3 MG/ML / Dexamethasone 1 MG/ML Otic Suspension ANT ([facility]) Cephalexin 500 MG Oral Capsule ANT ([facility]) cefdinir 300 MG Oral Capsule ANT ([facility]) Amoxicillin 875 MG / Clavulanate 125 MG Oral Tablet ANT ([facility]) Amoxicillin 500 MG Oral Capsule ANT ([facility]) Triamcinolone Acetonide 1 MG/ML Topical Cream ANT ([facility]) terconazole 4 MG/ML Vaginal Cream ANT ([facility]) Sulfamethoxazole 800 MG / Trimethoprim 160 MG Oral Tablet ANT ([facility]) 12 HR Pseudoephedrine Hydrochloride 120 MG Extended Release Oral Tablet [Sudogest] ANT ([facility]) NITROFURANTOIN, MACROCRYSTALS 25 MG / Ni trofurantoin, Monohydrate 75 MG Oral Capsule ANT ([facility]) Hydrocortisone 10 MG/ML / Neomycin 3.5 M G/ML / Polymyxin B 38802 UNT/ML Otic Suspension ANT ([facility]) Naproxen 500 MG Oral Tablet ANT ([facility]) Metronidazole 0.0075 MG/MG Vaginal Gel ANT ([facility]) Loratadine 10 MG Oral Tablet ANT ([facility]) Ibuprofen 800 MG Oral Tablet ANT ([facility]) Fluconazole 150 MG Oral Tablet ANT ([facility]) Escitalopram 10 MG Oral Tablet ANT ([facility]) Doxycycline Monohydrate 100 MG Oral Tablet ANT ([facility]) Ciprofloxacin 3 MG/ML / Dexamethasone 1 MG/ML Otic Suspension ANT ([facility]) Cephalexin 500 MG Oral Capsule ANT ([facility]) cefdinir 300 MG Oral Capsule ANT ([facility]) Amoxicillin 875 MG / Clavulanate 125 MG Oral Tablet NAT ([facility]) Amoxicillin 500 MG Oral Capsule ANT ([facility]) Triamcinolone Acetonide 1 MG/ML Topical Cream ANT ([facility]) terconazole 4 MG/ML Vaginal Cream ANT ([facility]) Sulfamethoxazole 800 MG / Trimethoprim 160 MG Oral Tablet ANT ([facility]) 12 HR Pseudoephedrine Hydrochloride 120 MG Extended Release Oral Tablet [Sudogest] ANT ([facility]) NITROFURANTOIN, MACROCRYSTALS 25 MG / Ni trofurantoin, Monohydrate 75 MG Oral Capsule ANT ([facility]) Hydrocortisone 10 MG/ML / Neomycin 3.5 M G/ML / Polymyxin B [id number] UNT/ML Otic Suspension ANT ([facility]) Naproxen 500 MG Oral Tablet ANT ([facility]) Metronidazole 0.0075 MG/MG Vaginal Gel ANT ([facility]) Loratadine 10 MG Oral Tablet ANT ([facility]) Ibuprofen 800 MG Oral Tablet ANT ([facility]) Fluconazole 150 MG Oral Tablet ANT ([facility]) Escitalopram 10 MG Oral Tablet ANT ([facility]) Doxycycline Monohydrate 100 MG Oral Tablet ANT ([facility]) Ciprofloxacin 3 MG/ML / Dexamethasone 1 MG/ML Otic Suspension ANT ([facility]) Cephalexin 500 MG Oral Capsule ANT ([facility]) cefdinir 300 MG Oral Capsule ANT ([facility]) Amoxicillin 875 MG / Clavulanate 125 MG Oral Tablet ANT ([facility]) Amoxicillin 500 MG Oral Capsule ANT ([facility]) Triamcinolone Acetonide 1 MG/ML Topical Cream ANT ([facility]) terconazole 4 MG/ML Vaginal Cream ANT ([facility]) Sulfamethoxazole 800 MG / Trimethoprim 160 MG Oral Tablet ANT ([facility]) 12 HR Pseudoephedrine Hydrochloride 120 MG Extended Release Oral Tablet [Sudogest] ANT ([facility]) NITROFURANTOIN, MACROCRYSTALS 25 MG / Ni trofurantoin, Monohydrate 75 MG Oral Capsule ANT ([facility]) Hydrocortisone 10 MG/ML / Neomycin 3.5 M G/ML / Polymyxin B 83834 UNT/ML Otic Suspension ANT ([facility]) Naproxen 500 MG Oral Tablet ANT ([facility]) Metronidazole 0.0075 MG/MG Vaginal Gel ANT ([facility]) Loratadine 10 MG Oral Tablet ANT ([facility]) Ibuprofen 800 MG Oral Tablet ANT ([facility]) Fluconazole 150 MG Oral Tablet ANT ([facility]) Escitalopram 10 MG Oral Tablet ANT ([facility]) Doxycycline Monohydrate 100 MG Oral Tablet ANT ([facility]) Ciprofloxacin 3 MG/ML / Dexamethasone 1 MG/ML Otic Suspension ANT ([facility]) Cephalexin 500 MG Oral Capsule ANT ([facility]) cefdinir 300 MG Oral Capsule ANT ([facility]) Amoxicillin 875 MG / Clavulanate 125 MG Oral Tablet ANT ([facility]) Amoxicillin 500 MG Oral Capsule ANT ([facility]) Triamcinolone Acetonide 1 MG/ML Topical Cream ANT ([facility]) terconazole 4 MG/ML Vaginal Cream ANT ([facility]) Sulfamethoxazole 800 MG / Trimethoprim 160 MG Oral Tablet ANT ([facility]) 12 HR Pseudoephedrine Hydrochloride 120 MG Extended Release Oral Tablet [Sudogest] ANT ([facility]) NITROFURANTOIN, MACROCRYSTALS 25 MG / Ni trofurantoin, Monohydrate 75 MG Oral Capsule ANT ([facility]) Hydrocortisone 10 MG/ML / Neomycin 3.5 M G/ML / Polymyxin B 64640 UNT/ML Otic Suspension ANT ([facility]) Naproxen 500 MG Oral Tablet ANT ([facility]) Metronidazole 0.0075 MG/MG Vaginal Gel ANT ([facility]) Loratadine 10 MG Oral Tablet ANT ([facility]) Ibuprofen 800 MG Oral Tablet ANT ([facility]) Fluconazole 150 MG Oral Tablet ANT ([facility]) Sulfamethoxazole 800 MG / Trimethoprim 160 MG Oral Tablet ANT ([facility]) 12 HR Pseudoephedrine Hydrochloride 120 MG Extended Release Oral Tablet [Sudogest] ANT ([facility]) NITROFURANTOIN, MACROCRYSTALS 25 MG / Ni trofurantoin, Monohydrate 75 MG Oral Capsule ANT ([facility]) Hydrocortisone 10 MG/ML / Neomycin 3.5 M G/ML / Polymyxin B 04578 UNT/ML Otic Suspension ANT ([facility]) Naproxen 500 MG Oral Tablet ANT ([facility]) Metronidazole 0.0075 MG/MG Vaginal Gel ANT ([facility]) Ibuprofen 800 MG Oral Tablet ANT ([facility]) fluticasone propionate 50 mcg/actuation nasal spray,suspension ANT ([facility]) Fluconazole 150 MG Oral Tablet ANT ([facility]) Escitalopram 10 MG Oral Tablet ANT ([facility]) Doxycycline Monohydrate 100 MG Oral Tablet ANT ([facility]) Ciprofloxacin 3 MG/ML / Dexamethasone 1 MG/ML Otic Suspension ANT ([facility]) cetirizine hydrochloride 10 MG Oral Tablet ANT ([facility]) Cephalexin 500 MG Oral Capsule ANT ([facility]) cefdinir 300 MG Oral Capsule ANT ([facility]) Amoxicillin 875 MG / Clavulanate 125 MG Oral Tablet ANT ([facility]) terconazole 4 MG/ML Vaginal Cream ANT ([facility]) Sulfamethoxazole 800 MG / Trimethoprim 160 MG Oral Tablet ANT ([facility]) 12 HR Pseudoephedrine Hydrochloride 120 MG Extended Release Oral Tablet [Sudogest] ANT ([facility]) NITROFURANTOIN, MACROCRYSTALS 25 MG / Ni trofurantoin, Monohydrate 75 MG Oral Capsule ANT ([facility]) Hydrocortisone 10 MG/ML / Neomycin 3.5 M G/ML / Polymyxin B 78938 UNT/ML Otic Suspension ANT ([facility]) Naproxen 500 MG Oral Tablet ANT ([facility]) Metronidazole 0.0075 MG/MG Vaginal Gel ANT ([facility]) Ibuprofen 800 MG Oral Tablet ANT ([facility]) fluticasone propionate 50 mcg/actuation nasal spray,suspension ANT ([facility]) Fluconazole 150 MG Oral Tablet ANT ([facility]) Escitalopram 10 MG Oral Tablet ANT ([facility]) Doxycycline Monohydrate 100 MG Oral Tablet ANT ([facility]) Ciprofloxacin 3 MG/ML / Dexamethasone 1 MG/ML Otic Suspension ANT ([facility]) cetirizine hydrochloride 10 MG Oral Tablet ANT ([facility]) Cephalexin 500 MG Oral Capsule ANT ([facility]) cefdinir 300 MG Oral Capsule ANT ([facility]) Amoxicillin 875 MG / Clavulanate 125 MG Oral Tablet ANT ([facility]) terconazole 4 MG/ML Vaginal Cream ANT ([facility]) Sulfamethoxazole 800 MG / Trimethoprim 160 MG Oral Tablet ANT ([facility]) 12 HR Pseudoephedrine Hydrochloride 120 MG Extended Release Oral Tablet [Sudogest] ANT ([facility]) NITROFURANTOIN, MACROCRYSTALS 25 MG / Ni trofurantoin, Monohydrate 75 MG Oral Capsule ANT ([facility]) Hydrocortisone 10 MG/ML / Neomycin 3.5 M G/ML / Polymyxin B 49337 UNT/ML Otic Suspension ANT ([facility]) Naproxen 500 MG Oral Tablet ANT ([facility]) Metronidazole 0.0075 MG/MG Vaginal Gel ANT ([facility]) Ibuprofen 800 MG Oral Tablet ANT ([facility]) fluticasone propionate 50 mcg/actuation nasal spray,suspension ANT ([facility]) Fluconazole 150 MG Oral Tablet ANT ([facility]) Escitalopram 10 MG Oral Tablet ANT ([facility]) Doxycycline Monohydrate 100 MG Oral Tablet ANT ([facility]) Ciprofloxacin 3 MG/ML / Dexamethasone 1 MG/ML Otic Suspension ANT ([facility]) cetirizine hydrochloride 10 MG Oral Tablet ANT ([facility]) Cephalexin 500 MG Oral Capsule ANT ([facility]) cefdinir 300 MG Oral Capsule ANT ([facility]) Amoxicillin 875 MG / Clavulanate 125 MG Oral Tablet ANT ([facility]) terconazole 4 MG/ML Vaginal Cream ANT ([facility]) Sulfamethoxazole 800 MG / Trimethoprim 160 MG Oral Tablet ANT ([facility]) 12 HR Pseudoephedrine Hydrochloride 120 MG Extended Release Oral Tablet [Sudogest] ANT ([facility]) NITROFURANTOIN, MACROCRYSTALS 25 MG / Ni trofurantoin, Monohydrate 75 MG Oral Capsule ANT ([facility]) Hydrocortisone 10 MG/ML / Neomycin 3.5 M G/ML / Polymyxin B 53256 UNT/ML Otic Suspension ANT ([facility]) Naproxen 500 MG Oral Tablet ANT ([facility]) Metronidazole 0.0075 MG/MG Vaginal Gel ANT ([facility]) Ibuprofen 800 MG Oral Tablet ANT ([facility]) fluticasone propionate 50 mcg/actuation nasal spray,suspension ANT ([facility]) Fluconazole 150 MG Oral Tablet ANT ([facility]) Escitalopram 10 MG Oral Tablet ANT ([facility]) Doxycycline Monohydrate 100 MG Oral Tablet ANT ([facility]) Ciprofloxacin 3 MG/ML / Dexamethasone 1 MG/ML Otic Suspension ANT ([facility]) cetirizine hydrochloride 10 MG Oral Tablet ANT ([facility]) Cephalexin 500 MG Oral Capsule ANT ([facility]) cefdinir 300 MG Oral Capsule ANT ([facility]) Amoxicillin 875 MG / Clavulanate 125 MG Oral Tablet ANT ([facility]) Triamcinolone Acetonide 1 MG/ML Topical Cream ANT ([facility]) terconazole 4 MG/ML Vaginal Cream ANT ([facility]) Sulfamethoxazole 800 MG / Trimethoprim 160 MG Oral Tablet ANT ([facility]) 12 HR Pseudoephedrine Hydrochloride 120 MG Extended Release Oral Tablet [Sudogest] ANT ([facility]) Prednisone 20 MG Oral Tablet ANT ([facility]) NITROFURANTOIN, MACROCRYSTALS 25 MG / Ni trofurantoin, Monohydrate 75 MG Oral Capsule ANT ([facility]) Hydrocortisone 10 MG/ML / Neomycin 3.5 M G/ML / Polymyxin B 99970 UNT/ML Otic Suspension ANT ([facility]) Naproxen 500 MG Oral Tablet ANT ([facility]) Metronidazole 0.0075 MG/MG Vaginal Gel ANT ([facility]) Loratadine 10 MG Oral Tablet ANT ([facility]) Ibuprofen 800 MG Oral Tablet ANT ([facility]) Fluoxetine 10 MG Oral Capsule ANT ([facility]) Fluconazole 150 MG Oral Tablet ANT ([facility]) Escitalopram 10 MG Oral Tablet ANT ([facility]) Doxycycline Monohydrate 100 MG Oral Tablet ANT ([facility]) Ciprofloxacin 3 MG/ML / Dexamethasone 1 MG/ML Otic Suspension ANT ([facility]) Cephalexin 500 MG Oral Capsule ANT ([facility]) cefdinir 300 MG Oral Capsule ANT ([facility]) Amoxicillin 875 MG / Clavulanate 125 MG Oral Tablet ANT ([facility]) Amoxicillin 500 MG Oral Capsule ANT ([facility]) albuterol sulfate HFA 90 mcg/actuation aerosol inhaler ANT ([facility]) Triamcinolone Acetonide 1 MG/ML Topical Cream ANT ([facility]) terconazole 4 MG/ML Vaginal Cream ANT ([facility]) Sulfamethoxazole 800 MG / Trimethoprim 160 MG Oral Tablet ANT ([facility]) 12 HR Pseudoephedrine Hydrochloride 120 MG Extended Release Oral Tablet [Sudogest] ANT ([facility]) NITROFURANTOIN, MACROCRYSTALS 25 MG / Ni trofurantoin, Monohydrate 75 MG Oral Capsule ANT ([facility]) Hydrocortisone 10 MG/ML / Neomycin 3.5 M G/ML / Polymyxin B [id number] UNT/ML Otic Suspension ANT ([facility]) Naproxen 500 MG Oral Tablet ANT ([facility]) Metronidazole 0.0075 MG/MG Vaginal Gel ANT ([facility]) Loratadine 10 MG Oral Tablet ANT ([facility]) Ibuprofen 800 MG Oral Tablet ANT ([facility]) Fluconazole 150 MG Oral Tablet ANT ([facility]) Sulfamethoxazole 800 MG / Trimethoprim 160 MG Oral Tablet ANT ([facility]) Hydrocortisone 10 MG/ML / Neomycin 3.5 M G/ML / Polymyxin B [id number] UNT/ML Otic Suspension ANT ([facility]) Naproxen 500 MG Oral Tablet ANT ([facility]) Ibuprofen 800 MG Oral Tablet ANT ([facility]) fluticasone propionate 50 mcg/actuation nasal spray,suspension ANT ([facility]) Ciprofloxacin 3 MG/ML / Dexamethasone 1 MG/ML Otic Suspension ANT ([facility]) Cephalexin 500 MG Oral Capsule ANT ([facility]) Amoxicillin 875 MG / Clavulanate 125 MG Oral Tablet ANT ([facility]) Sulfamethoxazole 800 MG / Trimethoprim 160 MG Oral Tablet ANT ([facility]) Hydrocortisone 10 MG/ML / Neomycin 3.5 M G/ML / Polymyxin B 65775 UNT/ML Otic Suspension ANT ([facility]) Naproxen 500 MG Oral Tablet ANT ([facility]) Ibuprofen 800 MG Oral Tablet ANT ([facility]) fluticasone propionate 50 mcg/actuation nasal spray,suspension ANT ([facility]) Ciprofloxacin 3 MG/ML / Dexamethasone 1 MG/ML Otic Suspension ANT ([facility]) Cephalexin 500 MG Oral Capsule ANT ([facility]) Amoxicillin 875 MG / Clavulanate 125 MG Oral Tablet ANT ([facility]) Sulfamethoxazole 800 MG / Trimethoprim 160 MG Oral Tablet ANT ([facility]) Hydrocortisone 10 MG/ML / Neomycin 3.5 M G/ML / Polymyxin B 06673 UNT/ML Otic Suspension ANT ([facility]) Naproxen 500 MG Oral Tablet ANT ([facility]) Ibuprofen 800 MG Oral Tablet ANT ([facility]) fluticasone propionate 50 mcg/actuation nasal spray,suspension ANT ([facility]) Ciprofloxacin 3 MG/ML / Dexamethasone 1 MG/ML Otic Suspension ANT ([facility]) Cephalexin 500 MG Oral Capsule ANT ([facility]) Amoxicillin 875 MG / Clavulanate 125 MG Oral Tablet ANT ([facility]) Sulfamethoxazole 800 MG / Trimethoprim 160 MG Oral Tablet ANT ([facility]) Hydrocortisone 10 MG/ML / Neomycin 3.5 M G/ML / Polymyxin B [id number] UNT/ML Otic Suspension ANT ([facility]) Naproxen 500 MG Oral Tablet ANT ([facility]) Ibuprofen 800 MG Oral Tablet ANT ([facility]) fluticasone propionate 50 mcg/actuation nasal spray,suspension ANT ([facility]) Ciprofloxacin 3 MG/ML / Dexamethasone 1 MG/ML Otic Suspension ANT ([facility]) Cephalexin 500 MG Oral Capsule ANT ([facility]) Amoxicillin 875 MG / Clavulanate 125 MG Oral Tablet ATN ([facility]) Sulfamethoxazole 800 MG / Trimethoprim 160 MG Oral Tablet ANT ([facility]) Hydrocortisone 10 MG/ML / Neomycin 3.5 M G/ML / Polymyxin B 62548 UNT/ML Otic Suspension ANT ([facility]) Naproxen 500 MG Oral Tablet ANT ([facility]) Ibuprofen 800 MG Oral Tablet ANT ([facility]) fluticasone propionate 50 mcg/actuation nasal spray,suspension ANT ([facility]) Ciprofloxacin 3 MG/ML / Dexamethasone 1 MG/ML Otic Suspension ANT ([facility]) Cephalexin 500 MG Oral Capsule ANT ([facility]) Amoxicillin 875 MG / Clavulanate 125 MG Oral Tablet ANT ([facility]) Amoxicillin 875 MG / Clavulanate 125 MG Oral Tablet [employer] ([facility]) Sulfamethoxazole 800 MG / Trimethoprim 160 MG Oral Tablet ANT ([facility]) Hydrocortisone 10 MG/ML / Neomycin 3.5 M G/ML / Polymyxin B 88883 UNT/ML Otic Suspension ANT ([facility]) Naproxen 500 MG Oral Tablet ANT ([facility]) Ibuprofen 800 MG Oral Tablet ANT ([facility]) fluticasone propionate 50 mcg/actuation nasal spray,suspension ANT ([facility]) Ciprofloxacin 3 MG/ML / Dexamethasone 1 MG/ML Otic Suspension ANT ([facility]) Amoxicillin 875 MG / Clavulanate 125 MG Oral Tablet ANT ([facility]) Sulfamethoxazole 800 MG / Trimethoprim 160 MG Oral Tablet ANT ([facility]) Hydrocortisone 10 MG/ML / Neomycin 3.5 M G/ML / Polymyxin B 06178 UNT/ML Otic Suspension ANT ([facility]) Naproxen 500 MG Oral Tablet ANT ([facility]) Ibuprofen 800 MG Oral Tablet ANT ([facility]) fluticasone propionate 50 mcg/actuation nasal spray,suspension ANT ([facility]) Ciprofloxacin 3 MG/ML / Dexamethasone 1 MG/ML Otic Suspension ANT ([facility]) Amoxicillin 875 MG / Clavulanate 125 MG Oral Tablet ANT ([facility]) Sulfamethoxazole 800 MG / Trimethoprim 160 MG Oral Tablet ANT ([facility]) Hydrocortisone 10 MG/ML / Neomycin 3.5 M G/ML / Polymyxin B 50072 UNT/ML Otic Suspension ANT ([facility]) Naproxen 500 MG Oral Tablet ANT ([facility]) Ibuprofen 800 MG Oral Tablet ANT ([facility]) fluticasone propionate 50 mcg/actuation nasal spray,suspension ANT ([facility]) Ciprofloxacin 3 MG/ML / Dexamethasone 1 MG/ML Otic Suspension ANT ([facility]) Amoxicillin 875 MG / Clavulanate 125 MG Oral Tablet ANT ([facility]) Sulfamethoxazole 800 MG / Trimethoprim 160 MG Oral Tablet ANT ([facility]) Hydrocortisone 10 MG/ML / Neomycin 3.5 M G/ML / Polymyxin B [id number] UNT/ML Otic Suspension ANT ([facility]) Naproxen 500 MG Oral Tablet ANT ([facility]) Ibuprofen 800 MG Oral Tablet ANT ([facility]) fluticasone propionate 50 mcg/actuation nasal spray,suspension ANT ([facility]) Ciprofloxacin 3 MG/ML / Dexamethasone 1 MG/ML Otic Suspension ANT ([facility]) Amoxicillin 875 MG / Clavulanate 125 MG Oral Tablet ANT ([facility]) Sulfamethoxazole 800 MG / Trimethoprim 160 MG Oral Tablet ANT ([facility]) Hydrocortisone 10 MG/ML / Neomycin 3.5 M G/ML / Polymyxin B 20154 UNT/ML Otic Suspension ANT ([facility]) Naproxen 500 MG Oral Tablet ANT ([facility]) Ibuprofen 800 MG Oral Tablet ANT ([facility]) fluticasone propionate 50 mcg/actuation nasal spray,suspension ANT ([facility]) Ciprofloxacin 3 MG/ML / Dexamethasone 1 MG/ML Otic Suspension ANT ([facility]) Amoxicillin 875 MG / Clavulanate 125 MG Oral Tablet ANT ([facility]) Escitalopram 10 MG Oral Tablet ANT ([facility]) Doxycycline Monohydrate 100 MG Oral Tablet ANT ([facility]) Ciprofloxacin 3 MG/ML / Dexamethasone 1 MG/ML Otic Suspension ANT ([facility]) Cephalexin 500 MG Oral Capsule ANT ([facility]) cefdinir 300 MG Oral Capsule ANT ([facility]) Amoxicillin 875 MG / Clavulanate 125 MG Oral Tablet ANT ([facility]) Amoxicillin 500 MG Oral Capsule ANT ([facility]) terconazole 4 MG/ML Vaginal Cream ANT ([facility])
== END 2021-04-23 13:20 | disposition left against medical advice (07) ==
LOC: M ED 09:36
DX: Z53.29 Procedure and treatment not carried out because of patient's decision for other reasons (principal)

== ENCOUNTER → 2021-07-15 | Outpatient (CLI) | payer BC, MEDICAID ==
[~2021-07-15] MED LIST changes: +BUPR150T5; +FLUTISP
[2021-07-15 16:19] LABS: FREE T4 0.99 NG/DL (0.76-1.46); THYROID STIMULATING HORMONE 0.886 uIU/ML (0.358-3.740)
== END ==
LOC: M PLALAB 13:31
PROVIDERS: ATTEND Nurse Practitioner Family
DX: E06.1 Subacute thyroiditis (principal)

== ENCOUNTER → 2021-10-14 | Outpatient (CLI) | payer BC, MEDICAID ==
[~2021-10-14] MED LIST changes: +BUPR-71; -BUPR150T5
[2021-10-14 16:28] LABS: FREE T4 1.08 NG/DL (0.76-1.46); THYROID STIMULATING HORMONE 0.703 uIU/ML (0.358-3.740)
== END ==
LOC: M PLALAB 14:02
PROVIDERS: ATTEND Nurse Practitioner Family
DX: E06.1 Subacute thyroiditis (principal)

== ENCOUNTER 2021-12-06 22:32 | Emergency (ER) | payer BC, MEDICAID ==
[~2021-12-06] VITALS: Ht 165.1 cm; Wt 74.5 kg
[~2021-12-06 22:32] MED LIST changes: +ETON68IM SC; -NEXP1IMP SC
[2021-12-06] MEDS ORDERED: LEVO50TA5 (22:45)
[2021-12-06] MEDS ORDERED: AMOX500C (22:45)
[2021-12-07] MEDS ORDERED: CIPRODEX OTIC SUSP 7.5ML AS STA (03:52)
[2021-12-07] MEDS ORDERED: CIPROFLOXACIN 500MG TABLET PO ONE (03:55)
[2021-12-07] MEDS ORDERED: CIPR7.5D5 AS (03:59)
[2021-12-07] MEDS ORDERED: CIPR-249 PO (03:59)
[2021-12-07] MEDS ORDERED: KETOROLAC 60MG 2ML VIAL IM ONE (04:05)
[2021-12-07 04:53] VITALS: BP 107/65
== END 2021-12-07 04:54 | disposition home or self-care (01) ==
LOC: M ED 22:32
DX: H60.92 Unspecified otitis externa, left ear (principal)
CPT/HCPCS: 96372; 99283; J1885

== ENCOUNTER → 2022-04-01 | Outpatient (REF) | payer BC ==
[~2022-04-01] MED LIST changes: +AMOX500C; +CIPR-249 PO; +CIPR7.5D5 AS; +LEVO50TA5
== END ==
LOC: M LAB REF 16:10
PROVIDERS: ATTEND Physician Assistant
DX: J02.9 Acute pharyngitis, unspecified (principal)

== ENCOUNTER 2022-05-01 18:03 | Emergency (ER) | payer BC ==
[~2022-05-01] VITALS: Ht 152.4 cm; Wt 72.5 kg
[2022-05-01] MEDS ORDERED: LEVOTAB10 (18:24)
[2022-05-01 20:34] LABS: BASO % 0.8 % (0.0-1.0); EOS % 0.8 % (0.0-3.0); HEMATOCRIT 43.1 % (36.0-47.0); HEMOGLOBIN 14.5 g/dl (12.0-15.5); LYMPH # 1.6 10^3/uL (1.5-5.0); LYMPH % 43.8 % (24.0-44.0); MEAN CORPUSCULAR HEMOGLOBIN 30.7 pg (27.0-33.0); MEAN CORPUSCULAR HGB CONC 33.6 g/dl (32.0-36.5); MEAN CORPUSCULAR VOLUME 91.3 fl (80.0-96.0); MONO # 0.6 10^3/uL (0.0-0.8); MONO % 17.8 % (2.0-8.0); NEUTROPHILS # 1.3 10^3/uL (1.5-8.5); NEUTROPHILS % 36.2 % (36.0-66.0); PLATELET COUNT, AUTOMATED 278 10^3/uL (150-450); RED BLOOD COUNT 4.72 10^6/uL (4.00-5.40); WHITE BLOOD COUNT 3.5 10^3/uL (4.0-10.0)
[2022-05-01 20:50] LABS: MONO SCRN NEGATIVE (NEGATIVE)
[2022-05-01 21:11] LABS: INFLUENZA A AMPLIFICATION POSITIVE (NEGATIVE); INFLUENZA B AMPLIFICATION NEGATIVE (NEGATIVE)
[2022-05-01] MEDS ORDERED: ONDA4TAB6 PO (21:41)
[2022-05-01] MEDS ORDERED: BENZ200C70 PO (21:41)
[2022-05-01 22:15] VITALS: BP 131/67
== END 2022-05-01 22:23 | disposition home or self-care (01) ==
LOC: M ED 18:03
DX: J09.X2 Influenza due to identified novel influenza A virus with other respiratory manifestations (principal); H65.02 Acute serous otitis media, left ear; R04.0 Epistaxis; E03.9 Hypothyroidism, unspecified; F41.9 Anxiety disorder, unspecified; F32.9 Major depressive disorder, single episode, unspecified; Z79.890 Hormone replacement therapy; Z79.899 Other long term (current) drug therapy

== ENCOUNTER → 2022-06-24 | Outpatient (CLI) | payer BC ==
[~2022-06-24] MED LIST changes: +BENZ200C70 PO; +LEVOTAB10; +ONDA4TAB6 PO
[2022-06-24 23:12] LABS: FREE T4 1.07 NG/DL (0.89-1.76); THYROID STIMULATING HORMONE 0.486 uIU/ML (0.55-4.78)
== END ==
LOC: M PLALAB 14:00
PROVIDERS: ATTEND Nurse Practitioner Family
DX: E06.1 Subacute thyroiditis (principal)

== ENCOUNTER → 2022-07-29 | Outpatient (REF) | payer BC | LOC: M LAB REF 16:16 | PROVIDERS: ATTEND Physician Assistant | DX: B36.0 Pityriasis versicolor (principal) ==

== ENCOUNTER → 2022-11-10 | Outpatient (CLI) | payer BC ==
[~2022-11-10] MED LIST changes: +FLUT50SP17; -FLUTISP; +PROHANCE 279.3MG/ML 15ML VIAL As Ordered ONE
[2022-11-10 15:12] LABS: BASO % 0.5 % (0.0-1.0); EOS # 0.2 10^3/uL (0.0-0.5); EOS % 2.8 % (0.0-3.0); HEMATOCRIT 42.3 % (36.0-47.0); HEMOGLOBIN 13.9 g/dl (12.0-15.5); LYMPH # 2.3 10^3/uL (1.5-5.0); MEAN CORPUSCULAR HGB CONC 32.9 g/dl (32.0-36.5); MEAN CORPUSCULAR VOLUME 94.4 fl (80.0-96.0); MONO # 0.6 10^3/uL (0.0-0.8); NEUTROPHILS % 49.2 % (36.0-66.0); PLATELET COUNT, AUTOMATED 353 10^3/uL (150-450); RED BLOOD COUNT 4.48 10^6/uL (4.00-5.40); WHITE BLOOD COUNT 6.1 10^3/uL (4.0-10.0)
[2022-11-10 15:28] LABS: ERYTHROCYTE SEDIMENTATION RATE 4 mm/hr (0-20)
[2022-11-10 15:43] LABS: BLOOD UREA NITROGEN 7 MG/DL (9-23); CALCIUM LEVEL 8.9 MG/DL (8.5-10.1); CARBON DIOXIDE LEVEL 25 MMOL/L (20-31); CHLORIDE LEVEL 106 MMOL/L (98-107); CREATININE FOR GFR 0.68 MG/DL (0.55-1.30); GLOMERULAR FILTRATION RATE > 60.0 (>60); GLUCOSE, FASTING 86 MG/DL (60-100); POTASSIUM SERUM 3.9 MMOL/L (3.5-5.1); SODIUM LEVEL 140 MMOL/L (136-145)
[2022-11-10 15:44] LABS: C REACTIVE PROTEIN QUANTITATIV < 0.40 MG/DL (<1.0)
== END ==
LOC: M RAD 14:36
PROVIDERS: ATTEND Physician Assistant
DX: G44.52 New daily persistent headache (NDPH) (principal); H53.451 Other localized visual field defect, right eye; R42 Dizziness and giddiness
CPT/HCPCS: 36415; 70553; 80048; 84443; 85025; 85652; 86140; A9576

== ENCOUNTER → 2023-02-09 | Outpatient (REF) | payer BC ==
[~2023-02-09] MED LIST changes: -PROHANCE 279.3MG/ML 15ML VIAL As Ordered ONE
[2023-02-09 17:21] LABS: FREE T4 1.16 NG/DL (0.89-1.76)
[2023-02-09 17:22] LABS: THYROID STIMULATING HORMONE 1.917 uIU/ML (0.55-4.78)
== END ==
LOC: M LAB REF 16:32
PROVIDERS: ATTEND Nurse Practitioner Family
DX: E06.1 Subacute thyroiditis (principal)

== ENCOUNTER → 2024-02-15 | Outpatient (REF) | payer BC ==
[~2024-02-15] MED LIST changes: -FLUT50SP17; +FLUTISP; +ONDA-282 PO; -ONDA4TAB6 PO
[2024-02-15 19:08] LABS: THYROID STIMULATING HORMONE 0.856 uIU/ML (0.55-4.78)
[2024-02-15 19:10] LABS: FREE T4 0.95 NG/DL (0.89-1.76)
== END ==
LOC: M LAB REF 16:26
PROVIDERS: ATTEND Physician Assistant
DX: E06.1 Subacute thyroiditis (principal)

== ENCOUNTER → 2025-02-20 | Outpatient (REF) | payer BC ==
[~2025-02-20] MED LIST changes: +LIDO1ADH93 TOP; -LIDO5DIS41 TOP
[2025-02-20 18:27] LABS: BASO # 0.1 10^3/uL (0.0-0.2); BASO % 0.8 % (0.0-1.0); EOS # 0.2 10^3/uL (0.0-0.5); EOS % 2.9 % (0.0-3.0); LYMPH # 2.4 10^3/uL (1.5-5.0); LYMPH % 36.0 % (24.0-44.0); MONO # 0.6 10^3/uL (0.0-0.8); MONO % 9.8 % (2.0-8.0); NEUTROPHILS # 3.2 10^3/uL (1.5-8.5); NEUTROPHILS % 49.1 % (36.0-66.0); PLATELET COUNT, AUTOMATED 343 10^3/uL (150-450)
[2025-02-20 18:40] LABS: ALT/SGPT 36 U/L (7.0-40); AST/SGOT 25 U/L (<34); CALCIUM LEVEL 9.5 MG/DL (8.5-10.1); CARBON DIOXIDE LEVEL 26 MMOL/L (20-31); CHLORIDE LEVEL 106 MMOL/L (98-107); CHOLESTEROL LEVEL 196 MG/DL (<200); CHOLESTEROL RISK RATIO 3.57 (<5); CREATININE FOR GFR 0.83 MG/DL (0.55-1.30); GLOMERULAR FILTRATION RATE > 90.0 (>60); LDL CHOLESTEROL 118.3 MG/DL (<100); NON-HDL-C 141.1 MG/DL; POTASSIUM SERUM 5.0 MMOL/L (3.5-5.1); SODIUM LEVEL 142 MMOL/L (136-145); TRIGLYCERIDES LEVEL 114 MG/DL (<150)
[2025-02-20 18:42] LABS: TOTAL 25(OH) VITAMIN D 27.6 NG/ML (20.0-100.0)
[2025-02-20 19:13] LABS: ESTIMATED AVERAGE GLUCOSE 100.0 MG/DL (60-110)
== END ==
LOC: M LAB REF 17:30
PROVIDERS: ATTEND Nurse Practitioner Family
DX: E66.01 Morbid (severe) obesity due to excess calories (principal); Z68.41 Body mass index [BMI] 40.0-44.9, adult; E06.1 Subacute thyroiditis; E55.9 Vitamin D deficiency, unspecified